=== PATIENT | male | born 1955 | race Caucasian/White ===

== ENCOUNTER 2017-06-16 19:22 | Emergency (ER) | payer MEDICARE, OTHER ==
[~2017-06-16] VITALS: Ht 180.3 cm; Wt 54.5 kg
[~2017-06-16 19:22] MED LIST: DOCU100C40 PO; HYDR-565 PO; LACT-28 PO; LORA0.5T PO; MAG30ORA PO; MIRT-92 PO; OLAN2.5T28 PO; POLY17PO10 PO
[2017-06-16 19:38] VITALS: BP 111/91
[2017-06-16] MEDS ORDERED: PERM60CR4 TP (20:54)
== END 2017-06-16 22:02 | disposition home or self-care (01) ==
LOC: ER 19:22
DX: B86 Scabies (principal); Z59.0 Homelessness; Z79.899 Other long term (current) drug therapy
CPT/HCPCS: 99283

== ENCOUNTER 2018-01-31 10:44 | Inpatient (IN) | payer MEDICARE, OTHER ==
[~2018-01-31] VITALS: Ht 180.3 cm; Wt 65.9 kg
[2018-01-31] VITALS (16 sets, daily range): BP systolic 75–133; BP diastolic 41–74
[~2018-01-31 10:44] MED LIST changes: +HYDR-4353 PO; -HYDR-565 PO; +PERM60CR4 TP
[2018-01-31] MEDS ORDERED: Permethrin 1% 59ml topical rinse TP ONE (10:50)
[2018-01-31 12:03] LABS: BASOPHILS % (AUTO) 0.2 % (0-1); EOSINOPHILS # (AUTO) 0.4 X10'3 (0-0.9); EOSINOPHILS % (AUTO) 3.5 % (0-6); LYMPHOCYTES # (AUTO) 0.8 X10'3 (1.1-4.8); LYMPHOCYTES % (AUTO) 6.5 % (21-51); MEAN CORPUSCULAR HEMOGLOBIN 29.8 PG (27.0-31.0); MEAN CORPUSCULAR HGB CONC 32.8 % (33.0-36.5); MEAN CORPUSCULAR VOLUME 90.7 FL (78-98); MEAN PLATELET VOLUME 6.8 FL (7.4-10.4); MONOCYTES # (AUTO) 0.9 X10'3 (0-0.9); MONOCYTES % (AUTO) 8.1 % (2-12); NEUTROPHILS # (AUTO) 9.6 X10'3 (1.8-7.7); NEUTROPHILS % (AUTO) 81.7 % (42-75); PLATELET COUNT 595 X10'3 (140-440); RED BLOOD COUNT 1.79 X10'6 (4.70-6.10); RED CELL DISTRIBUTION WIDTH 13.6 % (11.5-14.5); WHITE BLOOD COUNT 11.7 X10'3 (4.5-11.0)
[2018-01-31 12:09] LABS: HEMATOCRIT 16.3 % (42.0-52.0); HEMOGLOBIN 5.3 g/dl (14.0-17.9)
[2018-01-31] MEDS ORDERED: haloperidol lactate 5mg/ml inj IM ONE (12:15)
[2018-01-31] MEDS ORDERED: LORazepam 2 mg/ml vial IV ONE (12:15)
[2018-01-31 12:17] LABS: ALANINE AMINOTRANSFERASE 19 U/L (12-78); ALBUMIN/GLOBULIN RATIO 0.8 (1.1-1.5); ALKALINE PHOSPHATASE 95 IU/L (46-116); ANION GAP 12 (8-16); ASPARTATE AMINO TRANSFERASE 17 U/L (10-37); BILIRUBIN,TOTAL 0.3 MG/DL (0.1-1.0); BLOOD UREA NITROGEN 28 MG/DL (7-18); BUN/CREATININE RATIO 21.4 (5.4-32.0); CHLORIDE 106 MMOL/L (99-107); CREATININE 1.31 MG/DL (0.60-1.10); GLUCOSE 216 MG/DL (70-104); POTASSIUM 4.3 MMOL/L (3.5-5.1); SODIUM 143 MMOL/L (135-145); TOTAL CARBON DIOXIDE 24.9 MMOL/L (24-32); TOTAL PROTEIN 6.9 G/DL (6.4-8.2); eGFR 55 ML/MIN
[2018-01-31] MEDS: pantoprazole 40MG/NS 100ML BAG 100 ML IV SCH ×3 (12:20→22:14)
[2018-01-31] MEDS ORDERED: normal saline 1000ML IV soln IV ONE (12:20)
[2018-01-31] MEDS ORDERED: pantoprazole IV 80 MG in normal saline 100ml IV soln 100 ML IV ONE (12:20)
[2018-01-31] MEDS ORDERED: pantoprazole 40 MG vial IV ONE (12:25)
[2018-01-31 12:26] LABS: ETHANOL < 0.010 GM/DL (0.0-0.010)
[2018-01-31 12:34] LABS: NUCLEATED RED BLOOD CELLS 1 /100WBC (0-0); PLATELET ESTIMATE INCREASED; TOTAL CELLS COUNTED 100
[2018-01-31] MEDS ORDERED: LORazepam 2 mg/ml vial IM ONE (12:35)
[2018-01-31 12:40] LABS: POLYCHROMASIA FEW; SCHISTOCYTES FEW
[2018-01-31 12:58] LABS: HYPOCHROMASIA 1+
[2018-01-31 12:59] LABS: TOXIC GRANULATION 1+
[2018-01-31] MEDS ORDERED: levoFLOXACIN-Levaquin 750MG/D5 150 ML IV ONE (13:55)
[2018-01-31 15:30] LABS: HIV ANTIBODY 1&2 RAPID NON-REACTIVE (Neg)
[2018-01-31] MEDS ORDERED: LIDOcaine 2% 10ml TOPICAL JELLY (Urojet) MM ONE (15:35)
[2018-01-31 15:57] LABS: CLARITY,URINE SLIGHTLY CLOUDY (Clear); COLOR,URINE YELLOW (Yellow); GLUCOSE, URINE NEGATIVE (Neg); KETONES,URINE TRACE mg/dl (Neg); LEUKOCYTE ESTERASE ,URINE NEGATIVE (Neg); NITRITES, URINE NEGATIVE (Neg); OCCULT BLOOD,URINE MODERATE (Neg); PH,URINE 5.5 (4.8-8.0); PROTEIN,URINE NEGATIVE (Neg); UROBILINOGEN,URINE 0.2 E.U/dL (0.2-1.0)
[2018-01-31 15:59] LABS: UA COLLECTION TYPE FOLEY CATH
[2018-01-31] MEDS ORDERED: morphine 2 MG/ML inj. syringe IV PRN ×2 (16:00)
[2018-01-31] MEDS ORDERED: magnesium 1gm/100ml D5W IVPB 100 ML IV PRN (16:00)
[2018-01-31] MEDS ORDERED: magnesium 4gm in 100ml NS 100 ML IV PRN (16:00)
[2018-01-31] MEDS ORDERED: potassium Cl 40MEQ/NS 500ml 500 ML IV PRN ×2 (16:00)
[2018-01-31] MEDS ORDERED: magnesium hydroxide 30ml (MOM) UD suspension PO PRN (16:00)
[2018-01-31] MEDS ORDERED: magnesium Cl slow-release 64mg tablet PO PRN (16:00)
[2018-01-31] MEDS ORDERED: ondansetron/PF 4mg/2ml inj IV PRN (16:00)
[2018-01-31] MEDS ORDERED: mag hydrox/Alum hydrox/simeth 30ml oral suspension PO PRN (16:00)
[2018-01-31] MEDS ORDERED: acetaminophen 325mg tablet PO PRN ×2 (16:00)
[2018-01-31] MEDS ORDERED: potassium Cl 20 mEq SR tablet PO PRN ×2 (16:00)
[2018-01-31] MEDS ORDERED: HYDROcodone/acetaminophen 5mg/325mg tablet PO PRN (16:00)
[2018-01-31] MEDS ORDERED: HYDROcodone/acetaminophen 10/325mg tab PO PRN (16:00)
[2018-01-31 16:04] LABS: MUCUS STRANDS FEW /LPF (Neg); SQUAMOUS EPITHELIAL CELL,UR FEW /LPF (FEW)
[2018-01-31 16:05] LABS: BACTERIA,URINE FEW /HPF (Neg); RBC,URINE 0-2 /HPF (0-2); WBC,URINE 0-4 /HPF (0-4)
[2018-01-31 16:06] LABS: AMORPHOUS URATES 2+
[2018-01-31 16:14] LABS: URINE AMPHETAMINE SCREEN NEGATIVE (Neg); URINE BARBITUATE SCREEN NEGATIVE (Neg); URINE BENZODIAZEPINES SCREEN NEGATIVE (Neg); URINE CANNABINOID SCREEN NEGATIVE (Neg); URINE COCAINE SCREEN NEGATIVE (Neg); URINE METHADONE SCREEN NEGATIVE (Neg); URINE OPIATE SCREEN NEGATIVE (Neg); URINE PHENCYCLIDINE SCREEN NEGATIVE (Neg)
[2018-01-31] MEDS: normal saline 1000ml 1,000 ML IV SCH (17:24)
[2018-01-31 20:19] LABS: OCCULT BLOOD STOOL POSITIVE (Neg)
[2018-01-31] MEDS ORDERED: LORazepam 0.5 MG tablet PO PRN (20:25)
[2018-01-31 20:53] LABS: MEAN CORPUSCULAR HEMOGLOBIN 29.3 PG (27.0-31.0); MEAN CORPUSCULAR HGB CONC 33.1 % (33.0-36.5); MEAN CORPUSCULAR VOLUME 88.3 FL (78-98); MEAN PLATELET VOLUME 7.1 FL (7.4-10.4); PLATELET COUNT 332 X10'3 (140-440); RED BLOOD COUNT 2.21 X10'6 (4.70-6.10); RED CELL DISTRIBUTION WIDTH 13.9 % (11.5-14.5); WHITE BLOOD COUNT 10.3 X10'3 (4.5-11.0)
[2018-01-31 20:58] LABS: HEMATOCRIT 19.5 % (42.0-52.0); HEMOGLOBIN 6.5 g/dl (14.0-17.9)
[2018-01-31] MEDS: polyethylene glycol 3350 17gm powd pack PO SCH (21:00)
[2018-01-31] MEDS: mirtazapine 15mg tablet PO SCH (21:00)
[2018-02-01 01:00] VITALS: BP 93/53
[2018-02-01] MEDS: pantoprazole 40MG/NS 100ML BAG 100 ML IV SCH ×5 (01:00→21:22)
[2018-02-01 01:05] VITALS: BP 93/53
[2018-02-01] MEDS: normal saline 1000ml 1,000 ML IV SCH ×3 (02:00→22:00)
[2018-02-01 03:00] VITALS: BP 101/56
[2018-02-01 03:12] LABS: BASOPHILS % (AUTO) 0 % (0-1); EOSINOPHILS # (AUTO) 0.4 X10'3 (0-0.9); EOSINOPHILS % (AUTO) 3.5 % (0-6); HEMOGLOBIN 8.4 g/dl (14.0-17.9); LYMPHOCYTES # (AUTO) 0.5 X10'3 (1.1-4.8); LYMPHOCYTES % (AUTO) 5.3 % (21-51); MEAN CORPUSCULAR HEMOGLOBIN 29.6 PG (27.0-31.0); MEAN CORPUSCULAR HGB CONC 33.5 % (33.0-36.5); MEAN CORPUSCULAR VOLUME 88.5 FL (78-98); MEAN PLATELET VOLUME 6.7 FL (7.4-10.4); MONOCYTES # (AUTO) 0.9 X10'3 (0-0.9); MONOCYTES % (AUTO) 8.6 % (2-12); NEUTROPHILS # (AUTO) 8.5 X10'3 (1.8-7.7); NEUTROPHILS % (AUTO) 82.6 % (42-75); PLATELET COUNT 293 X10'3 (140-440); RED BLOOD COUNT 2.82 X10'6 (4.70-6.10); RED CELL DISTRIBUTION WIDTH 14.5 % (11.5-14.5); WHITE BLOOD COUNT 10.2 X10'3 (4.5-11.0)
[2018-02-01 03:22] LABS: ALBUMIN 2.3 G/DL (3.4-5.0); ANION GAP 11 (8-16); BLOOD UREA NITROGEN 24 MG/DL (7-18); BUN/CREATININE RATIO 22.2 (5.4-32.0); CALCIUM 7.5 MG/DL (8.5-10.1); CHLORIDE 107 MMOL/L (99-107); CREATININE 1.08 MG/DL (0.60-1.10); GLUCOSE 84 MG/DL (70-104); POTASSIUM 3.7 MMOL/L (3.5-5.1); SODIUM 140 MMOL/L (135-145); TOTAL CARBON DIOXIDE 21.8 MMOL/L (24-32); eGFR 69 ML/MIN
[2018-02-01 06:00] VITALS: BP 118/94
[2018-02-01] MEDS: K and/or MAG REPLACEMENT MC SCH (07:08)
[2018-02-01] MEDS: OLANZapine 2.5MG tablet PO SCH ×2 (08:00→21:28)
[2018-02-01] MEDS ORDERED: levoFLOXACIN-Levaquin 750MG/D5 150 ML IV SCH (08:00)
[2018-02-01 11:00] VITALS: BP 97/59
[2018-02-01] MEDS: vancomycin/NS 1 GM ADD-VANTAGE 250 ML IV SCH ×2 (12:08→22:00)
[2018-02-01 16:06] LABS: HEMOGLOBIN 7.7 g/dl (14.0-17.9); MEAN CORPUSCULAR HEMOGLOBIN 29.6 PG (27.0-31.0); MEAN CORPUSCULAR HGB CONC 33.5 % (33.0-36.5); MEAN CORPUSCULAR VOLUME 88.3 FL (78-98); MEAN PLATELET VOLUME 7.3 FL (7.4-10.4); PLATELET COUNT 270 X10'3 (140-440); RED CELL DISTRIBUTION WIDTH 14.1 % (11.5-14.5); WHITE BLOOD COUNT 10.4 X10'3 (4.5-11.0)
[2018-02-01] MEDS: Ivermectin 3mg tablet PO SCH (16:17)
[2018-02-01] MEDS: polyethylene glycol 3350 17gm powd pack PO SCH (21:00)
[2018-02-01] MEDS: lactobacillus rhamnosus 10,000 MMU CELLS/CAPSULE PO SCH (21:28)
[2018-02-01] MEDS: mirtazapine 15mg tablet PO SCH (21:28)
[2018-02-01] MEDS ORDERED: haloperidol lactate 5mg/ml inj IM ONE (23:50)
[2018-02-01] MEDS ORDERED: diphenhydrAMINE 50 mg/ml inj IM ONE (23:50)
[2018-02-02 00:30] VITALS: BP 102/49
[2018-02-02] MEDS: pantoprazole 40MG/NS 100ML BAG 100 ML IV SCH ×5 (01:00→21:00)
[2018-02-02 07:00] VITALS: BP 122/82
[2018-02-02] MEDS: lactobacillus rhamnosus 10,000 MMU CELLS/CAPSULE PO SCH ×2 (08:00→20:00)
[2018-02-02] MEDS: normal saline 1000ml 1,000 ML IV SCH ×2 (08:00→18:00)
[2018-02-02] MEDS: K and/or MAG REPLACEMENT MC SCH (08:00)
[2018-02-02] MEDS: OLANZapine 2.5MG tablet PO SCH ×2 (08:00→20:00)
[2018-02-02] MEDS: vancomycin/NS 1 GM ADD-VANTAGE 250 ML IV SCH ×2 (10:00→22:00)
[2018-02-02 11:15] LABS: HBSAG SCREEN Negative (Negative); HEP A AB, IGM Negative (Negative); HEP B CORE AB, IGM Negative (Negative); HEPATITIS C ANTIBODY <0.1 s/co ratio (0.0-0.9)
[2018-02-02] MEDS ORDERED: LORazepam 2 mg/ml vial IV PRN (12:00)
[2018-02-02 12:34] LABS: BASOPHILS % (AUTO) 0.2 % (0-1); EOSINOPHILS # (AUTO) 1.4 X10'3 (0-0.9); EOSINOPHILS % (AUTO) 14.5 % (0-6); HEMATOCRIT 24.4 % (42.0-52.0); HEMOGLOBIN 7.9 g/dl (14.0-17.9); LYMPHOCYTES # (AUTO) 0.7 X10'3 (1.1-4.8); LYMPHOCYTES % (AUTO) 7.4 % (21-51); MEAN CORPUSCULAR HEMOGLOBIN 29.1 PG (27.0-31.0); MEAN CORPUSCULAR HGB CONC 32.4 % (33.0-36.5); MEAN CORPUSCULAR VOLUME 89.8 FL (78-98); MEAN PLATELET VOLUME 6.9 FL (7.4-10.4); MONOCYTES # (AUTO) 0.8 X10'3 (0-0.9); MONOCYTES % (AUTO) 7.9 % (2-12); NEUTROPHILS # (AUTO) 6.9 X10'3 (1.8-7.7); PLATELET COUNT 272 X10'3 (140-440); RED BLOOD COUNT 2.72 X10'6 (4.70-6.10); RED CELL DISTRIBUTION WIDTH 14.5 % (11.5-14.5); WHITE BLOOD COUNT 9.9 X10'3 (4.5-11.0)
[2018-02-02 12:50] LABS: ALBUMIN 2.1 G/DL (3.4-5.0); ANION GAP 9 (8-16); BLOOD UREA NITROGEN 13 MG/DL (7-18); BUN/CREATININE RATIO 15.3 (5.4-32.0); CALCIUM 7.9 MG/DL (8.5-10.1); CHLORIDE 109 MMOL/L (99-107); CREATININE 0.85 MG/DL (0.60-1.10); GLUCOSE 75 MG/DL (70-104); POTASSIUM 3.3 MMOL/L (3.5-5.1); SODIUM 142 MMOL/L (135-145); TOTAL CARBON DIOXIDE 23.8 MMOL/L (24-32); eGFR > 90 ML/MIN
[2018-02-02] MEDS ORDERED: OLANZapine **IM** 10 mg inj. IM PRN (17:05)
[2018-02-02 19:00] VITALS: BP 94/56
[2018-02-02] MEDS: polyethylene glycol 3350 17gm powd pack PO SCH (21:00)
[2018-02-02] MEDS: mirtazapine 15mg tablet PO SCH (21:00)
[2018-02-02] MEDS ORDERED: VANCOMYCIN LEVEL IV ONE (21:30)
[2018-02-03] MEDS: pantoprazole 40MG/NS 100ML BAG 100 ML IV SCH ×5 (01:00→21:00)
[2018-02-03 03:00] VITALS: BP 94/60
[2018-02-03] MEDS: normal saline 1000ml 1,000 ML IV SCH ×2 (04:00→13:04)
[2018-02-03] MEDS: K and/or MAG REPLACEMENT MC SCH (08:00)
[2018-02-03] MEDS: lactobacillus rhamnosus 10,000 MMU CELLS/CAPSULE PO SCH ×2 (08:00→20:00)
[2018-02-03] MEDS: OLANZapine 2.5MG tablet PO SCH ×2 (08:00→20:00)
[2018-02-03] MEDS: vancomycin/NS 1 GM ADD-VANTAGE 250 ML IV SCH (10:00)
[2018-02-03 14:31] VITALS: BP 101/58
[2018-02-03 15:00] VITALS: BP 86/51
[2018-02-03] MEDS ORDERED: haloperidol lactate 5mg/ml inj IM PRN (15:25)
[2018-02-03] MEDS: LORazepam 2 mg/ml vial IM PRN (16:10)
[2018-02-03 16:30] VITALS: BP 133/86
[2018-02-03] MEDS: ceFAZolin 1GM/D5W- ADD-VANTAGE 50 ML IV SCH (16:51)
[2018-02-03 17:38] LABS: BASOPHILS % (AUTO) 0.2 % (0-1); EOSINOPHILS # (AUTO) 1.1 X10'3 (0-0.9); HEMATOCRIT 28.8 % (42.0-52.0); HEMOGLOBIN 9.4 g/dl (14.0-17.9); LYMPHOCYTES # (AUTO) 0.8 X10'3 (1.1-4.8); LYMPHOCYTES % (AUTO) 7.6 % (21-51); MEAN CORPUSCULAR HEMOGLOBIN 29.1 PG (27.0-31.0); MEAN CORPUSCULAR HGB CONC 32.7 % (33.0-36.5); MEAN PLATELET VOLUME 7.6 FL (7.4-10.4); MONOCYTES # (AUTO) 0.7 X10'3 (0-0.9); MONOCYTES % (AUTO) 6.5 % (2-12); NEUTROPHILS % (AUTO) 75.7 % (42-75); PLATELET COUNT 326 X10'3 (140-440); RED BLOOD COUNT 3.24 X10'6 (4.70-6.10); RED CELL DISTRIBUTION WIDTH 14.4 % (11.5-14.5); WHITE BLOOD COUNT 10.5 X10'3 (4.5-11.0)
[2018-02-03 17:55] LABS: ALBUMIN 2.2 G/DL (3.4-5.0); ANION GAP 7 (8-16); BLOOD UREA NITROGEN 8 MG/DL (7-18); CALCIUM 8.1 MG/DL (8.5-10.1); CHLORIDE 107 MMOL/L (99-107); GLUCOSE 133 MG/DL (70-104); MAGNESIUM 2.1 MG/DL (1.5-2.4); POTASSIUM 3.9 MMOL/L (3.5-5.1); SODIUM 142 MMOL/L (135-145); TOTAL CARBON DIOXIDE 27.7 MMOL/L (24-32); eGFR > 90 ML/MIN
[2018-02-03 18:00] VITALS: BP 86/57
[2018-02-03] MEDS: polyethylene glycol 3350 17gm powd pack PO SCH (21:00)
[2018-02-03] MEDS: mirtazapine 15mg tablet PO SCH (21:00)
[2018-02-04] MEDS: pantoprazole 40MG/NS 100ML BAG 100 ML IV SCH ×5 (01:00→23:19)
[2018-02-04] MEDS: K and/or MAG REPLACEMENT MC SCH (08:00)
[2018-02-04] MEDS: ceFAZolin 1GM/D5W- ADD-VANTAGE 50 ML IV SCH ×4 (08:00→23:20)
[2018-02-04] MEDS: OLANZapine 2.5MG tablet PO SCH ×2 (08:00→21:44)
[2018-02-04] MEDS: lactobacillus rhamnosus 10,000 MMU CELLS/CAPSULE PO SCH ×2 (08:00→20:00)
[2018-02-04] MEDS: normal saline 1000ml 1,000 ML IV SCH ×3 (10:00→15:28)
[2018-02-04 10:30] VITALS: BP 97/50
[2018-02-04 15:00] VITALS: BP 111/77
[2018-02-04 16:46] LABS: BASOPHILS % (AUTO) 0.4 % (0-1); EOSINOPHILS # (AUTO) 1.2 X10'3 (0-0.9); EOSINOPHILS % (AUTO) 12.1 % (0-6); HEMATOCRIT 29.2 % (42.0-52.0); HEMOGLOBIN 9.4 g/dl (14.0-17.9); LYMPHOCYTES # (AUTO) 0.9 X10'3 (1.1-4.8); LYMPHOCYTES % (AUTO) 8.5 % (21-51); MEAN CORPUSCULAR HEMOGLOBIN 28.8 PG (27.0-31.0); MEAN CORPUSCULAR HGB CONC 32.3 % (33.0-36.5); MEAN PLATELET VOLUME 7.4 FL (7.4-10.4); MONOCYTES # (AUTO) 0.7 X10'3 (0-0.9); MONOCYTES % (AUTO) 6.8 % (2-12); NEUTROPHILS # (AUTO) 7.3 X10'3 (1.8-7.7); NEUTROPHILS % (AUTO) 72.2 % (42-75); PLATELET COUNT 316 X10'3 (140-440); RED BLOOD COUNT 3.29 X10'6 (4.70-6.10); RED CELL DISTRIBUTION WIDTH 14.4 % (11.5-14.5); WHITE BLOOD COUNT 10.1 X10'3 (4.5-11.0)
[2018-02-04 16:57] LABS: ALBUMIN 2.2 G/DL (3.4-5.0); ANION GAP 7 (8-16); BLOOD UREA NITROGEN 6 MG/DL (7-18); BUN/CREATININE RATIO 6.4 (5.4-32.0); CALCIUM 8.4 MG/DL (8.5-10.1); CHLORIDE 106 MMOL/L (99-107); CREATININE 0.94 MG/DL (0.60-1.10); GLUCOSE 162 MG/DL (70-104); POTASSIUM 3.5 MMOL/L (3.5-5.1); SODIUM 141 MMOL/L (135-145); TOTAL CARBON DIOXIDE 28.3 MMOL/L (24-32); eGFR 81 ML/MIN
[2018-02-04] MEDS: haloperidol lactate 5mg/ml inj IM PRN (18:58)
[2018-02-04] MEDS: polyethylene glycol 3350 17gm powd pack PO SCH (21:00)
[2018-02-04] MEDS: mirtazapine 15mg tablet PO SCH (21:44)
[2018-02-04 22:00] VITALS: BP 92/55
[2018-02-05] MEDS: pantoprazole 40MG/NS 100ML BAG 100 ML IV SCH ×5 (00:14→20:08)
[2018-02-05 03:00] VITALS: BP 110/69
[2018-02-05] MEDS: normal saline 1000ml 1,000 ML IV SCH (04:01)
[2018-02-05] MEDS: OLANZapine 2.5MG tablet PO SCH ×2 (08:00→20:08)
[2018-02-05] MEDS: lactobacillus rhamnosus 10,000 MMU CELLS/CAPSULE PO SCH ×2 (08:00→20:07)
[2018-02-05] MEDS: K and/or MAG REPLACEMENT MC SCH (08:00)
[2018-02-05] MEDS: ceFAZolin 1GM/D5W- ADD-VANTAGE 50 ML IV SCH ×2 (08:56→16:41)
[2018-02-05 09:27] VITALS: BP 131/88
[2018-02-05 15:00] VITALS: BP 100/58
[2018-02-05 18:00] VITALS: BP 104/62
[2018-02-05] MEDS: mirtazapine 15mg tablet PO SCH (20:07)
[2018-02-05] MEDS: polyethylene glycol 3350 17gm powd pack PO SCH (20:51)
[2018-02-05 22:00] VITALS: BP 98/58
[2018-02-06] MEDS: ceFAZolin 1GM/D5W- ADD-VANTAGE 50 ML IV SCH ×4 (00:04→23:55)
[2018-02-06] MEDS: pantoprazole 40MG/NS 100ML BAG 100 ML IV SCH ×5 (00:04→22:36)
[2018-02-06] MEDS: haloperidol lactate 5mg/ml inj IM PRN (00:35)
[2018-02-06 02:00] VITALS: BP 108/60
[2018-02-06 06:00] VITALS: BP 112/67
[2018-02-06] MEDS: K and/or MAG REPLACEMENT MC SCH (08:00)
[2018-02-06] MEDS: OLANZapine 2.5MG tablet PO SCH ×2 (09:02→09:06)
[2018-02-06] MEDS: lactobacillus rhamnosus 10,000 MMU CELLS/CAPSULE PO SCH ×2 (09:02→09:05)
[2018-02-06] MEDS: polyethylene glycol 3350 17gm powd pack PO SCH (20:11)
[2018-02-06] MEDS: mirtazapine 15mg tablet PO SCH (20:22)
[2018-02-06 22:00] VITALS: BP 115/63
[2018-02-07] MEDS: LORazepam 2 mg/ml vial IM PRN (00:13)
[2018-02-07] MEDS ORDERED: diphenhydrAMINE 50 mg/ml inj IV PRN (02:25)
[2018-02-07] MEDS: haloperidol lactate 5mg/ml inj IM PRN (03:22)
[2018-02-07] MEDS: pantoprazole 40MG/NS 100ML BAG 100 ML IV SCH ×2 (04:23→09:56)
[2018-02-07] MEDS: K and/or MAG REPLACEMENT MC SCH (08:00)
[2018-02-07] MEDS: OLANZapine 2.5MG tablet PO SCH ×2 (08:00→20:00)
[2018-02-07] MEDS: lactobacillus rhamnosus 10,000 MMU CELLS/CAPSULE PO SCH ×2 (08:00→20:00)
[2018-02-07] MEDS: ceFAZolin 1GM/D5W- ADD-VANTAGE 50 ML IV SCH ×2 (09:56→16:42)
[2018-02-07 11:35] VITALS: BP 104/50
[2018-02-07 13:43] LABS: BASOPHILS % (AUTO) 0.4 % (0-1); EOSINOPHILS % (AUTO) 10.8 % (0-6); HEMATOCRIT 28.3 % (42.0-52.0); HEMOGLOBIN 9.1 g/dl (14.0-17.9); LYMPHOCYTES % (AUTO) 10.9 % (21-51); MEAN CORPUSCULAR HEMOGLOBIN 28.9 PG (27.0-31.0); MEAN CORPUSCULAR HGB CONC 32.2 % (33.0-36.5); MEAN CORPUSCULAR VOLUME 89.6 FL (78-98); MEAN PLATELET VOLUME 7.6 FL (7.4-10.4); MONOCYTES # (AUTO) 0.9 X10'3 (0-0.9); MONOCYTES % (AUTO) 9.7 % (2-12); NEUTROPHILS # (AUTO) 6.2 X10'3 (1.8-7.7); NEUTROPHILS % (AUTO) 68.2 % (42-75); PLATELET COUNT 301 X10'3 (140-440); RED BLOOD COUNT 3.16 X10'6 (4.70-6.10); RED CELL DISTRIBUTION WIDTH 14.3 % (11.5-14.5); WHITE BLOOD COUNT 9.1 X10'3 (4.5-11.0)
[2018-02-07 13:54] LABS: ALBUMIN 2.3 G/DL (3.4-5.0); ANION GAP 7 (8-16); BLOOD UREA NITROGEN 6 MG/DL (7-18); BUN/CREATININE RATIO 7.2 (5.4-32.0); CALCIUM 8.5 MG/DL (8.5-10.1); CHLORIDE 102 MMOL/L (99-107); CREATININE 0.83 MG/DL (0.60-1.10); GLUCOSE 114 MG/DL (70-104); POTASSIUM 4.5 MMOL/L (3.5-5.1); SODIUM 141 MMOL/L (135-145); TOTAL CARBON DIOXIDE 32.4 MMOL/L (24-32); eGFR > 90 ML/MIN
[2018-02-07] MEDS: pantoprazole 40mg Tablet.DR PO SCH (16:44)
[2018-02-07 17:02] VITALS: BP 99/58
[2018-02-07] MEDS: mirtazapine 15mg tablet PO SCH (21:00)
[2018-02-07] MEDS: polyethylene glycol 3350 17gm powd pack PO SCH (21:00)
[2018-02-07 23:00] VITALS: BP 93/54
[2018-02-08 03:00] VITALS: BP 94/59
[2018-02-08] MEDS: pantoprazole 40mg Tablet.DR PO SCH ×2 (07:00→17:00)
[2018-02-08] MEDS: ceFAZolin 1GM/D5W- ADD-VANTAGE 50 ML IV SCH ×3 (07:31→16:30)
[2018-02-08] MEDS: K and/or MAG REPLACEMENT MC SCH (08:00)
[2018-02-08] MEDS: OLANZapine 2.5MG tablet PO SCH ×2 (08:00→20:00)
[2018-02-08] MEDS: lactobacillus rhamnosus 10,000 MMU CELLS/CAPSULE PO SCH ×2 (08:00→20:00)
[2018-02-08 11:00] VITALS: BP 97/56
[2018-02-08 15:00] VITALS: BP 92/57
[2018-02-08] MEDS: Ivermectin 3mg tablet PO SCH (15:25)
[2018-02-08 19:00] VITALS: BP 102/60
[2018-02-08] MEDS: mirtazapine 15mg tablet PO SCH (21:00)
[2018-02-08] MEDS: polyethylene glycol 3350 17gm powd pack PO SCH (21:00)
[2018-02-08 23:00] VITALS: BP 90/45
[2018-02-09] MEDS: ceFAZolin 1GM/D5W- ADD-VANTAGE 50 ML IV SCH ×3 (01:28→15:52)
[2018-02-09 07:00] VITALS: BP 106/49
[2018-02-09] MEDS: pantoprazole 40mg Tablet.DR PO SCH ×2 (07:00→17:00)
[2018-02-09] MEDS: lactobacillus rhamnosus 10,000 MMU CELLS/CAPSULE PO SCH ×2 (08:00→20:00)
[2018-02-09] MEDS: K and/or MAG REPLACEMENT MC SCH (08:00)
[2018-02-09] MEDS: OLANZapine 2.5MG tablet PO SCH ×2 (08:00→20:00)
[2018-02-09] MEDS: polyethylene glycol 3350 17gm powd pack PO SCH (21:00)
[2018-02-09] MEDS: mirtazapine 15mg tablet PO SCH (21:00)
[2018-02-10 03:00] VITALS: BP 95/45
[2018-02-10] MEDS: pantoprazole 40mg Tablet.DR PO SCH ×2 (07:00→17:00)
[2018-02-10] MEDS: lactobacillus rhamnosus 10,000 MMU CELLS/CAPSULE PO SCH ×2 (08:00→20:00)
[2018-02-10] MEDS: K and/or MAG REPLACEMENT MC SCH (08:00)
[2018-02-10] MEDS: OLANZapine 2.5MG tablet PO SCH ×2 (08:00→20:00)
[2018-02-10] MEDS ORDERED: levoFLOXACIN 750MG TABLET PO SCH (11:00)
[2018-02-10] MEDS: levoFLOXACIN-Levaquin 750MG/D5 150 ML IV SCH (14:55)
[2018-02-10] MEDS: polyethylene glycol 3350 17gm powd pack PO SCH (21:00)
[2018-02-10] MEDS: mirtazapine 15mg tablet PO SCH (21:00)
[2018-02-11] MEDS: pantoprazole 40mg Tablet.DR PO SCH ×2 (07:00→17:00)
[2018-02-11] MEDS: lactobacillus rhamnosus 10,000 MMU CELLS/CAPSULE PO SCH ×2 (07:27→20:00)
[2018-02-11] MEDS: OLANZapine 2.5MG tablet PO SCH ×2 (07:27→21:00)
[2018-02-11] MEDS: levoFLOXACIN-Levaquin 750MG/D5 150 ML IV SCH (07:27)
[2018-02-11] MEDS: K and/or MAG REPLACEMENT MC SCH (08:00)
[2018-02-11] MEDS: polyethylene glycol 3350 17gm powd pack PO SCH (21:00)
[2018-02-11] MEDS: mirtazapine 15mg tablet PO SCH (21:00)
[2018-02-12] MEDS: lactobacillus rhamnosus 10,000 MMU CELLS/CAPSULE PO SCH ×2 (08:00→20:00)
[2018-02-12] MEDS: K and/or MAG REPLACEMENT MC SCH (08:00)
[2018-02-12] MEDS: OLANZapine 2.5MG tablet PO SCH ×2 (08:00→20:00)
[2018-02-12] MEDS: pantoprazole 40mg Tablet.DR PO SCH ×2 (08:04→16:04)
[2018-02-12] MEDS ORDERED: levoFLOXACIN 750MG TABLET PO SCH (11:00)
[2018-02-12] MEDS: polyethylene glycol 3350 17gm powd pack PO SCH (21:00)
[2018-02-12] MEDS: mirtazapine 15mg tablet PO SCH (21:00)
[2018-02-12 23:00] VITALS: BP 89/50
[2018-02-13] MEDS: pantoprazole 40mg Tablet.DR PO SCH ×2 (07:00→17:00)
[2018-02-13] MEDS: K and/or MAG REPLACEMENT MC SCH (07:08)
[2018-02-13] MEDS: OLANZapine 2.5MG tablet PO SCH (07:08)
[2018-02-13] MEDS: lactobacillus rhamnosus 10,000 MMU CELLS/CAPSULE PO SCH (07:08)
[2018-02-13] MEDS ORDERED: LEVO500T2 PO (11:29)
== END 2018-02-13 20:40 | disposition home or self-care (01) | DRG 871 ==
LOC: ER 10:46 → ED HOLD 16:00 → PCU 3S 20:05
PROVIDERS: ADMIT Hospitalist; ATTEND Family Medicine
PROC: 30233N1 Transfusion of Nonautologous Red Blood Cells into Peripheral Vein, Percutaneous Approach (ICD-10-PCS; principal; 2018-01-31)
DX: A41.9 Sepsis, unspecified organism (principal); G92 Toxic encephalopathy; J18.9 Pneumonia, unspecified organism; R65.21 Severe sepsis with septic shock; E46 Unspecified protein-calorie malnutrition; K92.2 Gastrointestinal hemorrhage, unspecified; D62 Acute posthemorrhagic anemia; J47.0 Bronchiectasis with acute lower respiratory infection; B86 Scabies; Z60.2 Problems related to living alone; F20.9 Schizophrenia, unspecified; B85.1 Pediculosis due to Pediculus humanus corporis; F22 Delusional disorders; F19.10 Other psychoactive substance abuse, uncomplicated; F29 Unspecified psychosis not due to a substance or known physiological condition; B95.61 Methicillin susceptible Staphylococcus aureus infection as the cause of diseases classified elsewhere; F10.10 Alcohol abuse, uncomplicated; D64.9 Anemia, unspecified; R62.7 Adult failure to thrive; Z59.0 Homelessness; Z99.3 Dependence on wheelchair; Z79.899 Other long term (current) drug therapy; Z68.20 Body mass index [BMI] 20.0-20.9, adult
CPT/HCPCS: 36415; 71045; 74176; 80048; 80053; 80074; 80305; 80320; 81001; 82140; 82272; 83605; 83735; 84443; 85025; 85027; 86703; 86885; 86900; 86901; 86920; 87040; 87070; 87077; 87186; 93005; 93308; 96361; 96365; 96366; 96367; 96372; 96375; 99291; 99292; C9113; G0378; J0690; J1200; J1630; J1956; J2060; J3370; J7030; P9016

== ENCOUNTER 2018-02-15 00:42 | Emergency (ER) | payer MEDICARE, OTHER ==
[~2018-02-15 00:42] MED LIST changes: +LEVO500T2 PO
== END 2018-02-15 00:55 | disposition left against medical advice (07) ==
LOC: ER 00:43
DX: M79.605 Pain in left leg (principal); M79.604 Pain in right leg; Z53.21 Procedure and treatment not carried out due to patient leaving prior to being seen by health care provider

== ENCOUNTER 2018-02-20 16:54 | Emergency (ER) | payer MEDICARE, MEDICAID ==
[~2018-02-20] VITALS: Ht 175.3 cm; Wt 56.2 kg
[~2018-02-20 16:54] MED LIST changes: -LEVO500T2 PO
[2018-02-20] MEDS ORDERED: LORazepam 1 MG tablet PO ONE (17:15)
[2018-02-20] MEDS ORDERED: cephalexin 250mg capsule PO ONE (17:20)
[2018-02-20] MEDS ORDERED: HYDROcodone/acetaminophen 5mg/325mg tablet PO ONE (17:30)
[2018-02-20] MEDS ORDERED: haloperidol lactate 5mg/ml inj IM ONE (17:30)
[2018-02-20 17:42] LABS: BASOPHILS % (AUTO) 0.2 % (0-1); EOSINOPHILS % (AUTO) 0.1 % (0-6); HEMATOCRIT 32.7 % (42.0-52.0); HEMOGLOBIN 10.4 g/dl (14.0-17.9); LYMPHOCYTES # (AUTO) 0.7 X10'3 (1.1-4.8); LYMPHOCYTES % (AUTO) 4.9 % (21-51); MEAN CORPUSCULAR HEMOGLOBIN 27.9 PG (27.0-31.0); MEAN CORPUSCULAR HGB CONC 31.9 % (33.0-36.5); MEAN CORPUSCULAR VOLUME 87.4 FL (78-98); MEAN PLATELET VOLUME 7.4 FL (7.4-10.4); MONOCYTES % (AUTO) 6.8 % (2-12); NEUTROPHILS # (AUTO) 12.7 X10'3 (1.8-7.7); PLATELET COUNT 640 X10'3 (140-440); RED BLOOD COUNT 3.74 X10'6 (4.70-6.10); RED CELL DISTRIBUTION WIDTH 14.7 % (11.5-14.5); WHITE BLOOD COUNT 14.4 X10'3 (4.5-11.0)
[2018-02-20 17:55] LABS: ALANINE AMINOTRANSFERASE 29 U/L (12-78); ALBUMIN 3.2 G/DL (3.4-5.0); ALBUMIN/GLOBULIN RATIO 0.7 (1.1-1.5); ALKALINE PHOSPHATASE 125 IU/L (46-116); ANION GAP 13 (8-16); ASPARTATE AMINO TRANSFERASE 37 U/L (10-37); BILIRUBIN,TOTAL 0.6 MG/DL (0.1-1.0); BLOOD UREA NITROGEN 19 MG/DL (7-18); BUN/CREATININE RATIO 21.1 (5.4-32.0); CALCIUM 9.8 MG/DL (8.5-10.1); CHLORIDE 97 MMOL/L (99-107); ETHANOL < 0.010 GM/DL (0.0-0.010); GLUCOSE 124 MG/DL (70-104); POTASSIUM 4.4 MMOL/L (3.5-5.1); SODIUM 138 MMOL/L (135-145); TOTAL CARBON DIOXIDE 28.2 MMOL/L (24-32); TOTAL PROTEIN 7.7 G/DL (6.4-8.2); eGFR 85 ML/MIN
--- NOTE | 2018-02-20 18:27 | NUR ---
Assumed care note: Rec'd in report that currently due medications, including abx, were being "held" for now as patient was refusing, though "calm".
--- NOTE | 2018-02-20 18:35 | NUR ---
Patient in bed, eyes open, asked how patient was feeling, he responds, "I'm not, leave me the fuck alone", and turned his head away from this nurse.
--- NOTE | 2018-02-20 20:56 | NUR ---
PATIENT CONTINUES TO REFUSED MEDICATION, STATES "GO AWAY" AND GOES BACK TO SLEEP.
--- NOTE | 2018-02-20 22:05 | NUR ---
Straight cath completed for urine specimen. Patient physically tolerated well, continues to be verbally diverse in language/word selections with preference for "ass hole" when addressing staff.
[2018-02-20 22:19] LABS: CLARITY,URINE CLEAR (Clear); COLOR,URINE YELLOW (Yellow); GLUCOSE, URINE NEGATIVE (Neg); KETONES,URINE 40 mg/dl (Neg); LEUKOCYTE ESTERASE ,URINE NEGATIVE (Neg); NITRITES, URINE NEGATIVE (Neg); OCCULT BLOOD,URINE NEGATIVE (Neg); PROTEIN,URINE NEGATIVE (Neg); UROBILINOGEN,URINE 0.2 E.U/dL (0.2-1.0)
[2018-02-20 22:28] LABS: UA COLLECTION TYPE STRAIGHT CATH
--- NOTE | 2018-02-20 22:30 | NUR ---
Skin assessment completed: fragile skin tissue noted to right post upper thigh area. deep red "scab like" area to coccyx and sacrum. Multiple areas of scars and scabs. Redness to BLE/feet without open drng wounds or weeping skin. This was endorsed to ERP covering, as well as patient's non-compliance/refusal of ordered medications. Medications "okay'd" to not administer under the circumstances. Non-Administered on the eMAR.
[2018-02-20 22:33] LABS: URINE AMPHETAMINE SCREEN NEGATIVE (Neg); URINE BARBITUATE SCREEN NEGATIVE (Neg); URINE BENZODIAZEPINES SCREEN NEGATIVE (Neg); URINE CANNABINOID SCREEN NEGATIVE (Neg); URINE COCAINE SCREEN NEGATIVE (Neg); URINE METHADONE SCREEN NEGATIVE (Neg); URINE OPIATE SCREEN NEGATIVE (Neg); URINE PHENCYCLIDINE SCREEN NEGATIVE (Neg)
--- NOTE | 2018-02-21 | NUR ---
RESTING IN BED WITH EYES CLOSED, APPEARING TO SLEEP, NO OBVIOUS NEW CONCERNS AT THIS TIME.
--- NOTE | 2018-02-21 00:41 | NUR ---
Awake in bed, yelling "noises", becomes verbally abrassive when asked if he needs help or assistance. Resp are even and unlabored. Refuses to be repositioned. Will monitor.
--- NOTE | 2018-02-21 01:54 | NUR ---
In bed with eyes closed, appearing to sleep, will continue to monitor.
--- NOTE | 2018-02-21 03:08 | NUR ---
Continues to rest in bed with eyes closed, appearing to sleep, will continue to monitor for changes
--- NOTE | 2018-02-21 04:46 | NUR ---
No new concerns at this time. Continues to rest with eyes closed. Will continue to monitor.
--- NOTE | 2018-02-21 06:05 | NUR ---
Patient yelling out, asked for water. Ice water provided.
--- NOTE | 2018-02-21 06:57 | NUR ---
PT SLEEPING ON RT SIDE, APPEARS COMFORTABLE, NO S/S OF DISTRESS NOTED. WILL CONTINUE TO MONITOR
[2018-02-21] MEDS ORDERED: benztropine 1mg tablet PO STA (09:13)
--- NOTE | 2018-02-21 09:45 | NUR ---
INITATED TELEPSYCH [id number]
--- NOTE | 2018-02-21 09:50 | NUR ---
PT C/O BLL PAIN. ATTEMPTED TO MEDICATE PT WITH ORDERED COGENTIN. PT REFUSES MEDICATION, "YOU KNOW I CAN NOT SWALLOW PILLS!" PT WAS REMINDED THAT HE HAS BEEN ABLE TO SWALLOW MILK AND WATER WELL AND THAT HE HAD EATEN MOST OF HIS BREAKFAST. PT INSIST THAT "I DIDN'T EAT BREAKFAST, I CAN'T SWALLOW THAT!"
--- NOTE | 2018-02-21 10:32 | NUR ---
FROM SOC CALLED FOR PT STATUS AND UPDATE. TELEPSYCH IN PT'S ROOM, PT WOKEN UP AND INFORMED THAT INTERVIEW WILL BE TAKING PLACE SOON
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
--- NOTE | 2018-02-22 09:20 | NUR ---
Patient incontient of urine and bowel. States that he doesn't know that it is coming out. Bedding changed, new gown placed. Skin care provided. Patient wants to argue with every thing educated on. Resistant to care, when skin is being wiped down he states to leave him alone and that he doesn't want to be cleaned up or taken care of. Patient complained of his food, states that it isn't good, although ate well independently. Will continue to monitor patient throughout shift.
--- NOTE | 2018-02-22 18:48 | NUR ---
Report received from ROCIO White. Patient is awake and lying in bed
--- NOTE | 2018-02-22 19:45 | NUR ---
Patient is currently asleep in bed
--- NOTE | 2018-02-22 20:45 | NUR ---
Patient is currently asleep in bed
--- NOTE | 2018-02-22 22:12 | NUR ---
Patient is currently asleep in bed
--- NOTE | 2018-02-22 23:00 | NUR ---
Patient is asleep in bed
--- NOTE | 2018-02-23 | NUR ---
Patient is asleep in bed
--- NOTE | 2018-02-23 01:43 | NUR ---
Patient is lying in bed and appears to be asleep
--- NOTE | 2018-02-23 02:50 | NUR ---
Patient appears to be sleeping comfortably
--- NOTE | 2018-02-23 03:58 | NUR ---
Patient appears to be sleeping comfortably
--- NOTE | 2018-02-23 04:21 | NUR ---
Patient awakened and stating that his knees are growing and his arms are twisted and he doesn't know why. Patient fell asleep shortly after waking stating these things.
--- NOTE | 2018-02-23 05:03 | NUR ---
Patient is awake lying in bed
--- NOTE | 2018-02-23 09:14 | NUR ---
Break notes:patient given a full bed bath,linen,pillow case and blanket changed with 2 staff ED techs,patient was resistive the whole time but not physical.patient incontinent with bm,pericare given.Repositioned to side.Kept comfortable in bed.Patient visible to staff.Will talk to Primary RN regarding wound consult.
--- NOTE | 2018-02-23 13:39 | NUR ---
gave report to Jovani CHAN with Behavioral health, he will present case to provider, pt is sleeping quietly on bed
--- NOTE | 2018-02-23 14:50 | NUR ---
Patient has been in bed sleeping most the day. He recieved a bed bath this AM by staff which he was no compliant for. Patient has used the urinal during my shift and he is incontinent of stool and urine at times. I called Jovani at [facility] and gave report. I have been in contact with Vicki at [facility] regarding patient and his [id number] hold status. Patient is resting in his bed.
--- NOTE | 2018-02-24 00:59 | NUR ---
PT REFUSES PILLOW UNDER RIGHT HIP TO RELIEVE PRESSURE. WILL NOT KEEP PILLOW UNDER HIP.
--- NOTE | 2018-02-24 01:06 | NUR ---
PT CONTINUES TO LAY ON RIGHT SIDE. REFUSES TO REPOSITION.
--- NOTE | 2018-02-24 01:08 | NUR ---
PICTURE TAKEN OF WOUND ON RIGHT HIP
--- NOTE | 2018-02-24 05:49 | NUR ---
Pt refused AM vital signs. RN aware.
--- NOTE | 2018-02-24 19:30 | NUR ---
PT had bowel movement in bed. Linens changed and placed in new gown and brief. Noelle care given.
[2018-02-24] MEDS ORDERED: NO HOME MEDS (22:15)
--- NOTE | 2018-02-24 22:33 | NUR ---
PT WITH MULTIPLE SMALL ABRASIONS TO BILAT FEET, NO DRAINAGE NOTED.
--- NOTE | 2018-02-25 00:01 | NUR ---
PT ABLE TO REPOSITION SELF, ENC TO STAY OFF R HIP DUE TO DECUB. USED URINAL, BUT CONTINUES TO BE INCONT OF STOOL.
--- NOTE | 2018-02-25 03:43 | NUR ---
SLEEPING, WAS CHECKED EARLIER FOR STOOL INCONTINENCE.
--- NOTE | 2018-02-25 05:14 | NUR ---
PT REFUSED VITAL SIGNS-- ROCIO DIEGO NOTIFIED.
--- NOTE | 2018-02-25 10:03 | NUR ---
PT IS IN BED ON RIGHT SIDE, NO S/S OF DISTRESS, MONTEZ. EQUAL SPONTAINEOUS BREATHING
--- NOTE | 2018-02-25 12:58 | NUR ---
PT IS SLEEPING, SUPINE, NO S/S OF DISTRESS, EVEN, EQUAL BREATHING
--- NOTE | 2018-02-25 16:59 | NUR ---
PT IS IN BED SLEEPING NO S/S OF DISTRESS, SPONTASNEOUS BREATHING
--- NOTE | 2018-02-25 17:58 | NUR ---
PATIENT CLEANED OF STOOL, SKIN CARE GIVEN, AND CLEAN DIAPER APPLIED. PATIENT UNCOOPERATIVE DURING PATIENT CARE, YELLING OUT AND ASKING STAFF TO STOP. REPOSITIONED FOR COMFORT.
--- NOTE | 2018-02-25 22:05 | NUR ---
PT RESTING IN BED. NO S/S OF DISTRESS OR PAIN. WILL CONTINUE TO MONITOR.
--- NOTE | 2018-02-25 23:44 | NUR ---
PT RESTING IN BED. WILL CONTINUE TO MONITOR.
--- NOTE | 2018-02-26 00:20 | NUR ---
Rec'd report from carla June. and assumed care.
--- NOTE | 2018-02-26 02:01 | NUR ---
PT IS SLEEPING SOUNDLY SUPINE, NO S/S OF DISTRESS.
--- NOTE | 2018-02-26 03:09 | NUR ---
Pt sleeping soundly supine, no new needs at this time.
--- NOTE | 2018-02-26 04:12 | NUR ---
Pt sleeping soundly supine, no s/s of distress.
--- NOTE | 2018-02-26 05:29 | NUR ---
Pt is awake and has soiled himself, bed/brief change provided. VS taken. pt is resistant to care.
--- NOTE | 2018-02-26 06:30 | NUR ---
Asleep upon change of shift observation.
--- NOTE | 2018-02-26 08:30 | NUR ---
Awaken for breakfast. Ate 100%
--- NOTE | 2018-02-26 10:30 | NUR ---
Patient is sleeping at this time. No signs of distress noted
--- NOTE | 2018-02-26 14:04 | NUR ---
Dr Carlos from [facility] is at bedside with patient
--- NOTE | 2018-02-26 17:12 | NUR ---
Slept throughout the day except to eat meals and meet with Dr. Carlos. States he is unable to walk, even with the assistance of a walker. Pleasant upon staff approach. States "I have no idea what is going to happen to me." Feels grateful to have a bed in the hospital. Does not know "where I'm heading next." Shys away from direct patient care or what he perceives as "special attention." Maintains a low hillman presence. Denies suicidal ideation or intent though presents with little hope for his future to "be any better."
--- NOTE | 2018-02-26 18:51 | NUR ---
ATTEMPTED TO INTERVIEW ABOUT CURRENT SITUATION. PATIENT IS IRRITATED BECAUSE, "THE FOOD IS GROSS". HE IS VERY UPSET AT THIS TIME AND STATES HE, "WANTS ME TO LEAVE HIM ALONE". ANSWERES ANY QUESTIONS WITH YES OR NO, GETTING INCREASINGLY AGGITATED WITH EACH QUESTION. ROLLED OVER IN BED WITH EYES SHUT DURRING CONVERSTAION.
--- NOTE | 2018-02-27 00:30 | NUR ---
Pt had bowel movement in bed. Brief/linens changed.
--- NOTE | 2018-02-27 06:30 | NUR ---
Patient sleeping on right side. No distress observed. Continue to monitor.
--- NOTE | 2018-02-27 08:10 | NUR ---
Pt sitting up and eating breakfast. No distress observed. Continue to monitor.
--- NOTE | 2018-02-27 11:00 | NUR ---
Patient sleeping supine. No distress observed. Continue to monitor.
--- NOTE | 2018-02-27 13:10 | NUR ---
Patient sitting up and eating. No distress observed. Continue to monitor.
--- NOTE | 2018-02-27 17:23 | NUR ---
Patient sleeping and easily awakens to voice. Patient denies SI/HI. Patient appears depressed but really won't speak to staff and rolls over and closes his eyes. Continue to monitor.
--- NOTE | 2018-02-27 18:30 | NUR ---
Received report from ROCIO Sanders. Patient is resting comfortably on his back, in no apparent distress.
--- NOTE | 2018-02-27 19:25 | NUR ---
Patient had 50% of dinner. Refused to eat more. Verbalized "leave me alone" when asked questions. Will continue to monitor.
--- NOTE | 2018-02-27 21:35 | NUR ---
Patient asked for milk, gave it to him. Patient drank 100%, now resting comfortably
--- NOTE | 2018-02-27 23:30 | NUR ---
Patient laying on right side, eyes closed. In no apparent distress.
--- NOTE | 2018-02-28 00:31 | NUR ---
Resting in bed with eyes closed, appearing to sleep without obvious new concerns noted. Resp are even and unlabored, will continue to monitor.
--- NOTE | 2018-02-28 01:51 | NUR ---
Patient laying on right side with eyes closed, in no apparent distress. 18 even and unlabored respirations.
--- NOTE | 2018-02-28 02:43 | NUR ---
Patient laying on right side, eyes closed. In no apparent distress.
--- NOTE | 2018-02-28 03:41 | NUR ---
Patient sleeping on right side, no signs or symptoms of distress noted.
--- NOTE | 2018-02-28 04:36 | NUR ---
Patient laying on right side, resting comfortably. In no apparent distress.
--- NOTE | 2018-02-28 05:40 | NUR ---
Patient resting comfortably, appearing to be asleep.
--- NOTE | 2018-02-28 06:30 | NUR ---
Dr. Saldaña and X-ray at bedside
--- NOTE | 2018-02-28 06:30 | NUR ---
Patient receiving x-ray at this time and Dr. Saldaña at bedside
--- NOTE | 2018-02-28 06:36 | NUR ---
I asked patient how he was doing, he said he is "waiting for breakfast I guess".
--- NOTE | 2018-02-28 08:15 | NUR ---
PATIENT SITTING UP IN BED EATING HE STATES "BREAKFAST IS WEIRD"
--- NOTE | 2018-02-28 09:44 | NUR ---
patient sleeping on right side under blankets
--- NOTE | 2018-02-28 10:51 | NUR ---
patient in bed on right side in no apparent distress, I dumped his urinal
--- NOTE | 2018-02-28 11:41 | NUR ---
I asked how patient is doing he said "the same". He's lying on right side in no apparent distress.
--- NOTE | 2018-02-28 12:23 | NUR ---
I asked this patient if he would like some help getting repositioned, he said no.
--- NOTE | 2018-02-28 12:59 | NUR ---
pt eyelids are swollen and red, right eye has discharge and is worse than left. dr cook notified and asked to come evaluate pt and order medications if needed.
--- NOTE | 2018-02-28 13:02 | NUR ---
RITA AND NIKIA ED SITTERS AT BEDSIDE TO GIVE PT A BEDBATH, [facility] SECURITY AT BEDSIDE FOR PT AND STAFF SAFETY.
--- NOTE | 2018-02-28 14:30 | NUR ---
patient positioned on left after bed bath, I asked him how his lunch was, he stated " awful".
--- NOTE | 2018-02-28 14:30 | NUR ---
patient positioned on left after bed bath, i
--- NOTE | 2018-02-28 15:30 | NUR ---
patient resting comfortably, in no destress
--- NOTE | 2018-02-28 16:30 | NUR ---
patient resting comfortable repositioned on left side
--- NOTE | 2018-02-28 17:18 | NUR ---
patient resting, in no distress
--- NOTE | 2018-02-28 18:15 | NUR ---
patient currecntly being turned and repositioned by NA staff Btrtt
--- NOTE | 2018-02-28 18:17 | NUR ---
patient being repositioned in bed by [facility] staff. He doesn't seem to appreciate being turned at this time. He gets irritated with this.
--- NOTE | 2018-02-28 20:00 | NUR ---
PT FINISHING UP HIS DINNER
--- NOTE | 2018-02-28 22:30 | NUR ---
PT ENCOURAGED AGAIN TO LAY ON LEFT SIDE DUE TO SORE ON RIGHT HIP. PT REFUSED TO BE ON LEFT SIDE. PILLOW PLACED UNDER RIGHT SIDE TO RELIEVE PRESSURE FROM HIP
--- NOTE | 2018-03-01 01:00 | NUR ---
PT VOIDED IN URINAL YELLING OUT FOR "HELP NOW" TO EMPTY THE URINAL: 200 ML STRAW URINE OUT
--- NOTE | 2018-03-01 01:02 | NUR ---
PT LYING ON LEFT SIDE RR EVEN UNLABORED
--- NOTE | 2018-03-01 03:00 | NUR ---
PT CALLING OUT AND WHEN ASKED WHAT HE NEEDED HE ANGRILY SAID "NOTHING"
--- NOTE | 2018-03-01 05:00 | NUR ---
PT INCONTINENT OF STOOL, BUT VOIDED IN THE URINAL, ANA CARE DONE AND NEW SCRUBS ON
--- NOTE | 2018-03-01 06:30 | NUR ---
Recieved patient report from Radha CHAN, was able to ask question at this time. All questions answered.
--- NOTE | 2018-03-01 06:52 | NUR ---
Patient on left side sleeping at this time. Respiration rate regular at 14 breaths/min.
--- NOTE | 2018-03-01 09:53 | NUR ---
Patient sleeping on his left side at this time.
--- NOTE | 2018-03-01 11:30 | NUR ---
PATIENT ALLOWED FOR WOUND CARE PICTURES AT THIS TIME, BUT DID NOT WANT ANY TYPE OF DRESSING. PATIENT WOUND HAS NO OPEN AREAS, SMALL SCAB IN THE MIDDLE, AND OPEN TO AIR.
--- NOTE | 2018-03-01 13:00 | NUR ---
PATIENT EATING LUNCH AT THIS TIME, PATIENT REQUESTING ADDITIONAL MILK FOR HIS TRAY.
--- NOTE | 2018-03-01 14:29 | NUR ---
PATIENT SLEEPING AT THIS TIME, PATIENT ON HIS LEFT SIDE.
[2018-03-01] MEDS ORDERED: acetaminophen 325mg tablet PO ONE (17:40)
--- NOTE | 2018-03-01 18:42 | NUR ---
Patient report given to Mohan CHAN, all questions were answered at this time.
[2018-03-01] MEDS: risperiDONE 2mg tablet PO SCH (20:00)
[2018-03-01] MEDS: OLANZapine 2.5MG tablet PO SCH (20:30)
[2018-03-02] MEDS: risperiDONE 2mg tablet PO SCH ×2 (08:00→20:00)
--- NOTE | 2018-03-02 08:13 | NUR ---
Pt sitting up in bed eating breakfast. Informed pt I would be bringing his medication shorlty. He stated not to; he is unable to swallow. Explained to him that we could crush up meds and give them to him with his oatmeal or eggs he is clearly swallowing. He stated not to and told me to go away. Pt very uncooperative.
--- NOTE | 2018-03-02 13:59 | NUR ---
PT RESTING IN BED. NO S/S OF DISTRESS OR PAIN. WILL CONTINUE TO MONITOR.
--- NOTE | 2018-03-02 14:18 | NUR ---
PHYSICAL THERAPY AT TO ASSESS PT MOBILITY.
--- NOTE | 2018-03-02 16:56 | NUR ---
Pt very resistive to care. Yells out when we try to move him in bed.
[2018-03-02] MEDS: OLANZapine 2.5MG tablet PO SCH (21:04)
[2018-03-03] MEDS: OLANZapine 2.5MG tablet PO SCH (08:00)
[2018-03-03] MEDS: risperiDONE 2mg tablet PO SCH ×2 (08:00→22:01)
--- NOTE | 2018-03-03 22:11 | NUR ---
Pt. was refusing to take medication, pt stated that he would "try to swallow half at a time". Pt. took half of Risperidone with apple sauce and refused the other half by spitting it out. Pt. educated on importance of medication compliance. Will continue to monitor the pt.
--- NOTE | 2018-03-04 05:32 | NUR ---
PT refused to have his vital signs taken this morning. He had just finsihed voiding in his urinal when I entered the room. I asked many times if I could quickly gather some vital signs from him. PT responded, "yeah you can take them from my ass!". No vital signs were taken from PT.
--- NOTE | 2018-03-04 05:34 | NUR ---
Checked PT's bed for any fecal matter, his linens were clean and not soiled.
--- NOTE | 2018-03-04 06:30 | NUR ---
Asleep upon change of shift observation. Undisturbed at this time.
[2018-03-04] MEDS ORDERED: olanzapine 10mg tablet PO SCH (08:00)
[2018-03-04] MEDS: risperiDONE 2mg tablet PO SCH ×2 (08:11→20:00)
--- NOTE | 2018-03-04 08:30 | NUR ---
Patient is sleeping at this time. No signs of distress noted.
--- NOTE | 2018-03-04 08:45 | NUR ---
Awakened for breakfast. Patient ate the majority of his meal, though he insisted to staff "I can't swallow." Unwilling to take his medication again because he stated he couldn't swallow. Medications crushed and mixed with applesauce. Patient allowed staff to feed him the applesauce and all medications administered without problem.
--- NOTE | 2018-03-04 10:30 | NUR ---
Patient is sleeping at this time. No signs of distress noted.
--- NOTE | 2018-03-04 12:30 | NUR ---
Patient is sleeping at this time. No signs of distress noted.
--- NOTE | 2018-03-04 13:00 | NUR ---
Patient awakened and served lunch. Ate 100% of his meal.
--- NOTE | 2018-03-04 15:30 | NUR ---
Patient assisted into a clean gown. When asked if he knew why he was in the hospital, patient stated "I have no idea. I have no idea what's going on." Presents as unwilling/incapable of holding a conversation with RN. States "I can't talk anymore."
--- NOTE | 2018-03-04 16:30 | NUR ---
Sleeping on his side at this time. Curled into a ball. Covers rearranged and patient made comfortable in bed.
--- NOTE | 2018-03-04 17:10 | NUR ---
Remains asleep at this time.
--- NOTE | 2018-03-04 18:25 | NUR ---
pt's linens changed and per care provided at change of shift. new padding provided to right hip area
--- NOTE | 2018-03-04 19:13 | NUR ---
pt sat up to eat dinner. ate apx 25% of meal. Attempted to assess/speak with pt but he turned to his other side and said to "get the hell out of here" in a very gruff tone Addendum: 03/04/18 at 1915 by LIDIA will attempt re-assement before med pass. pt is currently resting at now
--- NOTE | 2018-03-04 20:35 | NUR ---
pt unccoperative with attempted medication pass. I explained to him that the medication was ordered by a provider for him and what it was for. he became agitated and said he did not want to be bothered and jsut wanted to sleep. He appears to not want help or to help himself with ADL's. He does not seem to want to listen to reason or even have a discussion despite appearing to be alert and oriented. He is still laying on his right hip despite multiple notices and requests to relieve pressure to that side to decrease further worsening of hip redness
--- NOTE | 2018-03-04 22:00 | NUR ---
pt resting calmly on right side. respirations observed WNL. pt seen waking spontaneously to reposition himself or drink water
--- NOTE | 2018-03-04 23:18 | NUR ---
pt resting calmly on his left side. respirations observed WNL
--- NOTE | 2018-03-05 02:11 | NUR ---
Pt still asleep.
--- NOTE | 2018-03-05 03:04 | NUR ---
Pt remains asleep
--- NOTE | 2018-03-05 04:01 | NUR ---
patient sleeping undisturbed
--- NOTE | 2018-03-05 04:50 | NUR ---
Frandy Boyle found an "unkown" medication pill on the floor next to patient . Patient has been refusing to swallow prior to finding medication.
--- NOTE | 2018-03-05 05:07 | NUR ---
patient is sleeping quietly
--- NOTE | 2018-03-05 05:17 | NUR ---
patient has small wound on left hand that is healing. patient states his wound was caused by "rock climbing"
--- NOTE | 2018-03-05 05:20 | NUR ---
patient did not state that type of "rocks" he has been climbing nor could he elaborate on the cause of wound
--- NOTE | 2018-03-05 05:22 | NUR ---
patient refuses vitals
--- NOTE | 2018-03-05 05:23 | NUR ---
Fresh brief placed on pt. Pt repositioned self to left side.
--- NOTE | 2018-03-05 06:30 | NUR ---
Assumed Care from ROCIO Ndiaye pt is sleeping right side appears comfortable and warm with multiple blankets. RR even and unlabored.
[2018-03-05] MEDS: risperiDONE 2mg tablet PO SCH ×2 (08:00→20:00)
--- NOTE | 2018-03-05 08:27 | NUR ---
Per Dr. Becker Zyprexa tablets changed to Zydis as ordered by telepsychiatrist. Pt ate 90% of meal then laid on his right side and closed his eyes. RR even and unlabored. Spoke to Ledy, social science instructor about the note written by [facility], She Kelly [facility] yesterday. She documents in her note patient was seen by Dr. Castellanos from [facility] who wrote a PN in pt's [facility] chart documenting patient is gravely disabled as a result of a neurocognitive disorder and recommended Probate Conservatorship. Ledy ageed to call [facility] for discharge planning.
[2018-03-05] MEDS: OLANZapine 5mg rapidly disint. tablet PO SCH (09:11)
--- NOTE | 2018-03-05 09:21 | NUR ---
Pt agreed to take his medication, Zyprexa Zydis after spending a long time educating him multiple times on the medication. He also requires prompts to drink fluids and encouragement to eat meals. He continues to sleep completely covered up.
--- NOTE | 2018-03-05 11:15 | NUR ---
Encouraged water and snack. Pt will drink water if the pitcher is put up to his lips. He denied a snack at this time. Pillows placed between knees. Pt sleeps in the same position most of today. Encouraged him to move, stretch out his legs and roll to the othr side. Pt states, "I can't." Then begins to yell stating over and over, "I can't."
--- NOTE | 2018-03-05 13:22 | NUR ---
Pt has ate 50% of his meal. He continues to lay on his right hip rarely moving. PT was here pt states he is unable to walk or straighten out his legs.
--- NOTE | 2018-03-05 14:55 | NUR ---
[employer]a P500 mattress ordered. Per VINCENT Ibarra, pt has a deep red pressure ulcer on his right hip. He refuses to allow this nurse to assess his skin. Both legs contractured pt reports "this has been going on for four years." His body is pale and cachectic.
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
--- NOTE | 2018-03-05 17:54 | NUR ---
Pt has been transferred to his [facility] P500 bed. Staff were able to convince him to sleep on his left side and he has stayed on it. Attempt made to sit the pt up in his bed but pt refused. He is now calm and cooperative.
--- NOTE | 2018-03-05 20:49 | NUR ---
Pt refused to be fully repositioned at this time, patient is not cooperative with care. He also refused to take his HS dose of risperdal. A pillow was placed under his legs to help with a partial reposition. Patient verbalized that he did not want to be moved and that he would just get back in the same position. Will attempt to reposition again in 2 hrs.
--- NOTE | 2018-03-06 06:16 | NUR ---
PT had large bowel movement. Changed, chio care given.
--- NOTE | 2018-03-06 06:30 | NUR ---
Assumed care from nurse Salinas. Pt on his right side sleeping. Normal RR even and unlabored.
--- NOTE | 2018-03-06 08:31 | NUR ---
Pt sitting up eating breakfast. He complains alot requires prompts to sit up take his medications but over time he is compliant.
[2018-03-06] MEDS: risperiDONE 2mg tablet PO SCH ×2 (08:36→20:18)
[2018-03-06] MEDS: OLANZapine 5mg rapidly disint. tablet PO SCH (08:37)
--- NOTE | 2018-03-06 12:13 | NUR ---
Pt up eating her meal. She is calm and cooperative. Continues to wait for placement.
--- NOTE | 2018-03-06 13:35 | NUR ---
Pt is resting on her right side her eyes are closed. Normal RR even and unlabored.
--- NOTE | 2018-03-06 15:16 | NUR ---
Pt continues to sleep on his right side; RR even and unlabored.
--- NOTE | 2018-03-06 17:00 | NUR ---
Pt continues to rest on his bed with his eyes closed on his right side. RR even and unlabored.
--- NOTE | 2018-03-06 18:30 | NUR ---
Recieved report from ROCIO Balderrama, assumed care. Pt. laying on right side with eyes closed. Resp. even and unlabored.
--- NOTE | 2018-03-06 20:05 | NUR ---
Pt. complaining of noise. states he heard music playing, when stating there was no music he said "well not now! I told her to turn it off!".
--- NOTE | 2018-03-06 21:05 | NUR ---
Pt. medicated with Risperdol. Refused to take it but took it when handed to him.
--- NOTE | 2018-03-06 22:15 | NUR ---
pt. laying on right side with eyes closed.
--- NOTE | 2018-03-06 23:16 | NUR ---
pt. laying on right side with eyes closed. resp. even and nonlabored.
--- NOTE | 2018-03-07 00:13 | NUR ---
pt. laying with eyes closed. resp. even nonlabored.
--- NOTE | 2018-03-07 01:53 | NUR ---
Pt asleep on left side. RR 12, even and unlabored. No apparent distress at this time.
--- NOTE | 2018-03-07 03:22 | NUR ---
Pt asleep on back. RR 12, even and unlabored. No apparent distress at this time.
--- NOTE | 2018-03-07 05:45 | NUR ---
Pt transferred from OF25 to ED10 with staff escort d/t staffing.
--- NOTE | 2018-03-07 07:31 | NUR ---
REPORT RECEIVED FROM ROCIO VU, STATES THAT PT'S 5150 HAS AND THAT [facility] IS RECOMMENDING CONSERVATORSHIP FOR GRAVELY DISABLED, NEURO CONGNITIVE DISORDER. SPOKE WITH DR STEVENSON AND MADYSON FROM [facility] REGARDING PLACING PT ON 1798 TO KEEP PT FROM LEAVING WHILE ATTEMPTING TO DETRIMINE PT'S PLACEMENT STATUS. REQUESTED THAT TRACEY FROM BE CALLED TO SEE WHAT PT STATUS IS. Addendum: 03/07/18 at 0735 by BROOKLYNN NOTE WRITTEN BY DIA TIJERINA NOT Earlene MONK RN
--- NOTE | 2018-03-07 08:32 | NUR ---
GLORIA FROM [facility] CALLED FOR PT UPDATE. STATES THAT THEY ARE WORKING ON CONSERVATORSHIP AND THAT SHE WILL BE IN THIS AM. INFORMED GLORIA THAT PT IS NO LONGER ON A 5150 AND THAT THERE IS NOTHING INPLACE TO KEEP PT IN THE ER SHOULD HE DECIDE TO LEAVE. SHOULD PT TRY OR SUCCESSFULLY LEAVE THE ER PLEASE CALL HER AT [phone] OR THE 24HR HOTLINE [phone]
[2018-03-07] MEDS: risperiDONE 2mg tablet PO SCH ×2 (09:56→20:43)
[2018-03-07] MEDS ORDERED: moxifloxacin 0.5% ophthalmic drops 3ml EACHEYE ONE (10:00)
[2018-03-07] MEDS: moxifloxacin 0.5% ophthalmic drops 3ml EACHEYE SCH ×4 (10:01→20:00)
[2018-03-07] MEDS: OLANZapine 5mg rapidly disint. tablet PO SCH (10:03)
[2018-03-07] MEDS ORDERED: ciprofloxacin 0.3% 2.5ml ophthalmic solution EACHEYE SCH (12:00)
--- NOTE | 2018-03-07 13:40 | NUR ---
Recieved report from ROCIO Killian, assumed care. Pt. resting quietly.
--- NOTE | 2018-03-07 13:58 | NUR ---
Web Content Specialist in with patient. Pt. talking cooperatively.
--- NOTE | 2018-03-07 14:42 | NUR ---
discussed pt. status with Eleonora Roberson, [facility] [phone], stated probate conservatorship could take months dt lack of information available on pt. Stated Dr Carlos informed her pt. is not candidate for LPS conservatorship.
--- NOTE | 2018-03-07 15:43 | NUR ---
PHYSICAL THERAPY IN TO SEE PATIENT. PT ON MWF SCHEDULE, AND IF THEY HAVE TIME DURING THE WEEKEND THEY'LL COME IN.
--- NOTE | 2018-03-07 16:37 | NUR ---
PT SLEEPING IN HOSPITAL BED, APPEARS COMFORTABLE, NO S/S OF DISTESS NOTED
--- NOTE | 2018-03-07 17:05 | NUR ---
PT REFUSSED MOXIFLOXACIN EYE GTTS, STATING THAT THEY STING. PT INSISTS THAT HE DOES NOT HAVE AN EYE INFECTION BUT JUST SCRATCHED HIS RT EYE. PT ADVISED THAT THE GTTS WERE TO HELP HEAL THE IRRITATION, BUT PT PERSISTED ON REFUSING THE GTTS.
--- NOTE | 2018-03-07 18:30 | NUR ---
Recieved report from ROCIO Killian, assumed care. Pt. laying with eyes closed, resp. even and unlabored. NAD noted.
--- NOTE | 2018-03-07 19:30 | NUR ---
attempted to give pt. eye drops and get him to eat or drink but pt. refused stating that he couldn't swallow and would not allow eye drops stating "it doesn't matter, I'm losing my eyesight anyway".
--- NOTE | 2018-03-07 20:23 | NUR ---
pt is in bed, no s/s of distress,
--- NOTE | 2018-03-07 20:54 | NUR ---
pt. laying in bed looking up at the wall talking to "his mom". NAD noted.
--- NOTE | 2018-03-07 22:02 | NUR ---
Pt. given telephone and instructed how to make a call. called a friend with assistance but became loud and disruptive. pt. asked to quiet down and was responsive. Continues to talk to unknown subjects.
--- NOTE | 2018-03-07 23:50 | NUR ---
Pt. laying quietly in bed with eyes closed. resp. even and unlabored. nad noted.
--- NOTE | 2018-03-08 00:21 | NUR ---
pt. sister called inquiring about pt. informed her that I could not give out information dt HIPPA laws but that it would be very helpful if she could come by to visit. stated she would try to come in tomorrow.
--- NOTE | 2018-03-08 01:34 | NUR ---
PATIENT LYING SUPINE RESTING RIGHT SIDE OF HEAD ON PILLOW EYES OPEN RR EVEN UN LABORED NO OBSERVABLE S/S OF ACUTE STRESS AT THIS TIME
--- NOTE | 2018-03-08 02:06 | NUR ---
PATIENT AWAKE SITTING UP AT THE END OF BED LOOKING LIKE HE WANTS TO GET OUT OF BED, GRANT AND I WALK OVER TO SEE IF WE COULD ASSIST IN ANY WAY, PATIENT VERBALIZES THAT "YEAH I WANT BACK IN BED." GRANT STATES " IT LOOKED LIKE YOU WANT TO GET UP AND WALK OUT TO US?" PATIENT STATES " OH NO I DON'T WANT TO BE OUT THERE I WANT TO BE IN MY BED." GRANT ASSISTED PATIENT BACK TO BED SUPINE POSITION COVERAS ON EYES OPEN RR EVEN UN LABORED NO OBSERVABLE S/S OF ACUTE STRESS AT THIS TIME
--- NOTE | 2018-03-08 03:16 | NUR ---
PATIENT IN BED SUPINE COVERS ON EYES OPEN RR EVEN UN LABORED ASKED PATIENT IF THEY NEEDED ME TO GET OR DO ANYTHING FOR THERE COMFORT? PATIENT STATES "NO." RR EVEN UN labored no observable s/s of acute stress at this time
[2018-03-08] MEDS: moxifloxacin 0.5% ophthalmic drops 3ml EACHEYE SCH ×6 (04:00→19:34)
--- NOTE | 2018-03-08 05:17 | NUR ---
PATIENT IN BED SITTING SUPINE HEAD OF THE BED 45 DEGREES EYES OPEN MUMBLING UN PRONOUNCABLE WORDS, WHEN ASKING PATIENT IF I COULD HELP WITH ANYTHING PATIENT STATES " NO I AM IN BED SLEEPING I AM FINE." RR EVEN UN LABORED NO OBSERVABLE S/S OF ACUTE STRESS AT THIS TIME
[2018-03-08] MEDS: risperiDONE 2mg tablet PO SCH ×2 (08:00→19:34)
[2018-03-08] MEDS: OLANZapine 5mg rapidly disint. tablet PO SCH (08:19)
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
--- NOTE | 2018-03-08 13:25 | NUR ---
MD Hernandez aware that the pt is still having hallucinations and his right eye is very red and the pt has been refusing antibiotic drops for his right eye.
--- NOTE | 2018-03-08 16:20 | NUR ---
pt still talking to people who are not there. pt is hallucinating. Still waiting on MD Hernandez to come re-evaluate the pt.
--- NOTE | 2018-03-08 21:00 | NUR ---
PT HAS QUIETED DOWN, WAS PREVIOUSLY TALKING TO SELF.
--- NOTE | 2018-03-08 23:00 | NUR ---
PT TALKING TO SELF, SOUNDS LIKE HE IS HAVING A CONVERSATION WITH SOMEONE.
--- NOTE | 2018-03-09 00:48 | NUR ---
PT AWAKE, BUT RESTING QUIETLY.
--- NOTE | 2018-03-09 01:10 | NUR ---
PT AWAKE AND TALKING TO THE PERSON (THAT'S NOT THERE), AT THE RIGHT SIDE OF BED, STATES, "DON'T YOU SEE HIM THERE?" HAVING FULL CONVERSTIONS ABOUT RENT, ETC. EXPLAINED THAT THERE WAS NOT ANYONE THERE, AND PT BECAME INSENSED.
--- NOTE | 2018-03-09 02:15 | NUR ---
ATTEMPTING TO GO TO THE BATHROOM ON OWN, LEGS VERY SHAKEY AND SAT DOWN ON FLOOR. PT INCONT OF SMALL AMOUNT OF URINE AND STOOL. CLEANED UP AND NEW PJ BOTTOMS PLACED. ASSISTED BACK TO BED.
[2018-03-09] MEDS: moxifloxacin 0.5% ophthalmic drops 3ml EACHEYE SCH ×6 (04:27→19:55)
--- NOTE | 2018-03-09 04:27 | NUR ---
STILL AWAKE AND HALLUCINATING, DISTURBING OTHER PTS
--- NOTE | 2018-03-09 05:43 | NUR ---
FINALLY WENT TO SLEEP, BUT AWOKEN FOR VITALS.
--- NOTE | 2018-03-09 08:15 | NUR ---
Sitting up in bed eating breakfast.
[2018-03-09] MEDS: risperiDONE 2mg tablet PO SCH ×2 (08:20→19:55)
[2018-03-09] MEDS: OLANZapine 5mg rapidly disint. tablet PO SCH (08:20)
[2018-03-09] MEDS: haloperidol 10mg/5ml UD oral solution PO PRN ×2 (09:44→19:55)
--- NOTE | 2018-03-09 09:45 | NUR ---
Pt talking to self. Getting louder and louder, disturbing other pts on unit. Haldol given.
--- NOTE | 2018-03-09 13:00 | NUR ---
Eating lunch without difficulty.
--- NOTE | 2018-03-09 18:29 | NUR ---
In bed, restless at times, noted talking to self on and off though voices no needs. Will monitor.
--- NOTE | 2018-03-09 19:27 | NUR ---
Refused dinner, yelling out, hallucinating that "children are running around his bed".
--- NOTE | 2018-03-09 20:00 | NUR ---
In bed, yelling out. Medications administered. Patient verbally abrassive, though did still take medications, including eye gtts.
--- NOTE | 2018-03-09 21:08 | NUR ---
Resting in bed with eyes closed, appearing to sleep at this time. No current verbal outbursts appreciated. Will monitor for changes.
--- NOTE | 2018-03-09 22:10 | NUR ---
Restless in bed, moving around appearing as to attempt to get out of bed without assistance lacking safety awareness. Redirected and repositioned per staff with very little difficulties or resistance.
--- NOTE | 2018-03-09 23:02 | NUR ---
Resting in bed, eyes blosed, appearing to sleep, restless at times-though no verbal outbursts currently, will monitor.
--- NOTE | 2018-03-09 23:47 | NUR ---
Resting in bed, eyes blosed, appearing to sleep, will monitor.
--- NOTE | 2018-03-10 00:21 | NUR ---
assumed care of pt, pt is sleeping, rr even and unlabored no s/s of distress.
--- NOTE | 2018-03-10 02:35 | NUR ---
pt sleeping right side rr even and unlabored no s/s distress.
[2018-03-10] MEDS: moxifloxacin 0.5% ophthalmic drops 3ml EACHEYE SCH ×6 (04:00→20:00)
--- NOTE | 2018-03-10 05:03 | NUR ---
pt continues to sleep, rr even and unlabored no s/s distress
--- NOTE | 2018-03-10 08:40 | NUR ---
Pt refusing meds this am as pt wanting to sleep. Will try to administer when pt awaking.
[2018-03-10] MEDS: risperiDONE 2mg tablet PO SCH ×2 (10:10→20:00)
[2018-03-10] MEDS: OLANZapine 5mg rapidly disint. tablet PO SCH (10:10)
--- NOTE | 2018-03-10 12:30 | NUR ---
assumed care of pt from Negin RN, pt is resting quietly on gurney, resp even and unlabored
--- NOTE | 2018-03-10 13:07 | NUR ---
lunch tray at bedside
--- NOTE | 2018-03-10 13:35 | NUR ---
offered pt urinal, pt said he did not need to use urinal or have bowel movement, dressing to rt hip is dry and intact, pt not eating lunch at this time
--- NOTE | 2018-03-10 13:54 | NUR ---
pt refused eye gtts, "they don't help me out...I don't want them", optiform dressing to rt hip changed, picture was taken, pt is now sitting up without siria to eat lunch, sb well, no n/v, no problems swallowing, no skin breakdown/reddness to coccyx/back, pt is on air bed
--- NOTE | 2018-03-10 15:14 | NUR ---
pt is sleeping, resp even and unlabored
--- NOTE | 2018-03-10 16:20 | NUR ---
pt is sleeping, resp even and unlabored
--- NOTE | 2018-03-10 17:00 | NUR ---
checked pt for incontinence of bowel/urine, offered pt urinal.
--- NOTE | 2018-03-10 18:15 | NUR ---
report given to Rusty CHAN, offered pt urinal, pt refused, "I don't need to urinate", clothes are dry, no incontinence to bowel/urine
--- NOTE | 2018-03-10 19:30 | NUR ---
Patient is on right side in bed, he is awake but only answering direct questions. Patient tells this policy writer typist he doesn't want to talk. Patient states he will not take medications, not even his eye drops. Patient denies S/I but will not discuss anything else. He goes to sleep. Q15 minute rounding for patient safety.
[2018-03-11] MEDS: moxifloxacin 0.5% ophthalmic drops 3ml EACHEYE SCH ×6 (04:00→20:00)
[2018-03-11] MEDS: OLANZapine 5mg rapidly disint. tablet PO SCH (08:10)
[2018-03-11] MEDS: risperiDONE 2mg tablet PO SCH ×2 (08:10→20:00)
--- NOTE | 2018-03-11 08:32 | NUR ---
Sitting up in bed eating breakfast.
[2018-03-12] MEDS: moxifloxacin 0.5% ophthalmic drops 3ml EACHEYE SCH ×6 (04:00→20:30)
--- NOTE | 2018-03-12 08:00 | NUR ---
patient on bed eating breakfast,morning due meds given.
[2018-03-12] MEDS: OLANZapine 5mg rapidly disint. tablet PO SCH (08:15)
[2018-03-12] MEDS: risperiDONE 2mg tablet PO SCH ×2 (08:15→20:32)
--- NOTE | 2018-03-12 09:00 | NUR ---
CURLED UP IN BED, DID NOT EAT MUCH OF HIS BREAKFAST, APPEARS TO BE SLEEPING
--- NOTE | 2018-03-12 10:00 | NUR ---
RESTING COMFORTABLY IN BED. NO COMPLAINTS
--- NOTE | 2018-03-12 11:00 | NUR ---
NO NEW COMPLAINTS OR ISSUES, RESTING COMFORTABLY
--- NOTE | 2018-03-12 12:00 | NUR ---
TOOK HIS NOON EYE GTTS PRESCRIBED, COMPLAINED ABOUT THEM AND THEN WENT BACK TO SLEEP.
--- NOTE | 2018-03-12 13:00 | NUR ---
NO NEW COMPLAINTS OR ISSUES. ATE LESS THAN 50% OF HIS LUNCH.
--- NOTE | 2018-03-12 14:00 | NUR ---
RESTING COMFORTABLY, NO NEW COMPLAINTS OR ISSUES.
--- NOTE | 2018-03-12 15:00 | NUR ---
WORKED WITH PT, THEY GOT HIM UP TO A W/C. HE PUT HIMSELF BACK SOON THEY LEFT
--- NOTE | 2018-03-12 16:00 | NUR ---
REFUSED HIS VIGAMOX EYE GTTS. ENCOURAGED TO TAKE THEM. WENT RIGHT BACK TO SLEEP
--- NOTE | 2018-03-12 17:59 | NUR ---
RESTING IN BED. NO NEW COMPLAINTS OR ISSUES. AWAITING DINNER.
--- NOTE | 2018-03-12 20:33 | NUR ---
chewed up and swallowed about half of his evening dose of risperdone, cursed at me and then spit the rest out
--- NOTE | 2018-03-12 21:21 | NUR ---
Resting in bed, appearing to sleep, will monitor.
--- NOTE | 2018-03-12 21:42 | NUR ---
PATIENT RESTING IN BED. HE COMPLAINS OF PAIN, "EVERYWHERE" BUT DECLINES PAIN MEDICATION WHEN OFFERED.
--- NOTE | 2018-03-12 22:33 | NUR ---
PATIENT SLEEPING RIGHT LATERAL POSITION.
--- NOTE | 2018-03-12 23:26 | NUR ---
Patient sleeping in a supine position.
--- NOTE | 2018-03-13 00:14 | NUR ---
Patient sleeping on his right side.
--- NOTE | 2018-03-13 00:17 | NUR ---
Patient has eyedrops due. Patient refuses them. When I offered them to the patient, he simply waves me away with his hands.
--- NOTE | 2018-03-13 00:59 | NUR ---
Resting in bed, eyes closed, resp even and unlabored, appearing to sleep, will monitor.
--- NOTE | 2018-03-13 01:33 | NUR ---
Patient continues to sleep comfortably.
--- NOTE | 2018-03-13 02:48 | NUR ---
Patient is awake and rambling on to himself.
--- NOTE | 2018-03-13 03:49 | NUR ---
Patient continues to mutter to himself about random things.
[2018-03-13] MEDS: moxifloxacin 0.5% ophthalmic drops 3ml EACHEYE SCH ×6 (04:00→20:54)
--- NOTE | 2018-03-13 05:20 | NUR ---
Laying in bed awake, continues diatribe of random muttering/speaking to self/no one dirrectly.
--- NOTE | 2018-03-13 05:27 | NUR ---
Patient is now lying quietly in bed.
--- NOTE | 2018-03-13 05:47 | NUR ---
Vital signs taken, resting in bed, will monitor.
--- NOTE | 2018-03-13 05:48 | NUR ---
Patient reports 10/10 pain but continues to refuse medication and states, "I'm fine."
--- NOTE | 2018-03-13 06:00 | NUR ---
Pt. lying supine in bed with even and unlabored respirations.
[2018-03-13] MEDS: risperiDONE 2mg tablet PO SCH ×2 (07:55→20:53)
[2018-03-13] MEDS: OLANZapine 5mg rapidly disint. tablet PO SCH (07:55)
--- NOTE | 2018-03-13 08:10 | NUR ---
Pt. cooperative with AM meds. Eating breakfast now.
--- NOTE | 2018-03-13 08:57 | NUR ---
Pt. lying supine in bed with eyes open, no obvious signs of distress noted.
--- NOTE | 2018-03-13 11:24 | NUR ---
Pt. appears to be responding to auditory hallucinations.
--- NOTE | 2018-03-13 12:21 | NUR ---
Pt. lying on left side in bed with even, unlabored respirations.
--- NOTE | 2018-03-13 14:04 | NUR ---
Pt. observed to have visual hallucinations. Pt. states he sees a person at the bathroom door and told RN he needs a butter knife.
--- NOTE | 2018-03-13 15:20 | NUR ---
Patient lying supine in bed with no apparent signs of distress.
--- NOTE | 2018-03-13 17:19 | NUR ---
Pt. continues to talk out loud and have conversations with people he imagines are there.
[2018-03-13] MEDS: haloperidol 10mg/5ml UD oral solution PO PRN (17:40)
--- NOTE | 2018-03-13 17:44 | NUR ---
Pt. medicated with PO Haldol for agitation. Pt. becoming loud with his conversations with people he apparently sees.
--- NOTE | 2018-03-13 19:00 | NUR ---
PT AWAKE IN BED,EATING DINNER.DENIES NEEDS RIGHT NOW
--- NOTE | 2018-03-13 20:30 | NUR ---
REFUSED MEDS AT FIRST,OFFERRED APPLE JUICE AND TOOK HIS MEDS.OFFERRED URINAL,PER PT HE DOESN'T HAVE TO GO RIGHT NOW.RT HIP JANELG CDI.
--- NOTE | 2018-03-13 22:31 | NUR ---
PT TALKS TO HIMSELF ON AND OFF.
--- NOTE | 2018-03-14 00:01 | NUR ---
pt awake in bed,able to turn himself from side to side.denies needs.
--- NOTE | 2018-03-14 01:20 | NUR ---
pt refused to be repositioned right now,as per pt can do it by himself.
--- NOTE | 2018-03-14 02:45 | NUR ---
pt asleep in bed lying on his rt side.
[2018-03-14] MEDS: moxifloxacin 0.5% ophthalmic drops 3ml EACHEYE SCH ×3 (04:00→19:31)
--- NOTE | 2018-03-14 04:54 | NUR ---
repositioned self,has auditory hallucination hearing sounds from the hand project management professional dispenser.
[2018-03-14] MEDS: risperiDONE 2mg tablet PO SCH ×2 (07:44→19:31)
[2018-03-14] MEDS: OLANZapine 5mg rapidly disint. tablet PO SCH (07:44)
[2018-03-14] MEDS: haloperidol 10mg/5ml UD oral solution PO PRN ×2 (07:45→19:31)
--- NOTE | 2018-03-14 18:58 | NUR ---
In bed, awake, + hallucinations and delusional behaviors, muttering to self and objects/people not present. AMIRAH RN in unit, discussed POC. Will continue to monitor.
--- NOTE | 2018-03-14 19:22 | NUR ---
Call placed to pharmacy regarding haldol, sending staff to get medication.
--- NOTE | 2018-03-14 19:51 | NUR ---
Patient continues to make random muttering and verbalizations to self and hallucinations. PRN haldol administered with routine medications. Refused to allow instill of eye gtts. Is self repositioning in bed. Denies needs other than staff to leave him alone. Will continue to monitor and intervene as appropriate and ordered.
--- NOTE | 2018-03-14 20:23 | NUR ---
Restless in bed, incont, cares provided, linen and scrubs changed, will monitor.
--- NOTE | 2018-03-14 21:01 | NUR ---
Persisting in muttering ramblings that are disorganized and freq nake no sense, yelling out and esculating in anxiety and agitation.
--- NOTE | 2018-03-14 21:07 | NUR ---
Spoke with GORDY regarding patient, GORDY Saldaña states that he will "assess patient shortly".
--- NOTE | 2018-03-14 21:14 | NUR ---
ERP Saldaña here to see patient.
--- NOTE | 2018-03-14 22:08 | NUR ---
Resting in bed with less vocalizations than during last assessment/note. Patient is awke. No voiced needs. Will continue to monitor for changes.
[2018-03-14] MEDS ORDERED: haloperidol lactate 5mg/ml inj IM ONE (22:30)
--- NOTE | 2018-03-14 22:33 | NUR ---
Persisting rambling and esculating anxiety, yelling out. Needs were elicited and met including bed and linen change after stool and urine incont, however, behaviors continued.
--- NOTE | 2018-03-14 23:30 | NUR ---
Resting in bed with eyes closed, appearing to sleep at this time. Resp are even and unlabored. Will continue to monitor.
--- NOTE | 2018-03-15 00:23 | NUR ---
In bed, quietly muttering to self, denies needs, will continue to monitor.
--- NOTE | 2018-03-15 01:18 | NUR ---
Resting in bed with eyes closed, appearing to sleep at this time. Resp are even and unlabored. Will continue to monitor.
--- NOTE | 2018-03-15 02:27 | NUR ---
Resting in bed, resting for the most part, occasional mutterings, but greatly decreased from earlier in the shift. Voices no needs or new concerns, will continue to monitor for changes.
--- NOTE | 2018-03-15 03:10 | NUR ---
Laying in bed, awake, talking and rambling to self and hallucinations. "Friends" are present per patient, though no one is present. Denies needs from staff. Will continue to monitor for changes.
[2018-03-15] MEDS: moxifloxacin 0.5% ophthalmic drops 3ml EACHEYE SCH ×6 (04:00→20:00)
--- NOTE | 2018-03-15 04:10 | NUR ---
Rambling to self, occasionally cursing. Denies needs when asked. Will monitor.
--- NOTE | 2018-03-15 05:30 | NUR ---
Continues to ramble and talk to self and visual hallucinations.
[2018-03-15] MEDS: risperiDONE 2mg tablet PO SCH ×2 (08:47→20:00)
--- NOTE | 2018-03-15 16:00 | NUR ---
1550 PT UP OUT OF BED HOLDING ONTO CURTAIN. PCT AND RN RAN OVER TO PT AND ASSISTED PT TO BED. PT EXCLAIMING HE DOES NOT KNOW HOW HE GOT OUT OF BED. HE THINKS HE WAS DREAMING. LINEN CHANGED.
--- NOTE | 2018-03-15 18:30 | NUR ---
Report received, pt pending placement, per records pending probate conservatorship for neurocognitive dx per records.
--- NOTE | 2018-03-15 18:30 | NUR ---
Sweetie walsh in [facility] - 03/15/18 at 2222 by PAVEL Report received pt pending placement on 6070.
--- NOTE | 2018-03-15 20:30 | NUR ---
Pt lying on back, talking to self at times, RR even and unlabored, no agitation.
--- NOTE | 2018-03-15 22:15 | NUR ---
Pt has been increasingly responding to internal stimuli, he is sitting on the side of the bed, appears to be arguing with his voices, voice getting louder, contacted pharmacy to obtain PRN Haldol concentrate as there is none available in ER.
[2018-03-15] MEDS: haloperidol 10mg/5ml UD oral solution PO PRN (22:40)
--- NOTE | 2018-03-15 22:41 | NUR ---
Haldol concentrate given, pt took but stated "I can't swallow like you do!" He then took medicine and water without problems. Will continue to monitor bx for effectiveness of PRN.
--- NOTE | 2018-03-15 23:52 | NUR ---
Pt still talking to himself, volume is decreased, Haldol had little effect on pt.
[2018-03-16] MEDS ORDERED: OLANZapine 5mg rapidly disint. tablet PO ONE (00:25)
--- NOTE | 2018-03-16 00:27 | NUR ---
Pt continues to talk to himself, is agitating other pts, I verbally tried to redirect pt which made pt more irritable. Reviewed records and telepsych recommened Zyprexa Zydis 10 mg po QHS, discussed case with Leonardo HAZEL and he agreed to this order and one time dose now. Pt did require I/M Haldol the night before due to hallucinations and irritability.
--- NOTE | 2018-03-16 00:36 | NUR ---
Pt took Nanette Hamilton without problems, making odd statements about "The Matrix" and Tomasa Woodall.
--- NOTE | 2018-03-16 01:52 | NUR ---
Pt continues to talk to himself, seems to be less intense and less frequent after Zyprexa Zydis administered.
--- NOTE | 2018-03-16 03:12 | NUR ---
Pt still awake, continues to talk to himself at times.
[2018-03-16] MEDS: moxifloxacin 0.5% ophthalmic drops 3ml EACHEYE SCH ×7 (04:00→23:57)
--- NOTE | 2018-03-16 04:23 | NUR ---
Pt becoming increasingly agitated, demanding bed be made flat when it already was, talking about us seeing people doing things to him, verbally redirected, pt now lying there awake.
--- NOTE | 2018-03-16 05:34 | NUR ---
Pt continues to yell out at times stating that "They keep fucking with me!" "I am just trying to do my time in the [facility] and they won't leave me alone!" Pt requesting room change due to belief that there are people in his room that are "fucking" with him. Pt verbally redirected, offered PRN, but he stated "I can't swallow! You know I can't swallow see!"
[2018-03-16] MEDS: risperiDONE 2mg tablet PO SCH ×2 (08:07→20:02)
--- NOTE | 2018-03-16 08:31 | NUR ---
PT IS AWAKE. AM MEDICATIONS GIVEN WITHOUT DIFFICULTY, SAFETY BREAKFAST TRAY DELIVERED TO BEDSIDE
--- NOTE | 2018-03-16 15:41 | NUR ---
PHYSICAL THERAPY HER TO WORK WITH PT. PT WAS FOUND ON THE FLOOR, STATES THAT HE WAS LOOKING FOR THE TV REMOTE. EXPLAINED TO PT THAT THERE IS NO TV IN HIS ROOM, PT INSISTS HE IS HEARING THE "TEMPLE EDDIE" AND WANTED TO TURN HIM OFF. PT CONTINUES TO COMPLAIN ABOUT THE BED NOT BEING AN AIR BED. PT ASSURED HE WAS IN AN AIR BED BUT IT WAS NOT ON. OFFERED TO TURN THE AIR BED ON FOR COMFORT, PT REFUSED. PHYSICAL THERAPIST ATTEMPTING TO WORK WITH PT, PT IS BEING ARGUMENTATIVE AND UNCOOPERATIVE.
--- NOTE | 2018-03-16 18:30 | NUR ---
Assumed care of pt, pt lying on back, continues to talk to himself at times.
[2018-03-16] MEDS: OLANZapine 5mg rapidly disint. tablet PO SCH (20:02)
--- NOTE | 2018-03-16 20:30 | NUR ---
Pt lying on bed at this time, responding to internal stimuli, RR even and unlabored.
--- NOTE | 2018-03-16 21:00 | NUR ---
Pt has not made any statements this shift about not being able to swallow and took all meds without problems, ate dinner without problems, drank his water without problems. Pt was also moving legs around in bed, and moving self to edge of bed at times, is redirectable, pt is in nurses LOS.
--- NOTE | 2018-03-16 21:41 | NUR ---
PT air mattress was disabled. Air mattress powered on and previous settings applied.
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
--- NOTE | 2018-03-16 22:49 | NUR ---
PRN Haldol was not given as pt is now lying quietly on bed. Will continue to monitor bx.
--- NOTE | 2018-03-16 23:22 | NUR ---
Pt lying quietly at this time, he still will respond to internal stimuli at times, but it is less frequent and and intense.
[2018-03-16] MEDS: haloperidol 10mg/5ml UD oral solution PO PRN (23:55)
--- NOTE | 2018-03-17 | NUR ---
Pt trying to get up out of bed, he continues to respond to internal stimuli, is getting increasingly irritable. Haldol 5 mg given, will monitor for effects
--- NOTE | 2018-03-17 01:17 | NUR ---
Pt continues to be irritable, looking at ceiling as if something is there, no effect from Haldol PRN.
[2018-03-17] MEDS ORDERED: diphenhydrAMINE 50 mg/ml inj IM ONE ×2 (01:45→10:35)
[2018-03-17] MEDS ORDERED: haloperidol lactate 5mg/ml inj IM ONE ×2 (01:45→10:35)
[2018-03-17] MEDS ORDERED: LORazepam 2 mg/ml vial IM ONE ×2 (01:45→10:35)
--- NOTE | 2018-03-17 01:55 | NUR ---
Spoke with Dr Urena about pts bx tonight and over the last few days. Note review shows increasing agitation and hallucinations since 03/13/18 and pt has required IM Haldol 03/14, PRN Zyprexa last night, and pt given all scheduled meds(Risperdal 2 mg and Zyprexa 10 mg) plus PRN Haldol 5mg with no effect on hallucinations and irritability. Pt has been up all night for the last 4 nights. Order given for Haldol 5mg/Ativan 2mg/and Benadryl 50 mg I/M as pt has continued to escalate, is yelling, continues to respond to internal stimuli and appears to be seeing things as well. Pt given I/M without problems. Discussed possible need to re telepsych due to increased behaviors and hx of dx of Schizophrenia and hx of inpt hospital visits at [facility] and [facility] per records. Due to I/M meds with defer till dayshift.
--- NOTE | 2018-03-17 02:10 | NUR ---
Pt sitting up on bed, trying to get out of bed, redirected by staff, will continue to monitor.
--- NOTE | 2018-03-17 03:08 | NUR ---
Pt repositioned onto left side. Pillow placed under pt's right hip.
--- NOTE | 2018-03-17 03:15 | NUR ---
Pt was still awake at 0300 after I/M meds given, he is lying in bed, still restless, does respond to me when I talk to him, I tried to reassure him he was safe and to try to rest, V/S taken and remain stable, case discussed with Dr. Urena and reviewed v/s and meds given and that pt was still awake, requested labs due to change in status over last 4 days, although v/s are stable to R/O and acute medical cause for change in bx due to recent sepsis. Order obtained for CBC and CMP to be done in am. When I returned to overflow pt was finally sleeping, he does sleep with eyes half open, which per pt care techs is how he normally sleeps. He is snoring, respirations are even and unlabored. Was able to assess pts skin at this time and dressing to R hip was removed, has 2 small scabs remaining, open area to coccyx is about 1 cm in diameter and does not appear red, no drainage, continues on airmattress and pt was placed on L side for pressure relief.
[2018-03-17] MEDS: moxifloxacin 0.5% ophthalmic drops 3ml EACHEYE SCH ×5 (04:00→20:30)
--- NOTE | 2018-03-17 05:36 | NUR ---
Pt has been sleeping since last note, v/s taken and remain stable. Pt RR are even unlabored.
[2018-03-17] MEDS ORDERED: LORazepam 1 MG tablet PO PRN (07:35)
[2018-03-17] MEDS: haloperidol 10mg/5ml UD oral solution PO PRN (07:45)
--- NOTE | 2018-03-17 07:50 | NUR ---
PT INCONTINENT IN BED AT THIS TIME. FULL LINEN CHANGE AND BED BATH GIVEN. PT COOPERATIVE.
--- NOTE | 2018-03-17 08:36 | NUR ---
LAB HERE TO DRAW BLOOD ON PATIENT. PT COOPERATIVE
[2018-03-17 08:52] LABS: BASOPHILS % (AUTO) 0.7 % (0-1); EOSINOPHILS # (AUTO) 0.1 X10'3 (0-0.9); HEMATOCRIT 31.2 % (42.0-52.0); HEMOGLOBIN 9.8 g/dl (14.0-17.9); LYMPHOCYTES # (AUTO) 0.9 X10'3 (1.1-4.8); LYMPHOCYTES % (AUTO) 15.8 % (21-51); MEAN CORPUSCULAR HEMOGLOBIN 26.2 PG (27.0-31.0); MEAN CORPUSCULAR HGB CONC 31.5 % (33.0-36.5); MEAN CORPUSCULAR VOLUME 83.2 FL (78-98); MEAN PLATELET VOLUME 7.2 FL (7.4-10.4); MONOCYTES # (AUTO) 0.5 X10'3 (0-0.9); MONOCYTES % (AUTO) 8.4 % (2-12); NEUTROPHILS # (AUTO) 4.2 X10'3 (1.8-7.7); NEUTROPHILS % (AUTO) 73.1 % (42-75); PLATELET COUNT 447 X10'3 (140-440); RED BLOOD COUNT 3.75 X10'6 (4.70-6.10); RED CELL DISTRIBUTION WIDTH 15.2 % (11.5-14.5); WHITE BLOOD COUNT 5.7 X10'3 (4.5-11.0)
[2018-03-17 09:15] LABS: ALANINE AMINOTRANSFERASE 14 U/L (12-78); ALBUMIN/GLOBULIN RATIO 0.7 (1.1-1.5); ALKALINE PHOSPHATASE 101 IU/L (46-116); ANION GAP 9 (8-16); ASPARTATE AMINO TRANSFERASE 13 U/L (10-37); BILIRUBIN,TOTAL 0.2 MG/DL (0.1-1.0); BLOOD UREA NITROGEN 11 MG/DL (7-18); BUN/CREATININE RATIO 14.1 (5.4-32.0); CALCIUM 9.5 MG/DL (8.5-10.1); CHLORIDE 103 MMOL/L (99-107); CREATININE 0.78 MG/DL (0.60-1.10); GLUCOSE 101 MG/DL (70-104); POTASSIUM 3.6 MMOL/L (3.5-5.1); SODIUM 141 MMOL/L (135-145); TOTAL CARBON DIOXIDE 28.6 MMOL/L (24-32); TOTAL PROTEIN 7.1 G/DL (6.4-8.2); eGFR > 90 ML/MIN
[2018-03-17] MEDS: risperiDONE 2mg tablet PO SCH ×2 (09:26→20:30)
--- NOTE | 2018-03-17 10:51 | NUR ---
PT CONTINUALLY ATTEMPTING TO GET OUT OF BED. PT ADVISED THAT HE CANNOT GET OUT OF BED WITH OUT ASSISTANCE, DUE TO FALL RISK. PT CONTINUES TO ARGUE AND CONTINU
--- NOTE | 2018-03-17 11:05 | NUR ---
Patient continues to present as a danger to self by rolling around in his bed, attempting to get out of his bed, making numerous arm gestures such as stabbing and grabbing. States he is looking for a "the hillman to the gas can." Incoherent and delerious at this time. Yelling. Demanding "to be set free." Dr. Calvin here to see patient. Haldol 5/Ativan2/Benadryl 50 IM ordered. Administered as ordered without event.
--- NOTE | 2018-03-17 12:40 | NUR ---
PATIENT GOING TO CT AT THIS TIME
--- NOTE | 2018-03-17 12:54 | NUR ---
PT RETURNED FROM CT. PT IS SLEEPING AT THIS TIME. RESPIRATIONS WNL. WILL CONTINUE TO MONITOR.
--- NOTE | 2018-03-17 17:42 | NUR ---
Patient slept from 1110 to 1600 after administration of IM medication. Attempted to awaken patient for lunch but he was not arousable. Snoring loudly. Sleeps with eyes wide open. Restless upon awakening. Given water and wrapped in a warm blanket. Remains restless and disoriented/delusional at this time. Incontinent of large amount of stool and urine times three this shift. Dr. Polk and Charge Nurse Keya notified of patient's ccondition. She Puente from [facility] states patient has been diagnosed as neurological versus psychological and is not being followed by the [facility] for placement.
[2018-03-17] MEDS: OLANZapine 5mg rapidly disint. tablet PO SCH (20:31)
--- NOTE | 2018-03-18 01:20 | NUR ---
Patient is sleeping quietly. Left lateral recumbent position. In view of nursing station staff. Q15 minute rounding continued for patient safety.
[2018-03-18] MEDS: moxifloxacin 0.5% ophthalmic drops 3ml EACHEYE SCH ×6 (04:00→19:55)
--- NOTE | 2018-03-18 05:11 | NUR ---
Pt incontient of stool and urine. Fresh bedlinen placed on bed, chio care given. Fresh dry flows placed under pt. Pt has small break down on right hip region. Pt repositoned to left side, pillow placed between pt's knees and under buttocks. Warm blankets given for comfort. Optifoam placed on area of breakdown. Other areas look clean, dry and intact. RN informed.
--- NOTE | 2018-03-18 06:30 | NUR ---
Asleep upon change of shift observation. Undisturbed at this time. Breating is shallow. Patient is noted to move lips and arms while asleep. Eyes are retirement open during sleep.
--- NOTE | 2018-03-18 11:00 | NUR ---
Nursing Workforce Management Consultant Tara, Charge Nurse Lesia and Dr. Calvin all informed about patient's declining physical status. Patient has been deemed nonpsychiatric by [facility] and instead is seen as a patient with neurological deficits. Looking into patient's past medical records reveals patient has been diagnosed with schizophrenia and psychosis beginning in 2016 at this hospital and has been prescribed mirtazapine and olanzapine in the past to treat psychiatric symptoms. Called the TAD office at [facility] and informed staff member Gene of these findings.
[2018-03-18] MEDS: Protein Shake (high protein) 240ml (8oz) cup PO SCH ×2 (13:00→18:00)
--- NOTE | 2018-03-18 13:30 | NUR ---
Patient has been asleep since change of shift up until this time and continues to sleep. Patient has been undisturbed and allowed to sleep due to agitation and lack of sleep over the past 3-4 days. Patient's breathing is shallow and he has been checked frequently for any change in physical status. Patient continues to sleep with his eyes partially open. Eyes noted to flutter while he sleeps, body jerking motions noted also. Patient awakened at this time and asked to drink his protein shake. Patient grumbled and said "No, no get away, I can't swallow." He drank 100% of his protein drink and 100% of a carton of milk.
--- NOTE | 2018-03-18 15:00 | NUR ---
MRI ordered for patient by Dr. Calvin. MRI Form completed. Patient asked to sign MRI form. Patient refused. Stated "I don't want it. No. Go away. I'm not doing it." Chris in MRI [id number] notified of patient's MRI refusal.
--- NOTE | 2018-03-18 15:18 | NUR ---
PT HAS BEEN HERE SINCE 02/20, SUPERINTENDENT GREENS HAS ONLY MADE ONE NOTE ON 03/05, NIKIA WITH [employer]EMENT TO LEAVE NOTE FOR TRACEY SUPERINTENDENT GREENS, INFORMED SUMANTH CHARGE NURSE
[2018-03-18] MEDS: haloperidol 10mg/5ml UD oral solution PO PRN (16:50)
[2018-03-18] MEDS: risperiDONE 2mg tablet PO SCH ×2 (16:51→19:55)
[2018-03-18] MEDS: pantoprazole 40mg Tablet.DR PO SCH (16:51)
--- NOTE | 2018-03-18 17:27 | NUR ---
Patient did not void or have a bowel movement today. Asked if he had to urinate and patient stated "I use the urinal when I need it." Fed himself cake for dinner and had three cartons of milk.
--- NOTE | 2018-03-18 19:13 | NUR ---
Pt consumed 100% protein shake. RN aware.
--- NOTE | 2018-03-18 19:23 | NUR ---
Pt repositioned to right-side, pillow placed between pt's knees. Pericare given. Dressing intact on right-side. RN aware.
[2018-03-18] MEDS: OLANZapine 5mg rapidly disint. tablet PO SCH (19:56)
--- NOTE | 2018-03-18 20:15 | NUR ---
PT TURNED TO OPPOSITE SIDE AFTER RECEIVING ANA CARE. HS MEDS GIVEN. PT DRANK NUTRITIONAL SHAKE.
--- NOTE | 2018-03-18 21:24 | NUR ---
Pt repositioned to left side. Pillow placed between pt's knees for comfort. Pt clean and dry.
--- NOTE | 2018-03-18 22:18 | NUR ---
Pt asleep on back. RR 13, even and unlabored. No apparent distress @ this time.
--- NOTE | 2018-03-19 00:15 | NUR ---
Sweetie walsh in ED - 03/19/18 at 0017 by DI Pt repositioned self onto left side. This television script writer assisted by placing a pillow between pt's knees for comfort.
--- NOTE | 2018-03-19 00:16 | NUR ---
Pt repositioned self onto right side. This scientific writer assisted by placing a pillow between pt's knees for comfort.
[2018-03-19] MEDS: moxifloxacin 0.5% ophthalmic drops 3ml EACHEYE SCH ×6 (04:00→20:24)
--- NOTE | 2018-03-19 05:46 | NUR ---
Pt repositioned onto back. Pericare given. Pt clean and dry. Fresh dryflow placed under pt. Warm blanket placed on pt for warmth and comfort.
--- NOTE | 2018-03-19 07:05 | NUR ---
Pt sleeping supine. No distress observed. Continue to monitor.
[2018-03-19] MEDS: pantoprazole 40mg Tablet.DR PO SCH (07:30)
[2018-03-19] MEDS: risperiDONE 2mg tablet PO SCH ×2 (08:00→20:24)
--- NOTE | 2018-03-19 08:10 | NUR ---
Patient up and eating. Patient refused his medications. Continue to monitor.
[2018-03-19] MEDS: Protein Shake (high protein) 240ml (8oz) cup PO SCH ×3 (08:16→18:51)
--- NOTE | 2018-03-19 10:01 | NUR ---
PT SLEEPING ON LEFT SIDE. NO DISTRESS OBSERVED. CONTINUE TO MONITOR.
--- NOTE | 2018-03-19 12:40 | NUR ---
RN AWOKE PT FOR LUNCH. PATIENT COMPLAINING ABOUT LUNCH BUT ATE A GOOD PORTION. PT CONTINUES TO REFUSE EYE DROPS AND MEDICATION. CONTINUE TO MONITOR.
--- NOTE | 2018-03-19 14:21 | NUR ---
Ridge from PT at bedside to work with patient.
--- NOTE | 2018-03-19 14:27 | NUR ---
Pt resistant and uncooperative with working with PT. PT able to get patient out of bed, but patient refused to walk. Pt was not soiled and Dri flows under Pt changed and dressing on Rt buttock changed. Pt back to bed resting on his left side.
--- NOTE | 2018-03-19 14:31 | NUR ---
No open areas observed on the right buttock, area is reddened and blanchable.
--- NOTE | 2018-03-19 17:17 | NUR ---
Patient c/o leg pain. RN offered patient ativan as a muscle relaxer for legs. Patient refused. Pt laying on right side. Continue to monitor.
--- NOTE | 2018-03-19 20:30 | NUR ---
pt refused risperdal and eye drops.
[2018-03-19] MEDS: OLANZapine 5mg rapidly disint. tablet PO SCH (21:00)
[2018-03-20] MEDS: moxifloxacin 0.5% ophthalmic drops 3ml EACHEYE SCH ×7 (04:00→21:11)
--- NOTE | 2018-03-20 05:08 | NUR ---
Dietary and pharmacy forms faxed
--- NOTE | 2018-03-20 07:00 | NUR ---
Pt lying in bed appears to be sleeping.
[2018-03-20] MEDS: pantoprazole 40mg Tablet.DR PO SCH ×2 (07:30→08:28)
[2018-03-20] MEDS: risperiDONE 2mg tablet PO SCH ×4 (08:00→21:10)
--- NOTE | 2018-03-20 08:00 | NUR ---
Pt c/o bilat leg pain 12/27, obtained order from MD for prn Tylenol 650 mg PO and a one time order for Motrin.
[2018-03-20] MEDS ORDERED: ibuprofen tablet 400 MG TABLET PO ONE (08:05)
[2018-03-20] MEDS ORDERED: acetaminophen 325mg tablet PO ONE (08:05)
[2018-03-20] MEDS: Protein Shake (high protein) 240ml (8oz) cup PO SCH ×4 (08:59→21:17)
--- NOTE | 2018-03-20 09:00 | NUR ---
Pt stated he could not take his meds as he can't swallow pills, observed pt eating regular breakfast and swallowing without difficulty, stated to pt,"but I just saw you swallow those scrambled eggs." Pt replied, "no I didn't, I can't." Reminded pt that he had c/o 10/10 leg pain and GOMEZ pain as well, and that I had some pain medicine for him, crushed all crushable meds, left protonix whole, attempted to give pt his meds in applesauce, pt took approx 1/4 spoonful of the meds, spit out the whole Protonix pill and refused all further attempts to get him to take his meds despite much encouragement, "just go away." During physical assessment when this nurse asked to listen to his heart, pt stated, "I don't have one." When asked to listen to his stomach, he stated, "I don't have a stomach."
--- NOTE | 2018-03-20 10:00 | NUR ---
Pt asked for more milk after eating breakfast, then said, "no, never mind it just tastes like water anyway."
--- NOTE | 2018-03-20 12:00 | NUR ---
Pt lying in bed, observed pt shift his position from his back to his right side independently.
--- NOTE | 2018-03-20 13:36 | NUR ---
Pt so far has declined to each lunch, tray on bedside table, pt currently lying in bed with his eyes closed, pt did eat 75 % of his breakfast and drank 100% of his breakfast protein shake.
[2018-03-20] MEDS ORDERED: ketamine 50 mg/ml 10ml vial IM ONE (14:35)
--- NOTE | 2018-03-20 14:35 | NUR ---
Pt awake, sitting up, has started to eat some lunch.
--- NOTE | 2018-03-20 14:39 | NUR ---
New order for RT screen per policy, planning on doing MRI study with Ketamine administration.
--- NOTE | 2018-03-20 15:33 | NUR ---
Pt states he has had surgery on left leg and believes that he has metal in the leg. MD ordered X-ray left leg.
--- NOTE | 2018-03-20 15:43 | NUR ---
Radiology here to X-ray left leg, pt adamantly refusing to allow tech to X-ray leg, notified by tech, tech reports stated to postpone procedure, will try again tomorrow.
--- NOTE | 2018-03-20 15:55 | NUR ---
Pt used the urinal, urine noted on bedsheet, changed bedding and patient, repositioned on left side with pillows used for support and to offset pressure, pt resting comfortably in bed.
--- NOTE | 2018-03-20 17:41 | NUR ---
Pt has repositioned himself to the right side in bed, appears to be sleeping.
--- NOTE | 2018-03-20 19:10 | NUR ---
The patient is laying on his bed. He was observed moving freely on his bed. He was observed eating some of his dinner tray and had no apparent difficulty swallowing. However during the assessment he gave no eye contact and wound not participate in the evening assessment in any way. He stated that he could not talk. The patient repeatedly stating that he wanted to be left alone.
--- NOTE | 2018-03-20 21:00 | NUR ---
The patient is laying on his bed quietly. He is very resistive to medications and refused his eye drops and his resperdal. He did however take the zyprexa zydis. He is very irritable and stated he feels bad but refused to elaborate and repeatedly asks to be left alone.
[2018-03-20] MEDS: OLANZapine 5mg rapidly disint. tablet PO SCH (21:10)
--- NOTE | 2018-03-20 22:05 | NUR ---
Patient resting quietly on his bed
--- NOTE | 2018-03-20 23:48 | NUR ---
patient resting on his bed
--- NOTE | 2018-03-21 02:58 | NUR ---
The patient appears to be sleeping at this time
[2018-03-21] MEDS: moxifloxacin 0.5% ophthalmic drops 3ml EACHEYE SCH ×7 (04:00→20:20)
--- NOTE | 2018-03-21 04:59 | NUR ---
The patient is resting on his bed
--- NOTE | 2018-03-21 06:36 | NUR ---
Received SBAR report from NOC shift, assumed care of patient.
[2018-03-21] MEDS: pantoprazole 40mg Tablet.DR PO SCH (07:30)
[2018-03-21] MEDS: risperiDONE 2mg tablet PO SCH ×3 (07:32→20:19)
--- NOTE | 2018-03-21 10:00 | NUR ---
Patient refused xray. Xray needed to perform MRI.
[2018-03-21] MEDS: Protein Shake (high protein) 240ml (8oz) cup PO SCH ×2 (13:57→18:00)
--- NOTE | 2018-03-21 15:49 | NUR ---
Patient is working with PT, tolerating ok, cussing at the techs but attempting to follow what is requested.
--- NOTE | 2018-03-21 19:04 | NUR ---
Recvd report from Karley Santana, assumed care, pt is laying in bed at change of shift.
[2018-03-21] MEDS: OLANZapine 5mg rapidly disint. tablet PO SCH ×2 (20:19→21:00)
--- NOTE | 2018-03-21 21:51 | NUR ---
Pt is laying on his left side, sleeping, no s/s distress. Pt refused evening meds, stating "I dont have no pink eye! It was one little spot! I dont need any of that!" Pt threw med cup onto the bedside table.
--- NOTE | 2018-03-22 00:26 | NUR ---
pt is laying in bed awake, eyes open. Calm quiet, appears to be resting comfortably.
--- NOTE | 2018-03-22 02:26 | NUR ---
Pt is sleeping, laying on his back. RR even and unlabored no s/s distress.
--- NOTE | 2018-03-22 04:58 | NUR ---
pt laying on his left side, asleep, rr even and unlabored no s/s of distress.
--- NOTE | 2018-03-22 07:13 | NUR ---
Patient woke, put glasses on and resting comfortably on back. Addendum: 03/22/18 at 0715 by DELMAR wrong patient note previously. Patient resting comfortably on left side.
[2018-03-22] MEDS: Protein Shake (high protein) 240ml (8oz) cup PO SCH (08:00)
[2018-03-22] MEDS: moxifloxacin 0.5% ophthalmic drops 3ml EACHEYE SCH (08:00)
[2018-03-22] MEDS: risperiDONE 2mg tablet PO SCH ×2 (08:01→20:00)
[2018-03-22] MEDS: pantoprazole 40mg Tablet.DR PO SCH (08:01)
--- NOTE | 2018-03-22 10:43 | NUR ---
Sam just came to interview patient, and medication info. to them to present to the electromatic typist.
--- NOTE | 2018-03-22 13:03 | NUR ---
patient sitting up to the best of his abilty and eating his lunch tray.
--- NOTE | 2018-03-22 18:30 | NUR ---
Patient is sleeping on his right side in ER bed upon arrival. Patients bed in view of nursing station. Q15 minute rounding being done.
[2018-03-22] MEDS: OLANZapine 5mg rapidly disint. tablet PO SCH (21:22)
--- NOTE | 2018-03-22 21:30 | NUR ---
This patient ate 75 percent of his dinner. He states he didn't like it. Patient has refused all evening medications. Patient exhibits understanding of where he is tonight, he is oriented to person. Patient is advised that he is in a safe place. Q15 minute rounding is being done for patient safety.
--- NOTE | 2018-03-22 22:54 | NUR ---
Note nico in EDM - 03/22/18 at 2258 by BLAS Patient was asleep until 2240 hrs. I awoke this patient to advised her of her transfer upstairs to the [facility]. Patient transfered by wheelchair with tech. Paperwork sent with stickers from admitting and wrist band too. 7040 original paperwork was sent too.
--- NOTE | 2018-03-22 23:20 | NUR ---
Patient is sleeping quietly in view of nursing station.
[2018-03-23] MEDS: pantoprazole 40mg Tablet.DR PO SCH (07:30)
[2018-03-23] MEDS: moxifloxacin 0.5% ophthalmic drops 3ml EACHEYE SCH ×5 (08:00→19:31)
[2018-03-23] MEDS: risperiDONE 2mg tablet PO SCH ×3 (08:00→20:42)
[2018-03-23] MEDS: Protein Shake (high protein) 240ml (8oz) cup PO SCH ×5 (08:15→19:30)
--- NOTE | 2018-03-23 08:31 | NUR ---
Pt meds that are overdue from yesterday non-administered on eMAR as received report from previous shift pt had been refusing medications. Pt continues to refuse medications including ABX eye gtts. Pt eyes are currently clear and without s/sxs of infection.
--- NOTE | 2018-03-23 08:48 | NUR ---
Pt ate breakfast tray and protein shake. Pts legs propped and reposioned, pt now resting on right side
--- NOTE | 2018-03-23 09:40 | NUR ---
Assumed care note: Rec'd in report that currently due medications, were being "held" for now as patient was refusing, he is waiting to be conserved
--- NOTE | 2018-03-23 09:41 | NUR ---
pt is in bed laying on his right side, spontaineous, non labored breathing
--- NOTE | 2018-03-23 10:15 | NUR ---
pt being seen by Ledy Jeweler Apprentice, re: status
--- NOTE | 2018-03-23 11:07 | NUR ---
pt is sleeping on his right side, no s/s of distress
--- NOTE | 2018-03-23 11:30 | NUR ---
Abigail, at bedside to see pt re: apply for Medical. he was calm and cooperative
--- NOTE | 2018-03-23 12:30 | NUR ---
pt is awake, supine in bed, he refused his eyedrops
--- NOTE | 2018-03-23 13:13 | NUR ---
pt is supine in bed, eating his lunch, no s/s of distress
--- NOTE | 2018-03-23 13:54 | NUR ---
pt is laying down again on his rt side, no s/s of distress
--- NOTE | 2018-03-23 14:29 | NUR ---
Physical Therapy at bedside, trying to get pt to participate in therapy. he is refusing, telling them to leave him alone. moaning, refused to get up
--- NOTE | 2018-03-23 15:59 | NUR ---
pt is in bed sleeping, he was just on the phone with [employer], he is now on his right side, on his air bed
--- NOTE | 2018-03-23 16:45 | NUR ---
pt is in bed sleeping, no s/s of distress, spontaneous even breathing
--- NOTE | 2018-03-23 17:48 | NUR ---
pt is in bed on his back, getting vitals taken, very grumpy with the staff trying to take his vitals
--- NOTE | 2018-03-23 18:49 | NUR ---
pt is sleeping no s/s of distress, spontaneous regular breathing
--- NOTE | 2018-03-23 20:15 | NUR ---
pt is asleep, no s/s of distress, he is reminded to turn off his right hip
[2018-03-23] MEDS: OLANZapine 5mg rapidly disint. tablet PO SCH ×2 (20:43→20:55)
--- NOTE | 2018-03-23 20:53 | NUR ---
pt refused medications after saying that he would take them, disposed of medications
--- NOTE | 2018-03-23 21:31 | NUR ---
pt is sleeping on right side, turn attempted, refused
--- NOTE | 2018-03-23 21:45 | NUR ---
In bed, restless at times, though voices no needs or concerns. Will monitor.
--- NOTE | 2018-03-23 22:44 | NUR ---
Resting in bed with eyes closed, appearing to sleep. No obvious s/sx distress. Resp are even and unlabored. Will continue to monitor.
--- NOTE | 2018-03-24 00:53 | NUR ---
Resting in bed, eyes closed, resp are even and unlabored, appears to sleep. No new concerns or issues noted at this time. Will continue to monitor.
--- NOTE | 2018-03-24 01:56 | NUR ---
Occasionally restless in bed, but lasts briefly <2-3 min, then eyes closed and appearing to sleep.
--- NOTE | 2018-03-24 02:50 | NUR ---
Resting in bed, appearing to sleep, will continue to monitor.
[2018-03-24] MEDS: moxifloxacin 0.5% ophthalmic drops 3ml EACHEYE SCH ×2 (04:00)
--- NOTE | 2018-03-24 04:01 | NUR ---
Resting in bed, appearing to sleep for the most part. Occasionally wakes and is restless, will mumble quietly, then appears to sleep again. Is moving self in bed, refuses eye gtts, using urinal self at bedside. Will monitor.
--- NOTE | 2018-03-24 04:58 | NUR ---
Patient has been on vigamox eye gtts since 03/06/18 with low complaince of allowing administration of the drops. Right eye is not clear of s/sx, though is improved, with far less redness than when medication was first ordered. Spoke with ERP regarding medication and patient assessment, orders rec'd to discontinue the eye gtts.
--- NOTE | 2018-03-24 05:17 | NUR ---
This RN and Tech assisted patient with linen change and incont of BM care. Drsg to right hip was displaced. 2 small areas that were previously noted as open now appear smaller and non-opened with small scab formation. Comfort level of bed adjusted for patient and proper linen ensured for appropriate air flow of SWAPNIL mattress. Patient indicates that he "feels terrible", but was more cooperative and pleasant with staff this morning than has been. Will continue to monitor. Addendum: 03/24/18 at 0520 by KIA Added: drsg left off, hip CORPORATE GENERAL MANAGER.
--- NOTE | 2018-03-24 05:22 | NUR ---
Pt incontient of stool. Bedlinen changed, pericare given. Pt repositioned to left side, pillow placed between pt's knees for comfort. Warm blankets placed on pt.
[2018-03-24] MEDS: pantoprazole 40mg Tablet.DR PO SCH ×2 (07:30→08:10)
[2018-03-24] MEDS: risperiDONE 2mg tablet PO SCH ×3 (08:00→20:39)
--- NOTE | 2018-03-24 08:15 | NUR ---
Pt refused AM medications. Currently is eating breakfast but states he cannot swallow and does not have a stomach. Pt placed medications in mouth and then spit them into his hand and threw them onto his breakfast tray. Pt stated 'leave me alone in my misery' and continued to eat the rest of his breakfast.
[2018-03-24] MEDS: Protein Shake (high protein) 240ml (8oz) cup PO SCH ×2 (13:25→18:28)
--- NOTE | 2018-03-24 15:13 | NUR ---
patient is sleeping
--- NOTE | 2018-03-24 18:23 | NUR ---
Report given to ROCIO Bess
--- NOTE | 2018-03-24 18:27 | NUR ---
Assumed care, sitting up in bed eating supper, denies needs at this time.
--- NOTE | 2018-03-24 18:50 | NUR ---
Pt consumed 100% protein shake. RN aware.
--- NOTE | 2018-03-24 18:57 | NUR ---
Laying in bed resting. Self turning and repositioning, though continues to favor right side laying. No new needs or concerns/issues voiced. Will monitor.
[2018-03-24] MEDS: OLANZapine 5mg rapidly disint. tablet PO SCH (20:39)
--- NOTE | 2018-03-24 20:52 | NUR ---
Resting in bed, took medications as ordered without difficulties, no needs voiced, will continue to monitor.
--- NOTE | 2018-03-24 23:02 | NUR ---
Resting in bed, eyes closed, appearing to sleep, will continue to monitor.
--- NOTE | 2018-03-25 | NUR ---
Resting in bed, eyes closed, appearing to sleep, will continue to monitor.
--- NOTE | 2018-03-25 01:14 | NUR ---
Resting in bed, appearing to sleep. Will monitor.
--- NOTE | 2018-03-25 02:07 | NUR ---
Resting in bed, eyes closed, appearing to sleep, will continue to monitor.
--- NOTE | 2018-03-25 03:11 | NUR ---
Resting in bed, eyes closed, appearing to sleep, will continue to monitor.
--- NOTE | 2018-03-25 04:05 | NUR ---
Resting in bed, appears to sleep. No new concerns. Will monitor.
--- NOTE | 2018-03-25 05:17 | NUR ---
Resting in bed, appears to sleep, easily aroused. No new concerns. Vitals taken. Will monitor.
--- NOTE | 2018-03-25 05:58 | NUR ---
Pt had an incontient episode of stool, pericare given. Fresh dry flows placed under pt. Pt flavors right side, no additional breakdown, pt's skin condition discussed with nurse. Pt repositioned onto left side, pillow placed between pt's knees for comfort. Pt given blankets for warmth and comfort.
[2018-03-25] MEDS: pantoprazole 40mg Tablet.DR PO SCH (07:30)
[2018-03-25] MEDS: risperiDONE 2mg tablet PO SCH ×2 (08:00→20:00)
[2018-03-25] MEDS: Protein Shake (high protein) 240ml (8oz) cup PO SCH ×3 (08:15→18:00)
--- NOTE | 2018-03-25 10:11 | NUR ---
pt is sleeping on right side, no s/s of distress noted, spontaneous, regular breathing.
--- NOTE | 2018-03-25 12:03 | NUR ---
PT IS IN BED, ON RIGHT SIDE, SLEEPING, NO S/S OF DISTRESS, SPONTAINEOUS, REGULAR BREATHING
--- NOTE | 2018-03-25 19:17 | NUR ---
Pt consumed 100% of protein shake. RN informed.
[2018-03-25] MEDS: OLANZapine 5mg rapidly disint. tablet PO SCH (20:02)
--- NOTE | 2018-03-25 20:33 | NUR ---
pt is sleeping on his right side, spontaneous, regular breathing, no s/s of distress
--- NOTE | 2018-03-26 02:01 | NUR ---
pt sleeping at this time.
--- NOTE | 2018-03-26 06:10 | NUR ---
Pt had an incontient episode of stool. Fresh bedlinen placed on bed. Pericare given, skin is clean and dry. Area of breakdown on right hip is pink and healing. RN aware. Pt placed on left with pillow between knees. Warm blankets placed on pt for comfort.
--- NOTE | 2018-03-26 07:00 | NUR ---
Pt sitting up in bed in no distress.
--- NOTE | 2018-03-26 08:00 | NUR ---
Eating breakfast without difficulty swallowing.
[2018-03-26] MEDS: Protein Shake (high protein) 240ml (8oz) cup PO SCH ×3 (08:16→18:00)
[2018-03-26] MEDS: pantoprazole 40mg Tablet.DR PO SCH (08:16)
[2018-03-26] MEDS: risperiDONE 2mg tablet PO SCH ×2 (08:16→20:46)
--- NOTE | 2018-03-26 09:00 | NUR ---
Took morning meds.
--- NOTE | 2018-03-26 10:37 | NUR ---
Sleeping, in no distress.
--- NOTE | 2018-03-26 20:07 | NUR ---
Pt arrived to [facility] at 1999, calm and quiet, family member at bedside.
[2018-03-26] MEDS: OLANZapine 5mg rapidly disint. tablet PO SCH (20:46)
--- NOTE | 2018-03-27 06:52 | NUR ---
Patient awake and laying supine. No distress observed.
[2018-03-27] MEDS: Protein Shake (high protein) 240ml (8oz) cup PO SCH ×3 (08:15→18:41)
[2018-03-27] MEDS: risperiDONE 2mg tablet PO SCH ×3 (08:26→20:10)
[2018-03-27] MEDS: pantoprazole 40mg Tablet.DR PO SCH (08:26)
--- NOTE | 2018-03-27 08:39 | NUR ---
Medications administered, patient intially refuses and states "Why bother, they dont do anything" and "I cant swallow." Patient is cranky and agitated.
--- NOTE | 2018-03-27 10:03 | NUR ---
Patient seen briefly by Dr Carlos [facility], not conversational and wanting to rest.
--- NOTE | 2018-03-27 12:02 | NUR ---
Patient is observed resting in his bed, no apparent distress observed.
--- NOTE | 2018-03-27 14:23 | NUR ---
Patient is up after lunch. Bathed and clothing changed in bed after large BM. Patient is conversational with staff. His affect is bright as he discusses racing motorcycles.
--- NOTE | 2018-03-27 16:02 | NUR ---
Patient sleeping, no distress observed.
--- NOTE | 2018-03-27 17:34 | NUR ---
Patient had 400 cc of urine output. Very large soft BM today.
--- NOTE | 2018-03-27 17:51 | NUR ---
Patient resting, no changes, no concerns.
--- NOTE | 2018-03-27 18:28 | NUR ---
Received report from ROCIO Sanders. Patient awake and alert on room air, in no apparent distress. In nurses' view. Will continue to monitor.
--- NOTE | 2018-03-27 19:30 | NUR ---
Patient refusing to take scheduled night time medications. Will attempt again later.
[2018-03-27] MEDS: OLANZapine 5mg rapidly disint. tablet PO SCH (20:09)
--- NOTE | 2018-03-27 20:10 | NUR ---
Swung his arms around couple of times at me and ERICA Figueroa while we were attempting to administer PO medications. Called me a "stupid bitch" and Henry a "motherfucker" for trying to make him understand why the medications are important to take.
--- NOTE | 2018-03-27 20:25 | NUR ---
Finally took his medications. Now resting
--- NOTE | 2018-03-27 21:10 | NUR ---
Patient resting comfortably on his back with eyes closed.
--- NOTE | 2018-03-27 22:38 | NUR ---
Patient resting on right side, 16 even and unlabored respirations.
--- NOTE | 2018-03-28 00:28 | NUR ---
Patient laying on right side with eyes open, in no apparent distress. Voiced no needs at this time.
--- NOTE | 2018-03-28 01:11 | NUR ---
Patient resting comfortably on back, with eyes closed. In no apparent distress.
--- NOTE | 2018-03-28 03:34 | NUR ---
Patient resting comfortably.
--- NOTE | 2018-03-28 05:15 | NUR ---
Patient laying on right side, eyes closed. 16 even and unlabored respirations. In no apparent distress.
--- NOTE | 2018-03-28 06:30 | NUR ---
Asleep upon change of shift observation. Undisturbed at this time. Curled up in position. Breathing even and unlabored at 16.
[2018-03-28] MEDS: risperiDONE 2mg tablet PO SCH ×2 (07:53→20:00)
[2018-03-28] MEDS: pantoprazole 40mg Tablet.DR PO SCH (07:53)
[2018-03-28] MEDS: Protein Shake (high protein) 240ml (8oz) cup PO SCH ×3 (07:53→18:00)
--- NOTE | 2018-03-28 08:30 | NUR ---
Awakened for breakfast. Medications administered despite patient's statement that "I can't swallow." Refused Protonix. Accepted risperdone. States "The slot shift supervisor security told me to just take one pill." Asked staff the time of day. Informed it was 8:25 in the morning. Patient states, "No it's not. It's night time. You don't know what you're talking about."
--- NOTE | 2018-03-28 09:30 | NUR ---
Asked staff for "those wipes." Proceeded to wash his face and hands on his own with the wipes. Also attempted to clean his chio/anal area on his own. Asked for staff assistance "when it's time for you guys to clean me up."
--- NOTE | 2018-03-28 13:00 | NUR ---
Slept until lunchtime. Awakened for lunch. Ate the majority of his food on his own. Afterwards assisted with brushing his teeth. Patient resistent to having staff assist him, stating "this is a man's job." Given toothbrush w/toothpaste and a bucket and cup of water. Patient brushed his own teeth to the best of his ability. Denied needing to brush teeth despite foul odor coming from his mouth stating "What's the point? They're all rotton anyway." Patient's gums proceeded to bleed as he brushed his teeth.
--- NOTE | 2018-03-28 13:31 | NUR ---
Patient is up eating lunch.
--- NOTE | 2018-03-28 15:00 | NUR ---
Complete bed bath given by Padmini, [facility] [employer]. and bed linens changed. Patient resistent throughout the process, stating "Watch out. You don't know what you're doing. You're tearing the skin off of me." Slight redness noted on both hips. Skin protection lotion applied.
--- NOTE | 2018-03-28 20:10 | NUR ---
The patient is resting on his bed. He gives minimal verbal responses. He is reporting he cannot swallow but did eat a majority of his dinner.
[2018-03-28] MEDS: OLANZapine 5mg rapidly disint. tablet PO SCH (20:30)
--- NOTE | 2018-03-28 21:07 | NUR ---
The patient did agree to take his zyprexa but he refused to take the resperdal. He is talking to himself and making random comments.
--- NOTE | 2018-03-28 22:49 | NUR ---
The patient is resting on his bed but awake. He turned over and is now on his left side
--- NOTE | 2018-03-29 00:47 | NUR ---
The patient is resting on his bed and continually talking to himself
--- NOTE | 2018-03-29 06:43 | NUR ---
Patient awake and talking to self. Went over to patient's bed and asked how he was feeling. Patient stated "You know how I'm feeling, I need a back hoe." When asked what he would do patient responded "I would bury myself of course. My life is over. I can't use my legs. 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 Now look at me. I can't go anywhere. I may as well ."
[2018-03-29] MEDS: pantoprazole 40mg Tablet.DR PO SCH (07:30)
--- NOTE | 2018-03-29 07:32 | NUR ---
Patient called nurse over to his bed. States, "I need those sunglasses that you put behind that plastic board, now go get them for me." Informed all his personal belongings had been documented and place into locked storage. Patient responded, "You don't know what you are talking about, now go get them for me." Patient informed nurse would look on his inventory sheet to check for sun glasses.
[2018-03-29] MEDS: haloperidol 10mg/5ml UD oral solution PO PRN (07:51)
--- NOTE | 2018-03-29 07:51 | NUR ---
Appears to be experiencing visual hallucinations, talking to self as he stares at the wall. Calling out to someone who is not there. Appears agitated and uncomfortable. Accepted risperdone 5 mg. PO liquid with some resistence. States "I don't need no medicine. You already gave that to me." Opened mouth and swallowed liquid afterwards.
--- NOTE | 2018-03-29 08:30 | NUR ---
Served breakfast. Ate 100% of his meal on his own, spilling a fair amount of food on himself as he eats. Picks the food off his covers and eats it also. Appears content. Has not verbalized to staff that he is unable to swallow.
[2018-03-29] MEDS: risperiDONE 2mg tablet PO SCH ×2 (08:36→20:00)
[2018-03-29] MEDS: Protein Shake (high protein) 240ml (8oz) cup PO SCH ×3 (08:36→18:50)
--- NOTE | 2018-03-29 10:00 | NUR ---
Offered a bag of potato chips for a snack. Initially resisted the snack from nurse. Accepted chips from [employer]. Ate entire bag.
[2018-03-29] MEDS ORDERED: cyclobenzaprine 10mg tablet PO ONE (10:20)
--- NOTE | 2018-03-29 10:30 | NUR ---
States he feels continuous pain in his lower contracted legs. Dr. Calvin informed. Order given for a one time dose of Flexeril 200 mg.
--- NOTE | 2018-03-29 11:00 | NUR ---
Dr. Mauricio, psychiatrist, here in [facility] to evaluate patient. Spent time reviewing patient's past medical records and then spoke with patient at length. Dr. Mauricio shared with staff that patient stated he felt suicidal and depressed. Patient sees no point in being alive and incapacitated due to "bum legs."
--- NOTE | 2018-03-29 13:00 | NUR ---
Served lunch tray. Ate well. Continues to present with visual hallucinations, talking to self or the wall.
--- NOTE | 2018-03-29 13:43 | NUR ---
patient awake,on bed,not on distress.We will monitor.
--- NOTE | 2018-03-29 14:42 | NUR ---
Patient remains awake as he has been throughout the day. Either staring at the wall and mumbling or fidgeting with his clothes.
--- NOTE | 2018-03-29 17:15 | NUR ---
Appears to be sleeping at this time.
--- NOTE | 2018-03-29 18:45 | NUR ---
Assumed care of pt. Pt was talking to himself at change of shift. Pt is currently sitting up in bed, eating his dinner. Pt states "oh no not this again" while looking up at the ceiling.
--- NOTE | 2018-03-29 19:17 | NUR ---
Pt was soiled w large amount of feces, pt was cleaned up and bedding changed. Pt states "I havent slept in 4 years, get me a backhoe and put me in the ground." Pt is irritable, c/o being cold. Pt was given warm blankets and appears to be resting comfortably.
--- NOTE | 2018-03-29 20:14 | NUR ---
pt refused evening meds stating "I can refuse meds if I want, Im not taking anything tonight." Attempted to educate pt on medication and pt states "I dont care, Im not taking that."
--- NOTE | 2018-03-29 21:13 | NUR ---
Pt is sleeping, laying on his right side rr even and unlabored. no s/s distress.
--- NOTE | 2018-03-30 02:10 | NUR ---
pt is laying on his right side, continues to sleep. RR even and unlabored. No s/s distress.
--- NOTE | 2018-03-30 04:19 | NUR ---
Pt is laying on his right side, sleeping, rr even and unlabored, no s/s distress.
[2018-03-30 05:37] VITALS: BP 109/70
--- NOTE | 2018-03-30 06:54 | NUR ---
RECEIVED REPORT ASSUMED CARE PT IN BED RESTING
[2018-03-30] MEDS: pantoprazole 40mg Tablet.DR PO SCH (07:30)
[2018-03-30] MEDS: risperiDONE 2mg tablet PO SCH (08:00)
--- NOTE | 2018-03-30 08:00 | NUR ---
PT IN BED RESTING RISE AND FALL OF CHEST NOTED
[2018-03-30] MEDS: Protein Shake (high protein) 240ml (8oz) cup PO SCH ×2 (08:15→13:00)
--- NOTE | 2018-03-30 09:08 | NUR ---
IN BED RESTING ATE ABOUT 50% OF MEAL REFUSED MEDS
--- NOTE | 2018-03-30 12:59 | NUR ---
PT IN BED RESTING RISE AND FALL OF CHEST NOTED SEEN REPOTIING SELF
--- NOTE | 2018-03-30 15:00 | NUR ---
CHANGED PT, FOAM PRESSURE DRESSING PLACED ON RIGHT HIP
--- NOTE | 2018-03-30 16:12 | NUR ---
PT TAKEN TO [facility]
== END 2018-03-30 16:18 ==
LOC: ER 16:54
DX: F31.89 Other bipolar disorder (principal); F41.9 Anxiety disorder, unspecified; L03.116 Cellulitis of left lower limb; L03.115 Cellulitis of right lower limb; F29 Unspecified psychosis not due to a substance or known physiological condition; Z59.0 Homelessness
CPT/HCPCS: 36415; 80053; 80305; 80320; 81003; 84443; 85025; 96372; 99285; J1630; P9612

== ENCOUNTER 2018-03-30 13:30 | Inpatient (IN) | payer MEDICARE, MEDICAID ==
[~2018-03-30] VITALS: Ht 177.8 cm; Wt 58.6 kg
[~2018-03-30 13:30] MED LIST changes: -DOCU100C40 PO; -HYDR-4353 PO; -LACT-28 PO; -LORA0.5T PO; -MAG30ORA PO; -MIRT-92 PO; +NO HOME MEDS; -OLAN2.5T28 PO; -PERM60CR4 TP; -POLY17PO10 PO
--- NOTE | 2018-03-30 16:07 | NUR ---
Admit Note: Patient up from the [facility] in his air bed. Patient agitated but answering some questions. Patient on a 5150 for gravely disabled and danger to self. Patient denies suicidal ideation but then states "just throw me in a hole and let me ." Patient is unable to walk and had joint and generalized pain but refuses pain medication. Patient denies HX of schizophrenia but has a long hx of same with hearing voices. Patient has a healing/closed wound to right hip. Patient has a foam dressing on the area. Patient quit smoking at 17 years of age. Patient had a CXR on 03/07 with no TB. Patient is emaciated and states he can't swallow but ends up eating his meal tray. Patient is homeless.
[2018-03-30] MEDS ORDERED: magnesium hydroxide 30ml (MOM) UD suspension PO PRN (17:15)
[2018-03-30] MEDS ORDERED: tuberculin, purif. prot. deriv. 5 units/0.1ml ID ONE (17:15)
[2018-03-30] MEDS ORDERED: mag hydrox/Alum hydrox/simeth 30ml oral suspension PO PRN (17:15)
[2018-03-30] MEDS ORDERED: acetaminophen 325mg tablet PO PRN ×2 (17:15)
[2018-03-30 18:07] LABS: CHOLESTEROL 195 MG/DL (0-200); HDL CHOLESTEROL 65 MG/DL (35-60); LDL CHOLESTEROL 116 MG/DL (50-100); TRIGLYCERIDES 111 MG/DL (20-135)
[2018-03-30 20:26] VITALS: BP 93/57
[2018-03-30] MEDS ORDERED: LORazepam 0.5 MG tablet PO PRN ×2 (23:40)
--- NOTE | 2018-03-31 02:51 | NUR ---
RN progress note Chief Complaint Legal hold:5150 Client on involuntary status for GD Report received from Marilyn CHAN Why are they here:Patient agitated but answering some questions. Patient on a 5150 for gravely disabled and danger to self. Patient denies suicidal ideation but then states "just throw me in a hole and let me ." Patient is unable to walk and had joint and generalized pain but refuses pain medication. Patient denies HX of schizophrenia but has a long hx of same with hearing voices. Patient has a healing/closed wound to right hip. Patient has a foam dressing on the area. Patient quit smoking at 17 years of age. Patient had a CXR on 03/07 with no TB. Patient is emaciated and states he can't swallow but ends up eating his meal tray. Patient is homeless. For eval and stabilization. Diagnosis/presenting symptoms: Psychosis NOS Assessment What has happened this shift: Pt was laying in bed at change of shift. 1:1 assessment completed at bedside. Pt denies s/i, but states "Just throw me in the ground." Pt denies pain but then later Pt c/o 12/27 "pain allover" but declines meds when offered. Pt ate most of his dinner meal, pts appetite is good. Pt sleep is interrupted. He is incontinent of stool this shift and pct changed pt and hygeine is performed. Pt is unable to get out of bed. Pt is agitated and irritable. S/I, H/I:Pt denies A/VH: Pt denies but was seen talking to himself Sleep: pt states sleep is "terrible" ADL's: Total assist. Pt is incontinent of urine and stool. Group attendance: No evening groups offered Were meds taken: pt refuses meds Any med S/E none reported or observed Mental Status Exam Appearance: pt is adequately groomed, wearing a green scrub top. Eye contact: good Behavior: Pt is initially resistive to care and complains but allows pct to change him. Speech: Normal rate and rhythm Mood: Irritable, agitated, Affect: constricted Thought process: Linear, delusional, oppositional Thought Content: Cognition: oriented x1 impaired Insight: poor Judgment: Poor Interventions PRN's used: None Therapeutic interventions: 1:1 assessment, q15 min checks for safety Restraints/seclusion/emergency medication: None Justification of Continued Inpatient Treatment: Pt needs eval and stabilization. pt at risk of decompensation as he is gravely disabled and unable to plan for f/c/s.
[2018-03-31 07:45] VITALS: BP 99/64
[2018-03-31] MEDS: High Protein Shake w/Arg/Glut/Ca2+Bmb (Juven 19.3gm) pkt 240ml PO SCH ×3 (08:50→19:00)
[2018-03-31] MEDS: normal saline 1000ml 1,000 ML IV SCH ×2 (10:17→20:17)
[2018-03-31] MEDS ORDERED: normal saline 1000ml 1,000 ML IVB ONE (10:17)
[2018-03-31] MEDS ORDERED: bisacodyl 10mg suppository rectal RC PRN (10:20)
[2018-03-31] MEDS ORDERED: metoclopramide 5 mg/ml inj IV PRN (10:20)
[2018-03-31] MEDS ORDERED: diphenhydrAMINE 25mg capsule PO PRN (10:20)
[2018-03-31] MEDS ORDERED: mag hydrox/Alum hydrox/simeth 30ml oral suspension PO PRN (10:20)
[2018-03-31] MEDS ORDERED: acetaminophen 325mg tablet PO PRN ×2 (10:20)
[2018-03-31] MEDS ORDERED: magnesium hydroxide 30ml (MOM) UD suspension PO PRN (10:20)
[2018-03-31] MEDS ORDERED: acetaminophen 650mg rectal suppository RC PRN (10:20)
[2018-03-31] MEDS ORDERED: morphine 4 MG/ML inj SYRINge IV PRN (10:20)
[2018-03-31] MEDS ORDERED: diphenhydrAMINE 50 mg/ml inj IV PRN (10:20)
[2018-03-31] MEDS ORDERED: ondansetron/PF 4mg/2ml inj IV PRN (10:20)
[2018-03-31] MEDS ORDERED: morphine 2 MG/ML inj. syringe IV PRN (11:04)
[2018-03-31 11:38] LABS: BASOPHILS # (AUTO) 0.1 X10'3 (0-0.2); BASOPHILS % (AUTO) 0.7 % (0-1); EOSINOPHILS # (AUTO) 0.1 X10'3 (0-0.9); EOSINOPHILS % (AUTO) 1.9 % (0-6); HEMATOCRIT 30.9 % (42.0-52.0); HEMOGLOBIN 9.8 g/dl (14.0-17.9); LYMPHOCYTES # (AUTO) 1.1 X10'3 (1.1-4.8); LYMPHOCYTES % (AUTO) 14.5 % (21-51); MEAN CORPUSCULAR HEMOGLOBIN 25.5 PG (27.0-31.0); MEAN CORPUSCULAR HGB CONC 31.7 % (33.0-36.5); MEAN CORPUSCULAR VOLUME 80.5 FL (78-98); MEAN PLATELET VOLUME 7.3 FL (7.4-10.4); MONOCYTES # (AUTO) 0.7 X10'3 (0-0.9); MONOCYTES % (AUTO) 9.6 % (2-12); NEUTROPHILS # (AUTO) 5.8 X10'3 (1.8-7.7); NEUTROPHILS % (AUTO) 73.3 % (42-75); PLATELET COUNT 438 X10'3 (140-440); RED BLOOD COUNT 3.84 X10'6 (4.70-6.10); RED CELL DISTRIBUTION WIDTH 15.4 % (11.5-14.5); WHITE BLOOD COUNT 7.8 X10'3 (4.5-11.0)
[2018-03-31 12:02] LABS: ALANINE AMINOTRANSFERASE 21 U/L (12-78); ALBUMIN 3.1 G/DL (3.4-5.0); ALBUMIN/GLOBULIN RATIO 0.8 (1.1-1.5); ALKALINE PHOSPHATASE 109 IU/L (46-116); ANION GAP 6 (8-16); ASPARTATE AMINO TRANSFERASE 14 U/L (10-37); BILIRUBIN,TOTAL 0.2 MG/DL (0.1-1.0); BLOOD UREA NITROGEN 22 MG/DL (7-18); BUN/CREATININE RATIO 27.8 (5.4-32.0); CALCIUM 9.1 MG/DL (8.5-10.1); CHLORIDE 103 MMOL/L (99-107); CREATININE 0.79 MG/DL (0.60-1.10); GLUCOSE 101 MG/DL (70-104); MAGNESIUM 2.1 MG/DL (1.5-2.4); PHOSPHORUS 4.7 MG/DL (2.3-4.5); SODIUM 139 MMOL/L (135-145); TOTAL CARBON DIOXIDE 29.9 MMOL/L (24-32); TOTAL PROTEIN 7.1 G/DL (6.4-8.2); eGFR > 90 ML/MIN
[2018-03-31 12:18] LABS: INR 0.9 INR; PARTIAL THROMBOPLASTIN TIME 25 SECONDS (22-32)
--- NOTE | 2018-03-31 13:51 | NUR ---
Malnut consult: Patient currently on regular diet with documented PO intake 75-100% with high protein shake TID with 100% intake meeting nutrient needs. Unfortunately patient's current wt and documented wts from previous admissions are unreliable as they are pt stated wt. Pt with no documented edema. Pt with documented severe weakness and per H&P pt with mild temporal wasting. For these reasons pt currently meets criteria for malnutrition, MD notified. Will continue to follow. Recommendations: 1) Continue with regular diet 2) Continue with high protein shake TID 3) Weekly wt Addendum: 03/31/18 at [address] Amended: Links added.
--- NOTE | 2018-03-31 17:12 | NUR ---
RN progress note Chief Complaint Legal hold:5150 Client on involuntary status for GD Report received from ROCIO Rodriguez Why are they here:Patient agitated but answering some questions. Patient on a 5150 for gravely disabled and danger to self. Patient denies suicidal ideation but then states "just throw me in a hole and let me ." Patient is unable to walk and had joint and generalized pain but refuses pain medication. Patient denies HX of schizophrenia but has a long hx of same with hearing voices. Patient has a healing/closed wound to right hip. Patient has a foam dressing on the area. Patient quit smoking at 17 years of age. Patient had a CXR on 03/07 with no TB. Patient is emaciated and states he can't swallow but ends up eating his meal tray. Patient is homeless. For eval and stabilization. Diagnosis/presenting symptoms: Psychosis NOS Assessment What has happened this shift: Pt was laying in bed at change of shift. 1:1 assessment completed at bedside. Pt denies S/I but talks about being left for . Patient c/o pain allover but declines meds when offered. Patient met with Dr Robertson today but was not talkative with the nurse and complains a lot but will not let nurse help him. S/I, H/I:Pt denies A/VH: Pt denies but pt talks to himself Sleep: Patient slept off and on during the day. ADL's: Total assist. Pt is incontinent of urine and stool. Group attendance: None Were meds taken: pt refuses meds Any med S/E none reported or observed Mental Status Exam Appearance: pt is adequately groomed, wearing a green scrub top. Eye contact: good Behavior: Pt is initially resistive to care and complains but allows pct to change him. Speech: Normal rate and rhythm Mood: Irritable, agitated, Affect: constricted Thought process: Linear, delusional, oppositional Thought Content: Cognition: oriented x1 impaired Insight: poor Judgment: Poor Interventions PRN's used: None Therapeutic interventions: 1:1 assessment, q15 min checks for safety Restraints/seclusion/emergency medication: None Justification of Continued Inpatient Treatment: Pt needs eval and stabilization. pt at risk of decompensation as he is gravely disabled and unable to plan for f/c/s.
[2018-03-31 19:00] VITALS: BP 98/61
[2018-03-31 19:52] VITALS: BP 98/61
[2018-03-31] MEDS: docusate sod 100mg capsule PO SCH (20:00)
[2018-03-31] MEDS: ferrous sulfate ER tablet 140 MG TABLET.ER PO SCH (20:00)
[2018-03-31] MEDS: famotidine 20mg tablet PO SCH (21:00)
[2018-03-31] MEDS: tamsulosin 0.4mg capsule PO SCH (21:00)
[2018-03-31] MEDS ORDERED: temazepam 15mg capsule PO PRN (21:00)
--- NOTE | 2018-03-31 21:26 | NUR ---
ROCIO progress note Chief Complaint Legal hold:5150 Client on involuntary status for GD Report received from ROCIO Sanders Why are they here:Patient agitated but answering some questions. Patient on a 5150 for gravely disabled and danger to self. Patient denies suicidal ideation but then states "just throw me in a hole and let me ." Patient is unable to walk and had joint and generalized pain but refuses pain medication. Patient denies HX of schizophrenia but has a long hx of same with hearing voices. Patient has a healing/closed wound to right hip. Patient has a foam dressing on the area. Patient quit smoking at 17 years of age. Patient had a CXR on 03/07 with no TB. Patient is emaciated and states he can't swallow but ends up eating his meal tray. Patient is homeless. For eval and stabilization. Diagnosis/presenting symptoms: Psychosis NOS Assessment What has happened this shift: Pt was in bed at change of shift. 1:1 assessment completed at bedside. Pt denies s/i, when asked about depression pt states "wouldnt you be?" Pt reports appetite as "bad", but ate most of his dinner meal and protein shake stating "thats not protein thats just milk and water!" Pts spent evening visiting w/his sister and pts affect brightened quite a bit during the visit. Pts sister brought him in a flag w/sitting bull on the flag. Pt states "I recognized sitting bull on that flag, dont you think its funny, that flag is all blinged out? Wow that's beautiful" Pt smiles and says he never saw that flag before and wonders why his mother didnt give it to him. Then answers his own question saying "she must have forgot" Pt states he knows a lot about the [place] and seemed to be very interested in talking about this. Attempted to encourage pt to take his meds and he became agitated and began yelling saying "theres no point! I cant swallow, I dont even want those melting pills they take too long!" S/I, H/I:Pt denies A/VH: Pt denies but pt talks to himself Sleep: pt states "its fine" ADL's: Total assist. Pt is incontinent of urine and stool. Group attendance: None Were meds taken: pt refuses meds Any med S/E none reported or observed Mental Status Exam Appearance: pt is adequately groomed, wearing a green scrub top. Eye contact: good Behavior: Pt visited w/sister, had a pleasant visit and was smiling and talking a lot w/his sister Speech: Normal rate and rhythm Mood: Irritable, agitated, pleasant while sister visited Affect: constricted, brightened a great deal when talking w/his sister and when talking about [place] Thought process: Linear, delusional, oppositional Thought Content: talking about [place], visit w/sister, his mother having that flag Cognition: Impaired does recall some recent and remote events speaking w/his sister Insight: poor Judgment: Poor Interventions PRN's used: None Therapeutic interventions: 1:1 assessment, q15 min checks for safety Restraints/seclusion/emergency medication: None Justification of Continued Inpatient Treatment: Pt needs eval and stabilization. pt at risk of decompensation as he is gravely disabled and unable to plan for f/c/s.
[2018-04-01 08:00] VITALS: BP 106/85
[2018-04-01] MEDS: atorvastatin 10mg tablet PO SCH (08:45)
[2018-04-01] MEDS: ferrous sulfate ER tablet 140 MG TABLET.ER PO SCH ×2 (08:45→20:00)
[2018-04-01] MEDS: High Protein Shake w/Arg/Glut/Ca2+Bmb (Juven 19.3gm) pkt 240ml PO SCH ×3 (08:45→18:00)
[2018-04-01] MEDS: aspirin 81mg tab.chew PO SCH (08:45)
[2018-04-01] MEDS: docusate sod 100mg capsule PO SCH ×2 (09:10→20:00)
--- NOTE | 2018-04-01 14:06 | NUR ---
RN progress note Chief Complaint Legal hold:5150 Client on involuntary status for GD Report received from ROCIO Rodriguez Why are they here:Patient agitated but answering some questions. Patient on a 5150 for gravely disabled and danger to self. Patient denies suicidal ideation but then states "just throw me in a hole and let me ." Patient is unable to walk and had joint and generalized pain but refuses pain medication. Patient denies HX of schizophrenia but has a long hx of same with hearing voices. Patient has a healing/closed wound to right hip. Patient has a foam dressing on the area. Patient quit smoking at 17 years of age. Patient had a CXR on 03/07 with no TB. Patient is emaciated and states he can't swallow but ends up eating his meal tray. Patient is homeless. For eval and stabilization. Diagnosis/presenting symptoms: Psychosis NOS Assessment What has happened this shift: Pt was laying in bed at change of shift. 1:1 assessment completed at bedside. Pt denies S/I but has a depressed affect and gets irritated when asked questions. Patient's voice and demeanor calmed when RN asked about his sister's visit. Patient was very glad to get "the flag". Patient is still refusing meds and eating 100% of meals. Patient c/o pain allover but declines meds when offered. S/I, H/I:Pt denies A/VH: Pt denies but pt talks to himself and appears to be responding to internal stimuli Sleep: Patient slept off and on during the day. ADL's: Total assist. Pt is incontinent of urine and stool. Pt is able to turn himself. Group attendance: None Were meds taken: pt refuses meds Any med S/E none reported or observed Mental Status Exam Appearance: pt is adequately groomed, wearing a green scrub top. Eye contact: good Behavior: Pt is initially resistive to care and complains but allows pct to change him. Speech: Normal rate and rhythm Mood: Irritable, agitated, Affect: constricted Thought process: Linear, delusional, oppositional Thought Content: Cognition: oriented x1 impaired Insight: poor Judgment: Poor Interventions PRN's used: None Therapeutic interventions: 1:1 assessment, q15 min checks for safety Restraints/seclusion/emergency medication: None Justification of Continued Inpatient Treatment: Pt needs eval and stabilization. pt at risk of decompensation as he is gravely disabled and unable to plan for f/c/s.
--- NOTE | 2018-04-01 17:46 | NUR ---
Addendum Pt's nasal swab is MRSA positive. Must wash his hands before and after meals and before urinating. RN and Techs are aware and will assist patient. Patient advised and grunted.
[2018-04-01 19:55] VITALS: BP 99/50
[2018-04-01] MEDS: famotidine 20mg tablet PO SCH (21:00)
[2018-04-01] MEDS: tamsulosin 0.4mg capsule PO SCH (21:00)
--- NOTE | 2018-04-02 02:52 | NUR ---
[facility] progress note Chief Complaint Legal hold:5150 Client on involuntary status for GD Report received from [facility]IO Ascencio Why are they here:Patient agitated but answering some questions. Patient on a 5150 for gravely disabled and danger to self. Patient denies suicidal ideation but then states "just throw me in a hole and let me ." Patient is unable to walk and had joint and generalized pain but refuses pain medication. Patient denies HX of schizophrenia but has a long hx of same with hearing voices. Patient has a healing/closed wound to right hip. Patient has a foam dressing on the area. Patient quit smoking at 17 years of age. Patient had a CXR on 03/07 with no TB. Patient is emaciated and states he can't swallow but ends up eating his meal tray. Patient is homeless. For eval and stabilization. Diagnosis/presenting symptoms: Psychosis NOS Assessment What has happened this shift: Pt isolates in room with the covers over his head. When principal technical writer walks into room and says rena he answers, "go away." Brewery Pumper notices his dinner tray has not been touched and says, "would you like to eat your dinner, it is sitting here on your tray table." Pt responds, "no, get it the fuck out of here." Brewery Pumper tried to encourage pt to eat but he kept his head underneath the covers and would not respond. Brewery Pumper then asked if pt would let her assess him and he responded, "No! get the fuck out!." Brewery Pumper told pt that she would be back to check on him and reassured his safety to which he again responded, "get the fuck out." Later principal technical writer came in room and asked if pt would please take his HS medication. He responded, "no!!! leave!!!." Will continue to monitor and attempt to establish a rapport with pt. S/I, H/I:Pt refuses to answer any questions A/VH: pt talks to himself occasionally Sleep: see sleep assessment notation ADL's: Total assist. Pt is incontinent of urine and stool. Pt is able to turn himself. Group attendance: No groups, shiftman Were meds taken: pt refuses meds Any med S/E none reported or observed Mental Status Exam Appearance: pt will not come out from under covers Eye contact: pt will not uncover his face to look at principal technical writer Behavior: Pt lays in bed with covers over his head and yells at principal technical writer Speech: clear Mood: angry, isolative Affect: withdrawn Thought process:oppositional Thought Content: unable to assess Cognition: oriented x1 impaired Insight: poor Judgment: Poor Interventions PRN's used: None Therapeutic interventions: 1:1 assessment, q15 min checks for safety Restraints/seclusion/emergency medication: None Justification of Continued Inpatient Treatment: Pt needs eval and stabilization. pt at risk of decompensation as he is gravely disabled and unable to plan for f/c/s.
[2018-04-02 08:00] VITALS: BP 92/56
[2018-04-02] MEDS: atorvastatin 10mg tablet PO SCH (08:34)
[2018-04-02] MEDS: ferrous sulfate ER tablet 140 MG TABLET.ER PO SCH ×2 (08:34→20:00)
[2018-04-02] MEDS: aspirin 81mg tab.chew PO SCH (08:34)
[2018-04-02] MEDS: docusate sod 100mg capsule PO SCH ×2 (08:34→20:00)
[2018-04-02] MEDS: High Protein Shake w/Arg/Glut/Ca2+Bmb (Juven 19.3gm) pkt 240ml PO SCH ×3 (08:34→18:00)
--- NOTE | 2018-04-02 15:40 | NUR ---
Addendum: Pt placed on a 5250 this afternoon. Advisement Completed by [facility] Lr.
--- NOTE | 2018-04-02 15:42 | NUR ---
RN progress note Chief Complaint Legal hold:5150 Client on involuntary status for GD Report received from [facility] Rodriguez Why are they here:Patient agitated but answering some questions. Patient on a 5150 for gravely disabled and danger to self. Patient denies suicidal ideation but then states "just throw me in a hole and let me ." Patient is unable to walk and had joint and generalized pain but refuses pain medication. Patient denies HX of schizophrenia but has a long hx of same with hearing voices. Patient has a healing/closed wound to right hip. Patient has a foam dressing on the area. Patient quit smoking at 17 years of age. Patient had a CXR on 03/07 with no TB. Patient is emaciated and states he can't swallow but ends up eating his meal tray. Patient is homeless. For eval and stabilization. Diagnosis/presenting symptoms: Psychosis NOS Assessment What has happened this shift: Pt was sleeping at change of shift and up in bed for breakfast. RN went to patient and asked him to take his medication. As patient was eating he is yelling at nurse and saying he can't swallow. RN handed patient his cup of medication. Patient looked in the cup and downed the medication. Then patient said to RN "Get the fuck out!" RN left patient alone. [facility] Lr and Frandy Morales cleaned patient of stool and placed diaper and scrub pants on patient. Physical Therapist Semaj came to evaluate patient. Patient is contracted and unable to straighten his legs. Semaj suggested a Lesly lift to get patient into his wheelchair. Patient's w/c is outside in [facility] locked ambulance bay holding area. Patient's w/c is going to be cleaned by EVS for patient to use. 1:1 assessment completed at bedside. Patient still feeling like he wants to and is very frustrated that he is unable to walk and has a lot of joint pain. S/I, H/I:Pt Patient wants to A/VH: Pt denies but pt talks to himself and appears to be responding to internal stimuli Sleep: Patient slept off and on during the day. ADL's: Total assist. Pt is incontinent of stool, but uses urinal to urinate. Pt is able to turn himself. Group attendance: None Were meds taken: Yes Any med S/E none reported or observed Mental Status Exam Appearance: pt is adequately groomed, wearing a green scrub top. Eye contact: good Behavior: Pt is initially resistive to care and complains but allows pct to change him. Speech: Normal rate and rhythm Mood: Irritable, agitated, Affect: constricted Thought process: Linear, delusional, oppositional Thought Content: Cognition: oriented x1 impaired Insight: poor Judgment: Poor Interventions PRN's used: None Therapeutic interventions: 1:1 assessment, q15 min checks for safety Restraints/seclusion/emergency medication: None Justification of Continued Inpatient Treatment: Pt needs eval and stabilization. pt at risk of decompensation as he is gravely disabled and unable to plan for f/c/s.
[2018-04-02 19:55] VITALS: BP 85/53
[2018-04-02] MEDS: tamsulosin 0.4mg capsule PO SCH (21:00)
--- NOTE | 2018-04-02 23:37 | NUR ---
[facility] progress note Chief Complaint Legal hold:5250 Client on involuntary status for GD Report received from [facility] Ascencio Why are they here:Patient agitated but answering some questions. Patient on a 5150 for gravely disabled and danger to self. Patient denies suicidal ideation but then states "just throw me in a hole and let me ." Patient is unable to walk and had joint and generalized pain but refuses pain medication. Patient denies HX of schizophrenia but has a long hx of same with hearing voices. Patient has a healing/closed wound to right hip. Patient has a foam dressing on the area. Patient quit smoking at 17 years of age. Patient had a CXR on 03/07 with no TB. Patient is emaciated and states he can't swallow but ends up eating his meal tray. Patient is homeless. For eval and stabilization. Diagnosis/presenting symptoms: Psychosis NOS Assessment What has happened this shift: Pt isolates in room with blankets infront of his face and turned away from the door. Adobe Cq Developer greets him and he responds , "what?!? what?!" Adobe Cq Developer encourages him to eat his dinner tray which is barely touched to which he yells, "no!! that food tastes like dog shit!! I wouldn't even feed my dog that shit and I can't swallow." Adobe Cq Developer reminded him that he ate his breakfast and lunch, drinks fluids, and can swallow to which he replies, "no I can't! I told the doctor I can't swallow anything." Adobe Cq Developer encourages pt to please take his HS medications and educates him on each pill and why he should take them, pt says, "No! no pills! I won't swallow pills! get out! get out!." Adobe Cq Developer reassures pt that staff is here to help him and care for him, he just stays laying flat and closes his eyes and ignores telegraphic typewriter installer. S/I, H/I:Pt refuses to answer any questions A/VH: pt talks to himself occasionally Sleep: see sleep assessment notation ADL's: Total assist. Pt is incontinent of urine and stool. Pt is able to turn himself. Group attendance: No groups, overnight stocker Were meds taken: pt refuses meds Any med S/E none reported or observed Mental Status Exam Appearance: pt lays in bed staring at divider or closes eyes to ignore telegraphic typewriter installer Eye contact: none Behavior: Pt lays in bed and yells at telegraphic typewriter installer Speech: clear Mood: angry, isolative Affect: withdrawn Thought process:oppositional , hopeless Thought Content: unable to assess Cognition: oriented x1 impaired Insight: poor Judgment: Poor Interventions PRN's used: None Therapeutic interventions: 1:1 assessment, q15 min checks for safety, medication education Restraints/seclusion/emergency medication: None Justification of Continued Inpatient Treatment: Pt needs eval and stabilization. pt at risk of decompensation as he is gravely disabled and unable to plan for f/c/s.
[2018-04-03] MEDS: pantoprazole 40mg Tablet.DR PO SCH (07:30)
[2018-04-03 08:00] VITALS: BP 93/56
[2018-04-03] MEDS: ferrous sulfate ER tablet 140 MG TABLET.ER PO SCH ×2 (08:00→20:00)
[2018-04-03] MEDS: High Protein Shake w/Arg/Glut/Ca2+Bmb (Juven 19.3gm) pkt 240ml PO SCH ×2 (08:00→13:00)
[2018-04-03] MEDS: atorvastatin 10mg tablet PO SCH (08:00)
[2018-04-03] MEDS: docusate sod 100mg capsule PO SCH ×2 (08:00→20:00)
[2018-04-03] MEDS: aspirin 81mg tab.chew PO SCH (08:30)
[2018-04-03] MEDS ORDERED: fluoxetine 20mg/5ml UD cup PO ONE (10:30)
--- NOTE | 2018-04-03 17:29 | NUR ---
RN progress note Chief Complaint Legal hold:5250 Client on involuntary status for GD Report received from [facility] Ascencio Why are they here:Patient agitated but answering some questions. Patient on a 5150 for gravely disabled and danger to self. Patient denies suicidal ideation but then states "just throw me in a hole and let me ." Patient is unable to walk and had joint and generalized pain but refuses pain medication. Patient denies HX of schizophrenia but has a long hx of same with hearing voices. Patient has a healing/closed wound to right hip. Patient has a foam dressing on the area. Patient quit smoking at 17 years of age. Patient had a CXR on 03/07 with no TB. Patient is emaciated and states he can't swallow but ends up eating his meal tray. Patient is homeless. For eval and stabilization. Diagnosis/presenting symptoms: Psychosis NOS Assessment What has happened this shift: Patient is met in his room. He is easily agitated and uses tejada language. Patient refuses to take his medications when offered. RN attempted again at the end of breakfast by just handing them to him, again he refused stating that he cannot take pills. Doctor ordered liquid Prozac, patient states he cant swallow it. Eventually, with encouragement, patient takes the medication continuing to express his distain. Patient is incontinent of bowels twice, he is cleaned and beddding is changed as needed. Wound on left hip is cleaned and dressing changed. RN spoke with PT who requests patient take Zanaflex prior to meeting with them, patient refuses Zanaflex. PT requests to be contacted only after patient takes Zanaflex. S/I, H/I: Patient states he just wants to and couldnt even do that right, so here he is A/VH: none reported Sleep: patient naps during the day ADL's: Total assist. Pt is incontinent of stool. Pt is able to turn himself. Group attendance: patient does not attend groups Were meds taken: pt refuses meds, did take liquid prozac Any med S/E none reported or observed Mental Status Exam Appearance: pt lays in bed staring at divider or closes eyes to ignore personal lines underwriter Eye contact: occasional, tries to avoid Behavior: Pt lays in bed and yells at personal lines underwriter Speech: clear, tejada tone, continually expresses he great distain for all things Mood: angry, isolative Affect: withdrawn Thought process:oppositional , hopeless Thought Content: unable to assess Cognition: A/O x4 Insight: poor Judgment: Poor Interventions PRN's used: None Therapeutic interventions: 1:1 assessment, attempted therapuetic conversation that included postive feedback, q15 min checks for safety, medication education Restraints/seclusion/emergency medication: None Justification of Continued Inpatient Treatment: Pt needs eval and stabilization. pt at risk of decompensation as he is gravely disabled and unable to plan for food, clothing, and intermediate.
[2018-04-03 20:00] VITALS: BP 98/51
[2018-04-03] MEDS: tamsulosin 0.4mg capsule PO SCH (21:00)
--- NOTE | 2018-04-04 01:11 | NUR ---
[facility] progress note Chief Complaint Legal hold:5250 Client on involuntary status for GD Report received from ROCIO Lan Why are they here:Patient agitated but answering some questions. Patient on a 5150 for gravely disabled and danger to self. Patient denies suicidal ideation but then states "just throw me in a hole and let me ." Patient is unable to walk and had joint and generalized pain but refuses pain medication. Patient denies HX of schizophrenia but has a long hx of same with hearing voices. Patient has a healing/closed wound to right hip. Patient has a foam dressing on the area. Patient quit smoking at 17 years of age. Patient had a CXR on 03/07 with no TB. Patient is emaciated and states he can't swallow but ends up eating his meal tray. Patient is homeless. For eval and stabilization. Diagnosis/presenting symptoms: Psychosis NOS Assessment What has happened this shift: Pt isolates in room with the covers over his head and refuses to talk to personal lines underwriter. Later personal lines underwriter came in room and asked if pt would please take his HS medication. He responded, "no!!! leave!!!." Will continue to monitor and attempt to establish a rapport with pt. S/I, H/I:Pt refuses to answer any questions A/VH: pt talks to himself occasionally Sleep: see sleep assessment notation ADL's: Total assist. Pt is incontinent of urine and stool. Pt is able to turn himself. Group attendance: No groups, evening or night nurse supervisor Were meds taken: pt refuses meds Any med S/E none reported or observed Mental Status Exam Appearance: pt will not come out from under covers Eye contact: pt will not uncover his face to look at personal lines underwriter Behavior: Pt lays in bed with covers over his head and yells at personal lines underwriter Speech: clear Mood: angry, isolative Affect: withdrawn Thought process:oppositional Thought Content: unable to assess Cognition: oriented x1 impaired Insight: poor Judgment: Poor Interventions PRN's used: None Therapeutic interventions: 1:1 assessment, q15 min checks for safety Restraints/seclusion/emergency medication: None Justification of Continued Inpatient Treatment: Pt needs eval and stabilization. pt at risk of decompensation as he is gravely disabled and unable to plan for f/c/s.
[2018-04-04] MEDS: pantoprazole 40mg Tablet.DR PO SCH (07:30)
[2018-04-04 07:35] VITALS: BP 101/56
[2018-04-04] MEDS: fluoxetine 20mg/5ml UD cup PO SCH (08:00)
[2018-04-04] MEDS: High Protein Shake w/Arg/Glut/Ca2+Bmb (Juven 19.3gm) pkt 240ml PO SCH ×2 (08:00→13:00)
[2018-04-04] MEDS: ferrous sulfate ER tablet 140 MG TABLET.ER PO SCH ×2 (08:00→20:00)
[2018-04-04] MEDS: docusate sod 100mg capsule PO SCH ×2 (08:00→20:00)
[2018-04-04] MEDS: atorvastatin 10mg tablet PO SCH (08:00)
[2018-04-04] MEDS: aspirin 81mg tab.chew PO SCH (08:30)
--- NOTE | 2018-04-04 16:55 | NUR ---
RN progress note Chief Complaint Legal hold: 5250 Client on involuntary status for GD Report received from [facility] Moore Why are they here: Patient on a 5150 for gravely disabled and danger to self. Patient denies suicidal ideation but then states "just throw me in a hole and let me ." Patient is unable to walk and had joint and generalized pain but refuses pain medication. Patient had a CXR on 03/07 with no TB. Patient is emaciated and states he can't swallow but ends up eating his meal tray. Patient is homeless. Diagnosis/presenting symptoms: Psychosis NOS Assessment What has happened this shift: Patient is met in his room. He yells at this RN to Go away, get out. He refuses his medications, both pills and liquid prozac. He states I dont want it , I dont care. Patient is incontinent of bowels twice, he is cleaned and beddding is changed as needed. Medications are offered again and are again refused. PT requests to be contacted only after patient takes Zanaflex., patient refuses. S/I, H/I: not expressed today A/VH: none reported Sleep: patient naps most of the day ADL's: Total assist. Pt is incontinent of stool. Pt is able to turn himself. Group attendance: patient does not attend groups Were meds taken: pt refuses meds Any med S/Es: none reported or observed Mental Status Exam Appearance: pt lays in bed most of the day, sits up to eat Eye contact: occasional, tries to avoid Behavior: Pt lays in bed and yells at justowriter operator Speech: clear, tejada tone, continually expresses his great disdain for all things Mood: angry, isolative, hopeless Affect: congruent to mood Thought process:oppositional , hopeless Thought Content: unable to assess Cognition: A/O x4 Insight: poor Judgment: Poor Interventions PRN's used: None Therapeutic interventions: 1:1 assessment, attempted therapeutic conversation that included positive feedback, q15 min checks for safety, medication education Restraints/seclusion/emergency medication: None Justification of Continued Inpatient Treatment: Pt needs eval and stabilization. pt at risk of decompensation as he is gravely disabled and unable to plan for food, clothing, and [facility].
[2018-04-04 20:02] VITALS: BP 86/49
[2018-04-04] MEDS: tamsulosin 0.4mg capsule PO SCH (21:00)
--- NOTE | 2018-04-04 23:12 | NUR ---
RN progress note Chief Complaint Legal hold: 5250 Client on involuntary status for GD Report received from [facility] Kiser Why are they here: Patient on a 5150 for gravely disabled and danger to self. Patient denies suicidal ideation but then states "just throw me in a hole and let me ." Patient is unable to walk and had joint and generalized pain but refuses pain medication. Patient had a CXR on 03/07 with no TB. Patient is emaciated and states he can't swallow but ends up eating his meal tray. Patient is homeless. Diagnosis/presenting symptoms: Psychosis NOS Assessment What has happened this shift: Patient is in his room at change of shift, he is laying on his right side, and refuses assessment, and then completely ignores this speech writer when trying to talk to him. This speech writer informs him that I will be back to check on him later. Met patient in his room for a second time, he again refuses assessment, and will not make eye contact or talk to this speech writer. Checked patient for incontinence episode, patient was telling this speech writer to not check him, patient had a BM and was resistive to this speech writer to clean him up stating "It's not that bad, leave me alone." Cleaned patient up, and changed his bedding, patient was reluctant the whole time, and stating repeatedly "It's not that bad, I'm no that dirty, leave me alone." Patient refused his evening medications this shift as well. Medications are offered one more time and he still refused. S/I, H/I: Did not express A/VH: Would not talk to this speech writer Sleep: Patient lays in bed with his eyes closed this shift. ADL's: Total assist. Pt is incontinent of stool. Pt is able to turn himself. Group attendance: None Were meds taken: Patient refused Any med S/Es: None reported or observed Mental Status Exam Appearance: Patient laying in bed, green scrub top on, refuses eye contact Eye contact: Avoided eye contact Behavior: Patient lays in bed, avoid eye contact and tells speech writer "Leave me alone" Speech: Clear, Gaitan Mood: Angry. Isolative Affect: Angry Thought process: Hopeless, angry Thought Content: Unable to assess Cognition: Unable to assess Insight: Poor Judgment: Poor Interventions PRN's used: None Therapeutic interventions: Tried to obtain 1:1 assessment. Attempted to establish rapport by providing a safe supportive environment and talk in a non-threatening manner. Provided patient with therapeutic environment and support. Cleaned patient after BM, and changed bedding. Q15 min checks for safety. Medication education on the importance of adhering to medication regimen. Restraints/seclusion/emergency medication: None Justification of Continued Inpatient Treatment: Pt needs evaluation and stabilization. Patient at risk of decompensation as he is gravely disabled and unable to plan for food, clothing, and senior living.
[2018-04-05] MEDS: pantoprazole 40mg Tablet.DR PO SCH (07:30)
[2018-04-05 08:00] VITALS: BP 93/56
[2018-04-05] MEDS: ferrous sulfate ER tablet 140 MG TABLET.ER PO SCH ×2 (08:00→20:00)
[2018-04-05] MEDS: atorvastatin 10mg tablet PO SCH (08:00)
[2018-04-05] MEDS: docusate sod 100mg capsule PO SCH ×2 (08:00→20:00)
[2018-04-05] MEDS: fluoxetine 20mg/5ml UD cup PO SCH (08:00)
[2018-04-05] MEDS: aspirin 81mg tab.chew PO SCH (08:30)
--- NOTE | 2018-04-05 15:34 | NUR ---
Reassessment: Patient continues with 100% PO intake of high protein shakes TID with meals and 75-100% PO intake of regular diet. Meeting nutrition needs. No change in weight. Will continue to follow. Recommendations: 1) Continue with regular diet 2) Continue with high protein shake TID 3) Weekly wt Addendum: 04/05/18 at [address] Amended: Links added.
--- NOTE | 2018-04-05 17:11 | NUR ---
RN progress note Chief Complaint Legal hold: 5250 Client on involuntary status for GD Report received from [facility] Justin Why are they here: Patient on a 5150 for gravely disabled and danger to self. Patient denies suicidal ideation but then states "just throw me in a hole and let me ." Patient is unable to walk and had joint and generalized pain but refuses pain medication. Patient had a CXR on 03/07 with no TB. Patient is emaciated and states he can't swallow but ends up eating his meal tray. Patient is homeless. Diagnosis/presenting symptoms: Psychosis NOS Assessment: What has happened this shift: Patient is met in his room. His bedding is checked and he was incontenant of bowels. With soft rubs on patients upper back RN explained that he would need to be cleaned up and possibly have his bedding changed. Medications are offered to which patient refuses. He did not yell as he has during past shifts and spoke in a more pleasant manner. Patient shared the story of the flag which is on his shelf that belonged to his mother. He was conversational. RN asked if patient is feeling lonely in his room, he states "I've been lonely for 5 years." RN asked if patient would like a story read to him, he politely stated no. Patient politely continues to share stories. First incident of stool incontinence patient was mildly resistive. Second incident of stool incontinence patient was resistive stating Its not that bad and complaining of pain. Patients medications were offered to him again at which time he became angry and started yelling refusing medication. S/I, H/I: not expressed today A/VH: none reported Sleep: report received he slept 10hrs as well as rested during the day ADL's: Total assist. Pt is incontinent of stool. Pt is able to turn himself. Group attendance: patient does not attend groups Were meds taken: pt refuses meds Any med S/Es: none reported or observed Mental Status Exam Appearance: pt lays in bed most of the day, sits up to eat Eye contact: occasional, tries to avoid Behavior: Pt lays in bed, is pleasant in the morning, yells after second attempt to offer meds Speech: clear, soft tone, Mood: labile, angry, isolative, hopeless, depressed Affect: congruent to mood Thought process: hopeless Thought Content: overall patient epresses great dislike for everything, including food he requests and eats all of Cognition: A/O x4 Insight: poor Judgment: Poor Interventions PRN's used: None Therapeutic interventions: 1:1 therapeutic conversation with RN that included positive feedback, q15 min checks for safety, medication education Restraints/seclusion/emergency medication: None Justification of Continued Inpatient Treatment: Patient at risk of decompensation as he is gravely disabled, unable to plan for food, clothing, and custodial. Continued therapeutic support and medication management needed to provide stabilization and prevent decompensation, decreasing risk to patient and readmittance.
[2018-04-05] MEDS: High Protein Shake w/Arg/Glut/Ca2+Bmb (Juven 19.3gm) pkt 240ml PO SCH (18:00)
[2018-04-05 19:00] VITALS: BP 102/70
[2018-04-05] MEDS: tamsulosin 0.4mg capsule PO SCH (21:00)
--- NOTE | 2018-04-06 00:09 | NUR ---
RN progress note Chief Complaint Legal hold: 5250 Client on involuntary status for GD Report received from ROCIO Kiser Why are they here: Patient on a 5150 for gravely disabled and danger to self. Patient denies suicidal ideation but then states "just throw me in a hole and let me ." Patient is unable to walk and had joint and generalized pain but refuses pain medication. Patient had a CXR on 03/07 with no TB. Patient is emaciated and states he can't swallow but ends up eating his meal tray. Patient is homeless. Diagnosis/presenting symptoms: Psychosis NOS Assessment What has happened this shift: Patient is in his room at the change of shift, lights are out and he is in bed with his head covered. This telegraphic typewriter installer greets him. Patient informs telegraphic typewriter installer his stomach is upset and that he wants to be left alone. He deinies any medications for stomach relief. Later patient is approached for a 1:1 assessment, he denies. This telegraphic typewriter installer checks patient bed, and notices patient was incontinent and needed to be changed along with his bed. Gently reassure patient that he will be cleaned up and taken care of. He is resistive, but not yelling or aggressive. Patient is cleaned, bedding is changed, and patients hands are washed. 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 He expressed as well "you don't understand it feels like hot sand." Referring to when his skin is touched. After being cleaned, he still refuses assessment because it hurts to be touched, he also refuses medications stating "Don't you understand I can't swallow, I've been dealing with this for 5 years." Medications were offered again and he still kindly declined. S/I, H/I: Did not express A/VH: Did not express Sleep: Patient lays in bed with his eyes closed this shift. ADL's: Total assist. Pt is incontinent of stool. Pt is able to turn himself. Group attendance: None Were meds taken: Patient refused Any med S/Es: None reported or observed Mental Status Exam Appearance: Patient laying in bed, green scrub top on Eye contact: Makes occasional eye contact Behavior: Patient lays in bed, slightly resistive to care, feels helpless Speech: Clear, Gaitan Mood: Hopeless/Helpless Affect: Congruent to mood Thought process: Hopeless Thought Content: Helpless, negative, say's he can't do anything Cognition: Unable to assess Insight: Poor Judgment: Poor Interventions PRN's used: None Therapeutic interventions: Tried to obtain 1:1 assessment. Attempted to establish rapport by providing a safe supportive environment and talk in a non-threatening manner. Provided patient with therapeutic environment and support. Cleaned patient after BM, and changed bedding. Q15 min checks for safety. Medication education on the importance of adhering to medication regimen. Restraints/seclusion/emergency medication: None Justification of Continued Inpatient Treatment: Pt needs evaluation and stabilization. Patient at risk of decompensation as he is gravely disabled and unable to plan for food, clothing, and mcc.
[2018-04-06] MEDS: pantoprazole 40mg Tablet.DR PO SCH (07:30)
[2018-04-06 08:00] VITALS: BP 100/60
[2018-04-06] MEDS: fluoxetine 20mg/5ml UD cup PO SCH (08:00)
[2018-04-06] MEDS: docusate sod 100mg capsule PO SCH ×2 (08:00→20:00)
[2018-04-06] MEDS: ferrous sulfate ER tablet 140 MG TABLET.ER PO SCH ×2 (08:00→20:00)
[2018-04-06] MEDS: atorvastatin 10mg tablet PO SCH (08:00)
[2018-04-06] MEDS: aspirin 81mg tab.chew PO SCH ×2 (08:25→08:30)
[2018-04-06] MEDS: High Protein Shake w/Arg/Glut/Ca2+Bmb (Juven 19.3gm) pkt 240ml PO SCH ×3 (08:55→18:00)
--- NOTE | 2018-04-06 17:21 | NUR ---
Nursing Progress Note: Chief Complaint: 5150 Legal hold: 525 Client on involuntary status GD. Report received from ROCIO Justin with use of SBAR. Why are they here:. Diagnosis/presenting symptoms: Pt on 5250 for GD and DTO. Pt unable to formulate a plan for housing, food, or penitentiary. Pt presents as depressed and hopeless. Assessment What has happened this shift: Pt was in his bed throughout the shift. He refused medications saying he cannot swallow, he then ate his breakfast. Following breakfast, this health underwriter attempted to give pt liquid Prozac, but pt refused saying it will not help. He became irritable and began yelling. Pt was uncooperative and refused assessment. S/I, H/I: EVA A/VH: EVA Sleep: Napped ADL's: with assistance Group attendance: No Were meds taken: No Any med S/E N/A Mental Status Exam Appearance: Pt laying in bed Eye contact: Poor Behavior: Irritable, noncompliant Speech: Yelling when irritated Mood: Labile Affect: Depressed Thought process: Oppositional Thought Content: Hopeless, Depressed Cognition: A&Ox4 Insight: Poor Judgment: Poor Interventions PRN's used: None Therapeutic interventions: 1:1 assessment, active listening, Q 15 min safety checks Restraints/seclusion/emergency medication: None Justification of Continued Inpatient Treatment: Pt require medication adjustments, support and therapeutic interventions to provide stabilization and prevent decompensation and decrease the risk for the patient and readmittance. Pt unable to formulate a plan for food, clothing, and housing.
[2018-04-06 20:00] VITALS: BP 87/47
[2018-04-06] MEDS: OLANZapine 5mg rapidly disint. tablet PO SCH (21:00)
[2018-04-06] MEDS: tamsulosin 0.4mg capsule PO SCH (21:00)
--- NOTE | 2018-04-06 23:17 | NUR ---
ROCIO progress note Chief Complaint Legal hold: 5250 Client on involuntary status for GD Report received from ROCIO Mohan Why are they here: Patient on a 5150 for gravely disabled and danger to self. Patient denies suicidal ideation but then states "just throw me in a hole and let me ." Patient is unable to walk and had joint and generalized pain but refuses pain medication. Patient had a CXR on 03/07 with no TB. Patient is emaciated and states he can't swallow but ends up eating his meal tray. Patient is homeless. Diagnosis/presenting symptoms: Psychosis NOS Assessment What has happened this shift: Pt is laying in bed at change of shift. 1:1 assessment completed at bedside. Pt is agitated and complains of discomfort. Explained to pt we have medication we would like to try to help him with and he states "nothing can help me, Wanda been this way for five years." Pt states "leave me alone, you're not helping," Pt ate some of his dinner meal and finished his ice cream and protein shake. Offered pt some more ice cream and he states "you don't have ice cream here, I know what you're gonna do, that's not ice cream." Pt refused assessment for the most part but did cooperate and take breaths for lung sounds. Attempted to engage pt in further conversation. He states "I already did enough talking today, all that stuff is in my past and I dont want to talk anymore." Pt is hopeless despondent, doesnt answer when asked about S/I. S/I, H/I: Pt is not making suicidal statements. A/VH: denies, pt was not observed RIS Sleep: Patient laying in bed sleeping. Pt states he doesnt sleep but Wanda had to wake him to talk w/me at various times during the shift. ADL's: Total assist. Pt is incontinent of stool. Pt is able to turn himself. Group attendance: None Were meds taken: Patient refused Any med S/Es: None reported or observed Mental Status Exam Appearance: Patient laying in bed, green scrub top on Eye contact: Fair Behavior: Patient lays in bed, slightly resistive to care, Speech: WNL, at times he gets angry and yells Mood: Despondent Affect: Depressed Thought process: Hopeless Thought Content: negative, say's he can't do anything Cognition: Unable to assess Insight: Poor Judgment: Poor Interventions PRN's used: None Therapeutic interventions: Attempted 1:1 assessment. Attempted conversation w/patient. Q15 min checks for safety. Restraints/seclusion/emergency medication: None Justification of Continued Inpatient Treatment: Pt needs evaluation and stabilization. Patient at risk of decompensation as he is gravely disabled and unable to plan for food, clothing, and longterm.
[2018-04-07] MEDS ORDERED: OLANZapine 5mg rapidly disint. tablet PO ONE (07:45)
[2018-04-07] MEDS: High Protein Shake w/Arg/Glut/Ca2+Bmb (Juven 19.3gm) pkt 240ml PO SCH ×3 (08:00→13:50)
[2018-04-07] MEDS: atorvastatin 10mg tablet PO SCH (08:00)
[2018-04-07] MEDS: thiamine 100mg tablet PO SCH (08:00)
[2018-04-07] MEDS: ferrous sulfate ER tablet 140 MG TABLET.ER PO SCH (08:00)
[2018-04-07] MEDS: docusate sod 100mg capsule PO SCH (08:00)
[2018-04-07] MEDS: pantoprazole 40mg Tablet.DR PO SCH (08:15)
[2018-04-07 08:29] VITALS: BP 97/50
[2018-04-07] MEDS: aspirin 81mg tab.chew PO SCH (08:30)
[2018-04-07] MEDS: fluoxetine 20mg/5ml UD cup PO SCH (08:43)
--- NOTE | 2018-04-07 14:12 | NUR ---
Nursing note: Pt needed a weight today. Pt has no scale on bed and pt denies ability to stand. Used a Lesly lift with a scale. After lifting pt for weight, placed pt in a wheel chair. Pt complained but did not refuse. PT made statements "I cant get in a wheelchair. Im disabled." Wheeled pt into community room and sat at table and gave hot chocolate. Pt watched TV and socialized with other pts. After lunch pt states he wants to go back to bed and does not want to use the lift. Wheeled pt back to room and close to bed. Pt was able to crawl into bed with one person assist from the wheelchair.
--- NOTE | 2018-04-07 16:52 | NUR ---
Nursing Progress Note: Chief Complaint: 5150 Legal hold: 5249 Client on involuntary status GD. Report received from ROCIO Rodriguez with use of SBAR. Why are they here:. Diagnosis/presenting symptoms: Pt on 5250 for GD and DTO. Pt unable to formulate a plan for housing, food, or detention. Pt presents as depressed and hopeless. Assessment What has happened this shift: Pt was sleeping at change of shift. Dr. Clarke discussed medications with pt. Dr. Clarke directed to administer the Zyprexa during pt's breakfast. Pt accepted Zyprexa Zydis saying, "Is that the one under the tongue." Following breakfast pt was offered liquid Prozac, he initially refused saying, "It's not going to do any good. Go away." He accepted the medication, but only consumed one-half of the dose. This telegraphic typewriter repairer encouraged him to drink the rest, but he became irritated and refused. Pt refused remaining AM medications. Pt incontinent of stool, pericare performed. Pt has strength to turn his body. Pt independenly braced his legs to lift his buttocks so his pants could be pulled up. Pt's optifoam dressing on R hip changed. No open areas or discharge noted. At 1030, pt was transferred to a wheelchair using a mechanical lift. Pt was up in group room from [id number]. Pt tolerated activity well. He socialized with other patients. He stated, "I haven't watched TV in four years." He then engaged in a conversation with another patient about the movie playing on the tv and stated he had seen the movie before. Patient attended morning group. After lunch pt asked to be returned to bed. S/I, H/I: No suicidal statement noted A/VH: EVA Sleep: Napped ADL's: with assistance Group attendance: Yes Were meds taken: Yes, Zyprexa and Prozac Any med S/E: No Mental Status Exam Appearance: Pt appears rigid with his legs drawn up. Pt appeared more relaxed while in the wheelchair in the group room. Eye contact: Avoids eye contact Behavior: Irritable initially, but compliant once out of bed and up in group room. Speech: Yelling at times. Appropriate while conversing with other patients Mood: Labile Affect: Depressed Thought process: Delusions, pt thinks he cannot move, but is seen to move when asked. Thought Content: Hopeless, Depressed Cognition: A&Ox4 Insight: Poor Judgment: Poor Interventions PRN's used: None Therapeutic interventions: 1:1 assessment, active listening, Q 15 min safety checks, medication administration and education Restraints/seclusion/emergency medication: None Justification of Continued Inpatient Treatment: Pt require medication adjustments, support and therapeutic interventions to provide stabilization and prevent decompensation and decrease the risk for the patient and readmittance. Pt unable to formulate a plan for food, clothing, and housing.
[2018-04-07] MEDS ORDERED: ipratropium/albuterol 3ml nebule NEB PRN (18:10)
[2018-04-07 19:00] VITALS: BP 96/62
[2018-04-07] MEDS ORDERED: budesonide 0.5mg/2ml UD nebule IH SCH (20:00)
[2018-04-07] MEDS: ipratropium/albuterol 3ml nebule NEB SCH (23:00)
--- NOTE | 2018-04-08 02:11 | NUR ---
RN PROGRESS NOTE: Chief Complaint: Grave disability Legal hold: 5250 Client on involuntary status for GD. Report received from ROCIO Mohan Why are they here: The patient is a homeless man with long history at [facility]. He has multiple medical problems and presents as gravely disabled and unable to care for himself. Diagnosis/presenting symptoms: Psychosis NOS Assessment: What has happened this shift: The patient was found isolated to his room. He was approached for 1:1 assessment, but yelled, "get the fuck out." Multiple attempts ended in the same language. The patient was getting agitated, so was left alone. S/I, H/I: Denies. A/VH: Denies Sleep: Patient sleeps on and off. ADL's: Total assist. Group attendance: None Were meds taken: Patient refused Any med S/Es: None reported or observed Mental Status Exam Appearance: Patient laying in bed, with covers up to his chin. Eye contact: Would not look at me. Behavior: Patient lays in bed, and resists care, agitated, combative at times. Speech: Normal rate/rhythm. Mood: Depressed Affect: Constricted. Thought process: Hopeless, helpless Thought Content: "Get the fuck out" Cognition: Alert Insight: Poor Judgment: Poor Interventions: PRN's used: None Therapeutic interventions: Attempted 1:1 assessment. Attempted medications. Restraints/seclusion/emergency medication: None Justification of Continued Inpatient Treatment: The patient is gravely disabled and has no way to provide for food, housing, or mcc.
[2018-04-08 07:00] VITALS: BP 82/45
[2018-04-08] MEDS: pantoprazole 40mg Tablet.DR PO SCH (07:30)
[2018-04-08] MEDS: atorvastatin 10mg tablet PO SCH (08:00)
[2018-04-08] MEDS: OLANZapine 5mg rapidly disint. tablet PO SCH ×2 (08:00→13:34)
[2018-04-08] MEDS: folic acid 1mg tablet PO SCH (08:00)
[2018-04-08] MEDS: thiamine 100mg tablet PO SCH ×2 (08:00→20:00)
[2018-04-08] MEDS: tamsulosin 0.4mg capsule PO SCH ×2 (08:00→21:00)
[2018-04-08] MEDS: docusate sod 100mg capsule PO SCH ×2 (08:00→20:00)
[2018-04-08] MEDS: High Protein Shake w/Arg/Glut/Ca2+Bmb (Juven 19.3gm) pkt 240ml PO SCH ×3 (08:00→18:00)
[2018-04-08] MEDS: ferrous sulfate ER tablet 140 MG TABLET.ER PO SCH ×2 (08:00→20:00)
[2018-04-08] MEDS: fluoxetine 20mg/5ml UD cup PO SCH (08:00)
[2018-04-08] MEDS: multivitamins, therapeutics tablet PO SCH (08:00)
[2018-04-08] MEDS: aspirin 81mg tab.chew PO SCH (08:30)
[2018-04-08] MEDS: ipratropium/albuterol 3ml nebule NEB SCH ×3 (11:36→23:00)
[2018-04-08] MEDS ORDERED: fluoxetine 20mg/5ml UD cup PO SCH (12:55)
--- NOTE | 2018-04-08 15:16 | NUR ---
RN PROGRESS NOTE: Chief Complaint: Grave disability Legal hold: 5250 Client on involuntary status for GD. Report received from ROCIO Schwartz Why are they here: The patient is a homeless man with long history at [facility]. He has multiple medical problems and presents as gravely disabled and unable to care for himself. Diagnosis/presenting symptoms: Psychosis NOS Assessment: What has happened this shift: Patient laying in bed refusing meds, yelling at RN. Dr. Clarke changed orders for Zyprexa Zydis and Prozac to q24h. Dr. Clarke states that the most important meds are 1) Zyprexa 2) Prozac and to offer them throughout the day and evening if refused in a.m. Patient out of bed in wheelchair for lunch and for movie group. S/I, H/I: Denies. A/VH: Denies Sleep: Patient sleeps on and off throughout the day. ADL's: Total assist. Group attendance: Movie group. Were meds taken: Patient took Zyprexa, but refused all other medications. Any med S/Es: None reported or observed Mental Status Exam Appearance: 62-year-old male who is very thin, wearing green scrubs lying in bed. Eye contact: None. Behavior: Patient lays in bed, and resists care, and becomes agitated when RN comes into room. Speech: Clear. Yells. Mood: Depressed Affect: Constricted. Thought process: Negative. Thought Content: Being left alone. Cognition: Alert Insight: Poor Judgment: Poor Interventions: PRN's used: None Therapeutic interventions: Brief 1:1 assessment. Patient out of bed in wheelchair per Dr. Clarke. Encouraged p.o. fluid intake. Restraints/seclusion/emergency medication: None Justification of Continued Inpatient Treatment: The patient is gravely disabled and has no way to provide for food, clothing, or long-term.
[2018-04-08 19:50] VITALS: BP 90/50
--- NOTE | 2018-04-09 04:21 | NUR ---
RN PROGRESS NOTE: Chief Complaint: Grave disability Legal hold: 5250 Client on involuntary status for GD. Report received from ROCIO Mohan Why are they here: The patient is a homeless man with long history at [facility]. He has multiple medical problems and presents as gravely disabled and unable to care for himself. Diagnosis/presenting symptoms: Psychosis NOS Assessment: What has happened this shift: The patient was found in his room. He is delusional and irrational, believing he can't eat food, but consumes his meals. The patient gives no eye contact, just says, "get the fuck out of here." He would not cooperate with any part of assessment. The patient was offered Prozac multiple times, as Dr. Clarke believes it's important for the patient. The patient refused, yelling "I already told you people, just like I told the Dr, I will only take the medicine that goes under my tongue." He once again told me to get out. S/I, H/I: Denies. A/VH: Denies Sleep: Patient sleeps on and off. ADL's: Total assist. Group attendance: None Were meds taken: Patient refused Any med S/Es: None reported or observed Mental Status Exam Appearance: Patient laying in bed, with covers up to his chin. Eye contact: Would not look at me. Behavior: Patient lays in bed, and resists care, agitated, combative at times. Speech: clear, yells when agitated.. Mood: Depressed, hopeless, helpless, angry. Affect: Constricted. Thought process: Hopeless, helpless Thought Content: Preoccupied with thoughts useless, and nothing to live for. Cognition: Alert Insight: Poor Judgment: Poor Interventions: PRN's used: None Therapeutic interventions: Attempted 1:1 assessment. Attempted medications. Restraints/seclusion/emergency medication: None Justification of Continued Inpatient Treatment: The patient is gravely disabled and has no way to provide for food, housing, or correction.
[2018-04-09 07:00] VITALS: BP 88/52
[2018-04-09] MEDS: pantoprazole 40mg Tablet.DR PO SCH (07:30)
[2018-04-09] MEDS: thiamine 100mg tablet PO SCH ×2 (08:00→20:00)
[2018-04-09] MEDS: High Protein Shake w/Arg/Glut/Ca2+Bmb (Juven 19.3gm) pkt 240ml PO SCH ×2 (08:00→18:00)
[2018-04-09] MEDS: multivitamins, therapeutics tablet PO SCH (08:00)
[2018-04-09] MEDS: docusate sod 100mg capsule PO SCH ×2 (08:00→20:00)
[2018-04-09] MEDS: FLUoxetine 20mg capsule PO SCH (08:00)
[2018-04-09] MEDS: atorvastatin 10mg tablet PO SCH (08:00)
[2018-04-09] MEDS: ferrous sulfate ER tablet 140 MG TABLET.ER PO SCH ×2 (08:00→20:00)
[2018-04-09] MEDS: folic acid 1mg tablet PO SCH (08:00)
[2018-04-09] MEDS: aspirin 81mg tab.chew PO SCH (08:30)
[2018-04-09] MEDS: OLANZapine 5mg rapidly disint. tablet PO SCH (09:00)
--- NOTE | 2018-04-09 14:31 | NUR ---
Nurse note: Helped pt up to wheelchair after cleaning pt up. Pt incontinent of stool. Pt does not agree he has stool all over. Cleaned all the stool off of pt and placed an attends on. Pt up in wheel chair in the community room for lunch. Pt quiet but seems to enjoy being up. After lunch pt wheeled himself into his room. Pt assisted towards the bed and pt placed himself into the bed. Pt had absolutely no assistance into bed. Attempted to get pt back into wheelchair to go to art therapy but pt very adamant that he is crippled and cant get up or do art therapy or anything. Pt yelling and cursing and threatening to hit this nurse. Left pt alone and may try to help pt later.
--- NOTE | 2018-04-09 16:15 | NUR ---
RN PROGRESS NOTE: Chief Complaint: Grave disability Legal hold: 5250 Client on involuntary status for GD. Report received from ROCIO Schwartz Why are they here: The patient is a homeless man with long history at [facility]. He has multiple medical problems and presents as gravely disabled and unable to care for himself. Diagnosis/presenting symptoms: Psychosis NOS Assessment: What has happened this shift: Patient laying in bed when approached by RN with medications. Patient states, "I have a deal with the doctor, I only have to take the one that goes under my tongue." Patient took zyprexa zydis, refused prozac. Patient was cleaned up and dressing to right hip was changed and barrier cream applied to reddened rectum. Patient was then put into wheelchair and brought to the group room for lunch. When patient thought that no one was watching him he frantically wheeled his wheelchair into his room and got himself into bed. Patient adamantly denies. S/I, H/I: Denies. A/VH: Denies Sleep: Patient sleeps on and off throughout the day. ADL's: Total assist. Group attendance: None. Were meds taken: Patient took Zyprexa, but refused all other medications. Any med S/Es: None reported or observed Mental Status Exam Appearance: 62-year-old male who is very thin, wearing green scrubs lying in bed. Eye contact: None. Behavior: Patient lays in bed, and resists care, and becomes agitated when RN comes into room. Speech: Clear. Yells. Mood: Depressed Affect: Blocked. Thought process: Negative. Helpless. Thought Content: Being left alone, "nothing helps". Cognition: Alert Insight: Impaired. Judgment: Impaired. Interventions: PRN's used: None Therapeutic interventions: Brief 1:1 assessment. Patient out of bed in wheelchair per Dr. Clarke. Encouraged p.o. fluid intake. q15 minute safety checks. Restraints/seclusion/emergency medication: None Justification of Continued Inpatient Treatment: The patient is gravely disabled and has no way to provide for food, clothing, or correction.
[2018-04-09 19:46] VITALS: BP 92/51
[2018-04-09 19:55] VITALS: BP 92/51
[2018-04-09] MEDS: tamsulosin 0.4mg capsule PO SCH (21:00)
--- NOTE | 2018-04-10 00:22 | NUR ---
ROCIO PROGRESS NOTE: Chief Complaint: Grave disability Legal hold: 5250 Client on involuntary status for GD. Report received from ROCIO Barry Why are they here: The patient is a homeless man with long history at [facility]. He has multiple medical problems and presents as gravely disabled and unable to care for himself. Diagnosis/presenting symptoms: Psychosis NOS, delusional Assessment: What has happened this shift: The patient was found in his bed. I spoke to him and told him his Prozac had been changed to pill form, and would he take it. He yelled at me, "I made a deal with the Doctor, and you're not the Doctor, get out of here, I can't swallow pills." No amount of encouragement would change his mind. The patient gets agitated to the point, the best thing is to let him be. S/I, H/I: Denies. A/VH: Denies Sleep: Patient sleeps on and off. ADL's: Total assist. Group attendance: None Were meds taken: Patient refused Any med S/Es: None reported or observed Mental Status Exam Appearance: Patient laying in bed, with covers up to his chin. Eye contact: None. Behavior: Patient lays in bed, and resists care, agitated, combative at times. Speech: clear, yells when agitated.. Mood: Depressed, hopeless, helpless, angry, agitated, irate. Affect: Constricted. Thought process: Hopeless, helpless Thought Content: Preoccupied with thoughts of being useless, and nothing to live for. Cognition: Alert Insight: Poor Judgment: Poor Interventions: PRN's used: None Therapeutic interventions: Attempted 1:1 assessment. Attempted medications. Restraints/seclusion/emergency medication: None Justification of Continued Inpatient Treatment: The patient is gravely disabled and has no way to provide for food, housing, or longterm.
[2018-04-10] MEDS: pantoprazole 40mg Tablet.DR PO SCH (07:30)
[2018-04-10 07:54] VITALS: BP 115/74
[2018-04-10] MEDS: atorvastatin 10mg tablet PO SCH (08:00)
[2018-04-10] MEDS: folic acid 1mg tablet PO SCH (08:00)
[2018-04-10] MEDS: docusate sod 100mg capsule PO SCH ×2 (08:00→20:00)
[2018-04-10] MEDS: ferrous sulfate ER tablet 140 MG TABLET.ER PO SCH ×2 (08:00→20:00)
[2018-04-10] MEDS: thiamine 100mg tablet PO SCH ×2 (08:00→20:00)
[2018-04-10] MEDS: multivitamins, therapeutics tablet PO SCH (08:00)
[2018-04-10] MEDS: FLUoxetine 20mg capsule PO SCH (08:00)
[2018-04-10] MEDS: High Protein Shake w/Arg/Glut/Ca2+Bmb (Juven 19.3gm) pkt 240ml PO SCH ×3 (08:00→18:00)
[2018-04-10] MEDS: aspirin 81mg tab.chew PO SCH (08:30)
[2018-04-10] MEDS: OLANZapine 5mg rapidly disint. tablet PO SCH ×2 (09:00→21:38)
--- NOTE | 2018-04-10 10:11 | NUR ---
Reassessment: Documented PO intake fluctuates, recent intake averages 50% however most PO intake 75-100% with 25-50% intake of high protein shake yesterday, although most PO intake of ONS is 100%, pt likely meeting nutrient needs. Per RN notes pt angry, agitative, combative at times, and resistive to care. Noted that pt has been refusing medications. LBM 04/09. Will continue to follow. Recommendations: 1) Continue with regular diet 2) Continue with high protein shake TID 3) Weekly wt Addendum: 04/10/18 at [address] Amended: Links added.
--- NOTE | 2018-04-10 16:51 | NUR ---
RN Progress Note: Chief Complaint: Grave disability Legal hold: 5250 Client on involuntary status for GD. Report received from ROCIO Schwartz Why are they here: The patient is a homeless man with long history at [facility]. He has multiple medical problems and presents as gravely disabled and unable to care for himself. Diagnosis/presenting symptoms: Psychosis NOS Assessment: What has happened this shift: Pt up for AM group and lunch. He stayed up for PM group and participated. Pt refuses all meds accept Myrtle wilson; to increase the medication. Pt turned when in bed q2hrs. S/I, H/I: Denies. A/VH: Denies Sleep: Patient sleeps on and off throughout the day. ADL's: Pt able to transfer from wheelchair to bed. Group attendance: Y Were meds taken: Zyprexa zydis; refused all other medications. Any med S/Es: None reported or observed Mental Status Exam Appearance: 62-year-old frail man Eye contact: Poor Behavior: Resistive to care; refuses to get up on his own allows nurses to get him up and take him into the group rooms. Speech: Clear; likes to yell at staff Mood: hopeless Affect: Blocked. Thought process: Negative. Helpless. Thought Content: Being left alone, "nothing helps". Cognition: Alert Insight: Impaired. Judgment: Impaired. Interventions: PRN's used: None Therapeutic interventions: Brief 1:1 assessment. Patient out of bed in wheelchair per Dr. Clarke. Encouraged p.o. fluid intake. q15 minute safety checks. Restraints/seclusion/emergency medication: None Justification of Continued Inpatient Treatment: The patient is gravely disabled w/long history of AL. He has no way to provide for food, clothing, or longterm.
[2018-04-10 20:00] VITALS: BP 95/55
[2018-04-10] MEDS: tamsulosin 0.4mg capsule PO SCH (21:00)
[2018-04-10] MEDS ORDERED: olanzapine 10mg tablet PO SCH (21:00)
--- NOTE | 2018-04-11 04:33 | NUR ---
Nursing Note Chief Complaint: Depression with S/I Legal hold: 5250 Client on involuntary status for GD/DTS Report received from nurse with use of SBAR: ROCIO Snyder Why are they here: Pt. presented to [facility] on a 5150 for DTS and failure to thrive. He has had multiple hospital visits, is homeless, and has a hx. of schizophrenia and a anemia. He is estranged from his family, irritable, and makes delusional statements (such as "I can't swallow" or "I am an alien.") Pt. is bedridden and lower extremities are contracted. 5150 has been converted to a 5250. Diagnosis/presenting symptoms: Pt. presents as agitated, irritable, fatigued, and resistive to care. When asked if he feels depressed states, "I don't want to talk about it." Assessment What has happened this shift: Pt. in bed at the beginning of the shift, refuses all dinner except his protein shake, states, "You eat it! Go away!" He continues to be incontinent of stool and requires two-person assist with grooming. This software writer introduced self and attempted to establish rapport, pt. presents as agitated, irritable, fatigued, and resistive to care. 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 Pt. states, "I packed that all in to my 59 years and now I can't do anything." Pt. refuses all medications this shift per delusion that he cannot swallow, however he agrees to take Zyprexa Zydis with much encouragement. Pt. is able to reposition himself in bed and is reminded to do so, dressing to rt. hip remains CDI and barrier ointment applied to coccyx. S/I, H/I: Unable to assess A/VH: Unable to assess, does not appear to be internally preoccupied Sleep: Appears to be resting comfortably ADL's: Requires two-person assist to transfer to w/c, able to eat and reposition self in bed independently Group attendance: Attended one group today Were meds taken: Refused all except Zyprexa Zydis with much encouragement Any med S/E: None Mental Status Exam Appearance: Pt. hair is disheveled and he is dressed in a green hospital gown. Bilateral lower extremities are contracted. Eye contact: Poor Behavior: Withdrawn, irritable, and psychomotor activity WNL Speech: WNL, intense when agitated or refusing care Mood: Depressed and resistant to care Affect: Constricted Thought process: Poverty of thought and blocking r/t mental health Thought Content: Delusions and preoccupation with depression and resistance to care Cognition: A&O X3 (not to time or day) Insight: Poor Judgment: Poor Interventions PRN's used: None Therapeutic interventions: Introduced self and established rapport, provided active listening, maintained a safe and therapeutic environment, provided medication education, obtained order for HS Zyprexa Tablet to be changed to Zyprexa Zydis, encouraged independent performance of ADLs and meal intake, provide positive reinforcement,monitored skin and repositioning, and maintained Q 15 min safety checks. Restraints/seclusion/emergency medication:N/A Justification of Continued Inpatient Treatment: Pt. remains gravely disabled and depressed, unable to care of himself and homeless at this time.
[2018-04-11] MEDS: pantoprazole 40mg Tablet.DR PO SCH (07:30)
[2018-04-11 08:00] VITALS: BP 90/61
[2018-04-11] MEDS: multivitamins, therapeutics tablet PO SCH (08:00)
[2018-04-11] MEDS: atorvastatin 10mg tablet PO SCH (08:00)
[2018-04-11] MEDS: folic acid 1mg tablet PO SCH (08:00)
[2018-04-11] MEDS: ferrous sulfate ER tablet 140 MG TABLET.ER PO SCH ×2 (08:00→20:00)
[2018-04-11] MEDS: docusate sod 100mg capsule PO SCH ×2 (08:00→20:00)
[2018-04-11] MEDS: thiamine 100mg tablet PO SCH ×2 (08:00→20:00)
[2018-04-11] MEDS: FLUoxetine 20mg capsule PO SCH (08:00)
[2018-04-11] MEDS: OLANZapine 5mg rapidly disint. tablet PO SCH ×2 (08:02→21:18)
[2018-04-11] MEDS: High Protein Shake w/Arg/Glut/Ca2+Bmb (Juven 19.3gm) pkt 240ml PO SCH ×3 (08:04→18:00)
[2018-04-11] MEDS: aspirin 81mg tab.chew PO SCH (08:30)
--- NOTE | 2018-04-11 12:05 | NUR ---
RN Progress Note: Chief Complaint: Grave disability Legal hold: 5250 Client on involuntary status for GD. Report received from ROCIO Patel w/use of SBAR Why are they here: The patient is a homeless man with long history at [facility]. He has multiple medical problems and presents as gravely disabled and unable to care for himself. Diagnosis/presenting symptoms: Psychosis NOS Assessment: What has happened this shift: Pt up for all meals and all groups. He was encouraged and prompted to do as much for himself as possible. Pt is able to wheel himself in the wheelchair back to his room and get himself back onto his bed. Pt refuses all Meds accept Zyprexa Zydis; Pt turned when in bed q2hrs. S/I, H/I: Denies. A/VH: Denies Sleep: Patient sleeps on and off throughout the day. ADL's: Pt able to transfer from wheelchair to bed. Group attendance: Y Were meds taken: Zyprexa Zydis; refused all other medications. Any med S/Es: None reported or observed Mental Status Exam Appearance: 62-year-old frail man Eye contact: Poor Behavior: Resistive to care; requires prompting and encouragement to get up. Speech: Clear; likes to yell at staff Mood: hopeless Affect: Blocked. Thought process: Negative. Helpless. Thought Content: Being left alone, "nothing helps". Cognition: Alert Insight: Impaired. Judgment: Impaired. Interventions: PRN's used: None Therapeutic interventions: Brief 1:1 assessment. Patient out of bed in wheelchair per Dr. Clarke. Encouraged p.o. fluid intake. q15 minute safety checks. Restraints/seclusion/emergency medication: None Justification of Continued Inpatient Treatment: The patient is gravely disabled w/long history of DC. He has no way to provide for food, clothing, or [place] [facility].
--- NOTE | 2018-04-11 17:52 | NUR ---
Wound Care: Pt refusing in the AM then pt was up to meals and groups and did not want to be bothered. Per drsg can be changed before bed tonight when the brief is placed on the pt.
[2018-04-11] MEDS: tamsulosin 0.4mg capsule PO SCH (21:00)
--- NOTE | 2018-04-12 01:29 | NUR ---
Nursing Note Chief Complaint: Depression with S/I Legal hold: 5250 Client on involuntary status for GD/DTS Report received from nurse with use of SBAR: ROCIO Snyder Why are they here: Pt. presented to [facility] on a 5150 for DTS and failure to thrive. He has had multiple hospital visits, is homeless, and has a hx. of schizophrenia and a anemia. He is estranged from his family, irritable, and makes delusional statements (such as "I can't swallow" or "I am an alien.") Pt. is bedridden and lower extremities are contracted. 5150 has been converted to a 5250. Diagnosis/presenting symptoms: Pt. continues to present as irritable, fatigued, and resistive to care. When asked how his day was today he states irritably, "No comment, I don't want to talk about anything." Assessment What has happened this shift: Pt. in bed at the beginning of the shift, continues to present as irritable, fatigued, and resistive to care. When asked how his day was today he states irritably, "No comment, I don't want to talk about anything." He continues to be incontinent of stool and requires two-person assist with grooming. Pt. again refuses all medications this shift except Zyprexa Zydis per delusion that he cannot swallow. However, he was able to consume 50% of dinner this shift and remains able to eat independently. Pt. is able to reposition himself in bed and is reminded to do so, dressing to rt. hip changed per order and ointment applied to coccyx. S/I, H/I: Unable to assess A/VH: Unable to assess, does not appear to be internally preoccupied Sleep: Appears fatigued possibly r/t being up for all meals today, and is resting comfortably ADL's: Requires assist to transfer to w/c and for self care, however able to eat and reposition self in bed independently Group attendance: Attended all groups today Were meds taken: Refused all except Zyprexa Zydis Any med S/E: None Mental Status Exam Appearance: Pt. hair is disheveled and he is dressed in a green hospital gown. Bilateral lower extremities are contracted. Eye contact: Poor Behavior: Withdrawn, fatigued, irritable, and psychomotor activity WNL Speech: WNL, intense when agitated or refusing care Mood: Depressed and resistant to care Affect: Constricted Thought process: Poverty of thought and blocking r/t mental health Thought Content: Delusions and preoccupation with depression and resistance to care Cognition: A&O X3 (not to time or day) Insight: Poor Judgment: Poor Interventions PRN's used: None Therapeutic interventions: Provided active listening, maintained a safe and therapeutic environment, provided medication education, encouraged independent performance of ADLs and meal intake, provide positive reinforcement,monitored skin and repositioning, changed rt. hip dressing per order, and maintained Q 15 min safety checks. Restraints/seclusion/emergency medication:N/A Justification of Continued Inpatient Treatment: Pt. remains gravely disabled and depressed, unable to care of himself and homeless at this time.
[2018-04-12] MEDS: pantoprazole 40mg Tablet.DR PO SCH (07:30)
[2018-04-12 08:00] VITALS: BP 90/63
[2018-04-12] MEDS: atorvastatin 10mg tablet PO SCH (08:00)
[2018-04-12] MEDS: docusate sod 100mg capsule PO SCH ×2 (08:00→20:00)
[2018-04-12] MEDS: thiamine 100mg tablet PO SCH ×2 (08:00→20:00)
[2018-04-12] MEDS: multivitamins, therapeutics tablet PO SCH (08:00)
[2018-04-12] MEDS: ferrous sulfate ER tablet 140 MG TABLET.ER PO SCH ×2 (08:00→20:00)
[2018-04-12] MEDS: folic acid 1mg tablet PO SCH (08:00)
[2018-04-12] MEDS: aspirin 81mg tab.chew PO SCH (08:30)
[2018-04-12] MEDS: OLANZapine 5mg rapidly disint. tablet PO SCH ×2 (08:33→21:13)
[2018-04-12] MEDS: FLUoxetine 20mg capsule PO SCH (08:34)
[2018-04-12] MEDS: High Protein Shake w/Arg/Glut/Ca2+Bmb (Juven 19.3gm) pkt 240ml PO SCH ×3 (08:37→18:00)
--- NOTE | 2018-04-12 15:43 | NUR ---
NURSING PROGRESS NOTE Chief Complaint: Depression with S/I Legal hold: 5250 Client on involuntary status for GD/DTS Report received from nurse with use of SBAR: ROCIO Patel Why are they here: Pt. presented to [facility] on a 5150 for DTS and failure to thrive. He has had multiple hospital visits, is homeless, and has a hx. of schizophrenia and a anemia. He is estranged from his family, irritable, and makes delusional statements (such as "I can't swallow" or "I am an alien.") Pt. is bedridden and lower extremities are contracted. 5150 has been converted to a 5250. Diagnosis/presenting symptoms: Pt. continues to present as irritable, fatigued, and resistive to care. When asked how his day was today he states irritably, "No comment, I don't want to talk about anything." Assessment What has happened this shift: Pt. in bed at the beginning of the shift, got up for breakfast and lunch in group room, He does not attend groups. Irritable and delusional regarding swallowing, (thinks he cannot swallow, which he can.) He continues to be incontinent of stool and requires two-person assist with grooming. Pt. again refuses all medications this shift except Zyprexa Zydis per delusion that he cannot swallow. Ate independently approx. 50% of meals, drinks protein shakes. Watched TV in group room, stayed up in chair during morning and afternoon. S/I, H/I: Unable to assess A/VH: Unable to assess, does not appear to be internally preoccupied Sleep: Napped ADL's: Requires assist to transfer to w/c and for self care, however able to eat and reposition self in bed independently Group attendance: Were meds taken: Refused all except Zyprexa Zydis Any med S/E: None Mental Status Exam Appearance: Pt. hair is disheveled and he is dressed in a green hospital gown. Bilateral lower extremities are contracted. Eye contact: Poor Behavior: Withdrawn, fatigued, irritable Speech: WNL, intense when agitated or refusing care Mood: Depressed and resistant to care Affect: Constricted Thought process: Poverty of thought and blocking r/t mental health Thought Content: Delusions and preoccupation with depression and resistance to care Cognition: A&O X2 Insight: Poor Judgment: Poor Interventions PRN's used: None Therapeutic interventions: Provided active listening, maintained a safe and therapeutic environment, provided medication education, encouraged independent performance of ADLs and meal intake, provide positive reinforcement,monitored skin and repositioning, and maintained Q 15 min safety checks. Restraints/seclusion/emergency medication:N/A Justification of Continued Inpatient Treatment: Pt. remains gravely disabled and depressed, unable to care of himself and homeless at this time.
[2018-04-12 20:00] VITALS: BP 112/61
[2018-04-12] MEDS: tamsulosin 0.4mg capsule PO SCH (21:00)
--- NOTE | 2018-04-13 00:56 | NUR ---
Nursing Note Chief Complaint: Depression with S/I Legal hold: 5250 Client on involuntary status for GD/DTS Report received from nurse with use of SBAR: ROCIO Malin Why are they here: Pt. presented to [facility] on a 5150 for DTS and failure to thrive. He has had multiple hospital visits, is homeless, and has a hx. of schizophrenia and a anemia. He is estranged from his family, irritable, and makes delusional statements (such as "I can't swallow" or "I am an alien.") Pt. is bedridden and lower extremities are contracted. 5150 has been converted to a 5250. Diagnosis/presenting symptoms: Pt. continues to present slightly irritable, fatigued, hopeless, and resistive to care. He denies S/I, however states, "I'm not good, I'm still depressed." He has ongoing delusions that he cannot swallow or move his extremities. Assessment What has happened this shift: Pt. in bed at the beginning of the shift, continues to present as slightly irritable, fatigued, hopeless, and resistive to care. 1:1 completed at bedside, he denies S/I, however states, "I'm not good, I'm still depressed." He has ongoing delusions that he cannot swallow or move his extremities. Pt. voices concern that his knee joints are growing too big and he apologized for his continued incontinence of stool, states, "I'm sorry, I can't feel when I have to go. I used to live alone and do everything for myself." Pt. again refuses all medications this shift except Zyprexa Zydis, he was able to consume 50% of dinner this shift. Pt. is able to reposition himself in bed and is reminded to do so, dressing to rt. hip remains CDI, no s/s of increased redness to area or infection, will continue to monitor. S/I, H/I: Denies A/VH: Unable to assess, does not appear to be internally preoccupied Sleep: Appears fatigued ADL's: Requires assist to transfer to w/c and for self care, however able to eat and reposition self in bed independently Group attendance: Pt. up for meals, but did not attend groups today Were meds taken: Refused all except Zyprexa Zydis Any med S/E: None Mental Status Exam Appearance: Pt. hair is disheveled and he is dressed in a green hospital gown. Bilateral lower extremities are contracted. Eye contact: Poor Behavior: Withdrawn, fatigued, slightly irritable, and psychomotor activity WNL Speech: WNL, intense when irritable Mood: Depressed and resistant to care Affect: Constricted Thought process: Poverty of thought and blocking r/t mental health Thought Content: Delusions and preoccupation with depression and resistance to care Cognition: A&O X3 (not to time or day) Insight: Poor Judgment: Poor Interventions PRN's used: None Therapeutic interventions: Provided active listening, maintained a safe and therapeutic environment, provided medication education, encouraged independent performance of ADLs and meal intake, provide positive reinforcement,monitored skin and repositioning, and maintained Q 15 min safety checks. Restraints/seclusion/emergency medication:N/A Justification of Continued Inpatient Treatment: Pt. remains gravely disabled and depressed, interruption of current crisis and therapeutic interventions required.
[2018-04-13] MEDS: pantoprazole 40mg Tablet.DR PO SCH (07:30)
[2018-04-13 08:00] VITALS: BP 104/67
[2018-04-13] MEDS: atorvastatin 10mg tablet PO SCH (08:00)
[2018-04-13] MEDS: ferrous sulfate ER tablet 140 MG TABLET.ER PO SCH ×2 (08:00→20:00)
[2018-04-13] MEDS: multivitamins, therapeutics tablet PO SCH (08:00)
[2018-04-13] MEDS: docusate sod 100mg capsule PO SCH ×2 (08:00→20:00)
[2018-04-13] MEDS: folic acid 1mg tablet PO SCH (08:00)
[2018-04-13] MEDS: thiamine 100mg tablet PO SCH ×2 (08:00→20:00)
[2018-04-13] MEDS: FLUoxetine 20mg capsule PO SCH (08:00)
[2018-04-13] MEDS: High Protein Shake w/Arg/Glut/Ca2+Bmb (Juven 19.3gm) pkt 240ml PO SCH ×3 (08:00→17:45)
[2018-04-13] MEDS: OLANZapine 5mg rapidly disint. tablet PO SCH ×2 (08:02→20:46)
[2018-04-13] MEDS: aspirin 81mg tab.chew PO SCH (08:30)
--- NOTE | 2018-04-13 15:09 | NUR ---
NURSING PROGRESS NOTE Chief Complaint: Depression with S/I Legal hold: 5250 Client on involuntary status for GD/DTS Report received from nurse with use of SBAR: ROCIO Patel Why are they here: Pt. presented to [facility] on a 5150 for DTS and failure to thrive. He has had multiple hospital visits, is homeless, and has a hx. of schizophrenia and a anemia. He is estranged from his family, irritable, and makes delusional statements (such as "I can't swallow" or "I am an alien.") Pt. is bedridden and lower extremities are contracted. 5150 has been converted to a 5250. Diagnosis/presenting symptoms: Pt. continues to present as irritable, fatigued, and resistive to care. When asked how his day was today he states irritably, "No comment, I don't want to talk about anything." Assessment What has happened this shift: Pt. in bed at the beginning of the shift, got up for breakfast and and stayed up for a couple of hours. He did not attend groups. Irritable and delusional regarding swallowing, (thinks he cannot swallow, which he can.) He continues to be incontinent of stool and requires two-person assist with grooming. Pt. again refuses all medications this shift except Zyprexa Zydis per delusion that he cannot swallow. He refused to get up for lunch stating, he did not want to eat because he did not feel well. VSS, no temp, no vomiting. Refused to get up again. S/I, H/I: Unable to assess A/VH: Unable to assess, does not appear to be internally preoccupied Sleep: Napped ADL's: Requires assist to transfer to w/c and for self care, however able to eat and reposition self in bed independently Group attendance: None Were meds taken: Refused all except Zyprexa Zydis Any med S/E: None Mental Status Exam Appearance: Pt. hair is disheveled and he is dressed in a green hospital gown. Bilateral lower extremities are contracted. Eye contact: Poor Behavior: Withdrawn, fatigued, irritable Speech: WNL, intense when agitated or refusing care Mood: Depressed and resistant to care Affect: Constricted Thought process: Poverty of thought and blocking r/t mental health Thought Content: Delusions and preoccupation with depression and resistance to care Cognition: A&O X2 Insight: Poor Judgment: Poor Interventions PRN's used: None Therapeutic interventions: Provided active listening, maintained a safe and therapeutic environment, provided medication education, encouraged independent performance of ADLs and meal intake, provide positive reinforcement,monitored skin and repositioning, and maintained Q 15 min safety checks. Restraints/seclusion/emergency medication:N/A Justification of Continued Inpatient Treatment: Pt. remains gravely disabled and depressed, unable to care of himself and homeless at this time.
[2018-04-13 19:00] VITALS: BP 99/63
[2018-04-13] MEDS: tamsulosin 0.4mg capsule PO SCH (20:46)
--- NOTE | 2018-04-13 22:56 | NUR ---
NURSING PROGRESS NOTE Chief Complaint: Depression with S/I Legal hold: 5250 Client on involuntary status for GD/DTS Report received from Dea CHAN with use of SBAR. Why are they here: Pt. presented to [facility] on a 5150 for DTS and failure to thrive. He has had multiple hospital visits, is homeless, and has a hx. of schizophrenia and a anemia. He is estranged from his family, irritable, and makes delusional statements (such as "I can't swallow" or "I am an alien.") Pt. is bedridden and lower extremities are contracted. 5150 has been converted to a 5250. Diagnosis/presenting symptoms: depression, S/I, psychosis Assessment What has happened this shift: Pt. up in community room finishing dinner, he then requested to go to bed. Pt was taken to room and bed linens were changed, pt was irritable, raising voice, making delusional statements about being , not having a pulse, not having any heart/lungs and that the Drs know it, reality feedback was given, but pt continued to state "No way!! They know I am !" Pt did transfer self from wheelchair to bed, using his arms, we assisted him to change his clothing as they were soiled with food and completed pericare care due to bowel incontinence. Pt refused to take any meds except for his Zyprexa stating he can't swallow, I told him that he can as he has had breakfast and dinner, but he then stated "I did not eat!" "I don't care what they say I did!" Pt also stated that the meds don't do anything and that even if he was given heroin he wouldn't be able to sleep. Pt has been resting since that time. S/I, H/I: denied when asked A/VH: does not appear to be internally preoccupied Sleep: reports not sleeping, but appears to be sleeping per staff ADL's: Requires assist to transfer to w/c and for self care, however able to eat and reposition self in bed independently Group attendance: no groups scheduled this shift. Were meds taken: Refused all except Zyprexa Zydis Any med S/E: None Mental Status Exam Appearance: Pt. hair is disheveled and he is dressed in a green hospital gown. Bilateral lower extremities are contracted. Eye contact: fair Behavior: irritable, argumentative, resistive to care Speech: pt yells during entire interaction Mood: irritable and resistant to care Affect: flat Thought process: linear, refuses to answer questions about orientation stating he doesn't care. Thought Content: remains delusional, stating he is , that he has no pulse and the Drs know he is , he had no heart or lungs, cant swallow, can't move, stating people came and stole his real mattress Cognition: A&O X2 Insight: Poor Judgment: Poor Interventions PRN's used: None Therapeutic interventions:1:1, assessment,skin assessed, Q 15 min safety checks, assisted pt with changing dirty clothes,changed bed, and provided pericare due to bowel incontinence, encouraged pt to take meds, he refused all but Zyprexa Zydis, assessed for effects and side effects of medications. Restraints/seclusion/emergency medication:N/A Justification of Continued Inpatient Treatment: Pt. remains gravely disabled and depressed, unable to care of himself and homeless at this time.
[2018-04-14] MEDS: pantoprazole 40mg Tablet.DR PO SCH (07:30)
[2018-04-14 08:00] VITALS: BP 111/60
[2018-04-14] MEDS: docusate sod 100mg capsule PO SCH ×2 (08:00→20:00)
[2018-04-14] MEDS: High Protein Shake w/Arg/Glut/Ca2+Bmb (Juven 19.3gm) pkt 240ml PO SCH ×3 (08:00→18:00)
[2018-04-14] MEDS: atorvastatin 10mg tablet PO SCH (08:00)
[2018-04-14] MEDS: folic acid 1mg tablet PO SCH (08:00)
[2018-04-14] MEDS: fluoxetine 20mg/5ml UD cup PO SCH (08:00)
[2018-04-14] MEDS: ferrous sulfate ER tablet 140 MG TABLET.ER PO SCH ×2 (08:00→20:00)
[2018-04-14] MEDS: multivitamins, therapeutics tablet PO SCH (08:00)
[2018-04-14] MEDS: thiamine 100mg tablet PO SCH ×2 (08:00→20:00)
[2018-04-14] MEDS: OLANZapine 5mg rapidly disint. tablet PO SCH ×2 (08:25→21:00)
[2018-04-14] MEDS: aspirin 81mg tab.chew PO SCH (08:30)
--- NOTE | 2018-04-14 14:03 | NUR ---
Reassessment: Pt with significant improvement of meals/ONS with documented PO intake recently 75-100% and 100% of protein shake TID meeting nutrient needs. LBM 04/13. Noted that patient is documented as resistive to care and fatigued, pt still refusing medications. Will continue to follow. Recommendations: 1) Continue with regular diet 2) Continue with high protein shake TID 3) Weekly wt Addendum: 04/14/18 at [address] Amended: Links added.
--- NOTE | 2018-04-14 15:30 | NUR ---
NURSING PROGRESS NOTE Chief Complaint: Depression with S/I Legal hold: 5250 Client on involuntary status for GD/DTS Report received from Kelli CHAN with use of SBAR. Why are they here: Pt. presented to [facility] on a 5150 for DTS and failure to thrive. He has had multiple hospital visits, is homeless, and has a hx. of schizophrenia and a anemia. He is estranged from his family, irritable, and makes delusional statements (such as "I can't swallow" or "I am an alien.") Pt. is bedridden and lower extremities are contracted. 5150 has been converted to a 5250. Diagnosis/presenting symptoms: Pt on 5250 for GD and DTO. Pt unable to formulate a plan for housing, food, or usp. Pt presents as depressed and hopeless. Assessment What has happened this shift: Pt. in bed at the beginning of the shift, got up for breakfast and and stayed up for a couple of hours in the group room and appeared to enjoy watching TV with other clients. He did not attend groups. Irritable and remains delusional regarding swallowing, (thinks he cannot swallow, which he can.) He continues to be incontinent of stool and requires two-person assist with grooming. Able to transfer from bed to wheel chair without assistance. Pt. again refused all medications this shift except Zyprexa Zydis stating he cannot swallow. Pt up for lunch and wanted to sit where he could watch TV. Overall depressed about his decreased functioning and declining health. S/I, H/I: Denies A/VH: denies Sleep: Napped ADL's: Requires stand-by assist to transfer to w/c, however able to eat and reposition self in bed independently Group attendance: None Were meds taken: Refused all except Zyprexa Zydis Any med S/E: None Mental Status Exam Appearance: Pt. hair is disheveled and he is dressed in a green hospital gown. Bilateral lower extremities are contracted. Eye contact: Poor Behavior: Withdrawn, fatigued, irritable Speech: WNL, intense when agitated or refusing care Mood: Depressed and resistant to care Affect: Constricted Thought process: Poverty of thought and blocking r/t mental health Thought Content: Delusions and preoccupation with depression and resistance to care Cognition: A&O X2 Insight: Poor Judgment: Poor Interventions PRN's used: None Therapeutic interventions: Provided active listening, maintained a safe and therapeutic environment, provided medication education, encouraged independent performance of ADLs and meal intake, provide positive reinforcement,monitored skin and repositioning, and maintained Q 15 min safety checks. Restraints/seclusion/emergency medication:N/A Justification of Continued Inpatient Treatment: Pt. remains gravely disabled and depressed, unable to care of himself and homeless at this time.
[2018-04-14 19:00] VITALS: BP 92/46
[2018-04-14 20:00] VITALS: BP 92/46
[2018-04-14] MEDS: tamsulosin 0.4mg capsule PO SCH (21:00)
--- NOTE | 2018-04-15 00:49 | NUR ---
NURSING PROGRESS NOTE Chief Complaint: Depression with S/I Legal hold: 5250 Client on involuntary status for GD/DTS Report received from ROCIO Linder with use of SBAR. Why are they here: Pt. presented to [facility] on a 5150 for DTS and failure to thrive. He has had multiple hospital visits, is homeless, and has a hx. of schizophrenia and a anemia. He is estranged from his family, irritable, and makes delusional statements (such as "I can't swallow" or "I am an alien.") Pt. is bedridden and lower extremities are contracted. 5150 has been converted to a 5250. Diagnosis/presenting symptoms: Pt on 5250 for GD and DTO. Pt unable to formulate a plan for housing, food, or chcf. Pt presents as depressed and hopeless. Assessment What has happened this shift: This patient is low fowlers position in bed at the change of shift. Patient denies the need to get out of bed. He presents as well oriented but angry. Patient answers direct questions only. He has not eaten his meal. Patient states "It tastes like shit." Patient isolates in his room. When attempting to interview the patient he states "Get the fuck out of my room!" This patient will not answer any other questions. S/I, H/I: Denies A/VH: denies Sleep: Napped ADL's: Requires stand-by assist to transfer to w/c, however able to eat and reposition self in bed independently Group attendance: None Were med's taken:Patient refused all medications. Any med S/E: None Mental Status Exam Appearance: Pt. hair is disheveled and he is dressed in a green hospital gown. Bilateral lower extremities are contracted. Eye contact: Poor Behavior: Withdrawn, fatigued, irritable Speech: WNL, intense when agitated or refusing care Mood: Depressed and resistant to care Affect: Constricted Thought process: Poverty of thought and blocking r/t mental health Thought Content: Delusions and preoccupation with depression and resistance to care Cognition: A&O X2 Insight: Poor Judgment: Poor Interventions PRN's used: None Therapeutic interventions: Provided active listening, maintained a safe and therapeutic environment, provided medication education, encouraged independent performance of ADLs and meal intake, provide positive reinforcement,monitored skin and repositioning, and maintained Q 15 min safety checks. Restraints/seclusion/emergency medication:N/A Justification of Continued Inpatient Treatment: Pt. remains gravely disabled and depressed, unable to care of himself and homeless at this time.
[2018-04-15 07:51] VITALS: BP 90/55
[2018-04-15] MEDS: docusate sod 100mg capsule PO SCH ×2 (08:00→20:00)
[2018-04-15] MEDS: folic acid 1mg tablet PO SCH (08:00)
[2018-04-15] MEDS: atorvastatin 10mg tablet PO SCH (08:00)
[2018-04-15] MEDS: multivitamins, therapeutics tablet PO SCH (08:00)
[2018-04-15] MEDS: ferrous sulfate ER tablet 140 MG TABLET.ER PO SCH ×2 (08:00→20:00)
[2018-04-15] MEDS: thiamine 100mg tablet PO SCH ×2 (08:00→20:00)
[2018-04-15] MEDS: OLANZapine 5mg rapidly disint. tablet PO SCH ×2 (08:12→21:00)
[2018-04-15] MEDS: pantoprazole 40mg Tablet.DR PO SCH (08:15)
[2018-04-15] MEDS: High Protein Shake w/Arg/Glut/Ca2+Bmb (Juven 19.3gm) pkt 240ml PO SCH ×3 (08:22→18:00)
[2018-04-15] MEDS: aspirin 81mg tab.chew PO SCH (08:30)
[2018-04-15] MEDS: fluoxetine 20mg/5ml UD cup PO SCH (12:13)
--- NOTE | 2018-04-15 12:24 | NUR ---
Optifoam on right hip C/D/I, changed yesterday, no need to change today. Addendum: 04/15/18 at 1225 by Kaylan Martinez RN (Lee) Amended: Links added.
--- NOTE | 2018-04-15 15:13 | NUR ---
NURSING PROGRESS NOTE: Chief Complaint: Depression with S/I Legal hold: 5250 Client on involuntary status for GD/DTS Report received from ROCIO Ojeda with use of SBAR. Why are they here: Pt. presented to [facility] on a 5150 for DTS and failure to thrive. He has had multiple hospital visits, is homeless, and has a hx. of schizophrenia and a anemia. He is estranged from his family, irritable, and makes delusional statements (such as "I can't swallow" or "I am an alien.") Pt. is bedridden and lower extremities are contracted. 5150 has been converted to a 5250. Diagnosis/presenting symptoms: Pt on 5250 for GD and DTO. Pt unable to formulate a plan for housing, food, or prison. Pt presents as depressed, hopeless, statements of just wanting to , resistive to meds and ADL care. Assessment What has happened this shift: Pt c/o not feeling well this morning, stated he had a stomach ache, remained in bed for breakfast, ate 50% in high fowlers position, no swallowing difficulty noted, commented on how good his waffle looked, pt made a noise of disgust and retorted, "you call this a breakfast?!" Pt reluctantly took his Zydis, "I don't want that, it doesn't work!" Encouraged pt to take med, replied, "I can't swallow!" explained that it goes under his tongue. Pt replied, "I know where it goes!" pt took medicine cup in his hand and tipped med under his tongue, thanked the pt, returned a few minutes later with his Protonix, educated pt that it may help his stomach, pt stated, "I don't want it." Told pt I would just leave it there for him awhile and check back, left the room, stood outside the door out of pt's sight, pt took the med, let him finish his breakfast, reapproached awhile later to do physical assessment which pt reluctantly allowed. Pt had episode of bowel incontinence, incontinent care provided, barrier cream applied, Optifoam on right him changed yesterday remained C/D/I. Pt up in w/c before lunch for movie watching activity, observed pt actively watching/seeming to enjoy the movie. Per psychiatrist okay to give psych meds late, keep re-offering throughout the day. Mixed liquid Prozac in a little bit of juice, explained to pt that it was his antidepressant mixed in a little juice, he replied, "No I don't want it." Encouraged pt to take it, offered the rest of the juice box to wash it down with, set cup and juice box on the table in front of the pt, stepped back and watched. Pt picked up the cup and drank the medication. Pt returned to bed after lunch. Went to do pt's mental health assessment, "just leave me alone, I have a headache!" offered pt pain medication, "No!" Asked pt to rate his depression on a scale of 1 to 10, he replied, "ten!" denied feeling like hurting himself, declined to answer questions about HI/AH/VH. S/I, H/I: Pt denies A/VH: Unable to assess, pt declined to answer, does not appear to be responding to internal stimuli. Sleep: Sleeps at night, naps during the day. ADL's: Requires stand-by assist to transfer to w/c, able to eat and reposition self in bed independently, needs much encouragement for ADL care. Group attendance: No groups today, did participate in movie watching activity Were med's taken:Patient took Zydis, Protonix, and Prozac this shift, refused all other meds. Any med S/E: Did c/o headache, frequent complaint for this patient. Mental Status Exam Appearance: Disheveled Eye contact: Poor Behavior: Withdrawn, fatigued, resistant to care/meds. Speech: Clear, audible, limited Mood: Depressed, irritable Affect: Depressed, irritable, restricted Thought process: Linear, delusional at times; "I can't swallow." when eats without difficulty. Thought Content: Distorted perception, bizarre, pessimistic, wants to stay in bed "just leave me alone." Cognition: A&O X2 Insight: Poor Judgment: Poor Interventions PRN's used: None Therapeutic interventions: 1:1 assessment, encouragement to get out of bed and participate in [place], encouragement to allow/participate in ADL care, encouragement to take meds, medication education, nutrition/hydration encouragement; provision of food and fluids, maintained a safe and therapeutic environment, provided positive reinforcement, skin breakdown prevention, Q 15 minute checks. Restraints/seclusion/emergency medication:N/A Justification of Continued Inpatient Treatment: Pt remains depressed with statements of wanting to , delusional, and gravely disabled, he is unable/unwilling to take care of himself and homeless at this time.
[2018-04-15] MEDS: tamsulosin 0.4mg capsule PO SCH (21:00)
--- NOTE | 2018-04-15 23:48 | NUR ---
ROCIO progress note Chief Complaint Legal hold:5250 Client on involuntary status for GD Report received from ROCIO Kimbrough Why are they here:Patient agitated but answering some questions. Patient on a 5150 for gravely disabled and danger to self. Patient denies suicidal ideation but then states "just throw me in a hole and let me ." Patient is unable to walk and had joint and generalized pain but refuses pain medication. Patient denies HX of schizophrenia but has a long hx of same with hearing voices. Patient has a healing/closed wound to right hip. Patient has a foam dressing on the area. Patient quit smoking at 17 years of age. Patient had a CXR on 03/07 with no TB. Patient is emaciated and states he can't swallow but ends up eating his meal tray. Patient is homeless. For eval and stabilization. Diagnosis/presenting symptoms: Psychosis NOS Assessment What has happened this shift: Pt is up in his chair watching TV on shift change. He allowed me to assess him but was exhaling loudly as if he was annoyed at news writer. Education And Outreach Coordinator asks if pt is feeling depressed he responded,"yes very." Education And Outreach Coordinator asks if he is feeling suicidal he responds, "no, it wouldn't do any good anyway." After assessing him pt told news writer that he "needs to go to bed right now." Education And Outreach Coordinator assisted pt from wheelchair to bed. Although pt transferred with ease mostly on his own he made comments like, "this is horrible!, I can't move, I'm crippled!" Pt got comfortable in bed and kept saying, "my bones my bones my bones." Education And Outreach Coordinator asked if pt was in pain and he replied, "of coarse I'm in pain I'm a skeleton! now leave me alone!" Education And Outreach Coordinator came back in for Hs medication pass and urged pt to try to take his medications, pt yelled, "No! I told you to leave me alone. I will not take medication! I can't even swallow! now turn off the light and leave!" Around 2100 staff came in to check his depends and he yelled at staff to not touch him and to get away. S/I, H/I: ""no, it wouldn't do any good anyway." A/VH: pt talks to himself occasionally Sleep: see sleep assessment notation ADL's: Total assist. Pt is incontinent of urine and stool. Pt is able to turn himself. Group attendance: No groups, beater and pulper feeder Were meds taken: pt refuses meds Any med S/E none reported or observed Mental Status Exam Appearance: clean scrubs Eye contact: poor Behavior: agitated, angry, constricted Speech: clear Mood: angry, isolative Affect: withdrawn Thought process:oppositional Thought Content: unable to assess Cognition: oriented x1 impaired Insight: poor Judgment: Poor Interventions PRN's used: None Therapeutic interventions: 1:1 assessment, q15 min checks for safety Restraints/seclusion/emergency medication: None Justification of Continued Inpatient Treatment: Pt at risk of decompensation as he is gravely disabled and unable to plan for f/c/s.
[2018-04-16] MEDS: pantoprazole 40mg Tablet.DR PO SCH (07:30)
[2018-04-16 08:00] VITALS: BP 91/51
[2018-04-16] MEDS: thiamine 100mg tablet PO SCH ×2 (08:00→20:00)
[2018-04-16] MEDS: folic acid 1mg tablet PO SCH (08:00)
[2018-04-16] MEDS: atorvastatin 10mg tablet PO SCH (08:00)
[2018-04-16] MEDS: multivitamins, therapeutics tablet PO SCH (08:00)
[2018-04-16] MEDS: docusate sod 100mg capsule PO SCH ×2 (08:00→20:00)
[2018-04-16] MEDS: ferrous sulfate ER tablet 140 MG TABLET.ER PO SCH ×2 (08:00→20:00)
[2018-04-16] MEDS: aspirin 81mg tab.chew PO SCH (08:30)
[2018-04-16] MEDS: fluoxetine 20mg/5ml UD cup PO SCH (08:37)
[2018-04-16] MEDS: OLANZapine 5mg rapidly disint. tablet PO SCH ×2 (08:37→21:00)
[2018-04-16] MEDS: High Protein Shake w/Arg/Glut/Ca2+Bmb (Juven 19.3gm) pkt 240ml PO SCH ×3 (08:39→18:00)
[2018-04-16 20:11] VITALS: BP 92/53
[2018-04-16] MEDS: tamsulosin 0.4mg capsule PO SCH (21:00)
--- NOTE | 2018-04-17 00:54 | NUR ---
ROCIO progress note Chief Complaint Legal hold: 5270 Client on involuntary status for GD Report received from ROCIO Barry Why are they here:Patient agitated but answering some questions. Patient on a 5150 for gravely disabled and danger to self. Patient denies suicidal ideation but then states "just throw me in a hole and let me ." Patient is unable to walk and had joint and generalized pain but refuses pain medication. Patient denies HX of schizophrenia but has a long hx of same with hearing voices. Patient has a healing/closed wound to right hip. Patient has a foam dressing on the area. Patient quit smoking at 17 years of age. Patient had a CXR on 03/07 with no TB. Patient is emaciated and states he can't swallow but ends up eating his meal tray. Patient is homeless. For eval and stabilization. Diagnosis/presenting symptoms: Psychosis NOS Assessment What has happened this shift: Pt is laying in bed the entirety of the shift. Staff encourages patient to try laying on his left side to take some pressure off his right hip. The patient responded by saying, No! I lay on this side all the time leave me alone!" Pt did take his Zyprexa and Colace tonight. Pt was placed on a 5270 this evening at, patient signed this. S/I, H/I: denies A/VH: pt talks to himself occasionally Sleep: see sleep assessment notation ADL's: Total assist. Pt is incontinent of urine and stool. Pt is able to turn himself. Group attendance: No groups, shift foreman Were meds taken: pt refuses thiamine, iron, and flomax, pt takes zyprexa and colace Any med S/E none reported or observed Mental Status Exam Appearance: clean scrubs Eye contact: poor Behavior: agitated, angry, constricted Speech: clear Mood: angry, isolative Affect: withdrawn Thought process:oppositional Thought Content: unable to assess Cognition: oriented x1 impaired Insight: poor Judgment: Poor Interventions PRN's used: None Therapeutic interventions: 1:1 assessment, q15 min checks for safety Restraints/seclusion/emergency medication: None Justification of Continued Inpatient Treatment: Pt at risk of decompensation as he is gravely disabled and unable to plan for f/c/s.
[2018-04-17 08:16] VITALS: BP 109/53
[2018-04-17] MEDS: folic acid 1mg tablet PO SCH (08:53)
[2018-04-17] MEDS: ferrous sulfate ER tablet 140 MG TABLET.ER PO SCH ×2 (08:53→20:00)
[2018-04-17] MEDS: fluoxetine 20mg/5ml UD cup PO SCH (08:53)
[2018-04-17] MEDS: thiamine 100mg tablet PO SCH ×2 (08:53→20:00)
[2018-04-17] MEDS: High Protein Shake w/Arg/Glut/Ca2+Bmb (Juven 19.3gm) pkt 240ml PO SCH ×3 (08:54→18:00)
[2018-04-17] MEDS: atorvastatin 10mg tablet PO SCH (08:54)
[2018-04-17] MEDS: multivitamins, therapeutics tablet PO SCH (08:54)
[2018-04-17] MEDS: docusate sod 100mg capsule PO SCH ×2 (08:54→20:00)
[2018-04-17] MEDS: pantoprazole 40mg Tablet.DR PO SCH (08:54)
[2018-04-17] MEDS: OLANZapine 5mg rapidly disint. tablet PO SCH ×2 (08:55→21:00)
[2018-04-17] MEDS: aspirin 81mg tab.chew PO SCH (08:55)
[2018-04-17] MEDS: FLUoxetine 20mg capsule PO SCH (13:27)
[2018-04-17] MEDS: tizanidine 4mg tablet PO PRN (13:28)
[2018-04-17] MEDS: HYDROcodone/acetaminophen 10/325mg tab PO PRN (13:28)
--- NOTE | 2018-04-17 14:11 | NUR ---
Nursing Progress Note Chief Complaint Legal hold: 5270 Client on involuntary status for GD Report received from ROCIO Moore Why are they here:Patient agitated but answering some questions. Patient on a 5150 for gravely disabled and danger to self. Patient denies suicidal ideation but then states "just throw me in a hole and let me ." Patient is unable to walk and had joint and generalized pain but refuses pain medication. Patient denies HX of schizophrenia but has a long hx of same with hearing voices. Patient has a healing/closed wound to right hip. Patient has a foam dressing on the area. Patient quit smoking at 17 years of age. Patient had a CXR on 03/07 with no TB. Patient is emaciated and states he can't swallow but ends up eating his meal tray. Patient is homeless. For eval and stabilization. Diagnosis/presenting symptoms: Psychosis NOS Assessment What has happened this shift: Patient is able to pull up his own diaper and pull up his own pants, get himself into his wheelchair and go to the group room for meals. Patient's medications were put on his tray with RN watching. After patient ate his meal, he took all medications placed in front of him. Patient everyday c/o pain 10/10, [place] and Zanaflex put in front of patient and told he could take these for pain and to relax his muscles, patient took these as well. Observed patient from [facility], patient able to push himself into his room and ever so carefully put himself back to bed. His assistant professor of english called today and patient was able to receive information and then said "thank you" to RN. Court arson and bomb investigator here and Shayla concrete pipe machine operator was able to answer questions. S/I, H/I: denies A/VH: Denies. Sleep: 10.25 hrs. ADL's: Total assist. Pt is incontinent of stool. Pt is able to turn himself. Group attendance: No Were meds taken: Pt took all medications including [place] and Zanaflex. Any med S/E none reported or observed Mental Status Exam Appearance: Disheveled elderly gentleman in green scrubs Eye contact: poor Behavior: Becoming slightly more compliant. Speech: clear Mood: agitated, isolative Affect: withdrawn Thought process:oppositional Thought Content: unable to assess Cognition: oriented x1 impaired Insight: Impaired. Judgment: Impaired. Interventions PRN's used: None Therapeutic interventions: 1:1 assessment, q15 min checks for safety. Encourage p.o. fluid intake. Rehabilitation efforts of staff to make pt as independent as possible. OOB for meals. Restraints/seclusion/emergency medication: None Justification of Continued Inpatient Treatment: Pt at risk of decompensation as he is gravely disabled and unable to plan for food, clothing or assisted.
[2018-04-17 20:00] VITALS: BP 98/60
[2018-04-17] MEDS: tamsulosin 0.4mg capsule PO SCH (21:00)
--- NOTE | 2018-04-18 00:42 | NUR ---
ROCIO progress note Chief Complaint Legal hold: 5270 Client on involuntary status for GD Report received from ROCIO Barry Why are they here: Patient came in on a 5150 for gravely disabled and danger to self. Patient denies suicidal ideation but then states "just throw me in a hole and let me ." Patient is unable to walk and had joint and generalized pain but refuses pain medication. Patient denies HX of schizophrenia but has a long hx of same with hearing voices. Patient has a healing/closed wound to right hip. Patient has a foam dressing on the area. Patient quit smoking at 17 years of age. Patient had a CXR on 03/07 with no TB. Patient is emaciated and states he can't swallow but ends up eating his meal tray. Patient is homeless. For eval and stabilization. Diagnosis/presenting symptoms: Psychosis NOS Assessment What has happened this shift: Patient lays in bed entirety of shift. He sits up slightly on his own and looks around occasionally. Air Conditioning Technician greets him and he just looks at proposal manager writer and asks the light to be turned off. Pt lets proposal manager writer assess him but will not let proposal manager writer look at his right hip. Patient refused to take his medications or engage in conversation with proposal manager writer. S/I, H/I: pt won't answer proposal manager writer A/VH: pt talks to himself occasionally Sleep: see sleep assessment notation ADL's: Total assist. Pt is incontinent of urine and stool. Pt is able to turn himself. Group attendance: No groups, night shift supervisor Were meds taken: pt refused Any med S/E none reported or observed Mental Status Exam Appearance: clean scrubs Eye contact: poor Behavior: agitated, angry, constricted Speech: clear Mood: angry, isolative Affect: withdrawn Thought process:oppositional Thought Content: unable to assess Cognition: oriented x1 impaired Insight: poor Judgment: Poor Interventions PRN's used: None Therapeutic interventions: 1:1 assessment, q15 min checks for safety Restraints/seclusion/emergency medication: None Justification of Continued Inpatient Treatment: Pt at risk of decompensation as he is gravely disabled and unable to plan for f/c/s.
[2018-04-18 08:00] VITALS: BP 105/62
[2018-04-18] MEDS: OLANZapine 5mg rapidly disint. tablet PO SCH ×2 (08:25→21:07)
[2018-04-18] MEDS: pantoprazole 40mg Tablet.DR PO SCH (08:26)
[2018-04-18] MEDS: aspirin 81mg tab.chew PO SCH (08:26)
[2018-04-18] MEDS: atorvastatin 10mg tablet PO SCH (08:26)
[2018-04-18] MEDS: thiamine 100mg tablet PO SCH ×2 (08:26→20:00)
[2018-04-18] MEDS: docusate sod 100mg capsule PO SCH ×2 (08:26→20:00)
[2018-04-18] MEDS: ferrous sulfate ER tablet 140 MG TABLET.ER PO SCH ×2 (08:27→20:00)
[2018-04-18] MEDS: folic acid 1mg tablet PO SCH (08:27)
[2018-04-18] MEDS: High Protein Shake w/Arg/Glut/Ca2+Bmb (Juven 19.3gm) pkt 240ml PO SCH ×3 (08:27→18:02)
[2018-04-18] MEDS: fluoxetine 20mg/5ml UD cup PO SCH (08:27)
[2018-04-18] MEDS: multivitamins, therapeutics tablet PO SCH (08:27)
[2018-04-18] MEDS: FLUoxetine 20mg capsule PO SCH (12:30)
--- NOTE | 2018-04-18 17:53 | NUR ---
Nursing Progress Note Chief Complaint Legal hold: 5270 Client on involuntary status for GD Report received from ROCIO Moore Why are they here:Patient agitated but answering some questions. Patient on a 5150 for gravely disabled and danger to self. Patient denies suicidal ideation but then states "just throw me in a hole and let me ." Patient is unable to walk and had joint and generalized pain but refuses pain medication. Patient denies HX of schizophrenia but has a long hx of same with hearing voices. Patient has a healing/closed wound to right hip. Patient has a foam dressing on the area. Patient quit smoking at 17 years of age. Patient had a CXR on 03/07 with no TB. Patient is emaciated and states he can't swallow but ends up eating his meal tray. Patient is homeless. For eval and stabilization. Diagnosis/presenting symptoms: Psychosis NOS Assessment What has happened this shift: Patient asleep at change of shift and wanted to skip breakfast. Patient was encouraged to get up. DRESSBOOM assisted patient into wheelchair and to breakfast. Patient ate much of his food. Patient was grumpy and refused most of his medication stating "I can't swallow". Patient irritable but allowed patient care. Patient then refused to get up for lunch but got up for dinner. S/I, H/I: denies A/VH: Denies. Sleep: 10.25 hrs. ADL's: Total assist. Pt is incontinent of stool. Pt is able to turn himself. Group attendance: No Were meds taken: Pt took only some of his medication. Any med S/E none reported or observed Mental Status Exam Appearance: Disheveled elderly gentleman in green scrubs Eye contact: poor Behavior: Becoming slightly more compliant. Speech: clear Mood: agitated, isolative Affect: withdrawn Thought process:oppositional Thought Content: unable to assess Cognition: oriented x1 impaired Insight: Poor Judgment: Poor Interventions PRN's used: None Therapeutic interventions: 1:1 assessment, q15 min checks for safety. Encourage p.o. fluid intake. Rehabilitation efforts of staff to make pt as independent as possible. Restraints/seclusion/emergency medication: None Justification of Continued Inpatient Treatment: Pt at risk of decompensation as he is gravely disabled and unable to plan for food, clothing or custodial.
[2018-04-18 20:00] VITALS: BP 93/57
[2018-04-18] MEDS: tamsulosin 0.4mg capsule PO SCH (21:00)
--- NOTE | 2018-04-18 23:42 | NUR ---
Nursing Note Chief Complaint: Depression with S/I Legal hold: 5270 Client on involuntary status for GD/DTS Report received from nurse with use of SBAR: ROCIO Sanders Why are they here: Pt. presented to [facility] on a 5150 for DTS and failure to thrive. He has had multiple hospital visits, is homeless, and has a hx. of schizophrenia and a anemia. He is estranged from his family, irritable, and makes delusional statements (such as "I can't swallow" or "I am an alien.") Pt. is bedridden and lower extremities are contracted. 5250 has been converted to a 5270. Diagnosis/presenting symptoms: Pt. continues to present slightly irritable, fatigued, hopeless, and resistive to care. He denies S/I, however states, "I'm not good, I'm still depressed." He has ongoing delusions that he cannot swallow or move his extremities. Assessment What has happened this shift: Pt. in bed at the beginning of the shift, this commercial real estate underwriter assumes care and introduces self, he states, "Go away." Pt. continues to present as fatigued, hopeless, irritable/agitated, withdrawn, and resistive to care. 1:1 completed at bedside, pt. reports ongoing depression, and when questioned in regards to S/I, states, "I would kill myself if I could, there's no way to do it here, I can't overdose on medications." He continues to have ongoing delusions that he cannot swallow, his joints are growing too big, and reports he does not understand why he continues to have bowl movements if, "I'm not eating." He ate 50% of his dinner independently. Pt. refuses all medications this shift except Zyprexa Zydis, he c/o pain throughout his body, however refuses pain medication, states, "It won't do anything, I'm inside." Pt. is able to reposition himself in bed independently and is reminded to do so, dressing to rt. hip remains CDI, no s/s of increased redness to area or infection, will continue to monitor. S/I, H/I: S/I, states, "I would kill myself if I could, there's no way to do it here, I can't overdose on medications." A/VH: Unable to assess, does not appear to be internally preoccupied Sleep: Appears fatigued ADL's: Requires assist to transfer to w/ and for self care, however able to eat and reposition self in bed independently Group attendance: Pt. up in w/ for all meals today, but did not attend groups Were meds taken: Refused all except Zyprexa Zydis Any med S/E: None Mental Status Exam Appearance: Pt. hair is disheveled and he is dressed in a green hospital gown. Bilateral lower extremities are contracted. Eye contact: Poor Behavior: Withdrawn, fatigued, slightly irritable, resistive to care and psychomotor activity WNL Speech: WNL, intense when irritable Mood: Depressed, hopeless, and resistant to care Affect: Constricted Thought process: Poverty of thought and blocking r/t mental health Thought Content: Preoccupation with depressed mood and on-going delusions Cognition: A&O X3 (not to time or day) Insight: Poor Judgment: Poor Interventions PRN's used: None Therapeutic interventions: Provided active listening, maintained a safe and therapeutic environment, provided medication education/encouragement with compliance, encouraged independent performance of ADLs, provide positive reinforcement on progress made, monitored skin and repositioning, and maintained Q 15 min safety checks. Restraints/seclusion/emergency medication:N/A Justification of Continued Inpatient Treatment: Pt. remains gravely disabled and depressed with passive S/I, he continues to require therapeutic interventions and PT/O, and would be a high-risk discharge at this time.
[2018-04-19 08:00] VITALS: BP 111/64
[2018-04-19] MEDS: OLANZapine 5mg rapidly disint. tablet PO SCH ×2 (08:25→21:08)
[2018-04-19] MEDS: fluoxetine 20mg/5ml UD cup PO SCH (08:25)
[2018-04-19] MEDS: docusate sod 100mg capsule PO SCH ×2 (08:26→20:00)
[2018-04-19] MEDS: HYDROcodone/acetaminophen 10/325mg tab PO PRN ×2 (08:26→13:17)
[2018-04-19] MEDS: multivitamins, therapeutics tablet PO SCH (08:26)
[2018-04-19] MEDS: thiamine 100mg tablet PO SCH ×2 (08:26→20:00)
[2018-04-19] MEDS: atorvastatin 10mg tablet PO SCH (08:26)
[2018-04-19] MEDS: folic acid 1mg tablet PO SCH (08:26)
[2018-04-19] MEDS: High Protein Shake w/Arg/Glut/Ca2+Bmb (Juven 19.3gm) pkt 240ml PO SCH ×3 (08:27→18:02)
[2018-04-19] MEDS: pantoprazole 40mg Tablet.DR PO SCH (08:27)
[2018-04-19] MEDS: ferrous sulfate ER tablet 140 MG TABLET.ER PO SCH ×2 (08:27→20:00)
[2018-04-19] MEDS: aspirin 81mg tab.chew PO SCH (08:32)
--- NOTE | 2018-04-19 10:37 | NUR ---
Reassessment: Patient's documented PO intake has decreased with average 20-50% of meals however pt continues with 100% intake of high protein shake TID likely meeting nutrient needs. RN notes document pt with ongoing delusions that he can't swallow however MD notes state pt doesn't appear to have any problem with swallowing. Noted that pt continues with S/I, agitated, resistive to care, and fatigued. [facility] 04/18. Will continue to follow. Recommendations: 1) Continue with regular diet 2) Continue with high protein shake TID 3) Encourage PO intake 4) Weekly wt Addendum: 04/19/18 at [address] Amended: Links added.
[2018-04-19] MEDS: FLUoxetine 20mg capsule PO SCH (13:16)
[2018-04-19] MEDS: tizanidine 4mg tablet PO PRN (13:16)
--- NOTE | 2018-04-19 17:17 | NUR ---
Nursing Note Chief Complaint: Depression with S/I Legal hold: 5270 Client on involuntary status for GD/DTS Report received from nurse with use of SBAR: ROCIO Patel Why are they here: Pt. presented to [facility] on a 5150 for DTS and failure to thrive. He has had multiple hospital visits, is homeless, and has a hx. of schizophrenia and a anemia. He is estranged from his family, irritable, and makes delusional statements (such as "I can't swallow" or "I am an alien.") Pt. is bedridden and lower extremities are contracted. 5250 has been converted to a 5270. Diagnosis/presenting symptoms: Pt. continues to present slightly irritable, fatigued, hopeless, and resistive to care. He denies S/I, however states, "I'm not good, I'm still depressed." He has ongoing delusions that he cannot swallow or move his extremities. Assessment What has happened this shift: Patient was helped to wheelchair to get up for breakfast and lunch, he was able to sit up for awhile after breakfast and then wheeled himself to his bed and self transfered to bed. He refuses to get out of bed. Medications compliant when meds are set on gilberto tray and he is able to swallow them when he is ready to. he took all meds today as scheduled. Depressed mood with irritable affect. Delusions regarding swallowing. 5270 upheld in hearing today. S/I, H/I: S/I, states, "I would kill myself if I could, there's no way to do it here. A/VH: Unable to assess, does not appear to be internally preoccupied Sleep: Napped ADL's: Requires assist to transfer to w/c and for self care, however able to eat and reposition self in bed independently Group attendance: Pt. up in w/c for all meals today, but did not attend groups Were meds taken: All meds were taken Any med S/E: None Mental Status Exam Appearance: disheveled Eye contact: Poor Behavior: Withdrawn, fatigued, slightly irritable, resistive to care Speech: normal volume Mood: Depressed, hopeless, and resistant to care Affect: Constricted Thought process: Poverty of thought Thought Content: Preoccupation with depressed mood and on-going delusions Cognition: A&O X3 (not to time or day) Insight: Poor Judgment: Poor Interventions PRN's used: [place], zanaadalgisa Therapeutic interventions: Provided active listening, maintained a safe and therapeutic environment, provided medication education/encouragement with compliance, encouraged independent performance of ADLs, provide positive reinforcement on progress made, monitored skin and repositioning, and maintained Q 15 min safety checks. Restraints/seclusion/emergency medication:N/A Justification of Continued Inpatient Treatment: Pt. remains gravely disabled and depressed with passive S/I, he continues to require therapeutic interventions and PT/O, and would be a high-risk discharge at this time.
[2018-04-19 19:00] VITALS: BP 98/63
[2018-04-19] MEDS: tamsulosin 0.4mg capsule PO SCH (21:00)
--- NOTE | 2018-04-20 01:48 | NUR ---
Nursing Note Chief Complaint: Depression with S/I Legal hold: 5270 Client on involuntary status for GD/DTS Report received from nurse with use of SBAR: ROCIO Malin Why are they here: Pt. presented to [facility] on a 5150 for DTS and failure to thrive. He has had multiple hospital visits, is homeless, and has a hx. of schizophrenia and a anemia. He is estranged from his family, irritable, and makes delusional statements (such as "I can't swallow" or "I am an alien.") Pt. is bedridden and lower extremities are contracted. 5250 has been converted to a 5270, and 5270 upheld at hearing today. Diagnosis/presenting symptoms: Pt. continues to present slightly irritable, fatigued, hopeless, and resistive to care. He denies S/I, however reports ongoing depression. He has ongoing delusions regarding swallowing and body dysmorphia. Assessment What has happened this shift: Pt. in bed at the beginning of the shift, continues to present as fatigued, hopeless, irritable/agitated, withdrawn, and resistive to care. 1:1 completed at bedside, he denies S/I, however reports ongoing depression, states, "I don't have any way to hurt myself here, I can't overdose." Pt. continues to have ongoing delusions that he cannot swallow, and body dysmorphia, states, "I'm just inside." Pt. continues to refuses all medications this shift except Zyprexa Zydis, he c/o pain throughout his body, however refuses pain medication. This designer/writer encouraged pt. to sit up in bed and placed each medication in a cup along with a snack, however pt. continued to refuse. Pt. is able to reposition himself in bed independently and is reminded to do so, dressing to rt. hip changed per order, no s/s of increased redness or open areas, will continue to monitor. S/I, H/I: Denies A/VH: Denies Sleep: Appears fatigued, however reports he sleeps well ADL's: Requires assist to transfer to w/c and for self care, however able to eat, reposition self in bed, and transfer back to bed independently Group attendance: Pt. did not attend groups today Were meds taken: Refused all except Zyprexa Zydis Any med S/E: None Mental Status Exam Appearance: Pt. hair is disheveled and he is dressed in a green hospital gown. Bilateral lower extremities are contracted. Eye contact: Poor Behavior: Withdrawn, fatigued, slightly irritable, resistive to care and psychomotor activity WNL Speech: WNL, intense when irritable Mood: Depressed, hopeless, and resistant to care Affect: Constricted Thought process: Poverty of thought and blocking r/t mental health Thought Content: Preoccupation with depressed mood and on-going delusions Cognition: A&O X3 (not to time or day) Insight: Poor Judgment: Poor Interventions PRN's used: None Therapeutic interventions: Provided active listening, maintained a safe and therapeutic environment, provided medication education/encouragement with compliance, encouraged independent performance of ADLs, provide positive reinforcement on progress made, monitored skin and repositioning, and maintained Q 15 min safety checks. Restraints/seclusion/emergency medication:N/A Justification of Continued Inpatient Treatment: Pt. remains gravely disabled and depressed with passive S/I, he continues to require therapeutic interventions and PT/O, and would be a high-risk discharge at this time.
[2018-04-20 08:03] VITALS: BP 100/60
[2018-04-20] MEDS: fluoxetine 20mg/5ml UD cup PO SCH (08:09)
[2018-04-20] MEDS: OLANZapine 5mg rapidly disint. tablet PO SCH ×2 (08:10→20:22)
[2018-04-20] MEDS: atorvastatin 10mg tablet PO SCH (08:11)
[2018-04-20] MEDS: thiamine 100mg tablet PO SCH ×2 (08:11→20:00)
[2018-04-20] MEDS: multivitamins, therapeutics tablet PO SCH (08:11)
[2018-04-20] MEDS: folic acid 1mg tablet PO SCH (08:11)
[2018-04-20] MEDS: docusate sod 100mg capsule PO SCH ×2 (08:11→20:00)
[2018-04-20] MEDS: pantoprazole 40mg Tablet.DR PO SCH (08:11)
[2018-04-20] MEDS: ferrous sulfate ER tablet 140 MG TABLET.ER PO SCH ×2 (08:11→20:00)
[2018-04-20] MEDS: HYDROcodone/acetaminophen 10/325mg tab PO PRN (08:12)
[2018-04-20] MEDS: aspirin 81mg tab.chew PO SCH (08:14)
[2018-04-20] MEDS: High Protein Shake w/Arg/Glut/Ca2+Bmb (Juven 19.3gm) pkt 240ml PO SCH ×3 (08:14→20:25)
[2018-04-20] MEDS: FLUoxetine 20mg capsule PO SCH (12:30)
--- NOTE | 2018-04-20 16:58 | NUR ---
Nursing Note Chief Complaint: Depression with S/I Legal hold: 5270 Client on involuntary status for GD/DTS Report received from nurse with use of SBAR: ROCIO Patel Why are they here: Pt. presented to [facility] on a 5150 for DTS and failure to thrive. He has had multiple hospital visits, is homeless, and has a hx. of schizophrenia and a anemia. He is estranged from his family, irritable, and makes delusional statements (such as "I can't swallow" or "I am an alien.") Pt. is bedridden and lower extremities are contracted. 5250 has been converted to a 5270, and 5270 upheld at hearing today. Diagnosis/presenting symptoms: Pt. continues to present slightly irritable, fatigued, hopeless, and resistive to care. He denies S/I, however reports ongoing depression. He has ongoing delusions regarding swallowing and body dysmorphia. Assessment What has happened this shift: The patient was asleep at change of shift. He was helped up to wheelchair and came to group room for breakfast. His po medications were put in a cup on his meal tray as that has been his pattern in taking his meds. He left the group room and this nurse fond that his med cup was missing from his tray. He was found in bed with the cup of pills in his lap under the sheet. The pills were confiscated. He got up for meals only and went back to sleep in his bed. He is still having suicidal thoughts but denied hoarding the meds for that purpose. yelling at staff and swearing and being resistive to care all day. Refused noon meds. S/I, H/I: wants to , states, "I can't here" A/VH: Denies Sleep: Appears fatigued, however reports he sleeps well ADL's: Requires assist to transfer to w/c and for self care, however able to eat, reposition self in bed, and transfer back to bed independently Group attendance: Pt. did not attend groups today Were meds taken: Zyprexa Zydis only Any med S/E: None Mental Status Exam Appearance: disheveled Eye contact: Poor Behavior: Withdrawn, fatigued, slightly irritable, resistive to care Speech: WNL, intense when irritable Mood: Depressed, hopeless, and resistant to care Affect: Constricted Thought process: Poverty of thought and blocking r/t mental health Thought Content: Preoccupation with depressed mood and on-going delusions Cognition: A&O X3 (not to time or day) Insight: Poor Judgment: Poor Interventions PRN's used: None Therapeutic interventions: Provided active listening, maintained a safe and therapeutic environment, provided medication education/encouragement with compliance, encouraged independent performance of ADLs, provide positive reinforcement on progress made, monitored skin and repositioning, and maintained Q 15 min safety checks. Restraints/seclusion/emergency medication:N/A Justification of Continued Inpatient Treatment: Pt. remains gravely disabled and depressed with passive S/I, he continues to require therapeutic interventions and PT/O, and would be a high-risk discharge at this time.
[2018-04-20 20:00] VITALS: BP 100/61
[2018-04-20] MEDS: tamsulosin 0.4mg capsule PO SCH (21:00)
--- NOTE | 2018-04-21 03:29 | NUR ---
The Daily Note Chief Complaint: Depression with S/I Legal hold: 5270 Client on involuntary status for GD/DTS Report received from nurse with use of SBAR: ROCIO Malin Why are they here: Pt. presented to [facility] on a 5150 for DTS and failure to thrive. He has had multiple hospital visits, is homeless, and has a hx. of schizophrenia and a anemia. He is estranged from his family, irritable, and makes delusional statements (such as "I can't swallow" or "I am .") Pt. is bedridden and lower extremities are contracted. 5250 has been converted to a 5270, and 5270 upheld at hearing. Diagnosis/presenting symptoms: Pt. continues to present slightly irritable, fatigued, hopeless, and resistive to care. He denies S/I, however reports ongoing depression. He has ongoing delusions regarding swallowing and body dysmorphia. Assessment What has happened this shift: Pt. in bed at the beginning of the shift, continues to present as fatigued, hopeless, irritable/agitated, withdrawn, and resistive to care. 1:1 completed at bedside, he denies S/I, however reports ongoing depression, states, "I dont breathe, my heart is not there, why am I not ? My whole body is but my consciousness remains." Pt. continues to have ongoing delusions that he cannot swallow, and body dysmorphia, states, "I'm trying to leave my body", followed by shouts of incoherent speech. Pt. continues to refuse all medications this shift except Zyprexa Zydis, he c/o pain throughout his body, however refuses pain medication, stating "I cant swallow". Pt reminded that he ate dinner without issue, but this just aggravates pt and he continues to refuse medications. This copy writer encouraged pt. to sit up in bed and placed each medication in a cup along with a snack, however pt. continued to refuse. Pt. is able to reposition himself in bed independently and is reminded to do so, though he remains lying on his right side nearly 100% of the time. no s/s of increased redness or open areas, will continue to monitor. S/I, H/I: Denies A/VH: Denies Sleep: Appears fatigued, however reports he sleeps well ADL's: Requires assist to transfer to w/c and for self care, however able to eat, reposition self in bed, and transfer back to bed independently Group attendance: Pt. did not attend groups today Were meds taken: Refused all except Zyprexa Zydis Any med S/E: None Mental Status Exam Appearance: Pt. hair is disheveled and he is dressed in a green hospital gown. Bilateral lower extremities are contracted. Eye contact: Poor Behavior: Withdrawn, fatigued, slightly irritable, resistive to care and psychomotor activity WNL Speech: WNL, intense when irritable Mood: Depressed, hopeless, and resistant to care Affect: Constricted Thought process: Poverty of thought and blocking r/t mental health Thought Content: Preoccupation with depressed mood and on-going delusions Cognition: A&O X3 (not to time or day) Insight: Poor Judgment: Poor Interventions PRN's used: None Therapeutic interventions: Provided active listening, maintained a safe and therapeutic environment, provided medication education/encouragement with compliance, encouraged independent performance of ADLs, provide positive reinforcement on progress made, monitored skin and repositioning, and maintained Q 15 min safety checks. Restraints/seclusion/emergency medication:N/A Justification of Continued Inpatient Treatment: Pt. remains gravely disabled and depressed with passive S/I, he continues to require therapeutic interventions and PT/O, and would be a high-risk discharge at this time.
[2018-04-21] MEDS: pantoprazole 40mg Tablet.DR PO SCH (07:30)
[2018-04-21 08:00] VITALS: BP 99/60
[2018-04-21] MEDS: fluoxetine 20mg/5ml UD cup PO SCH (08:00)
[2018-04-21] MEDS: docusate sod 100mg capsule PO SCH ×2 (08:00→20:00)
[2018-04-21] MEDS: ferrous sulfate ER tablet 140 MG TABLET.ER PO SCH ×2 (08:00→20:00)
[2018-04-21] MEDS: thiamine 100mg tablet PO SCH ×2 (08:00→20:00)
[2018-04-21] MEDS: multivitamins, therapeutics tablet PO SCH (08:00)
[2018-04-21] MEDS: folic acid 1mg tablet PO SCH (08:00)
[2018-04-21] MEDS: atorvastatin 10mg tablet PO SCH (08:00)
[2018-04-21] MEDS: OLANZapine 5mg rapidly disint. tablet PO SCH ×2 (08:05→20:36)
[2018-04-21] MEDS: High Protein Shake w/Arg/Glut/Ca2+Bmb (Juven 19.3gm) pkt 240ml PO SCH ×3 (08:06→18:12)
[2018-04-21] MEDS: aspirin 81mg tab.chew PO SCH (08:16)
[2018-04-21] MEDS: FLUoxetine 20mg capsule PO SCH (12:30)
--- NOTE | 2018-04-21 18:03 | NUR ---
Nursing Note Chief Complaint: Depression with S/I Legal hold: 5270 Client on involuntary status for GD/DTS Report received from Ranjan CHAN with use of SBAR Why are they here: Pt. presented to [facility] on a 5150 for DTS and failure to thrive. He has had multiple hospital visits, is homeless, and has a hx. of schizophrenia and a anemia. He is estranged from his family, irritable, and makes delusional statements (such as "I can't swallow" or "I am an alien.") Pt. Chooses to stay in bed and has general muscle atrophy. He is currently on a 5270 hold. Diagnosis/presenting symptoms: Pt. continues to present slightly irritable, fatigued, hopeless, and resistive to care. He denies S/I, however reports ongoing depression. He has ongoing delusions regarding swallowing and body dysmorphia. Assessment What has happened this shift: Patient in bed at change of shift. When approached, he stated I dont feel well Complained of general discomfort and left knee pain, but did not request a prn. Got up to wheel chair and attended breakfast and ate. Complains about all meals while he eats them. Refused all medications except Zyprexa, stating he made a deal with the doctor to take that one. Able to return to his room in wheel chair and transfer to bed by self. Spent time other than meals in bed. Remains irritable and complaining. S/I, H/I: wants to , states, "I can't here" A/VH: Denies Sleep: Appears fatigued, however reports he sleeps well ADL's: Requires assist to transfer to w/c and for self care, however able to eat, reposition self in bed, and transfer back to bed independently Group attendance: Pt. did not attend groups today Were meds taken: Zyprexa Zydis only Any med S/E: None Mental Status Exam Appearance: disheveled Eye contact: Poor Behavior: Withdrawn, fatigued, slightly irritable, resistive to care Speech: WNL, intense when irritable Mood: Depressed, hopeless, and resistant to care Affect: Constricted Thought process: Poverty of thought and blocking r/t mental health Thought Content: Preoccupation with depressed mood and on-going delusions Cognition: A&O X3 (not to time or day) Insight: Poor Judgment: Poor Interventions PRN's used: None Therapeutic interventions: Provided active listening, maintained a safe and therapeutic environment, provided medication education/encouragement with compliance, encouraged independent performance of ADLs, provide positive reinforcement on progress made, monitored skin and repositioning, and maintained Q 15 min safety checks. Restraints/seclusion/emergency medication:N/A Justification of Continued Inpatient Treatment: Pt. remains gravely disabled and depressed with passive S/I, he continues to require therapeutic interventions and PT/O, and would be a high-risk discharge at this time.
[2018-04-21 19:00] VITALS: BP 107/65
[2018-04-21] MEDS: tamsulosin 0.4mg capsule PO SCH (20:38)
--- NOTE | 2018-04-21 22:13 | NUR ---
Nursing Note Chief Complaint: Depression with S/I Legal hold: 5270 Client on involuntary status for GD/DTS Report received from Ranjan CHAN with use of SBAR Why are they here: Pt. presented to [facility] on a 5150 for DTS and failure to thrive. He has had multiple hospital visits, is homeless, and has a hx. of schizophrenia and a anemia. He is estranged from his family, irritable, and makes delusional statements (such as "I can't swallow" or "I am an alien.") Pt. Chooses to stay in bed and has general muscle atrophy. He is currently on a 5270 hold. Diagnosis/presenting symptoms: Pt. continues to present slightly irritable, fatigued, hopeless, and resistive to care. He denies S/I, however reports ongoing depression. He has ongoing delusions regarding swallowing and body dysmorphia. Assessment What has happened this shift: Patient in bed at change of shift. Had returned to room via wheel chair and to bed by self. During 1:1 he became irritable and hopeless about change. Became angry when approached with HS meds and refused them all, but was convinced to keep his word to the Doctor and take zyprexa, which he did. Did not request any prn meds and remained irritable and hostile when further conversation attempted. Appeared to be sleeping at 2130. Continued to monitor for safety and signs of distress. S/I, H/I: wants to , states, "I can't here" A/VH: Denies Sleep: Appears fatigued, asleep by 0 ADL's: Stand by assist to transfer to w/c and for self care, able to eat, reposition self and transfer back to bed independently Group attendance: Pt. did not attend groups today Were meds taken: Zyprexa Zydis only Any med S/E: None Mental Status Exam Appearance: disheveled Eye contact: Poor Behavior: Withdrawn, fatigued, slightly irritable, resistive to care Speech: WNL, intense when irritable Mood: Depressed, hopeless, and resistant to care Affect: Constricted Thought process: Poverty of thought and blocking r/t mental health Thought Content: Preoccupation with depressed mood and on-going delusions Cognition: A&O X3 (not to time or day) Insight: Poor Judgment: Poor Interventions PRN's used: None Therapeutic interventions: Provided active listening, maintained a safe and therapeutic environment, provided medication education/encouragement with compliance, encouraged independent performance of ADLs, provide positive reinforcement on progress made, monitored skin and repositioning, and maintained Q 15 min safety checks. Restraints/seclusion/emergency medication:N/A Justification of Continued Inpatient Treatment: Pt. remains gravely disabled and depressed with passive S/I, he continues to require therapeutic interventions and PT/O, and would be a high-risk discharge at this time. Addendum: 04/21/18 at 2300 by Kailash Ledesma RN Correction: Received report from self with use of [place] MIRANDA
[2018-04-22] MEDS: pantoprazole 40mg Tablet.DR PO SCH (07:30)
[2018-04-22 07:42] VITALS: BP 92/60
[2018-04-22] MEDS: ferrous sulfate ER tablet 140 MG TABLET.ER PO SCH ×2 (08:00→20:00)
[2018-04-22] MEDS: atorvastatin 10mg tablet PO SCH (08:00)
[2018-04-22] MEDS: multivitamins, therapeutics tablet PO SCH (08:00)
[2018-04-22] MEDS: folic acid 1mg tablet PO SCH (08:00)
[2018-04-22] MEDS: docusate sod 100mg capsule PO SCH ×2 (08:00→20:00)
[2018-04-22] MEDS: thiamine 100mg tablet PO SCH ×2 (08:00→20:00)
[2018-04-22] MEDS: aspirin 81mg tab.chew PO SCH (08:30)
[2018-04-22] MEDS: HYDROcodone/acetaminophen 10/325mg tab PO PRN (08:51)
[2018-04-22] MEDS: tizanidine 4mg tablet PO PRN (08:52)
[2018-04-22] MEDS: OLANZapine 5mg rapidly disint. tablet PO SCH ×2 (08:53→21:00)
[2018-04-22] MEDS: High Protein Shake w/Arg/Glut/Ca2+Bmb (Juven 19.3gm) pkt 240ml PO SCH ×3 (08:53→18:00)
[2018-04-22] MEDS: fluoxetine 20mg/5ml UD cup PO SCH ×2 (08:53→12:35)
--- NOTE | 2018-04-22 16:22 | NUR ---
Nursing Note Chief Complaint: Depression with S/I Legal hold: 5270 Client on involuntary status for GD/DTS Report received from Ranjan CHAN with use of SBAR Why are they here: Pt. presented to [facility] on a 5150 for DTS and failure to thrive. He has had multiple hospital visits, is homeless, and has a hx. of schizophrenia and anemia. He is estranged from his family, irritable, and makes delusional statements (such as "I can't swallow" or "I am an alien.") Pt. Chooses to stay in bed and has general muscle atrophy. He is currently on a 5270 hold. Diagnosis/presenting symptoms: Pt. continues to present slightly irritable, fatigued, hopeless, and resistive to care. He denies S/I, however reports ongoing depression. He has ongoing delusions regarding swallowing and body dysmorphia. Assessment What has happened this shift: Pt. out of bed for meals, otherwise isolated to his room. S/I, H/I: wants to , states, "I can't here" A/VH: Denies Sleep: Good. ADL's: Stand by assist to transfer to w/c and for self care, able to eat, reposition self and transfer back to bed independently Group attendance: Pt. does not attend groups. Were meds taken: Zyprexa Zydis and prozac x 2. Any med S/E: None Mental Status Exam Appearance: disheveled Eye contact: Poor Behavior: Withdrawn, fatigued, slightly irritable, resistive to care Speech: WNL, intense when irritable Mood: Depressed, hopeless, and resistant to care Affect: Constricted Thought process: Poverty of thought with thought blocking Thought Content: Preoccupation with depressed mood and on-going delusions Cognition: A&O X3 (not to time or day) Insight: Poor Judgment: Poor Interventions PRN's used: None Therapeutic interventions: Provided active listening, maintained a safe and therapeutic environment, provided medication education/encouragement with compliance, encouraged independent performance of ADLs, provide positive reinforcement on progress made, monitored skin and repositioning, and maintained Q 15 min safety checks. Restraints/seclusion/emergency medication:N/A Justification of Continued Inpatient Treatment: Pt. remains gravely disabled and depressed with passive S/I, he continues to require therapeutic interventions and PT/O, and would be a high-risk discharge at this time.
[2018-04-22] MEDS: tamsulosin 0.4mg capsule PO SCH (21:00)
--- NOTE | 2018-04-23 00:18 | NUR ---
Nursing Note Chief Complaint: Depression with S/I Legal hold: 5270 Client on involuntary status for GD/DTS Report received from Asha RN with use of SBAR Why are they here: Pt. presented to [facility] on a 5150 for DTS and failure to thrive. He has had multiple hospital visits, is homeless, and has a hx. of schizophrenia and anemia. He is estranged from his family, irritable, and makes delusional statements (such as "I can't swallow" or "I am an alien.") Pt. Chooses to stay in bed and has general muscle atrophy. He is currently on a 5270 hold. Diagnosis/presenting symptoms: Pt. continues to present slightly irritable, fatigued, hopeless, and resistive to care. He denies S/I, however reports ongoing depression. He has ongoing delusions regarding swallowing and body dysmorphia. Assessment What has happened this shift: Pt was in bed at change of shift, crying and calling out for help with his blankets. Pt c/o being in pain w blankets bundled underneath him. Assisted pt with bedding and made comfortable. 1:1 assessment completed at bedside, Pt states his day was "terrible" he is agitated. When asking about s/i he states "you already know nobody can help me, just get out of here." Pt refused medication this evening saying "just let me go to sleep and leave me alone." S/I, H/I: pt is vague doesnt answer A/VH: pt doesnt answer Sleep: Good. ADL's: Stand by assist to transfer to w/c and for self care, able to eat, reposition self and transfer back to bed independently Group attendance: no evening groups Were meds taken: pt refuses Any med S/E: None Mental Status Exam Appearance: disheveled Eye contact: Poor Behavior: Withdrawn, irritable, resistive to care Speech: WNL, intense when irritable Mood: Despondent, hopeless, crying and resistant to care Affect: Constricted Thought process: unable to assess Thought Content: pt c/o being uncomfortable, refuses meds and wants to be left alone to sleep. Cognition: A&O X3 Insight: Poor Judgment: Poor Interventions PRN's used: None Therapeutic interventions: maintained a safe and therapeutic environment, provided encouragement with compliance, encouraged independent performance of ADLs, monitored skin and repositioning, and maintained Q 15 min safety checks. Restraints/seclusion/emergency medication:N/A Justification of Continued Inpatient Treatment: Pt. remains gravely disabled and depressed with passive S/I, he continues to require therapeutic interventions and PT/O, and would be a high-risk discharge at this time.
[2018-04-23] MEDS: pantoprazole 40mg Tablet.DR PO SCH (07:30)
[2018-04-23 08:00] VITALS: BP 98/61
[2018-04-23] MEDS: multivitamins, therapeutics tablet PO SCH (08:00)
[2018-04-23] MEDS: docusate sod 100mg capsule PO SCH ×2 (08:00→20:00)
[2018-04-23] MEDS: folic acid 1mg tablet PO SCH (08:00)
[2018-04-23] MEDS: ferrous sulfate ER tablet 140 MG TABLET.ER PO SCH ×2 (08:00→20:00)
[2018-04-23] MEDS: atorvastatin 10mg tablet PO SCH (08:00)
[2018-04-23] MEDS: thiamine 100mg tablet PO SCH ×2 (08:00→20:00)
[2018-04-23] MEDS: aspirin 81mg tab.chew PO SCH (08:30)
[2018-04-23] MEDS: fluoxetine 20mg/5ml UD cup PO SCH ×2 (08:40→12:30)
[2018-04-23] MEDS: High Protein Shake w/Arg/Glut/Ca2+Bmb (Juven 19.3gm) pkt 240ml PO SCH ×3 (08:40→18:00)
[2018-04-23] MEDS: OLANZapine 5mg rapidly disint. tablet PO SCH ×2 (08:40→20:53)
--- NOTE | 2018-04-23 17:16 | NUR ---
Nursing Progress Note Chief Complaint: Depression with S/I Legal hold: 5270 Client on involuntary status for GD/DTS Report received from Ranjan CHAN with use of SBAR Why are they here: Pt. presented to [facility] on a 5150 for DTS and failure to thrive. He has had multiple hospital visits, is homeless, and has a hx. of schizophrenia and anemia. He is estranged from his family, irritable, and makes delusional statements (such as "I can't swallow" or "I am an alien.") Pt. Chooses to stay in bed and has general muscle atrophy. He is currently on a 5270 hold. Diagnosis/presenting symptoms: Pt. continues to present slightly irritable, fatigued, hopeless, and resistive to care. He denies S/I, however reports ongoing depression. He has ongoing delusions regarding swallowing and body dysmorphia. Assessment What has happened this shift: Pt. out of bed for meals, otherwise isolated to his room. S/I, H/I: wants to . Passive SI. A/VH: Denies Sleep: 8.25 hours at night, napped throughout day. ADL's: Stand by assist to transfer to w/c and for self care, able to eat, reposition self and transfer back to bed independently Group attendance: Pt. does not attend groups. Were meds taken: Zyprexa Zydis and prozac x 1, refused prozac x 1. Refused all general medications. Any med S/E: None Mental Status Exam Appearance: disheveled elderly man who looks older than stated age. Eye contact: Poor Behavior: Withdrawn, fatigued, slightly irritable, resistive to care Speech: Soft clear, unless irritated, then yells. Mood: Depressed, hopeless, and resistant to care Affect: Flat. Thought process: Poverty of thought with thought blocking Thought Content: Preoccupation with depressed mood and on-going delusions Cognition: A&O X3 (not to time or day) Insight: Poor Judgment: Poor PRN's used: None Therapeutic interventions: Provided active listening, maintained a safe and therapeutic environment, provided medication education/encouragement with compliance, encouraged independent performance of ADLs, provide positive reinforcement on progress made, dressing changed. Maintained Q 15 min safety checks. Restraints/seclusion/emergency medication:N/A Justification of Continued Inpatient Treatment: Pt. remains gravely disabled and depressed with passive S/I, and would be a high-risk discharge at this time. Patient is going to be conserved due to grave disability and psychosis.
[2018-04-23 20:28] VITALS: BP 96/62
[2018-04-23] MEDS: tamsulosin 0.4mg capsule PO SCH (21:00)
--- NOTE | 2018-04-24 00:41 | NUR ---
Pt changed, incontinent med soft BM, pericare done, barrier cream applied. Dressing to rt hip clean dry and intact dated 2-4. Pt refused to have lotion applied to skin began yelling out. Pt allowed some oral care with toothettes but then began yelling out.
--- NOTE | 2018-04-24 03:16 | NUR ---
Nursing Progress Note Chief Complaint: Depression with S/I Legal hold: 5270 Client on involuntary status for GD/DTS Report received from Ranjan CHAN with use of SBAR Why are they here: Pt. presented to [facility] on a 5150 for DTS and failure to thrive. He has had multiple hospital visits, is homeless, and has a hx. of schizophrenia and anemia. He is estranged from his family, irritable, and makes delusional statements (such as "I can't swallow" or "I am an alien.") Pt. Chooses to stay in bed and has general muscle atrophy. He is currently on a 5270 hold. Diagnosis/presenting symptoms: Pt. continues to present slightly irritable, fatigued, hopeless, and resistive to care. He denies S/I, however reports ongoing depression. He has ongoing delusions regarding swallowing and body dysmorphia. Assessment Pt in bed all shift. Resistive to care. Refused meds but did take Zyprexa. Encouraged to drink water. Pt says unable to swallow but then swallows without difficulty when straw held up to mouth. S/I, H/I: wants to . Passive SI. A/VH: Denies Sleep: 8.25 hours at night, napped throughout day. ADL's: Stand by assist to transfer to w/c and for self care, able to eat, reposition self and transfer back to bed independently Group attendance: Pt. does not attend groups. Were meds taken: Zyprexa Zydis and prozac x 1, refused prozac x 1. Refused all general medications. Any med S/E: None Mental Status Exam Appearance: disheveled elderly man who looks older than stated age. Eye contact: Poor Behavior: Withdrawn, fatigued, slightly irritable, resistive to care Speech: Soft clear, unless irritated, then yells. Mood: Depressed, hopeless, and resistant to care Affect: Flat. Thought process: Poverty of thought with thought blocking Thought Content: Preoccupation with depressed mood and on-going delusions Cognition: A&O X3 (not to time or day) Insight: Poor Judgment: Poor PRN's used: None Therapeutic interventions: Provided active listening, maintained a safe and therapeutic environment, provided medication education/encouragement with compliance, encouraged independent performance of ADLs, provide positive reinforcement on progress made, dressing changed. Maintained Q 15 min safety checks. Restraints/seclusion/emergency medication:N/A Justification of Continued Inpatient Treatment: Pt. remains gravely disabled and depressed with passive S/I, and would be a high-risk discharge at this time. Patient is going to be conserved due to grave disability and psychosis.
[2018-04-24] MEDS: pantoprazole 40mg Tablet.DR PO SCH (07:30)
[2018-04-24] MEDS: thiamine 100mg tablet PO SCH ×2 (08:00→20:00)
[2018-04-24] MEDS: atorvastatin 10mg tablet PO SCH (08:00)
[2018-04-24] MEDS: folic acid 1mg tablet PO SCH (08:00)
[2018-04-24] MEDS: fluoxetine 20mg/5ml UD cup PO SCH ×2 (08:00→08:36)
[2018-04-24] MEDS: docusate sod 100mg capsule PO SCH ×2 (08:00→20:00)
[2018-04-24] MEDS: multivitamins, therapeutics tablet PO SCH (08:00)
[2018-04-24] MEDS: ferrous sulfate ER tablet 140 MG TABLET.ER PO SCH ×2 (08:00→20:00)
[2018-04-24 08:17] VITALS: BP 101/66
[2018-04-24] MEDS: aspirin 81mg tab.chew PO SCH (08:30)
[2018-04-24] MEDS: OLANZapine 5mg rapidly disint. tablet PO SCH ×2 (08:37→20:52)
[2018-04-24] MEDS: High Protein Shake w/Arg/Glut/Ca2+Bmb (Juven 19.3gm) pkt 240ml PO SCH ×3 (08:41→18:00)
--- NOTE | 2018-04-24 08:41 | NUR ---
1:1 DISCHARGE PLANNING 08:35 hours BYRON [facility] [phone] to learn details of Prob[address] Court and next steps of potential placement process. BYRON left message requesting a return contact. EVITA Rojas Addendum: 04/24/18 at 1148 by Margi Dunaway 11:40 hours BYRON received message from Anastacia Diane at [phone], who reports pt Probate Conservatorship paperwork was signed by the Neurobiologist on 04/23/2018. EVITA Rojas
--- NOTE | 2018-04-24 10:52 | NUR ---
Reassessment: Pt continues to report difficulty eating however does not have any difficulty with swallowing per MD progress notes. Documented PO intake continues to fluctuate with average 50% however 100% intake of high protein shake TID meeting nutrient needs. [facility] 2, documented that pt continues to refuse Colace. Will continue to follow. Recommendations: 1) Continue with regular diet 2) Continue with high protein shake TID 3) Encourage PO intake 4) Weekly wt Addendum: 04/24/18 at [address] Amended: Links added.
[2018-04-24] MEDS ORDERED: fluoxetine 20mg/5ml UD cup PO ONE (14:40)
--- NOTE | 2018-04-24 14:48 | NUR ---
Nursing Progress Note Chief Complaint: Depression with S/I Legal hold: 5270 Client on involuntary status for GD/DTS Report received from Rosie CHAN with use of SBAR Why are they here: Pt. presented to [facility] on a 5150 for DTS and failure to thrive. He has had multiple hospital visits, is homeless, and has a hx. of schizophrenia and anemia. He is estranged from his family, irritable, and makes delusional statements (such as "I can't swallow" or "I am an alien.") Pt. Chooses to stay in bed and has general muscle atrophy. He is currently on a 5270 hold. Diagnosis/presenting symptoms: Pt. continues to present slightly irritable, fatigued, hopeless, and resistive to care. He denies S/I, however reports ongoing depression. He has ongoing delusions regarding swallowing and body dysmorphia. Assessment What has happened this shift: Patient has been out of bed for all meals. During this time, medications are offered to patient. Patient took his Zyprexa Zydis, but refused his Prozac stating that it tasted terrible. During lunch Prozac was again offered to patient and mixed with some orange juice for taste. Patient stated that he did not want to take it, but after a few minutes started sipping it, and drank 3/4 of mixture. Offered Zanaflex again, and patient states that he has no muscles to relax. "My bones ache, and there is not any medication that will help with that, "I'm not even alive". States that he does not have use of his arms, but patient eats meals independently and wheels himself in wheelchair. States that he cannot swallow pills. S/I, H/I: wants to . Passive SI. "I'm not even alive". A/VH: Denies Sleep: 10.75 hours at night, napped throughout day. ADL's: Stand by assist to transfer to w/c and for self care, able to eat, reposition self and transfer back to bed independently. Pt. does not acknowledge when he has had a BM. Group attendance: Pt. does not attend groups. Were meds taken: Zyprexa Zydis taken, took approximately 30 mg out of 40 mg of prozac liquid, Refused all general medications, which are poured for him daily including Zanaflex and Tylenol. Any med S/E: None Mental Status Exam Appearance: disheveled elderly man who looks older than stated age. Eye contact: Poor Behavior: Withdrawn, fatigued, slightly irritable, resistive to care Speech: Soft clear, unless irritated, then yells. Mood: Depressed, hopeless, and resistant to care Affect: Flat. Thought process: Poverty of thought with thought blocking Thought Content: Preoccupation with depressed mood and on-going delusions. "I am not alive". Cognition: A&O X3 (not to time or day) Insight: Impaired. Judgment: Impaired. PRN's used: Offered Zanaflex and Tylenol, refused. Therapeutic interventions: Provided active listening, maintained a safe and therapeutic environment, provided medication education/encouragement with compliance, encouraged independent performance of ADLs, provide positive reinforcement on progress made, dressing changed. Maintained Q 15 min safety checks. Restraints/seclusion/emergency medication:N/A Justification of Continued Inpatient Treatment: Pt. remains gravely disabled and depressed with passive S/I, and would be a high-risk discharge at this time. Patient is going to be conserved due to grave disability and psychosis.
[2018-04-24 19:28] VITALS: BP 101/65
[2018-04-24] MEDS: tamsulosin 0.4mg capsule PO SCH (20:54)
--- NOTE | 2018-04-25 02:52 | NUR ---
Report received from Asha CHAN with use of SBAR Why are they here: Pt. presented to [facility] on a 5150 for DTS and failure to thrive. He has had multiple hospital visits, is homeless, and has a hx. of schizophrenia and anemia. He is estranged from his family, irritable, and makes delusional statements (such as "I can't swallow" or "I am an alien.") Pt. Chooses to stay in bed and has general muscle atrophy. He is currently on a 5270 hold. Diagnosis/presenting symptoms: Pt. continues to present slightly irritable, fatigued, hopeless, and resistive to care. He denies S/I, however reports ongoing depression. He has ongoing delusions regarding swallowing and body dysmorphia. Assessment Pt in bed at start of shift. Pt will not even answer yes or no questions. Took Zyprexa refused all other medications. Resistant to repositioning. S/I, H/I: wants to . Passive SI. "I'm not even alive". A/VH: Denies Sleep: sleeping at this time. ADL's: Stand by assist to transfer to w/c and for self care, able to eat, reposition self and transfer back to bed independently. Pt. does not acknowledge when he has had a BM. Group attendance: Pt. does not attend groups. Were meds taken: Zyprexa Zydis Any med S/E: None Mental Status Exam Appearance: disheveled elderly man who looks older than stated age. Eye contact: Poor Behavior: Withdrawn, fatigued, slightly irritable, resistive to care Speech: Soft clear, unless irritated, then yells. Mood: Depressed, hopeless, and resistant to care Affect: Flat. Thought process: Poverty of thought with thought blocking Thought Content: Preoccupation with depressed mood and on-going delusions. "I am not alive". Cognition: A&O X3 (not to time or day) Insight: Impaired. Judgment: Impaired. PRN's used: none Therapeutic interventions: Provided active listening, maintained a safe and therapeutic environment, provided medication education/encouragement with compliance, encouraged independent performance of ADLs, provide positive reinforcement on progress made, dressing changed. Maintained Q 15 min safety checks. Restraints/seclusion/emergency medication:N/A Justification of Continued Inpatient Treatment: Pt. remains gravely disabled and depressed with passive S/I, and would be a high-risk discharge at this time. Patient is going to be conserved due to grave disability and psychosis.
[2018-04-25 08:00] VITALS: BP 91/60
[2018-04-25] MEDS: multivitamins, therapeutics tablet PO SCH (08:00)
[2018-04-25] MEDS: docusate sod 100mg capsule PO SCH ×2 (08:00→20:00)
[2018-04-25] MEDS: fluoxetine 20mg/5ml UD cup PO SCH (08:00)
[2018-04-25] MEDS: thiamine 100mg tablet PO SCH ×2 (08:00→20:00)
[2018-04-25] MEDS: folic acid 1mg tablet PO SCH (08:00)
[2018-04-25] MEDS: atorvastatin 10mg tablet PO SCH (08:00)
[2018-04-25] MEDS: ferrous sulfate ER tablet 140 MG TABLET.ER PO SCH ×2 (08:00→20:00)
[2018-04-25] MEDS: OLANZapine 5mg rapidly disint. tablet PO SCH ×3 (08:06→21:00)
[2018-04-25] MEDS: pantoprazole 40mg Tablet.DR PO SCH (08:15)
[2018-04-25] MEDS: aspirin 81mg tab.chew PO SCH (08:30)
[2018-04-25] MEDS: High Protein Shake w/Arg/Glut/Ca2+Bmb (Juven 19.3gm) pkt 240ml PO SCH ×3 (08:52→18:00)
--- NOTE | 2018-04-25 17:04 | NUR ---
Nursing Note Chief Complaint: Depression with S/I Legal hold: 5270 Client on involuntary status for GD/DTS Report received from Ranjan CHAN with use of SBAR Why are they here: Pt. presented to [facility] on a 5150 for DTS and failure to thrive. He has had multiple hospital visits, is homeless, and has a hx. of schizophrenia and a anemia. He is estranged from his family, irritable, and makes delusional statements (such as "I can't swallow" or "I am an alien.") Pt. Chooses to stay in bed and has general muscle atrophy. He is currently on a 5270 hold. Diagnosis/presenting symptoms: Pt. continues to present slightly irritable, fatigued, hopeless, and resistive to care. He denies S/I, however reports ongoing depression. He has ongoing delusions regarding swallowing and body dysmorphia. Assessment What has happened this shift: Patient in bed at change of shift. He Complained of general discomfort and left knee pain, but did not request a prn. Got up to wheel chair and attended breakfast and ate. Complains about all meals, yet he eats good portions of them. Refused all medications except Zyprexa, stating that meds don't do anything. Able to return to his room in wheel chair and transfer to bed by self. Spent time other than meals in bed. Although irritable and complaining he was able to direct it at his health and life situation and and soften as he grieved what he used to be. He stated "all I need is a back hoe, it's true. You can't get better from this" He casked for a diaper and was able to have a bnowel movement in it, and his chocks and scrubs changed. Believes his joints are getting larger. Attempt made to explain the atrophy of his muscles is making it appear that way, but he did not agree. Ate small amount of lunch, and eats his protien shakes. S/I, H/I: wants to , states, "I can't here" A/VH: Denies Sleep: Appears fatigued, however reports he sleeps well ADL's: Requires assist to transfer to w/c and for self care, however able to eat, reposition self in bed, and transfer back to bed independently Group attendance: Pt. did not attend groups today Were meds taken: Zyprexa Lawis only Any med S/E: None Mental Status Exam Appearance: disheveled Eye contact: Poor Behavior: Withdrawn, fatigued, slightly irritable, resistive to care Speech: WNL, intense when irritable Mood: Depressed, hopeless, and resistant to care Affect: Constricted Thought process: Poverty of thought and blocking r/t mental health Thought Content: Preoccupation with depressed mood and on-going delusions Cognition: A&O X3 (not to time or day) Insight: Poor Judgment: Poor Interventions PRN's used: None Therapeutic interventions: Provided active listening, maintained a safe and therapeutic environment, provided medication education/encouragement with compliance, encouraged independent performance of ADLs, provide positive reinforcement on progress made, monitored skin and repositioning, and maintained Q 15 min safety checks. Restraints/seclusion/emergency medication:N/A Justification of Continued Inpatient Treatment: Pt. remains gravely disabled and depressed with passive S/I, he continues to require therapeutic interventions and PT/O, and would be a high-risk discharge at this time.
[2018-04-25 20:38] VITALS: BP 99/66
[2018-04-25] MEDS: tamsulosin 0.4mg capsule PO SCH (21:00)
--- NOTE | 2018-04-25 23:14 | NUR ---
Nursing Progress Note Chief Complaint: Depression with S/I Legal hold: 5270 Client on involuntary status for GD/DTS Report received from ROCIO Linder with use of SBAR Why are they here: Pt. presented to [facility] on a 5150 for DTS and failure to thrive. He has had multiple hospital visits, is homeless, and has a hx. of schizophrenia and anemia. He is estranged from his family, irritable, and makes delusional statements (such as "I can't swallow" or "I am an alien.") Pt. Chooses to stay in bed and has general muscle atrophy. He is currently on a 5270 hold. Diagnosis/presenting symptoms: Pt. continues to present slightly irritable, fatigued, hopeless, and resistive to care. He denies S/I, however reports ongoing depression. He has ongoing delusions regarding swallowing and body dysmorphia. Assessment: At change of shift patient was in his bed laying on his left hip. He was checked for incontinence, small BM noted. Patient is changed, cleaned, and barrier cream applied. During the cleaning process the patient is yelling at staff stating "You don't fucking understand." "It's fine they already did the best they could." Patient is irritable and wants staff to leave him sitting in his BM. He refused an assessment, and vital signs as well. He also refused his evening medications screaming "I can't swallow.", "they don't help", "Just go away." Tried to provide, encouragement and reassurance with patient continuing to decline care; patient remained irritable and continued to yell. He did agree to have his vital signs taken and minimal assessment done during cleaning of the patient. Dressing is clean dry, and intact, noted to be done 04/23/18 and is due for change, made an attempt to change, but patient refused, will try again in the am. S/I, H/I: Passive SI. A/VH: Denies Sleep: Currently sleeping, see sleep assessment. ADL's: Stand by assist to transfer to w/c and for self care, able to eat, reposition self and transfer back to bed independently Group attendance: No groups this shift. Were meds taken: Refused all medications Any med S/E: None Mental Status Exam Appearance: Disheveled, unkempt, wearing green scrubs Eye contact: Poor Behavior: Withdrawn, irritable, yelling, resistive to care Speech: Yells. Mood: Depressed, hopeless/helpless, and resistant to care Affect: Agitated, hopeless, irritable Thought process: Poverty of thought, concrete Thought Content: Delusions (believes he can't swallow or eat), poor insight Cognition: A&O X3 (not to time or day) Insight: Poor Judgment: Poor PRN's used: None Therapeutic interventions: 1:1 assessment with patient, provided active listening,maintained a safe and therapeutic environment to help establish rapport. Educated on medications, and importance of a medication regimen. Assessed patient dressing/wound status. Encouraged patient to allow staff assistance and care. Maintained Q 15 minute checks for safety. Restraints/seclusion/emergency medication:N/A Justification of Continued Inpatient Treatment: Pt. remains gravely disabled and depressed with passive S/I, and would be a high-risk discharge at this time. Patient is going to be conserved due to grave disability and psychosis. Addendum: 04/26/18 at 0441 by Margoth Diaz RN Patient had a large BM. He was cleaned, barrier cream applied. Patient allowed dressing change to right hip pressure area at this time.
[2018-04-26] MEDS: OLANZapine 5mg rapidly disint. tablet PO SCH (07:28)
[2018-04-26] MEDS: pantoprazole 40mg Tablet.DR PO SCH (07:30)
[2018-04-26 08:00] VITALS: BP 103/65
[2018-04-26] MEDS: multivitamins, therapeutics tablet PO SCH (08:00)
[2018-04-26] MEDS: thiamine 100mg tablet PO SCH ×2 (08:00→20:00)
[2018-04-26] MEDS: docusate sod 100mg capsule PO SCH ×2 (08:00→20:00)
[2018-04-26] MEDS: High Protein Shake w/Arg/Glut/Ca2+Bmb (Juven 19.3gm) pkt 240ml PO SCH ×3 (08:00→18:26)
[2018-04-26] MEDS: atorvastatin 10mg tablet PO SCH (08:00)
[2018-04-26] MEDS: fluoxetine 20mg/5ml UD cup PO SCH (08:00)
[2018-04-26] MEDS: ferrous sulfate ER tablet 140 MG TABLET.ER PO SCH ×2 (08:00→20:00)
[2018-04-26] MEDS: folic acid 1mg tablet PO SCH (08:00)
[2018-04-26] MEDS: aspirin 81mg tab.chew PO SCH (08:30)
--- NOTE | 2018-04-26 14:42 | NUR ---
Nursing Progress Note Chief Complaint: Depression with S/I Legal hold: Probate Conservatorship Client on involuntary status for GD/DTS Report received from ROCIO Justin with use of SBAR Why are they here: Pt. presented to [facility] on a 5150 for DTS and failure to thrive. He has had multiple hospital visits, is homeless, and has a hx. of schizophrenia and a anemia. He is estranged from his family, irritable, and makes delusional statements (such as "I can't swallow" or "I am an alien.") Pt. Chooses to stay in bed and has general muscle atrophy. He is currently on Probate conservatorship. Diagnosis/presenting symptoms: Pt. continues to present slightly irritable, fatigued, hopeless, and resistive to care. He denies S/I, however reports ongoing depression. He has ongoing delusions regarding swallowing and body dysmorphia. Assessment What has happened this shift: Patient was sleeping at change of shift and up and cleaned before breakfast. Patient was drinking a hot chocolate and was watching TV. Patient initially refused all medications but took the Zyprexa with a little of complaining. Patient put himself back to bed after breakfast in his wheelchair. Patient was brought in again for lunch without complaining. Patient ate well and watched T.V. during lunch. Patient is very depressed and states "I just want to ." Patient sleeps a lot between meals but sometimes RN finds patient laying with his eyes open. Patient is now on Probate Conservatorship and social media content manager is looking for placement. S/I, H/I: Patient is depressed and suicididal. A/VH: Denies Sleep: Takes several naps during the day. ADL's: Patient is able to move himself in and out of bed when He want to. Patient is able to feed himself and reposition self in bed, and transfer back to bed independently. Patient is incontinent of stool and needs assistance in cleaning himself. Group attendance: Pt. did not attend groups today Were meds taken: Zyprexa Zydis only Any med S/E: None Mental Status Exam Appearance: disheveled Eye contact: Poor Behavior: Withdrawn, fatigued, slightly irritable, resistive to care Speech: WNL, intense when irritable Mood: Depressed, hopeless, and resistant to care Affect: Constricted Thought process: Poverty of thought and blocking r/t mental health Thought Content: Preoccupation with depressed mood and on-going delusions Cognition: A&O X3 (not to time or day) Insight: Poor Judgment: Poor Interventions PRN's used: None Therapeutic interventions: Provided active listening, maintained a safe and therapeutic environment, provided medication education/encouragement with compliance, encouraged independent performance of ADLs, provide positive reinforcement on progress made, monitored skin and repositioning, and maintained Q 15 min safety checks. Restraints/seclusion/emergency medication:N/A Justification of Continued Inpatient Treatment: Pt. remains gravely disabled and depressed with passive S/I, he continues to require therapeutic interventions and PT/O, and would be a high-risk discharge at this time.
[2018-04-26] MEDS ORDERED: olanzapine 10mg tablet PO SCH (18:00)
[2018-04-26] MEDS ORDERED: olanzapine 10mg tablet PO ONE (19:30)
[2018-04-26] MEDS: tamsulosin 0.4mg capsule PO SCH (21:00)
[2018-04-26] MEDS ORDERED: OLANZAPINE 5 MG TABLET PO SCH (21:00)
--- NOTE | 2018-04-27 04:14 | NUR ---
Nursing Progress Note Chief Complaint: Depression with S/I Legal hold: 5270 Client on involuntary status for GD/DTS Report received from ROCIO Sanders with use of SBAR Why are they here: Pt. presented to [facility] on a 5150 for DTS and failure to thrive. He has had multiple hospital visits, is homeless, and has a hx. of schizophrenia and anemia. He is estranged from his family, irritable, and makes delusional statements (such as "I can't swallow" or "I am an alien.") Pt. Chooses to stay in bed and has general muscle atrophy. He is currently on a 5270 hold. Diagnosis/presenting symptoms: Pt. continues to present slightly irritable, fatigued, hopeless, and resistive to care. He denies S/I, however reports ongoing depression. He has ongoing delusions regarding swallowing and body dysmorphia. Assessment: Patient was in bed at the change of shift. When this curriculum writer went in to greet him the patient instantly started yelling "Get out, go away." He was resistive to any care. He refused all vital signs from the techs, and refused vitals signs when this curriculum writer attempted to obtain them. He refused any physical assessment, telling this curriculum writer to "get the fuck out, leave me alone." He also refused his evening medications once again by yelling at staff. Patient had a small BM this evening and when staff was cleaning him up patient continued to yell at staff saying "It's not that bad, leave me alone." "You don't fucking understand, just get out." Staff did clean up BM, and then left patient alone as he requested after he was cleaned. S/I, H/I: Unable to assess A/VH: Unable to assess Sleep: Currently sleeping, see sleep assessment. ADL's: Stand by assist to transfer to w/c and for self care, able to eat, reposition self and transfer back to bed independently Group attendance: No groups this shift. Were meds taken: Refused all medications Any med S/E: None Mental Status Exam Appearance: Disheveled, unkempt, wearing green scrubs Eye contact: None Behavior: Irritable, yelling, resisted all care Speech: Yells. Mood: Angry, agitated, irritable Affect: Agitated, irritable Thought process: Wants to be left alone Thought Content: Poor insight Cognition: Unable to assist Insight: Poor Judgment: Poor PRN's used: None Therapeutic interventions: Attempted 1:1 assessment with patient, provided active listening, maintained a safe and therapeutic environment to help establish rapport. Attempted education on importance of a medication regimen. Assessed patient dressing/wound status. Encouraged patient to allow staff assistance and care. Maintained Q 15 minute checks for safety. Restraints/seclusion/emergency medication:N/A Justification of Continued Inpatient Treatment: Pt. remains gravely disabled and depressed with passive S/I, and would be a high-risk discharge at this time. Patient is going to be conserved due to grave disability and psychosis.
[2018-04-27] MEDS: pantoprazole 40mg Tablet.DR PO SCH (07:30)
[2018-04-27 07:57] VITALS: BP 92/58
[2018-04-27 08:00] VITALS: BP 96/57
[2018-04-27] MEDS: multivitamins, therapeutics tablet PO SCH (08:00)
[2018-04-27] MEDS: ferrous sulfate ER tablet 140 MG TABLET.ER PO SCH ×2 (08:00→20:00)
[2018-04-27] MEDS: folic acid 1mg tablet PO SCH (08:00)
[2018-04-27] MEDS: OLANZAPINE 5 MG TABLET PO SCH (08:00)
[2018-04-27] MEDS: fluoxetine 20mg/5ml UD cup PO SCH (08:00)
[2018-04-27] MEDS: High Protein Shake w/Arg/Glut/Ca2+Bmb (Juven 19.3gm) pkt 240ml PO SCH ×3 (08:00→18:01)
[2018-04-27] MEDS: atorvastatin 10mg tablet PO SCH (08:00)
[2018-04-27] MEDS: docusate sod 100mg capsule PO SCH ×2 (08:00→20:00)
[2018-04-27] MEDS: thiamine 100mg tablet PO SCH ×2 (08:00→20:00)
[2018-04-27] MEDS: aspirin 81mg tab.chew PO SCH (08:30)
--- NOTE | 2018-04-27 14:08 | NUR ---
1:1 DISCHARGE PLANNING SW made TC to Case Management team regarding pt placement needs and potential discharge. SW left contact information requesting a return contact. BYRON made TC to Romina Maloney, Business Administration Professor at [facility] [phone] and left message requesting a return contact. EVITA Rojas
--- NOTE | 2018-04-27 17:39 | NUR ---
Nursing Progress Note Chief Complaint: Depression with S/I Legal hold: Probate Conservatorship Client on involuntary status for GD/DTS Report received from ROCIO Justin with use of SBAR Why are they here: Pt. presented to [facility] on a 5150 for DTS and failure to thrive. He has had multiple hospital visits, is homeless, and has a hx. of schizophrenia and a anemia. He is estranged from his family, irritable, and makes delusional statements (such as "I can't swallow" or "I am an alien.") Pt. Chooses to stay in bed and has general muscle atrophy. He is currently on Probate conservatorship. Diagnosis/presenting symptoms: Pt. continues to present slightly irritable, fatigued, hopeless, and resistive to care. He denies S/I, however reports ongoing depression. He has ongoing delusions regarding swallowing and body dysmorphia. Assessment What has happened this shift: Patient was sleeping at change of shift and up and given complete bed bath before breakfast. Patient was sitting in the community room drinking a hot chocolate. Patient refused all medications today. Patient put himself back to bed after breakfast in his wheelchair. Patient is very depressed and states "I don't want to live like this." RN changed patient's wound to right hip. Patient refuses to sleep on left hip. Last time RN saw wound it was smaller. Patient did allow RN to rub lotion and massage his back. Patient was a little more talkative and was kind. Patient is now on Probate Conservatorship and hospice social worker is looking for placement. S/I, H/I: Patient is depressed and suicididal. A/VH: Denies Sleep: Takes several naps during the day. ADL's: Patient is able to move himself in and out of bed when He want to. Patient is able to feed himself and reposition self in bed, and transfer back to bed independently. Patient is incontinent of stool and needs assistance in cleaning himself. Group attendance: Pt. did not attend groups today Were meds taken: Zyprexa Zydis only Any med S/E: None Mental Status Exam Appearance: disheveled Eye contact: Poor Behavior: Withdrawn, fatigued, slightly irritable, resistive to care Speech: WNL, intense when irritable Mood: Depressed, hopeless, and resistant to care Affect: Constricted Thought process: Poverty of thought and blocking r/t mental health Thought Content: Preoccupation with depressed mood and on-going delusions Cognition: A&O X3 (not to time or day) Insight: Poor Judgment: Poor Interventions PRN's used: None Therapeutic interventions: Provided active listening, maintained a safe and therapeutic environment, provided medication education/encouragement with compliance, encouraged independent performance of ADLs, provide positive reinforcement on progress made, monitored skin and repositioning, and maintained Q 15 min safety checks. Restraints/seclusion/emergency medication:N/A Justification of Continued Inpatient Treatment: Pt. remains gravely disabled and depressed with passive S/I, he continues to require therapeutic interventions and PT/O, and would be a high-risk discharge at this time.
[2018-04-27] MEDS: olanzapine 10mg tablet PO SCH (18:12)
[2018-04-27 20:00] VITALS: BP 91/59
[2018-04-27] MEDS: tamsulosin 0.4mg capsule PO SCH (21:00)
--- NOTE | 2018-04-28 01:56 | NUR ---
Nursing Progress Note Chief Complaint: Depression with S/I Legal hold: 5270 Client on involuntary status for GD/DTS Report received from ROCIO Sanders with use of SBAR Why are they here: Pt. presented to [facility] on a 5150 for DTS and failure to thrive. He has had multiple hospital visits, is homeless, and has a hx. of schizophrenia and anemia. He is estranged from his family, irritable, and makes delusional statements (such as "I can't swallow" or "I am an alien.") Pt. Chooses to stay in bed and has general muscle atrophy. He is currently on a 5270 hold. Diagnosis/presenting symptoms: Pt. continues to present slightly irritable, fatigued, hopeless, and resistive to care. He denies S/I, however reports ongoing depression. He has ongoing delusions regarding swallowing and body dysmorphia. Assessment: Patient was in bed at the change of shift in the dark laying on his right side. When greeted he yells to this fiction and nonfiction prose writer to "Go away." He is resisting care and does not want to take his medications, or allow staff to do an assessment or clean him up. Patient does have a small bowel movement and needs to be cleaned. He is cleaned up and is left alone after cleaning up his BM. During the process of cleaning the patient he yells and curses at the staff. Patient is agitated, and does not want any interaction with staff. S/I, H/I: Unable to assess A/VH: Unable to assess Sleep: Currently sleeping, see sleep assessment. ADL's: Stand by assist to transfer to w/c and for self care, able to eat, reposition self and transfer back to bed independently Group attendance: No groups this shift. Were meds taken: Refused all medications Any med S/E: None Mental Status Exam Appearance: Disheveled, unkempt, wearing green scrubs Eye contact: None Behavior: Irritable, yelling, resisted all care Speech: Yells Mood: Angry, agitated, irritable Affect: Agitated, irritable Thought process: Wants to be left alone Thought Content: Poor insight Cognition: Unable to assess, has delusions, states "I can't swallow." but he does swallow his food. Insight: Poor Judgment: Poor PRN's used: None Therapeutic interventions: Attempted 1:1 assessment with patient, provided active listening, maintained a safe and therapeutic environment to help establish rapport. Attempted education on importance of a medication regimen. Assessed patient dressing/wound status. Encouraged patient to allow staff assistance and care. Maintained Q 15 minute checks for safety. Restraints/seclusion/emergency medication:N/A Justification of Continued Inpatient Treatment: Pt. remains gravely disabled and depressed with passive S/I, and would be a high-risk discharge at this time. Patient is going to be conserved due to grave disability and psychosis.
[2018-04-28] MEDS: pantoprazole 40mg Tablet.DR PO SCH (07:30)
[2018-04-28 08:00] VITALS: BP 105/81
[2018-04-28] MEDS: High Protein Shake w/Arg/Glut/Ca2+Bmb (Juven 19.3gm) pkt 240ml PO SCH ×3 (08:00→18:35)
[2018-04-28] MEDS: fluoxetine 20mg/5ml UD cup PO SCH (08:00)
[2018-04-28] MEDS: atorvastatin 10mg tablet PO SCH (08:00)
[2018-04-28] MEDS: ferrous sulfate ER tablet 140 MG TABLET.ER PO SCH ×2 (08:00→20:00)
[2018-04-28] MEDS: OLANZAPINE 5 MG TABLET PO SCH (08:00)
[2018-04-28] MEDS: docusate sod 100mg capsule PO SCH ×2 (08:00→20:00)
[2018-04-28] MEDS: folic acid 1mg tablet PO SCH (08:00)
[2018-04-28] MEDS: multivitamins, therapeutics tablet PO SCH (08:00)
[2018-04-28] MEDS: thiamine 100mg tablet PO SCH ×2 (08:00→20:00)
[2018-04-28] MEDS: aspirin 81mg tab.chew PO SCH (08:30)
[2018-04-28] MEDS: olanzapine 10mg tablet PO SCH (18:00)
--- NOTE | 2018-04-28 18:53 | NUR ---
Nursing Progress Note Chief Complaint: Depression with S/I Legal hold: Probate Conservatorship Client on involuntary status for GD/DTS Report received from ROCIO Justin with use of SBAR Why are they here: Pt. presented to [facility] on a 5150 for DTS and failure to thrive. He has had multiple hospital visits, is homeless, and has a hx. of schizophrenia and a anemia. He is estranged from his family, irritable, and makes delusional statements (such as "I can't swallow" or "I am an alien.") Pt. Chooses to stay in bed and has general muscle atrophy. He is currently on Probate conservatorship. Diagnosis/presenting symptoms: Pt. continues to present slightly irritable, fatigued, hopeless, and resistive to care. He denies S/I, however reports ongoing depression. He has ongoing delusions regarding swallowing and body dysmorphia. Assessment What has happened this shift: Patient was sleeping at change of shift and cleaned up and before breakfast. Patient was sitting in the community room drinking a hot chocolate. Patient refused all medications today. RN assisted patient back to bed after breakfast in his wheelchair. Patient is very depressed and states look at me. I am nothing but skin and bone!" Patient refused a blood draw when lab came in to draw blood. Patient was upset and RN gave patient a warm blanket. Patient was calm and thanked RN. Patient is now on Probate Conservatorship and social services analyst is looking for placement. S/I, H/I: Patient is depressed and suicididal. A/VH: Denies Sleep: Takes several naps during the day. ADL's: Patient is able to move himself in and out of bed when He want to. Patient is able to feed himself and reposition self in bed, and transfer back to bed independently. Patient is incontinent of stool and needs assistance in cleaning himself. Group attendance: Pt. did not attend groups today Were meds taken: None Any med S/E: None
[2018-04-28] MEDS: tamsulosin 0.4mg capsule PO SCH (21:00)
--- NOTE | 2018-04-29 00:05 | NUR ---
Nursing Progress Note Chief Complaint: Depression with S/I Legal hold: Probate Conservatorship Client on involuntary status for GD/DTS Report received from ROCIO Justin with use of SBAR Why are they here: Pt. presented to [facility] on a 5150 for DTS and failure to thrive. He has had multiple hospital visits, is homeless, and has a hx. of schizophrenia and a anemia. He is estranged from his family, irritable, and makes delusional statements (such as "I can't swallow" or "I am an alien.") Pt. Chooses to stay in bed and has general muscle atrophy. He is currently on Probate conservatorship. Diagnosis/presenting symptoms: Pt. continues to present slightly irritable, fatigued, hopeless, and resistive to care. He denies S/I, however reports ongoing depression. He has ongoing delusions regarding swallowing and body dysmorphia. Assessment What has happened this shift: Patient was sleeping at change of shift. Patient refused night time medication. Later in the evening tech came and advised RN that patient was having stomach pain. RN went to see patient and patient was sleeping. RN awoke patient and patient stated he had pain all over. RN offered patient pain medication but patient refused. Patient appears very depressed and states "look at me. I am nothing but skin and bone!" Patient is now on Probate Conservatorship and psychiatric social worker supervisor is looking for placement. S/I, H/I: Patient is depressed and suicididal. A/VH: Denies Sleep: Pt sleeps well.. ADL's: Patient is able to move himself in and out of bed when He want to. Patient is able to feed himself and reposition self in bed, and transfer back to bed independently. Patient is incontinent of stool and needs assistance in cleaning himself. Group attendance: No night time groups. Were meds taken: None Any med S/E: None
[2018-04-29] MEDS: pantoprazole 40mg Tablet.DR PO SCH (07:30)
[2018-04-29 07:31] VITALS: BP 106/72
[2018-04-29] MEDS: High Protein Shake w/Arg/Glut/Ca2+Bmb (Juven 19.3gm) pkt 240ml PO SCH ×3 (08:00→18:00)
[2018-04-29] MEDS: thiamine 100mg tablet PO SCH ×2 (08:00→20:00)
[2018-04-29] MEDS: atorvastatin 10mg tablet PO SCH (08:00)
[2018-04-29] MEDS: docusate sod 100mg capsule PO SCH ×2 (08:00→20:00)
[2018-04-29] MEDS: multivitamins, therapeutics tablet PO SCH (08:00)
[2018-04-29] MEDS: OLANZAPINE 5 MG TABLET PO SCH (08:00)
[2018-04-29] MEDS: ferrous sulfate ER tablet 140 MG TABLET.ER PO SCH ×2 (08:00→20:00)
[2018-04-29] MEDS: folic acid 1mg tablet PO SCH (08:00)
[2018-04-29] MEDS: aspirin 81mg tab.chew PO SCH (08:30)
[2018-04-29] MEDS: fluoxetine 20mg/5ml UD cup PO SCH (08:59)
--- NOTE | 2018-04-29 14:12 | NUR ---
Nursing Progress Note Chief Complaint: Depression with S/I Legal hold: 5270 Client on involuntary status for GD/DTS Report received from ROCIO Sanders with use of SBAR Why are they here: Pt. presented to [facility] on a 5150 for DTS and failure to thrive. He has had multiple hospital visits, is homeless, and has a hx. of schizophrenia and a anemia. He is estranged from his family, irritable, and makes delusional statements (such as "I can't swallow" or "I am an alien.") Pt. Chooses to stay in bed and has general muscle atrophy. He is currently on Probate conservatorship. Diagnosis/presenting symptoms: Pt. continues to present slightly irritable, fatigued, hopeless, and resistive to care. He denies S/I, however reports ongoing depression. He has ongoing delusions regarding swallowing and body dysmorphia. Assessment What has happened this shift: Patient was cleaned up before breakfast and wheeled into the group room. Patient eating his meal enthusiastically. Patient did not take his Zyprexa (we are out of Zydis). Patient was informed that his 40 mg of Prozac was in his hot chocolate, patient made several noises indicating that it tasted bad, but patient did finish. Changed dressing to right hip, patient fell asleep on left side after changing. S/I, H/I: Passively suicidal A/VH: Denies Sleep: Takes several naps during the day. ADL's: Patient is able to move himself in and out of bed when He want to. Patient is able to feed himself and reposition self in bed, and transfer back to bed independently. Patient is incontinent of stool and is full care for bowel care needs. Group attendance: Pt. did not attend groups today Were meds taken: Prozac only. Any med S/E: None Mental Status Exam Appearance: disheveled Eye contact: Poor Behavior: Withdrawn, fatigued, slightly irritable, resistive to care Speech: Clear and soft, intensifies when irritable. Mood: Depressed, hopeless, and resistant to care Affect: Constricted Thought process: Poverty of thought with thought blocking. Thought Content: Preoccupation with depressed mood and on-going delusions Cognition: A&O X3 (not to time or day) Insight: Poor Judgment: Poor Interventions PRN's used: None Therapeutic interventions: Provided active listening, maintained a safe and therapeutic environment, provided medication education/encouragement with compliance, encouraged independent performance of ADLs, provide positive reinforcement on progress made, monitored skin and repositioning, dressing changed, and maintained Q 15 min safety checks. Restraints/seclusion/emergency medication:N/A Justification of Continued Inpatient Treatment: Pt. remains gravely disabled and depressed with passive S/I, he continues to require therapeutic interventions and PT/O, and would be a high-risk discharge at this time.
--- NOTE | 2018-04-29 14:41 | NUR ---
reassessment: Pt PO 75-100% regular diet meeting needs. LBM 04/28. No nutrition concerns at this time. Recommendations: 1) Continue with regular diet 2) Continue with high protein shake TID 3) Encourage PO intake 4) Weekly wt Addendum: 04/29/18 at [address] Amended: Links added.
--- NOTE | 2018-04-29 15:30 | NUR ---
Call received from [place] [facility] stating patient had a court date on April 23. [facility] was granted a thirty day temporary conservatorship for patient. Patient has a second court on May 21 where the county will ask for permanent probate conservatorship. Also, [facility] is responsible for locating permanent placement for patient.
[2018-04-29] MEDS: olanzapine 10mg tablet PO SCH (18:00)
[2018-04-29] MEDS: tamsulosin 0.4mg capsule PO SCH (21:00)
--- NOTE | 2018-04-29 21:50 | NUR ---
Pt refused Vitals
--- NOTE | 2018-04-30 02:24 | NUR ---
Nursing Progress Note Chief Complaint: Depression with S/I Legal hold: 5270 Client on involuntary status for GD/DTS Report received from ROCIO Sanders with use of SBAR Why are they here: Pt. presented to [facility] on a 5150 for DTS and failure to thrive. He has had multiple hospital visits, is homeless, and has a hx. of schizophrenia and a anemia. He is estranged from his family, irritable, and makes delusional statements (such as "I can't swallow" or "I am an alien.") Pt. Chooses to stay in bed and has general muscle atrophy. He is currently on Probate conservatorship. Diagnosis/presenting symptoms: Pt. continues to present slightly irritable, fatigued, hopeless, and resistive to care. He denies S/I, however reports ongoing depression. He has ongoing delusions regarding swallowing and body dysmorphia. Assessment What has happened this shift: Pt asleep at start of shift. Refused to have VS taken, refused all medications, not cooperative with assessment. Continent urine using urinal. Incontinent stool Yelled at staff entire time he was being changed and cleaned, "fuck you I was asleep." When asked to move legs "Fuck you you know I can't use my legs" No threats of violence or attempts to strike out only verbal abuse. S/I, H/I: Passively suicidal A/VH: Denies Sleep: Sleeping at this time ADL's: Patient is able to move himself in and out of bed when He want to. Patient is able to feed himself and reposition self in bed, and transfer back to bed independently. Patient is incontinent of stool and is full care for bowel care needs. Group attendance: Pt. did not attend groups today Were meds taken: Prozac only. Any med S/E: None Mental Status Exam Appearance: disheveled Eye contact: Poor Behavior: Withdrawn, fatigued, slightly irritable, resistive to care Speech: Clear and soft, intensifies when irritable. Mood: Depressed, hopeless, and resistant to care Affect: Constricted Thought process: Poverty of thought with thought blocking. Thought Content: Preoccupation with depressed mood and on-going delusions Cognition: A&O X3 (not to time or day) Insight: Poor Judgment: Poor Interventions Therapeutic interventions: Provided active listening, maintained a safe and therapeutic environment, provided medication education/encouragement with compliance, encouraged independent performance of ADLs, provide positive reinforcement on progress made, Kept clean and dry, chio care, monitored skin and repositioning, dressing changed, and maintained Q 15 min safety checks. PRN's used: None Therapeutic interventions: Provided active listening, maintained a safe and therapeutic environment, provided medication education/encouragement with compliance, encouraged independent performance of ADLs, provide positive reinforcement on progress made, monitored skin and repositioning, dressing changed, and maintained Q 15 min safety checks. Restraints/seclusion/emergency medication:N/A Justification of Continued Inpatient Treatment: Pt. remains gravely disabled and depressed with passive S/I, he continues to require therapeutic interventions and PT/O, and would be a high-risk discharge at this time.
[2018-04-30] MEDS: pantoprazole 40mg Tablet.DR PO SCH (07:30)
[2018-04-30 08:00] VITALS: BP 103/61
[2018-04-30] MEDS: docusate sod 100mg capsule PO SCH ×2 (08:00→20:00)
[2018-04-30] MEDS ORDERED: OLANZapine 5mg rapidly disint. tablet PO SCH ×3 (08:00→20:03)
[2018-04-30] MEDS: multivitamins, therapeutics tablet PO SCH (08:00)
[2018-04-30] MEDS: ferrous sulfate ER tablet 140 MG TABLET.ER PO SCH ×2 (08:00→21:20)
[2018-04-30] MEDS: atorvastatin 10mg tablet PO SCH (08:00)
[2018-04-30] MEDS: folic acid 1mg tablet PO SCH (08:00)
[2018-04-30] MEDS: thiamine 100mg tablet PO SCH ×2 (08:00→21:21)
[2018-04-30] MEDS: aspirin 81mg tab.chew PO SCH (08:30)
[2018-04-30] MEDS: High Protein Shake w/Arg/Glut/Ca2+Bmb (Juven 19.3gm) pkt 240ml PO SCH ×3 (08:37→18:00)
[2018-04-30] MEDS: fluoxetine 20mg/5ml UD cup PO SCH (08:38)
[2018-04-30] MEDS ORDERED: acetaminophen 325mg/10.15ml oral unit dose solution PO PRN (10:40)
--- NOTE | 2018-04-30 15:21 | NUR ---
Nursing Progress Note Chief Complaint: Depression with S/I Legal hold: 5270 Client on involuntary status for GD/DTS Report received from ROCIO Sanders with use of SBAR Why are they here: Pt. presented to [facility] on a 5150 for DTS and failure to thrive. He has had multiple hospital visits, is homeless, and has a hx. of schizophrenia and anemia. He is estranged from his family, irritable, and makes delusional statements (such as "I can't swallow" or "I am an alien.") Pt. Chooses to stay in bed and has general muscle atrophy. He is currently on temporary Probate conservatorship. Diagnosis/presenting symptoms: Pt. continues to present slightly irritable, fatigued, hopeless, and resistive to care. He denies S/I, however reports ongoing depression. He has ongoing delusions regarding swallowing and body dysmorphia. Assessment What has happened this shift: Patient asleep at start of shift. Patient was cleaned and was wheeled into the group room. Patient did take his Prozac in hot chocolate and took his zyprexa zydis. Patient c/o 10/10 pain, at lunch patient was offered Tylenol syrup but refused. S/I, H/I: Passively suicidal. A/VH: Denies Sleep: Takes several naps during the day. ADL's: Patient is able to move himself in and out of bed. Patient is able to feed himself and reposition self in bed, and transfer back to bed independently. Patient is incontinent of stool and will start scheduled toileting after meals. Group attendance: Pt. did not attend groups today Were meds taken: Prozac and Zyprexa Zydis. Any med S/E: None Mental Status Exam Appearance: disheveled, fragile, elderly gentleman wearing green scrubs. Eye contact: Poor Behavior: Withdrawn, fatigued, slightly irritable, resistive to care Speech: Clear and soft, intensifies when irritable. Mood: Depressed, hopeless, and resistant to care Affect: Constricted Thought process: Poverty of thought with thought blocking. Thought Content: Preoccupation with depressed mood and on-going delusions Cognition: A&O X3 (not to time or day) Insight: Impaired. Judgment: Impaired. PRN's used: None Interventions: Provided active listening, maintained a safe and therapeutic environment, provided medication education/encouragement with compliance, encouraged independent performance of ADLs, provide positive reinforcement on progress made, monitored skin and repositioning, and maintained Q 15 min safety checks. Restraints/seclusion/emergency medication:N/A Justification of Continued Inpatient Treatment: Pt. remains gravely disabled and depressed with passive S/I. He is now on temporary probate conservatorship and is awaiting placement.
[2018-04-30 20:00] VITALS: BP 84/50
[2018-04-30] MEDS: tamsulosin 0.4mg capsule PO SCH (21:21)
--- NOTE | 2018-05-01 02:11 | NUR ---
Nursing Progress Note Chief Complaint: Depression with S/I Legal hold: 5270 Client on involuntary status for GD/DTS Report received from ROCIO Barry with use of SBAR Why are they here: Pt. presented to [facility] on a 5150 for DTS and failure to thrive. He has had multiple hospital visits, is homeless, and has a hx. of schizophrenia and anemia. He is estranged from his family, irritable, and makes delusional statements (such as "I can't swallow" or "I am an alien.") Pt. Chooses to stay in bed and has general muscle atrophy. He is currently on temporary Probate conservatorship. Diagnosis/presenting symptoms: Pt. continues to present slightly irritable, fatigued, hopeless, and resistive to care. He denies S/I, however reports ongoing depression. He has ongoing delusions regarding swallowing and body dysmorphia. Assessment What has happened this shift: Patient asleep at start of shift. Angry when awakened. Offered Hot chocolate "I can't swallow" But when offered pt took hot chocolate and drank it. Given medications in applesauce. Again pt yelling I can't swallow but when offered applesauce ate almost all of it. Went back to sleep. S/I, H/I: Passively suicidal. A/VH: Denies Sleep: Sleeping at this time. ADL's: Patient is able to move himself in and out of bed. Patient is able to feed himself and reposition self in bed, and transfer back to bed independently. Patient is incontinent of stool and will start scheduled toileting after meals. Group attendance: Pt. did not attend groups today Were meds taken: All HS meds except Colace. Any med S/E: None Mental Status Exam Appearance: disheveled, fragile, elderly gentleman wearing green scrubs. Eye contact: Poor Behavior: Withdrawn, fatigued, irritable, resistive to care Speech: Clear and soft, intensifies when irritable. Mood: Depressed, hopeless, and resistant to care Affect: Constricted Thought process: Poverty of thought with thought blocking. Thought Content: Preoccupation with depressed mood and on-going delusions-can't swallow can't move legs Cognition: A&O X3 (not to time or day) Insight: Impaired. Judgment: Impaired. PRN's used: None Interventions: Provided active listening, maintained a safe and therapeutic environment, provided medication education/encouragement with compliance, encouraged independent performance of ADLs, provide positive reinforcement on progress made, monitored skin and repositioning, and maintained Q 15 min safety checks. Restraints/seclusion/emergency medication:N/A Justification of Continued Inpatient Treatment: Pt. remains gravely disabled and depressed with passive S/I. He is now on temporary probate conservatorship and is awaiting placement.
[2018-05-01] MEDS ORDERED: olanzapine 10mg tablet PO SCH (04:36)
[2018-05-01] MEDS ORDERED: OLANZAPINE 5 MG TABLET PO SCH ×2 (04:36)
[2018-05-01] MEDS: folic acid 1mg tablet PO SCH (07:17)
[2018-05-01] MEDS: multivitamins, therapeutics tablet PO SCH (07:17)
[2018-05-01] MEDS: tizanidine 4mg tablet PO PRN (07:17)
[2018-05-01] MEDS: atorvastatin 10mg tablet PO SCH (07:17)
[2018-05-01] MEDS: pantoprazole 40mg Tablet.DR PO SCH (07:17)
[2018-05-01] MEDS: docusate sod 100mg capsule PO SCH ×3 (07:17→20:00)
[2018-05-01] MEDS: thiamine 100mg tablet PO SCH ×2 (07:17→20:00)
[2018-05-01] MEDS: aspirin 81mg tab.chew PO SCH (07:18)
[2018-05-01] MEDS: fluoxetine 20mg/5ml UD cup PO SCH (07:18)
[2018-05-01] MEDS: OLANZapine 5mg rapidly disint. tablet PO SCH ×3 (07:23→17:38)
[2018-05-01] MEDS: ferrous sulfate ER tablet 140 MG TABLET.ER PO SCH ×2 (07:28→20:00)
[2018-05-01 07:45] VITALS: BP 93/58
--- NOTE | 2018-05-01 08:24 | NUR ---
Dressing CDI. Addendum: 05/01/18 at 0840 by Lesia Albright RN Amended: Links added.
[2018-05-01] MEDS: High Protein Shake w/Arg/Glut/Ca2+Bmb (Juven 19.3gm) pkt 240ml PO SCH ×3 (08:25→17:50)
--- NOTE | 2018-05-01 08:39 | NUR ---
Pt. eating breakfast. Attempted to take meds in jello this am. Pt. took about half before yelling that he "can't swallow pills." Pt. drank most of the oral Prozac med.
--- NOTE | 2018-05-01 11:02 | NUR ---
Pt. took Zyprexa this morning despite yelling that it didn't work and throwing med cup across the room.
--- NOTE | 2018-05-01 14:39 | NUR ---
Pt. lying on right side in bed. Refused to let RN assess hip wound.
--- NOTE | 2018-05-01 14:42 | NUR ---
Refused to let RN assess wound. Addendum: 05/01/18 at 1442 by Lesia Albright RN Amended: Links added.
--- NOTE | 2018-05-01 15:54 | NUR ---
Pt. inc. of BM. Pt. yelled and complained for the duration of cleaning pt. up. Refused barrier cream. No breakdown noted in chio area. Dressing to right hip CDI and dated 04/29.
--- NOTE | 2018-05-01 16:07 | NUR ---
1:1 DISCHARGE PLANNING SW faxed packet to [facility] for potential placement. BYRON confirmed both facilities received packet. Karli reports they are considering pt for placement and [facility] has requested to meet with pt later this week. BYRON will provide PG with update on 05/02/2018. EVITA Rojas
--- NOTE | 2018-05-01 17:43 | NUR ---
Attempted to given patient's 1800 Zyprexa twice only to have him refuse and tell nurse to "go away."
[2018-05-01 20:04] VITALS: BP 90/64
[2018-05-01] MEDS: tamsulosin 0.4mg capsule PO SCH (21:00)
--- NOTE | 2018-05-01 22:46 | NUR ---
Nursing Progress Note: The patient retired to bed immediately after the evening meal. He had no visitors or phone calls. When approached for the evening assessment, medications or to change his bed linens he was very irritable and stated "get out of here! Leave me alone" He refused repeated attempts to get him to take his medications. He shouted "I can't swallow!" When it was pointed out to him he had just drank some milk he stated that he did not swallow it but the milk had just "evaporated" He was also not wanting his bed linens changed after he had been incontinent of stool. The patient is irritable and resistive to care. He also stated that he felt embarrassed that he had to be changed. Left milk and hot chocolate at the bedside for him. He did not take his HS Ferrous Sulfate 2nd to the pharmacy not having the medication available. Patient given verbal encouragement. States he has nothing that works and that he was not able to even breath. He has poor insight and has no plan for food chcf or clothing if he were to leave the hospital. Dressing to right hip intact.
--- NOTE | 2018-05-01 23:09 | NUR ---
Nursing note: The patient was incontinent of stool and during cleaning the patient is noted that he is having some redness around the rectal area and when he thought he was going to have some barrier cream applied he came angry and balled up his fist and then threw the cream across the room. He was told that it was OK if he did not want the cream applied but only had to tell us. He stated that last time he had the cream applied it was burning his skin. He is very irritable to night. He did refuse his zyprexa which may be contributing to his irritability. He kept repeating "just get the back hoe out! Thats all I'm good for"
[2018-05-02 08:00] VITALS: BP 115/70
[2018-05-02] MEDS: ferrous sulfate ER tablet 140 MG TABLET.ER PO SCH ×2 (08:00→20:00)
[2018-05-02] MEDS: High Protein Shake w/Arg/Glut/Ca2+Bmb (Juven 19.3gm) pkt 240ml PO SCH ×3 (08:00→18:40)
[2018-05-02] MEDS: thiamine 100mg tablet PO SCH ×2 (09:06→20:00)
[2018-05-02] MEDS: atorvastatin 10mg tablet PO SCH (09:06)
[2018-05-02] MEDS: aspirin 81mg tab.chew PO SCH (09:06)
[2018-05-02] MEDS: OLANZapine 5mg rapidly disint. tablet PO SCH ×2 (09:06→19:00)
[2018-05-02] MEDS: docusate sod 100mg capsule PO SCH ×2 (09:07→20:00)
[2018-05-02] MEDS: folic acid 1mg tablet PO SCH (09:07)
[2018-05-02] MEDS: pantoprazole 40mg Tablet.DR PO SCH (09:07)
[2018-05-02] MEDS: multivitamins, therapeutics tablet PO SCH (09:07)
[2018-05-02] MEDS: fluoxetine 20mg/5ml UD cup PO SCH (09:16)
--- NOTE | 2018-05-02 18:58 | NUR ---
Nursing Progress Note Chief Complaint: Depression with S/I Legal hold: 5270 Client on involuntary status for GD/DTS Report received from ROCIO Templeton with use of SBAR Why are they here: Pt. presented to [facility] on a 5150 for DTS and failure to thrive. He has had multiple hospital visits, is homeless, and has a hx. of schizophrenia and a anemia. He is estranged from his family, irritable, and makes delusional statements (such as "I can't swallow" or "I am an alien.") Pt. Chooses to stay in bed and has general muscle atrophy. He is currently on Probate conservatorship. Diagnosis/presenting symptoms: Pt. continues to present slightly irritable, fatigued, hopeless, and resistive to care. He denies S/I, however reports ongoing depression. He has ongoing delusions regarding swallowing and body dysmorphia. Assessment What has happened this shift: Pt gets up for meals then quickly goes back to bed. He does not engage or initiate any conversation. ADLs are completed by S/I, H/I: Passively suicidal A/VH: Denies Sleep: Takes several naps during the day. ADL's: Patient is able to move himself in and out of bed getting up for meals. Patient is able to feed himself and reposition self in bed, and transfer back to bed independently. Patient is incontinent of stool and is full care for bowel care needs. Group attendance: Pt. did not attend groups today Were meds taken: Y Any med S/E: N/A Mental Status Exam Appearance: disheveled Eye contact: Poor Behavior: Withdrawn, resistive to care Speech: Intense but clear Mood: Depressed Affect: Constricted Thought process: Poverty of thought with thought blocking. Thought Content: Unknown does not engage in conversation is mostly angry Cognition: A&O X3 (not to time or day) Insight: Poor Judgment: Poor Interventions PRN's used: N/A Therapeutic interventions: Provided active listening and therapeutic communication; maintained a safe and therapeutic environment, provided medication education/encouragement with compliance, encouraged independent performance of ADLs, provide positive reinforcement on progress made, monitored skin and repositioning, dressing changed, and maintained Q 15 min safety checks. Restraints/seclusion/emergency medication:N/A Justification of Continued Inpatient Treatment: Pt. remains gravely disabled and depressed with passive S/I, he continues to require therapeutic interventions and PT/O, and would be a high-risk discharge at this time.
[2018-05-02 20:00] VITALS: BP 99/63
[2018-05-02] MEDS: tamsulosin 0.4mg capsule PO SCH (21:00)
--- NOTE | 2018-05-03 00:37 | NUR ---
Nursing Progress Note Chief Complaint: Depression with S/I Legal hold: 5270 Client on involuntary status for GD/DTS Report received from ROCIO Balderrama with use of SBAR Why are they here: Pt. presented to [facility] on a 5150 for DTS and failure to thrive. He has had multiple hospital visits, is homeless, and has a hx. of schizophrenia and a anemia. He is estranged from his family, irritable, and makes delusional statements (such as "I can't swallow" or "I am an alien.") Pt. Chooses to stay in bed and has general muscle atrophy. He is currently on Probate conservatorship. Diagnosis/presenting symptoms: Pt. continues to present slightly irritable, fatigued, hopeless, and resistive to care. He denies S/I, however reports ongoing depression. He has ongoing delusions regarding swallowing and body dysmorphia. Assessment What has happened this shift: Pt lays in bed and refuses to look at film writer. When asked to take his zyprexa he yells, "no! I don't want it!" Staff raises the head of his bed in order for him to take his pill and pt is encouraged to take the zyprexa. He yells at staff but takes the zyprexa. He yells at staff to "leave me alone." He also calls on of the staff a "fucking bitch." Patient was encouraged to be nicer to staff and that staff cares about him and wants him to feel better. He responds by saying, "you don't fucking care, leave me alone." Pt refused to let film writer assess him and he also refused the rest of his Hs medications. Patient is checked frequently for BMs, he uses his bedside urinal. S/I, H/I: Passively suicidal A/VH: Denies Sleep: see sleep assessment notation ADL's: Patient is able to move himself in and out of bed getting up for meals. Patient is able to feed himself and reposition self in bed, and transfer back to bed independently. Patient is incontinent of stool and is full care for bowel care needs. Group attendance: lieutenant shift supervisor, no groups Were meds taken: Zyprexa was taken, all other meds refused Any med S/E: N/A Mental Status Exam Appearance: disheveled Eye contact: Poor Behavior: Withdrawn, resistive to care Speech: clear, yells at staff, does not just talk Mood: Depressed Affect: Constricted Thought process: Poverty of thought with thought blocking. Thought Content: Unknown does not engage in conversation is mostly angry Cognition: A&O X3 (not to time or day) Insight: Poor Judgment: Poor Interventions PRN's used: N/A Therapeutic interventions: Provided active listening and therapeutic communication; maintained a safe and therapeutic environment, provided medication education/encouragement with compliance, encouraged independent performance of ADLs, provide positive reinforcement on progress made, monitored skin and repositioning, dressing changed, and maintained Q 15 min safety checks. Restraints/seclusion/emergency medication:N/A Justification of Continued Inpatient Treatment: Pt. remains gravely disabled and depressed with passive S/I, he continues to require therapeutic interventions and PT/O, and would be a high-risk discharge at this time.
[2018-05-03] MEDS: pantoprazole 40mg Tablet.DR PO SCH (07:30)
[2018-05-03 07:48] VITALS: BP 91/62
[2018-05-03] MEDS: OLANZapine 5mg rapidly disint. tablet PO SCH ×2 (07:55→18:00)
[2018-05-03] MEDS: docusate sod 100mg capsule PO SCH ×2 (08:00→20:00)
[2018-05-03] MEDS: ferrous sulfate ER tablet 140 MG TABLET.ER PO SCH ×2 (08:00→20:00)
[2018-05-03] MEDS: High Protein Shake w/Arg/Glut/Ca2+Bmb (Juven 19.3gm) pkt 240ml PO SCH ×3 (08:00→18:00)
[2018-05-03] MEDS: folic acid 1mg tablet PO SCH (08:00)
[2018-05-03] MEDS: multivitamins, therapeutics tablet PO SCH (08:00)
[2018-05-03] MEDS: thiamine 100mg tablet PO SCH ×2 (08:00→20:00)
[2018-05-03] MEDS: atorvastatin 10mg tablet PO SCH (08:00)
[2018-05-03] MEDS: fluoxetine 20mg/5ml UD cup PO SCH (08:00)
[2018-05-03] MEDS: aspirin 81mg tab.chew PO SCH (08:26)
--- NOTE | 2018-05-03 08:50 | NUR ---
1:1 DISCHARGE PLANNING SW received TC from [facility], who reports pt does not meet criteria for placement in their facility. SW received TC from [facility], who reports they would like to meet with pt for interview. SW faxed [facility] paperwork and informed pt. Pt is agreeable. EVITA Rojas
--- NOTE | 2018-05-03 15:49 | NUR ---
Nursing Progress Note Chief Complaint: Depression with S/I Legal hold: 5270 Client on involuntary status for GD/DTS Report received from ROCIO Moore with use of SBAR Why are they here: Pt. presented to [facility] on a 5150 for DTS and failure to thrive. He has had multiple hospital visits, is homeless, and has a hx. of schizophrenia and anemia. He is estranged from his family, irritable, and makes delusional statements (such as "I can't swallow" or "I am an alien.") Pt. Chooses to stay in bed and has general muscle atrophy. He is currently on temporary Probate conservatorship. Diagnosis/presenting symptoms: Pt. continues to present slightly irritable, fatigued, hopeless, and resistive to care. He denies S/I, however reports ongoing depression. He has ongoing delusions regarding swallowing and body dysmorphia. Assessment What has happened this shift: Recieved patient asleep in bed at start of shift. Patient transfered from bed to wheel chair with minor assist and wheeled into the group room. Patient drank hot chocolate before breakfast. He ate most of his breakfast and took his zyprexa zydis, commenting that it doesnt do anything. Pt wheeled self back to his room and transfered back to bed w/o any physical help. Same movement to and from bed around lunch. He did not attend groups and stayed in bed between meals. Less irritable today and engagable if prompted to talk about past and past interests. Patient c/o generalized discomfort yes refuses any prn meds for it. Remains hopeless about future or regaining any better functioning. Lacks any motivation to engage in adls and resists help. States he has nothing to live for, but denies active plan r/t SI. S/I, H/I: Passively suicidal. A/VH: Denies Sleep: Takes several naps during the day. ADL's: Patient is able to move himself in and out of bed. Patient is able to feed himself and reposition self in bed, and transfer back to bed independently. Patient is incontinent of stool and will start scheduled toileting after meals. Group attendance: Pt. did not attend groups today Were meds taken: Zyprexa Zydis. Any med S/E: None Mental Status Exam Appearance: disheveled, fragile, elderly gentleman wearing green scrubs. Eye contact: Poor Behavior: Withdrawn, fatigued, slightly irritable, resistive to care Speech: Clear and soft, intensifies when irritable. Mood: Depressed, hopeless, and resistant to care Affect: Constricted Thought process: Poverty of thought with thought blocking. Thought Content: Preoccupation with depressed mood and on-going delusions Cognition: A&O X3 (not to time or day) Insight: Impaired. Judgment: Impaired. PRN's used: None Interventions: Provided active listening, maintained a safe and therapeutic environment, provided medication education/encouragement with compliance, encouraged independent performance of ADLs, provide positive reinforcement on progress made, monitored skin and repositioning, and maintained Q 15 min safety checks. Restraints/seclusion/emergency medication:N/A Justification of Continued Inpatient Treatment: Pt. remains gravely disabled and depressed with passive S/I. He is now on temporary probate conservatorship and can not maintain independent living.
--- NOTE | 2018-05-03 15:54 | NUR ---
SW encouraged to contact [facility] (tel [phone] / fax [phone]), [facility] (tel [phone] / fax [phone]), [facility] ( / ) and [facility] ( . ) for placement services. SW printed updated packet information and faxed to facilities. EVITA Rojas
[2018-05-03 20:05] VITALS: BP 116/60
[2018-05-03] MEDS: tamsulosin 0.4mg capsule PO SCH (20:09)
--- NOTE | 2018-05-03 22:47 | NUR ---
Nursing Progress Note: Chief Complaint: Depression with S/I Legal hold: 5270 Client on involuntary status for GD/DTS Report received from ROCIO Linder with use of SBAR Why are they here: Pt. presented to [facility] on a 5150 for DTS and failure to thrive. He has had multiple hospital visits, is homeless, and has a hx. of schizophrenia and anemia. He is estranged from his family, irritable, and makes delusional statements (such as "I can't swallow" or "I am an alien.") Pt. Chooses to stay in bed and has general muscle atrophy. He is currently on a probate conservatorship. Diagnosis/presenting symptoms: Pt. continues to present slightly irritable, fatigued, hopeless, and resistive to care. He denies S/I, however reports ongoing depression. He has ongoing delusions regarding swallowing and body dysmorphia. Assessment: What happened this shift? Patient was in bed at the change of shift in the dark laying on his right side. When greeted he yells to this marine underwriter to "What are you doing?", "Just go away." "Leave me alone." He is resisting care and does not want to take his medications, or allow staff to do an assessment or clean him up. Patient does have a small bowel movement and needs to be cleaned. During the process of cleaning up he continually yelled at staff, he cursed, and repeatedly kept stating "It's not that bad, just leave me alone." after cleaning up his BM the patient is left alone. Patient is extremely irritable, agitated and resistive/refuses all care. S/I, H/I: Stated "I wish I would just and get it over with." A/VH: Unable to assess Sleep: Currently sleeping, see sleep assessment. ADL's: Stand by assist to transfer to w/c and for self care, able to eat, reposition self and transfer back to bed independently Group attendance: No groups this shift. Were meds taken: Refused all medications Any med S/E: None Mental Status Exam Appearance: Disheveled, unkempt, wearing dirty green scrubs Eye contact: None Behavior: Irritable, yelling, resisted all care Speech: Yells Mood: Irritable and agitated Affect: Irritable Thought process: Wants to be left alone Thought Content: Poor insight Cognition: Unable to assess, has delusions, states "I can't swallow." but he does swallow his food. Insight: Poor Judgment: Poor PRN's used: None Therapeutic interventions: Attempted 1:1 assessment with patient, provided active listening, maintained a safe and therapeutic environment to help establish rapport. Attempted education on importance of a medication regimen. Assessed patient dressing/wound status. Encouraged patient to allow staff assistance and care. Maintained Q 15 minute checks for safety. Restraints/seclusion/emergency medication:N/A Justification of Continued Inpatient Treatment: Pt. remains gravely disabled and depressed with passive S/I, he continues to require therapeutic interventions and PT/O, and would be a high-risk discharge at this time.
[2018-05-04] MEDS: pantoprazole 40mg Tablet.DR PO SCH (07:30)
[2018-05-04 08:00] VITALS: BP 99/65
[2018-05-04] MEDS: atorvastatin 10mg tablet PO SCH (08:00)
[2018-05-04] MEDS: thiamine 100mg tablet PO SCH ×2 (08:00→20:00)
[2018-05-04] MEDS: folic acid 1mg tablet PO SCH (08:00)
[2018-05-04] MEDS: multivitamins, therapeutics tablet PO SCH (08:00)
[2018-05-04] MEDS: OLANZapine 5mg rapidly disint. tablet PO SCH ×2 (08:00→19:31)
[2018-05-04] MEDS: docusate sod 100mg capsule PO SCH ×2 (08:00→20:00)
[2018-05-04] MEDS: fluoxetine 20mg/5ml UD cup PO SCH (08:00)
[2018-05-04] MEDS: ferrous sulfate ER tablet 140 MG TABLET.ER PO SCH ×2 (08:00→20:00)
[2018-05-04] MEDS: High Protein Shake w/Arg/Glut/Ca2+Bmb (Juven 19.3gm) pkt 240ml PO SCH ×3 (08:28→18:00)
[2018-05-04] MEDS: aspirin 81mg tab.chew PO SCH (08:30)
--- NOTE | 2018-05-04 12:02 | NUR ---
1:1 DISCHARGE PLANNING SW informed by [facility] of lack of male beds for [facility] placement. EVITA Rojas
--- NOTE | 2018-05-04 12:40 | NUR ---
1:1 DISCHARGE PLANNING SW faxed updated progress and nursing notes to [facility] and [facility]. BYRON emailed Madan at [facility], requesting updated information regarding placement search. BYRON requested names of facilities and dispostions. EVITA Rojas
--- NOTE | 2018-05-04 17:30 | NUR ---
Nursing Progress Note Chief Complaint: Depression with S/I Legal hold: 6696 Client on involuntary status for GD/DTS Report received from ROCIO Morales with use of SBAR Why are they here: For medication stabilization and placement. Diagnosis/presenting symptoms: F33.3 - Major depressive disorder, recurrent, severe with psychotic symptoms Pt. continues to present slightly irritable, fatigued, hopeless, and resistive to care. He denies S/I, however reports ongoing depression. He has ongoing delusions regarding swallowing and body dysmorphia. Assessment What has happened this shift: Received patient lying in bed. Patient in continent of stool and staff gave patient a bed bath and cleaned him. Patient was verbally not agreeable with being cleaned and was negative the whole time. Patient did get up by himself to the wheelchair and wheeled himself down to the dining room for meals. Patient wheeled him self back to his bed and transferred to his bed by himself without help after meals. Patient did not attend groups. Patient is pleasant upon approach initially, but is resistive to assessment by nurse and refuses to answer any questions and instead becomes negative and somewhat hostile. S/I, H/I: Passively suicidal A/VH: Denies Sleep: see sleep assessment notation ADL's: Patient is able to move himself in and out of bed getting up for meals. Patient is able to feed himself and reposition self in bed, and transfer back to bed independently. Patient is incontinent of stool and is full care for bowel care needs. Group attendance: refused groups Were meds taken: pt refused all meds this am. Any med S/E: N/A Mental Status Exam Appearance: disheveled Eye contact: Poor Behavior: Withdrawn, resistive to care Speech: clear, yelling at staff while they cleaned him after he was incontinent otherwise calm Mood: Depressed Affect: Constricted Thought process: Poverty of thought with thought blocking. Thought Content: Unknown does not engage in conversation is mostly angry Cognition: A&O X3 (not to time or day) Insight: Poor Judgment: Poor Interventions PRN's used: N/A Therapeutic interventions: Provided active listening and therapeutic communication; maintained a safe and therapeutic environment, provided medication education/encouragement with compliance, encouraged independent performance of ADLs, provide positive reinforcement on progress made, monitored skin and repositioning, dressing changed, and maintained Q 15 min safety checks. Restraints/seclusion/emergency medication:N/A Justification of Continued Inpatient Treatment: Pt. remains gravely disabled and depressed with passive S/I, he continues to require therapeutic interventions.
[2018-05-04 19:00] VITALS: BP 107/62
[2018-05-04] MEDS: tamsulosin 0.4mg capsule PO SCH (21:00)
--- NOTE | 2018-05-05 00:42 | NUR ---
Nursing Progress Note Chief Complaint: Depression with S/I Legal hold: [id number] Client on involuntary status for GD/DTS Report received from Cholo with use of SBAR Why are they here: For medication stabilization and placement. Diagnosis/presenting symptoms: F33.3 - Major depressive disorder, recurrent, severe with psychotic symptoms Pt. continues to present slightly irritable, fatigued, hopeless, and resistive to care. He denies S/I, however reports ongoing depression. He has ongoing delusions regarding swallowing and body dysmorphia. Assessment What has happened this shift: At shift change patient was resting in his bed. Pt stays in bed the entitiy of shift, resting on right hip. When asked to change position pt yells and states "I can't". Pt does not make eye contact. Physical assessment was granted by patient, but when asked to listen to, lung, heart and bowel sounds pt stated " I don't have any." Eye contact is minimal pt grumbles and yells and curses to "get away". Pt took his Zyprexa with some coaxing, but refused his routine nighttime medications again cursing and yelling "leave me alone" and "I can't take my pills, I can't swallow." Xray results of bilateral knees is resulted in chart, no fractures or dislocations, only some dense vascular calcifications noted. S/I, H/I: "no I am not suicidal" A/VH: Denies Sleep: see sleep assessment notation ADL's: Patient is incontinent of stool and is full care for bowel care needs. Group attendance: shift leader, no groups Were meds taken: pt refused all meds except for Zyprexa Any med S/E: none reported or observed Mental Status Exam Appearance: Unkempt Eye contact: Poor Behavior: Isolates in room and stays curled up in his bed Speech: pressured, yelling Mood: agitated, isolative, negative, hopless Affect: Depressed Thought process: Poverty of thought, delusional "I can't swallow", while he is taking his medication Thought Content: Always negative in nature Cognition: A&O X3 (not to time or day) Insight: Poor Judgment: Poor Interventions PRN's used: N/A Therapeutic interventions: Maintained a safe and therapeutic environment, provided medication education/encouragement with compliance, monitored skin and repositioning, and maintained Q 15 min safety checks. Restraints/seclusion/emergency medication: N/A Justification of Continued Inpatient Treatment: Pt. remains gravely disabled and depressed, he continues to require therapeutic interventions. Has no means for providing basic needs, food, group home, healthcare
[2018-05-05 07:52] VITALS: BP 102/62
[2018-05-05] MEDS: folic acid 1mg tablet PO SCH (08:00)
[2018-05-05] MEDS: ferrous sulfate ER tablet 140 MG TABLET.ER PO SCH (08:00)
[2018-05-05] MEDS: fluoxetine 20mg/5ml UD cup PO SCH (08:00)
[2018-05-05] MEDS: docusate sod 100mg capsule PO SCH ×2 (08:00→20:00)
[2018-05-05] MEDS: multivitamins, therapeutics tablet PO SCH (08:00)
[2018-05-05] MEDS: thiamine 100mg tablet PO SCH ×2 (08:00→20:00)
[2018-05-05] MEDS: atorvastatin 10mg tablet PO SCH (08:00)
[2018-05-05] MEDS: OLANZapine 5mg rapidly disint. tablet PO SCH ×2 (08:00→18:00)
[2018-05-05] MEDS: aspirin 81mg tab.chew PO SCH (08:30)
[2018-05-05] MEDS: High Protein Shake w/Arg/Glut/Ca2+Bmb (Juven 19.3gm) pkt 240ml PO SCH ×3 (08:34→18:30)
[2018-05-05] MEDS ORDERED: tizanidine 4mg tablet PO PRN (09:25)
--- NOTE | 2018-05-05 17:36 | NUR ---
Nursing Progress Note Chief Complaint: Depression with S/I Legal hold: 8074 Client on involuntary status for GD/DTS Report received from ROCIO Moore with use of SBAR Why are they here: For medication stabilization and placement. Diagnosis/presenting symptoms: F33.3 - Major depressive disorder, recurrent, severe with psychotic symptoms Pt. continues to present slightly irritable, fatigued, hopeless, and resistive to care. He denies S/I, however reports ongoing depression. He has ongoing delusions regarding swallowing and body dysmorphia. Assessment What has happened this shift: Received patient awake sitting up in bed. Patient transferred himself to wheelchair and wheeled himself to all meals and then got himself back to bed on his own. Patient refused nursing assessment. Medications placed in front of patient at breakfast meal and after a few minutes patient grab the medicine cup and put it in his pocket. Nurse told patient that he would have to either put the medications back on the table or take them. He could not keep them in his pocket. Patient complied and put the medications back on the table. Patient refused to take any medications. Will continue to encourage medication compliance and will continue with medication education. S/I, H/I: Passively suicidal A/VH: Denies Sleep: see sleep assessment notation ADL's: Patient is able to move himself in and out of bed getting up for meals. Patient is able to feed himself and reposition self in bed, and transfer back to bed independently. Patient is incontinent of stool and is full care for bowel care needs. Group attendance: refused groups Were meds taken: pt refused all meds this am. Any med S/E: N/A Mental Status Exam Appearance: disheveled Eye contact: Poor Behavior: Withdrawn, resistive to care Speech: clear, yelling at staff while they cleaned him after he was incontinent otherwise calm Mood: Depressed Affect: Constricted Thought process: Poverty of thought with thought blocking. Thought Content: Unknown does not engage in conversation is mostly angry Cognition: A&O X3 (not to time or day) Insight: Poor Judgment: Poor Interventions PRN's used: N/A Therapeutic interventions: Provided active listening and therapeutic communication; maintained a safe and therapeutic environment, provided medication education/encouragement with compliance, encouraged independent performance of ADLs, provide positive reinforcement on progress made, monitored skin and repositioning, dressing changed, and maintained Q 15 min safety checks. Restraints/seclusion/emergency medication:N/A Justification of Continued Inpatient Treatment: Pt. remains gravely disabled and depressed with passive S/I, he continues to require therapeutic interventions.
[2018-05-05 19:11] VITALS: BP 100/60
[2018-05-05] MEDS: tamsulosin 0.4mg capsule PO SCH (20:50)
--- NOTE | 2018-05-06 00:18 | NUR ---
Nursing Progress Note Chief Complaint: Depression with S/I Legal hold: [id number] Client on involuntary status for GD/DTS Report received from ROCIO Moore with use of SBAR Why are they here: For medication stabilization and placement. Diagnosis/presenting symptoms: F33.3 - Major depressive disorder, recurrent, severe with psychotic symptoms Pt. continues to present slightly irritable, fatigued, hopeless, and resistive to care. He denies S/I, however reports ongoing depression. He has ongoing delusions regarding swallowing and body dysmorphia. Assessment What has happened this shift: Received patient lying awake in bed. Patient resistive to assessment by nurse and was cranky and sarcastic when answering questions. Patient refused all medication and did not get up for snacks. Patient fell asleep at 8 PM S/I, H/I: Passively suicidal A/VH: Denies Sleep: see sleep assessment notation ADL's: Patient is able to move himself in and out of bed getting up for meals. Patient is able to feed himself and reposition self in bed, and transfer back to bed independently. Patient is incontinent of stool and is full care for bowel care needs. Group attendance: refused groups Were meds taken: pt refused all meds this am. Any med S/E: N/A Mental Status Exam Appearance: disheveled Eye contact: Poor Behavior: Withdrawn, resistive to care Speech: clear, yelling at staff while they cleaned him after he was incontinent otherwise calm Mood: Depressed Affect: Constricted Thought process: Poverty of thought with thought blocking. Thought Content: Unknown does not engage in conversation is mostly angry Cognition: A&O X3 (not to time or day) Insight: Poor Judgment: Poor Interventions PRN's used: N/A Therapeutic interventions: Provided active listening and therapeutic communication; maintained a safe and therapeutic environment, provided medication education/encouragement with compliance, encouraged independent performance of ADLs, provide positive reinforcement on progress made, monitored skin and repositioning, dressing changed, and maintained Q 15 min safety checks. Restraints/seclusion/emergency medication:N/A Justification of Continued Inpatient Treatment: Pt. remains gravely disabled and depressed with passive S/I, he continues to require therapeutic interventions.
[2018-05-06] MEDS: pantoprazole 40mg Tablet.DR PO SCH (07:30)
[2018-05-06 07:43] VITALS: BP 102/69
[2018-05-06] MEDS: atorvastatin 10mg tablet PO SCH (08:00)
[2018-05-06] MEDS: thiamine 100mg tablet PO SCH ×2 (08:00→20:00)
[2018-05-06] MEDS: docusate sod 100mg capsule PO SCH ×2 (08:00→20:00)
[2018-05-06] MEDS: multivitamins, therapeutics tablet PO SCH (08:00)
[2018-05-06] MEDS: folic acid 1mg tablet PO SCH (08:00)
[2018-05-06] MEDS: aspirin 81mg tab.chew PO SCH (08:30)
[2018-05-06] MEDS: OLANZapine 5mg rapidly disint. tablet PO SCH ×2 (08:35→19:17)
[2018-05-06] MEDS: fluoxetine 20mg/5ml UD cup PO SCH (08:35)
[2018-05-06] MEDS: High Protein Shake w/Arg/Glut/Ca2+Bmb (Juven 19.3gm) pkt 240ml PO SCH ×3 (08:35→18:39)
--- NOTE | 2018-05-06 09:42 | NUR ---
reassessment: Pt PO fluctuates but now 50% avg meals w/ 100% ensure high protein TIDWM; still meeting protein/kcal needs. LBM 05/05. No nutrition concerns at this time. Recommendations: 1) Continue with regular diet 2) Continue with high protein shake TID 3) Encourage PO intake 4) Weekly wt Addendum: 05/06/18 at [address] Amended: Links added.
--- NOTE | 2018-05-06 17:02 | NUR ---
Nursing Progress Note Chief Complaint: Depression with S/I Legal hold: Probate conserved. Client on involuntary status for GD/DTS Report received from ROCIO Emmanuel with use of SBAR Why are they here: For medication stabilization and placement. Diagnosis/presenting symptoms: F33.3 - Major depressive disorder, recurrent, severe with psychotic symptoms Pt. continues to present slightly irritable, fatigued, hopeless, and resistive to care. He denies S/I, however reports ongoing depression. He has ongoing delusions regarding swallowing and body dysmorphia. Assessment What has happened this shift: Patient out of bed today for meals. Patient was informed that Prozac liquid was placed in hot chocolate, and Zyprexa Zydis were taken this morning. Pt. presents as more irritable today to staff. S/I, H/I: Passively suicidal A/VH: Denies Sleep: 9.0 hours. ADL's: Patient is able to move himself in and out of bed getting up for meals. Patient is able to feed himself and reposition self in bed, and transfer back to bed independently. Patient is incontinent of stool and is full care for bowel care needs. Pt. will not acknowledge when he has BM. Group attendance: refused groups Were meds taken: Yes. Any med S/E: N/A Mental Status Exam Appearance: disheveled elderly gentleman appearing older than stated age. Eye contact: Poor Behavior: Withdrawn, resistive to care Speech: Yells at staff during diaper change. Mood: Depressed Affect: Constricted Thought process: Poverty of thought with thought blocking. Thought Content: Unknown does not engage in conversation is mostly angry Cognition: A&O X3 (not to time or day) Insight: Poor Judgment: Poor Interventions PRN's used: N/A Therapeutic interventions: Provided active listening and therapeutic communication; maintained a safe and therapeutic environment, provided medication education/encouragement with compliance, encouraged independent performance of ADLs, provide positive reinforcement on progress made, monitored skin and repositioning, dressing changed, and maintained Q 15 min safety checks. Restraints/seclusion/emergency medication:N/A Justification of Continued Inpatient Treatment: Pt. remains gravely disabled and depressed with passive S/I, he continues to require therapeutic interventions. Awaiting placement, probate conservatorship.
[2018-05-06 19:22] VITALS: BP 90/60
[2018-05-06] MEDS ORDERED: acetaminophen 325mg tablet PO PRN (20:57)
[2018-05-06] MEDS: tamsulosin 0.4mg capsule PO SCH (21:00)
--- NOTE | 2018-05-06 22:36 | NUR ---
Nursing Progress Note Chief Complaint: Depression with S/I Legal hold: Probate conserved. Client on involuntary status for GD/DTS Report received from RN with use of SBAR Why are they here: For medication stabilization and placement. Diagnosis/presenting symptoms: F33.3 - Major depressive disorder, recurrent, severe with psychotic symptoms Pt. continues to present slightly irritable, fatigued, hopeless, and resistive to care. He denies S/I, however reports ongoing depression. He has ongoing delusions regarding swallowing and body dysmorphia. Assessment What has happened this shift: Patient was in bed. Presents very irritable and angry. Encouraged to take medication, which he did and then told this freelance writer to leave his room. Patient has recieved chio care at 1700 and refused any further attempts. Patient also refused all medications except for zyprexa. S/I, H/I: Passively suicidal A/VH: Denies Sleep: See sleep assessment ADL's: Patient is able to move himself in and out of bed getting up for meals. Patient is able to feed himself and reposition self in bed, and transfer back to bed independently. Patient is incontinent of stool and is full care for bowel care needs. Pt. will not acknowledge when he has BM. Group attendance: NA Were meds taken: Took zyprexa refused others. Any med S/E: N/A Mental Status Exam Appearance: disheveled elderly gentleman appearing older than stated age. Eye contact: Poor Behavior: Withdrawn, resistive to care Speech: Yells at staff with any interaction Mood: Depressed Affect: Constricted Thought process: Poverty of thought with thought blocking. Thought Content: Unknown does not engage in conversation is mostly angry Cognition: A&O X3 (not to time or day) Insight: Poor Judgment: Poor Interventions PRN's used: N/A Therapeutic interventions: Provided opportunity for therapeutic communication; maintained a safe and therapeutic environment, provided medication education/encouragement with compliance, encouraged independent performance of ADLs, provide positive reinforcement on progress made, monitored skin and repositioning, and maintained Q 15 min safety checks. Restraints/seclusion/emergency medication:N/A Justification of Continued Inpatient Treatment: Pt. remains gravely disabled and depressed with passive S/I, he continues to require therapeutic interventions. Awaiting placement, probate conservatorship.
[2018-05-07] MEDS: pantoprazole 40mg Tablet.DR PO SCH (07:30)
[2018-05-07 08:00] VITALS: BP 104/65
[2018-05-07] MEDS: multivitamins, therapeutics tablet PO SCH (08:00)
[2018-05-07] MEDS: fluoxetine 20mg/5ml UD cup PO SCH (08:00)
[2018-05-07] MEDS: OLANZapine 5mg rapidly disint. tablet PO SCH ×2 (08:00→20:04)
[2018-05-07] MEDS: atorvastatin 10mg tablet PO SCH (08:00)
[2018-05-07] MEDS: High Protein Shake w/Arg/Glut/Ca2+Bmb (Juven 19.3gm) pkt 240ml PO SCH ×3 (08:00→18:00)
[2018-05-07] MEDS: docusate sod 100mg capsule PO SCH ×2 (08:00→20:00)
[2018-05-07] MEDS: folic acid 1mg tablet PO SCH (08:00)
[2018-05-07] MEDS: thiamine 100mg tablet PO SCH ×2 (08:00→20:00)
[2018-05-07] MEDS: aspirin 81mg tab.chew PO SCH (08:30)
--- NOTE | 2018-05-07 15:05 | NUR ---
Nursing Progress Note Chief Complaint: Depression with S/I Legal hold: Probate conserved. Client on involuntary status for GD/DTS Report received from Kelli CHAN with use of SBAR Why are they here: For medication stabilization and placement. Diagnosis/presenting symptoms: F33.3 - Major depressive disorder, recurrent, severe with psychotic symptoms Pt. continues to present slightly irritable, fatigued, hopeless, and resistive to care. He denies S/I, however reports ongoing depression. He has ongoing delusions regarding swallowing and body dysmorphia. Assessment What has happened this shift: Patient came out of his room for all meals. He took his Prozac liquid in his hot chocolate (which patient is notified of daily). He also took his Zyprexa Zydis. Upon inspection of right hip wound, it appears to be darker red. Patient was informed that his wound needs to have pressure relieved and he will have to lay on his left side for two hours after meals or that he can sit up in his wheelchair. Pt. elected to lay on left side. Patient complains of 10/10 pain, but refuses any medications for this "nothing works." Patient continues to be on an air mattress, but has refused all attempts to turn onto his left side until today. S/I, H/I: Passively suicidal A/VH: Denies Sleep: 7.25 hours. ADL's: Patient is able to move himself in and out of bed getting up for meals. Patient is able to feed himself and reposition self in bed, and transfer back to bed independently. Patient is incontinent of stool and is full care for bowel care needs. Pt. will not acknowledge when he has BM, even when asked. Group attendance: NA Were meds taken: Yes, took Prozac and Zyprexa Zydis. Any med S/E: N/A Mental Status Exam Appearance: disheveled elderly gentleman appearing older than stated age. Eye contact: Poor Behavior: Withdrawn, resistive to care Speech: "grumpy". Mood: Depressed Affect: Constricted Thought process: Poverty of thought with thought blocking. Thought Content: Unknown does not engage in conversation is mostly angry Cognition: A&O X3 (not to time or day) Insight: Poor Judgment: Poor Interventions PRN's used: N/A Therapeutic interventions: Provided opportunity for therapeutic communication; maintained a safe and therapeutic environment, provided medication education/encouragement with compliance, encouraged independent performance of ADLs, provide positive reinforcement on progress made, monitored skin pt. to stay off right side after meals. Maintained Q 15 min safety checks. Restraints/seclusion/emergency medication:N/A Justification of Continued Inpatient Treatment: Pt. remains gravely disabled and depressed with passive S/I, he continues to require therapeutic interventions. Awaiting placement, probate conservatorship.
--- NOTE | 2018-05-07 15:30 | NUR ---
1:1 DISCHARGE PLANNING BYRON faxed placement packets to [facility] ([phone]), [facility] ([phone]) and [facility] ([phone]) and was informed by [facility] that no beds are available at this time. BYRON also faxed packet to [facility] ([phone]). EVITA Rojas Addendum: 05/07/18 at 1559 by Margi Dunaway SS 15:58 BYRON received TC from Lesia at [facility], who reports there are no extermination supervisor beds available for pt placement. EVITA Rojas
[2018-05-07] MEDS: tamsulosin 0.4mg capsule PO SCH (20:13)
[2018-05-07 20:33] VITALS: BP 97/56
--- NOTE | 2018-05-08 04:08 | NUR ---
Nursing Progress Note Chief Complaint: Depression with S/I Legal hold: Probate conserved. Client on involuntary status for GD/DTS Report received from Kelli CHAN with use of SBAR Why are they here: For medication stabilization and placement. Diagnosis/presenting symptoms: F33.3 - Major depressive disorder, recurrent, severe with psychotic symptoms Pt. continues to present slightly irritable, fatigued, hopeless, and resistive to care. He denies S/I, however reports ongoing depression. He has ongoing delusions regarding swallowing and body dysmorphia. Assessment What has happened this shift: Patient in bed on left side at start of shift. Encouraged to alternate position. Pt yelled and complained but was compliant throughout shift. Refused to get out of bed for snack. Irritable. Took Zyprexa refused all Other HS meds. Yells "I can't swallow" then drank hot chocolate. Incontinent x1 of bowel. urinates independently in urinal. S/I, H/I: Passively suicidal A/VH: Denies Sleep: 7.25 hours. ADL's: Patient is able to move himself in and out of bed getting up for meals. Patient is able to feed himself and reposition self in bed, and transfer back to bed independently. Patient is incontinent of stool and is full care for bowel care needs. Pt. will not acknowledge when he has BM, even when asked. Group attendance: NA Were meds taken: Yes, took Zyprexa Zydis. Any med S/E: N/A Mental Status Exam Appearance: disheveled elderly gentleman appearing older than stated age. Eye contact: Poor Behavior: Withdrawn, resistive to care Speech: "grumpy". Mood: Depressed Affect: Constricted Thought process: Poverty of thought with thought blocking. Thought Content: Unknown does not engage in conversation is mostly angry Cognition: A&O X3 (not to time or day) Insight: Poor Judgment: Poor Interventions PRN's used: N/A Therapeutic interventions: Provided opportunity for therapeutic communication; maintained a safe and therapeutic environment, provided medication education/encouragement with compliance, encouraged independent performance of ADLs, provide positive reinforcement on progress made, monitored skin pt. to stay off right side after meals. Maintained Q 15 min safety checks. Restraints/seclusion/emergency medication:N/A Justification of Continued Inpatient Treatment: Pt. remains gravely disabled and depressed with passive S/I, he continues to require therapeutic interventions. Awaiting placement, probate conservatorship.
[2018-05-08] MEDS: pantoprazole 40mg Tablet.DR PO SCH (07:30)
[2018-05-08 07:49] VITALS: BP 113/75
[2018-05-08] MEDS: docusate sod 100mg capsule PO SCH ×2 (08:00→20:00)
[2018-05-08] MEDS: folic acid 1mg tablet PO SCH (08:00)
[2018-05-08] MEDS: High Protein Shake w/Arg/Glut/Ca2+Bmb (Juven 19.3gm) pkt 240ml PO SCH ×4 (08:00→18:57)
[2018-05-08] MEDS: thiamine 100mg tablet PO SCH ×2 (08:00→20:00)
[2018-05-08] MEDS: multivitamins, therapeutics tablet PO SCH (08:00)
[2018-05-08] MEDS: OLANZapine 5mg rapidly disint. tablet PO SCH ×2 (08:00→19:00)
[2018-05-08] MEDS: atorvastatin 10mg tablet PO SCH (08:00)
[2018-05-08] MEDS: fluoxetine 20mg/5ml UD cup PO SCH (08:00)
[2018-05-08] MEDS: aspirin 81mg tab.chew PO SCH (08:30)
--- NOTE | 2018-05-08 12:11 | NUR ---
1:1 DISCHARGE PLANNING SW received TC from [facility], who reports they are unable to accept pt based on his sx's and level of need at this time. EVITA Rojas Addendum: 05/08/18 at 1506 by Margi Dunaway addition: 15:05 SW received message from [facility], reporting pt is not appropriate for their facility due to history of schizophrenia and [facility] 5150 holds. Pt is declined at [facility]. EVITA Rojas Addendum: 05/08/18 at 1620 by Margi Dunaway addition: YBRON received TC from [facility], who report pt is not appropriate for placement at their facility due to his hx of schizophrenia diagnosis. EVITA Rojas
--- NOTE | 2018-05-08 15:02 | NUR ---
Nursing Progress Note Chief Complaint: Depression with S/I Legal hold: Probate conserved. Client on involuntary status for GD/DTS Report received from Rosie CHAN with use of SBAR Why are they here: For medication stabilization and placement. Diagnosis/presenting symptoms: F33.3 - Major depressive disorder, recurrent, severe with psychotic symptoms Pt. continues to present slightly irritable, fatigued, hopeless, and resistive to care. He denies S/I, however reports ongoing depression. He has ongoing delusions regarding swallowing and body dysmorphia. Assessment What has happened this shift: Patient came out to breakfast, but refused his Prozac. Would only take Zyprexa Zydis today. It was explained to patient yesterday that he would be required to sit up in his wheelchair for 2 hours after meals or lay on left side, patient has been arguing and it took "show of force" to get him to lay on his left side to prevent pressure ulcer breakdown. Patient remains on air mattress. Pt. continues to soil his diaper, and will not tell providers when he has had BM, so he has to be checked throughout the day to prevent breakdown. S/I, H/I: Passively suicidal A/VH: Denies Sleep: 11 hours. ADL's: Patient is able to move himself in and out of bed getting up for meals. Patient is able to feed himself and reposition self in bed, and transfer back to bed independently. Patient is incontinent of stool and is full care for bowel care needs. Group attendance: NA Were meds taken: Refused Prozac, took Zyprexa Zydis. Any med S/E: N/A Mental Status Exam Appearance: disheveled elderly gentleman appearing older than stated age wearing green scrubs. Eye contact: Poor Behavior: Withdrawn, resistive to care Speech: Clear. Mood: Depressed Affect: Constricted Thought process: Poverty of thought with thought blocking. Thought Content: Unknown does not engage in conversation. Cognition: A&O X3 (not to time or day) Insight: Poor Judgment: Poor Interventions PRN's used: N/A Therapeutic interventions: Provided opportunity for therapeutic communication; maintained a safe and therapeutic environment, provided medication education/encouragement with compliance, encouraged independent performance of ADLs, provide positive reinforcement on progress made, monitored skin pt. to stay off right side after meals. Maintained Q 15 min safety checks. Restraints/seclusion/emergency medication:N/A Justification of Continued Inpatient Treatment: Pt. remains gravely disabled and depressed with passive S/I, he continues to require therapeutic interventions. Awaiting placement, probate conservatorship.
--- NOTE | 2018-05-08 20:41 | NUR ---
Staff prompted the patient to turn from his right side to his left side. Patient became argumentative and agitated. This staff and charge nurse educated the patient about his wound and the importance of rotating. The patient was unreceptive and refused to rotate. Will continue to prompt Q2 to rotate to the left.
[2018-05-08] MEDS: tamsulosin 0.4mg capsule PO SCH (20:42)
[2018-05-08 20:47] VITALS: BP 89/58
--- NOTE | 2018-05-09 01:19 | NUR ---
Chief Complaint: Depression, agitation, disordered thought processes Legal hold: Served with a [employer] on the 4th of this month Client on voluntary/involuntary status for GD Report received from nurse with use of SBAR: Asha CHAN Why are they here: The patient was admitted on 03/30/18 from the ER after he was brought in to the ER for being unable to take care of himself. He was discharged from [facility] after being treated with Sepsis but after discharge he remained at the bus stop in front of the hospital for a week in the cold weather and was not eating or taking assisted for himself. He was making statements that he wished he was . Diagnosis/presenting symptoms: Psychosis, Depression with a prior dx of schizophrenia What has happened this shift: The patient has been in his bed the entire night. He refused to participate in the assessment process. He refused all of his medications but would only take the Zyprexa Zydis but he did try and spit it out but it had already melted in his mouth. He is resistive to any kind of hygiene interventions. He did not want to be cleaned after being incontinent of stool. He refuses to not lay on his right side. He is very irritable and easily agitated with any kind of verbal or physical interventions. S/I, H/I: No verbalized suicidal or homicidal thoughts. He is uncooperative with the assessment A/VH: Unable to assess Sleep: Patient appears to be sleeping on rounds ADL's: Requires assistance with ADLs but is very resistive to care Group attendance: Isolated to his bed the entire shift Were meds taken: All meds were refused except Zyprexa Zydis but then tried to spit it out Any med S/E: None apparent at this time Mental Status Exam Appearance: Disheveled. Eye contact: Keeps his eyes closed Behavior: Resistive to care Speech: Clear, Increased volume 2nd to agitation Mood: Angry, Agitated, negative Affect: Angry Thought process: Difficult to assess 2nd to patient's uncooperativeness Thought Content: Negative Cognition: Impaired but unable to fully assess Insight: Poor Judgment: Poor Interventions PRN's used: Refused Therapeutic interventions: Encourage repositioning in bed, encouraged medication compliance, assessed with ADLs, The patient is on q 15 minute safety checks. Justification of Continued Inpatient Treatment: The patient is unable to provide any kind of reasonable plan for food, assisted or clothing. Social workers have been looking for placement but he has been turned down for multiple jail facilities 2nd to his history.
[2018-05-09] MEDS: pantoprazole 40mg Tablet.DR PO SCH (07:30)
[2018-05-09 08:00] VITALS: BP 120/71
[2018-05-09] MEDS: multivitamins, therapeutics tablet PO SCH (08:00)
[2018-05-09] MEDS: High Protein Shake w/Arg/Glut/Ca2+Bmb (Juven 19.3gm) pkt 240ml PO SCH ×6 (08:00→18:00)
[2018-05-09] MEDS: folic acid 1mg tablet PO SCH (08:00)
[2018-05-09] MEDS: docusate sod 100mg capsule PO SCH ×2 (08:00→20:00)
[2018-05-09] MEDS: thiamine 100mg tablet PO SCH ×2 (08:00→20:00)
[2018-05-09] MEDS: fluoxetine 20mg/5ml UD cup PO SCH (08:00)
[2018-05-09] MEDS: atorvastatin 10mg tablet PO SCH (08:00)
[2018-05-09] MEDS: OLANZapine 5mg rapidly disint. tablet PO SCH ×2 (08:22→18:00)
[2018-05-09] MEDS: aspirin 81mg tab.chew PO SCH (08:30)
--- NOTE | 2018-05-09 17:16 | NUR ---
Nursing Progress Note Chief Complaint: Depression with S/I Legal hold: 5270 Client on involuntary status for GD/DTS Report received from ROCIO Crandall with use of SBAR Why are they here: Pt. presented to [facility] on a 5150 for DTS and failure to thrive. He has had multiple hospital visits, is homeless, and has a hx. of schizophrenia and anemia. He is estranged from his family, irritable, and makes delusional statements (such as "I can't swallow" or "I am an alien.") Pt. Chooses to stay in bed and has general muscle atrophy. He is currently on temporary Probate conservatorship. Diagnosis/presenting symptoms: Pt. continues to present slightly irritable, fatigued, hopeless, and resistive to care. He denies S/I, however reports ongoing depression. He has ongoing delusions regarding swallowing and body dysmorphia. Assessment What has happened this shift: Recieved patient in bed at start of shift, awake and in moderately pleasant mood. Patient transfered from bed to wheel chair with minor assist and wheeled into the group room. Patient drank hot chocolate before breakfast. He ate most of his breakfast and took his zyprexa zydis, continuing to comment that it doesnt do anything. He refused all other meds. Pt wheeled self back to his room and transfered back to bed w/o any physical help. Same movement to and from bed around lunch. He did not attend groups and stayed in bed between meals. Remains hopeless about future or regaining any better functioning. Lacks any motivation to engage in adls and resists help. Pt was showered today with assistance and brushed his teeth. States he has nothing to live for, look, Im a skeleton, but denies active plan r/t SI. S/I, H/I: Passively suicidal. A/VH: Denies Sleep: Takes several naps during the day. ADL's: Patient is able to move himself in and out of bed. Patient is able to feed himself and reposition self in bed, and transfer back to bed independently. Patient is incontinent of stool and will start scheduled toileting after meals. Group attendance: Pt. did not attend groups today Were meds taken: Zyprexa Zydis. Any med S/E: None Mental Status Exam Appearance: disheveled, fragile, elderly gentleman wearing green scrubs. Eye contact: Poor Behavior: Withdrawn, fatigued, slightly irritable, resistive to care Speech: Clear and soft, intensifies when irritable. Mood: Depressed, hopeless, and resistant to care Affect: Constricted Thought process: Poverty of thought with thought blocking. Thought Content: Preoccupation with depressed mood and on-going delusions Cognition: A&O X3 (not to time or day) Insight: Impaired. Judgment: Impaired. PRN's used: None Interventions: Provided active listening, maintained a safe and therapeutic environment, provided medication education/encouragement with compliance, encouraged independent performance of ADLs, provide positive reinforcement on progress made, monitored skin and repositioning, and maintained Q 15 min safety checks. Restraints/seclusion/emergency medication:N/A Justification of Continued Inpatient Treatment: Pt. remains gravely disabled and depressed with passive S/I. He is now on temporary probate conservatorship and can not maintain independent living.
[2018-05-09 20:00] VITALS: BP 97/62
[2018-05-09] MEDS: tamsulosin 0.4mg capsule PO SCH (21:00)
--- NOTE | 2018-05-09 23:45 | NUR ---
ROCIO Progress Note: Chief Complaint: Depression with S/I Legal hold: 5270 Client on involuntary status for GD/DTS Report received from ROCIO Linder with use of SBAR Why are they here: Pt. presented to [facility] on a 5150 for DTS and failure to thrive. He has had multiple hospital visits, is homeless, and has a hx. of schizophrenia and anemia. He is estranged from his family, irritable, and makes delusional statements (such as "I can't swallow" or "I am an alien.") Pt. Chooses to stay in bed and has general muscle atrophy. He is currently on temporary Probate conservatorship. Diagnosis/presenting symptoms: Major depressive disorder, recurrent, severe with psychotic symptoms Pt. continues to present slightly irritable, fatigued, hopeless, and resistive to care. He denies S/I, however reports on going depression. He has ongoing delusions regarding swallowing and body dysmorphia. Assessment What has happened this shift: Patient in his room in bed at change of shift laying on his left side. He remained in bed throughout this shift. He continues to be resistive to care , and repeatedly told staff "You don't know what you are doing.", "You don't need to do that.", "It's not that bad." even though he had visibly soiled himself and his bed with a BM. He does not want staff to clean him up, he refuses a physical assessment, wound care and all evening medications. He is verbally abusive during the process of cleaning up his BM. He talked about how "stupid" staff was for showering him, stating "I'll fall out of the chair, so I get bed baths." Patient has very poor insight to his situation stating he still can't swallow, and is unable to do things even thought he does those things such as getting in and out of his wheelchair, swallowing food and on occasion medications, and sit in shower chair while staff assists with a shower. He does not confirm SI but has passive thoughts such as "Just get it over with already." and voices his wish to . Patient presents as depressed, hopeless, helpless and is restive to any staff care and encouragement. S/I, H/I: Passively suicidal A/VH: Denies Sleep: Currently sleeping, see sleep assessment ADL's: Patient is able to move himself in and out of bed. Patient is able to feed himself and reposition self in bed, and transfer back to bed independently. Patient is incontinent of stool and will start scheduled toileting after meals. Group attendance: No groups this shift Were meds taken: None/refused Any med S/E: None Mental Status Exam Appearance: Disheveled, unkempt Eye contact: None Behavior: Resistive to care, verbally abusive Speech: Yelling Mood: Depressed, hopeless/helpless, resistive to care Affect: Agitated Thought process: Poverty of thought with thought blocking. Thought Content: Preoccupation with depressed mood and on-going delusions Cognition: A&O X3 (not to time or day) Insight: Impaired. Judgment: Impaired. PRN's used: None Interventions: Attempted 1:1 assessment with patient, provided active listening, maintained a safe and therapeutic environment to help establish rapport. Attempted education on importance of a medication regimen. Encouraged independent performance of ADLs, provide positive reinforcement on progress made, monitored skin and repositioning. Encouraged patient to allow staffs assistance and care. Maintained Q 15 minute checks for safety. Maintained Q 15 minute checks for safety. Restraints/seclusion/emergency medication:N/A Justification of Continued Inpatient Treatment: Pt. remains gravely disabled and depressed with passive S/I. He is now on temporary probate conservatorship and can not maintain independent living.
[2018-05-10] MEDS: pantoprazole 40mg Tablet.DR PO SCH (07:30)
[2018-05-10 07:54] VITALS: BP 101/60
[2018-05-10] MEDS: High Protein Shake w/Arg/Glut/Ca2+Bmb (Juven 19.3gm) pkt 240ml PO SCH ×6 (08:00→17:16)
[2018-05-10] MEDS: docusate sod 100mg capsule PO SCH ×2 (08:00→20:00)
[2018-05-10] MEDS: folic acid 1mg tablet PO SCH (08:00)
[2018-05-10] MEDS: thiamine 100mg tablet PO SCH ×2 (08:00→20:00)
[2018-05-10] MEDS: fluoxetine 20mg/5ml UD cup PO SCH (08:00)
[2018-05-10] MEDS: atorvastatin 10mg tablet PO SCH (08:00)
[2018-05-10] MEDS: multivitamins, therapeutics tablet PO SCH (08:00)
[2018-05-10] MEDS: OLANZapine 5mg rapidly disint. tablet PO SCH ×2 (08:06→17:16)
[2018-05-10] MEDS: aspirin 81mg tab.chew PO SCH (08:30)
--- NOTE | 2018-05-10 16:24 | NUR ---
ROCIO Progress Note: Chief Complaint: Depression with S/I Legal hold: 5270 Client on involuntary status for GD/DTS Report received from ROCIO Justin with use of SBAR Why are they here: Pt. presented to [facility] on a 5150 for DTS and failure to thrive. He has had multiple hospital visits, is homeless, and has a hx. of schizophrenia and anemia. He is estranged from his family, irritable, and makes delusional statements (such as "I can't swallow" or "I am an alien.") Pt. Chooses to stay in bed and has general muscle atrophy. He is currently on temporary Probate conservatorship. Diagnosis/presenting symptoms: Major depressive disorder, recurrent, severe with psychotic symptoms Pt. continues to present slightly irritable, fatigued, hopeless, and resistive to care. He denies S/I, however reports on going depression. He has ongoing delusions regarding swallowing and body dysmorphia. Assessment What has happened this shift: Patient is up at change of shift sitting in group room with his roommate having coffee. They are chatting. He eats breakfast and refuses all medications except the zydis. He returns to bed mid morning and when asked to lay on his left side is verbally abusive to staff and states his hip is fine and he's been sleeping on his right side his whole life and leave him alone. He gets up for morning group. he lies down again and gets up again for afternoon group, and returns to bed. Patient has been up off right side several times today for significant time periods. he refuses assessment of right hip. He is resistant to care, verbally abusive, states "just let me ." S/I, H/I: Passively suicidal A/VH: Denies Sleep: Napped ADL's: Patient is able to move himself in and out of bed. Patient is able to feed himself and reposition self in bed, and transfer back to bed independently. Group attendance: Yes Were meds taken: Zyprexa zydis only, refused all others Any med S/E: None Mental Status Exam Appearance: Disheveled, unkempt Eye contact: None Behavior: Resistive to care, verbally abusive Speech: Yelling Mood: Depressed, hopeless/helpless, resistive to care Affect: Agitated at times Thought process: Poverty of thought with thought blocking. Thought Content: Preoccupation with depressed mood and on-going delusions Cognition: A&O X3 (not to time or day) Insight: Impaired. Judgment: Impaired. PRN's used: None Interventions: Attempted 1:1 assessment with patient, provided active listening, maintained a safe and therapeutic environment to help establish rapport. Attempted education on importance of a medication regimen. Encouraged independent performance of ADLs, provide positive reinforcement on progress made, monitored repositioning. Encouraged patient to allow staffs assistance and care. Maintained Q 15 minute checks for safety. Maintained Q 15 minute checks for safety. Restraints/seclusion/emergency medication:N/A Justification of Continued Inpatient Treatment: Pt. remains gravely disabled and depressed with passive S/I. He is now on temporary probate conservatorship and can not maintain independent living.
[2018-05-10 19:00] VITALS: BP 98/55
[2018-05-10] MEDS: tamsulosin 0.4mg capsule PO SCH (21:00)
--- NOTE | 2018-05-11 00:55 | NUR ---
RN Progress Note: Chief Complaint: Depression with S/I Legal hold: 5270 Client on involuntary status for GD/DTS Report received from ROCIO Malin with use of SBAR Why are they here: Pt. presented to [facility] on a 5150 for DTS and failure to thrive. He has had multiple hospital visits, is homeless, and has a hx. of schizophrenia and anemia. He is estranged from his family, irritable, and makes delusional statements (such as "I can't swallow" or "I am an alien.") Pt. Chooses to stay in bed and has general muscle atrophy. He is currently on temporary Probate conservatorship. Diagnosis/presenting symptoms: Major depressive disorder, recurrent, severe with psychotic symptoms Pt. continues to present slightly irritable, fatigued, hopeless, and resistive to care. He denies S/I, however reports on going depression. He has ongoing delusions regarding swallowing and body dysmorphia. Assessment What has happened this shift: Patient in his room in bed at change of shift laying on his left side. He immediately stated loudly when approached "Go away". When asked about his right hip and how it felt since spending time on his left side and up more in his wheelchair he stated, "You guys are worried about a stupid scratch, its fine". When asked about spending time in his wheel chair he says he did not today, and stated "Not my wheelchair, I cant even move it." Then when asked if he can get out of the chair he stated "Nope". It however was reported by day shift that he spent time in his wheel chair today around each meal period and would wheel himself back to his room and place himself back in bed, but when asked the patient denies all of this and refers to his body stating "Look at me, I can't." He has poor insight into his capabilities and his current situation. He once again denied evening medications, and a physical assessment and yelled to this nurse to "Go away." again. He spent the remainder of his shift in bed. S/I, H/I: Passively suicidal A/VH: Denies Sleep: Currently sleeping, see sleep assessment ADL's: Patient is able to move himself in and out of bed. Patient is able to feed himself and reposition self in bed, and transfer back to bed independently. Patient is incontinent of stool. Group attendance: No groups this shift Were meds taken: None/refused Any med S/E: None Mental Status Exam Appearance: Disheveled, unkempt Eye contact: None Behavior: Resistive to care Speech: Yelling Mood: Depressed, hopeless/helpless, resistive to care Affect: Agitated/irritable Thought process: Poverty of thought with thought blocking. Thought Content: Preoccupation with depressed mood and on-going delusions Cognition: A&O X3 (not to time or day) Insight: Impaired. Judgment: Impaired. PRN's used: None Interventions: Attempted 1:1 assessment with patient, provided active listening, maintained a safe and therapeutic environment to help establish rapport. Attempted education on importance of a medication regimen. Encouraged independent performance of ADLs, provide positive reinforcement on progress made, monitored skin and repositioning. Encouraged patient to allow staffs assistance and care. Maintained Q 15 minute checks for safety. Maintained Q 15 minute checks for safety. Restraints/seclusion/emergency medication:N/A Justification of Continued Inpatient Treatment: Pt. remains gravely disabled and depressed with passive S/I. He is now on temporary probate conservatorship and can not maintain independent living.
[2018-05-11] MEDS: pantoprazole 40mg Tablet.DR PO SCH (07:30)
[2018-05-11 07:46] VITALS: BP 105/66
[2018-05-11] MEDS: OLANZapine 5mg rapidly disint. tablet PO SCH ×2 (07:48→17:30)
[2018-05-11] MEDS: multivitamins, therapeutics tablet PO SCH (08:00)
[2018-05-11] MEDS: folic acid 1mg tablet PO SCH (08:00)
[2018-05-11] MEDS: thiamine 100mg tablet PO SCH ×2 (08:00→20:00)
[2018-05-11] MEDS: docusate sod 100mg capsule PO SCH ×2 (08:00→20:00)
[2018-05-11] MEDS: fluoxetine 20mg/5ml UD cup PO SCH (08:00)
[2018-05-11] MEDS: atorvastatin 10mg tablet PO SCH (08:00)
[2018-05-11] MEDS: aspirin 81mg tab.chew PO SCH (08:30)
[2018-05-11] MEDS: High Protein Shake w/Arg/Glut/Ca2+Bmb (Juven 19.3gm) pkt 240ml PO SCH ×6 (08:41→17:30)
--- NOTE | 2018-05-11 15:41 | NUR ---
ROCIO Progress Note: Chief Complaint: Depression with S/I Legal hold: 5270 Client on involuntary status for GD/DTS Report received from ROCIO Justin with use of SBAR Why are they here: Pt. presented to [facility] on a 5150 for DTS and failure to thrive. He has had multiple hospital visits, is homeless, and has a hx. of schizophrenia and anemia. He is estranged from his family, irritable, and makes delusional statements (such as "I can't swallow" or "I am an alien.") Pt. Chooses to stay in bed and has general muscle atrophy. He is currently on temporary Probate conservatorship. Diagnosis/presenting symptoms: Major depressive disorder, recurrent, severe with psychotic symptoms Pt. continues to present slightly irritable, fatigued, hopeless, and resistive to care. He denies S/I, however reports on going depression. He has ongoing delusions regarding swallowing and body dysmorphia. Assessment What has happened this shift: Up to meals and watched TV in RR for a couple of hours in the late morning. Puts himself back in bed. He layed on his left side several times while in bed today. Depressed, angry, irritable mood. Passive suicidal thoughts, "what's the use of living." Refuses to take all meds accept zydis. Attempted education on medications and skin care, patient resistive. S/I, H/I: Passively suicidal A/VH: Denies Sleep: Napped ADL's: Patient is able to move himself in and out of bed. Patient is able to feed himself and reposition self in bed, and transfer back to bed independently. Group attendance: Yes Were meds taken: Zyprexa zydis only, refused all others Any med S/E: None Mental Status Exam Appearance: Disheveled, unkempt Eye contact: None Behavior: Resistive to care, verbally abusive Speech: Yelling Mood: Depressed, hopeless/helpless, resistive to care Affect: Agitated at times Thought process: Poverty of thought with thought blocking. Thought Content: Preoccupation with depressed mood and on-going delusions Cognition: A&O X3 (not to time or day) Insight: Impaired. Judgment: Impaired. PRN's used: None Interventions: Attempted 1:1 assessment with patient, provided active listening, maintained a safe and therapeutic environment to help establish rapport. Attempted education on importance of a medication regimen. Encouraged independent performance of ADLs, provide positive reinforcement on progress made, monitored repositioning. Encouraged patient to allow staffs assistance and care. Maintained Q 15 minute checks for safety. Maintained Q 15 minute checks for safety. Restraints/seclusion/emergency medication:N/A Justification of Continued Inpatient Treatment: Pt. remains gravely disabled and depressed with passive S/I. He is now on temporary probate conservatorship and can not maintain independent living.
[2018-05-11 19:00] VITALS: BP 96/63
[2018-05-11] MEDS: tamsulosin 0.4mg capsule PO SCH (21:00)
--- NOTE | 2018-05-12 03:13 | NUR ---
RN PROGRESS NOTE: Chief Complaint: Depression with S/I Legal hold: 5270 for DTS/GD. Report received from Yokasta Bazzi RN with use of SBAR Why are they here: Client has a long history of mental health issues, is unable to care for self. Client is depressed and irritable. ASSESSMENT: What has happened this shift: Client is non-compliant. Isolates in room and is irritable when interacting with staff. Refuses meds and physical assessment. Client fell asleep after chio-care. S/I, H/I: Passively suicidal. A/VH: Denies. Sleep: No difficulty falling or staying asleep. ADL's: Patient can transfer from bed to wheelchair independently. Group attendance: N/A. Were meds taken: Refused. Any med S/E: None MENTAL STATUS EXAM: Appearance: Disheveled, unkempt Eye contact: Avoidant. Behavior: Resistive to care. Mood: Depressed, hopeless/irritable. Affect: Agitated at times. Thought process: Poverty of thought with thought blocking. Cognition: A&O X3 (not to time or day) Insight: Impaired. Judgment: Impaired. PRN's used: None Interventions: Q 15 min checks for safety. Assistance with ADL's. Restraints/seclusion/emergency medication: N/A Justification of Continued Inpatient Treatment: Pt. remains gravely disabled and depressed with passive S/I. He is now on temporary probate conservatorship and can not maintain independent living.
[2018-05-12] MEDS: pantoprazole 40mg Tablet.DR PO SCH (07:30)
[2018-05-12 07:57] VITALS: BP 96/72
[2018-05-12] MEDS: multivitamins, therapeutics tablet PO SCH (08:00)
[2018-05-12] MEDS: thiamine 100mg tablet PO SCH ×2 (08:00→20:00)
[2018-05-12] MEDS: atorvastatin 10mg tablet PO SCH (08:00)
[2018-05-12] MEDS: docusate sod 100mg capsule PO SCH ×2 (08:00→20:00)
[2018-05-12] MEDS: fluoxetine 20mg/5ml UD cup PO SCH (08:00)
[2018-05-12] MEDS: folic acid 1mg tablet PO SCH (08:00)
[2018-05-12] MEDS: OLANZapine 5mg rapidly disint. tablet PO SCH ×2 (08:11→17:44)
[2018-05-12] MEDS: High Protein Shake w/Arg/Glut/Ca2+Bmb (Juven 19.3gm) pkt 240ml PO SCH ×6 (08:24→17:44)
[2018-05-12] MEDS: aspirin 81mg tab.chew PO SCH (08:25)
--- NOTE | 2018-05-12 13:41 | NUR ---
Reassessment: Documented PO intake continues to fluctuate with average 50-75% of meals however pt eating 100% of high protein shake TID. Med list indicates pt with two high protein shakes, however RN confirms that pt receiving just one high protein shake TID. RN states pt willing to eat more of meals if offered more time and that pt loves the shakes, informed RN that pt is able to order regular shakes at meals if desired. Pt currently meeting nutrient needs with PO intake of meals and high protein shake. [facility] 05/11. Will continue to follow. Recommendations: 1) Continue with regular diet 2) Continue with high protein shake TID 3) Encourage PO intake of meals 4) Weekly wt Addendum: 05/12/18 at [address] Amended: Links added.
--- NOTE | 2018-05-12 15:42 | NUR ---
N Progress Note: Chief Complaint: Depression with S/I Legal hold: 5270 Client on involuntary status for GD/DTS Report received from ROCIO Shah with use of SBAR Why are they here: Pt. presented to [facility] on a 5150 for DTS and failure to thrive. He has had multiple hospital visits, is homeless, and has a hx. of schizophrenia and anemia. He is estranged from his family, irritable, and makes delusional statements (such as "I can't swallow" or "I am an alien.") Pt. Chooses to stay in bed and has general muscle atrophy. He is currently on temporary Probate conservatorship. Diagnosis/presenting symptoms: Major depressive disorder, recurrent, severe with psychotic symptoms Pt. continues to present slightly irritable, fatigued, hopeless, and resistive to care. He denies S/I, however reports on going depression. He has ongoing delusions regarding swallowing and body dysmorphia. Assessment What has happened this shift: The patient was up for breakfast and took only zyprexa zydis medication and refused all others. He was helped to take a shower today. He is irritable and verbally abusive to staff. He gets up to meals an to sit in group room on and off then isolates to room and self transfers to bed. Delusional, thinks he can't swallow. Depressed mood, irritable affect. States, "I wish I were ." S/I, H/I: Passively suicidal A/VH: Denies Sleep: Napped ADL's: Showered today Group attendance: Yes Were meds taken: Zyprexa zydis only, refused all others Any med S/E: None Mental Status Exam Appearance: Disheveled, unkempt Eye contact: None Behavior: Resistive to care, verbally abusive Speech: Yelling Mood: Depressed, hopeless/helpless, resistive to care Affect: Agitated at times Thought process: Poverty of thought with thought blocking. Thought Content: Preoccupation with depressed mood and on-going delusions Cognition: A&O X3 (not to time or day) Insight: Impaired. Judgment: Impaired. PRN's used: None Interventions: Attempted 1:1 assessment with patient, provided active listening, maintained a safe and therapeutic environment to help establish rapport. Attempted education on importance of a medication regimen. Encouraged independent performance of ADLs, provide positive reinforcement on progress made, monitored repositioning. Encouraged patient to allow staffs assistance and care. Maintained Q 15 minute checks for safety. Maintained Q 15 minute checks for safety. Restraints/seclusion/emergency medication:N/A Justification of Continued Inpatient Treatment: Pt. remains gravely disabled and depressed with passive S/I. He is now on temporary probate conservatorship and can not maintain independent living.
[2018-05-12] MEDS: tamsulosin 0.4mg capsule PO SCH (20:35)
--- NOTE | 2018-05-13 01:57 | NUR ---
ROCIO PROGRESS NOTE: Chief Complaint: Grave disability Legal hold: 5250 Client on involuntary status for GD. Report received from ROCIO Barry Why are they here: The patient is a homeless man with long history at [facility]. He has multiple medical problems and presents as gravely disabled and unable to care for himself. Diagnosis/presenting symptoms: Psychosis NOS, delusional Assessment: What has happened this shift: The patient was found in his bed. The patient continues to be non-compliant with assessments and medications, "get the hell out of here." He remains isolated to his room at night, and gets agitated when chio-care performed. The patient refused any interaction. He has slept all shift. S/I, H/I: Denies. A/VH: Denies Sleep: Patient sleeps on and off. ADL's: Total assist. Group attendance: None Were meds taken: Patient refused Any med S/Es: None reported or observed Mental Status Exam Appearance: Patient laying in bed, with covers up to his chin. Eye contact: None. Behavior: Patient lays in bed, and resists care, agitated, combative at times. Speech: clear, yells when agitated.. Mood: Depressed, hopeless, helpless, angry, agitated, irate. Affect: Constricted. Thought process: Hopeless, helpless Thought Content: Preoccupied with thoughts of being useless, and nothing to live for. Cognition: Alert Insight: Poor Judgment: Poor Interventions: PRN's used: None Therapeutic interventions: Attempted 1:1 assessment. Attempted medications. Restraints/seclusion/emergency medication: None Justification of Continued Inpatient Treatment: The patient is gravely disabled and has no way to provide for food, housing, or group home.
[2018-05-13] MEDS: pantoprazole 40mg Tablet.DR PO SCH (07:30)
[2018-05-13] MEDS: atorvastatin 10mg tablet PO SCH (07:41)
[2018-05-13] MEDS: OLANZapine 5mg rapidly disint. tablet PO SCH ×2 (07:42→17:07)
[2018-05-13 07:45] VITALS: BP 103/65
[2018-05-13] MEDS: folic acid 1mg tablet PO SCH (07:52)
[2018-05-13] MEDS: docusate sod 100mg capsule PO SCH ×2 (07:52→20:00)
[2018-05-13] MEDS: fluoxetine 20mg/5ml UD cup PO SCH (07:52)
[2018-05-13] MEDS: aspirin 81mg tab.chew PO SCH (07:53)
[2018-05-13] MEDS: thiamine 100mg tablet PO SCH ×2 (07:53→20:00)
[2018-05-13] MEDS: multivitamins, therapeutics tablet PO SCH (07:53)
[2018-05-13] MEDS: High Protein Shake w/Arg/Glut/Ca2+Bmb (Juven 19.3gm) pkt 240ml PO SCH ×6 (08:12→17:49)
--- NOTE | 2018-05-13 13:57 | NUR ---
RN PROGRESS NOTE: Chief Complaint: Grave disability Legal hold: 5250 Client on involuntary status for GD. Report received from RN Why are they here: The patient is a homeless man with long history at [facility]. He has multiple medical problems and presents as gravely disabled and unable to care for himself. Diagnosis/presenting symptoms: Psychosis NOS, delusional Assessment: What has happened this shift: Patient was asleep in bed upon initial assessment as well as physical assessment and medication administration. He refused all of his medications except 2. He only wants the medications that can be dissolved in his mouth. Patient did not want to have a conversation about how he was doing he wants to be left alone. He stated "Im fine, I do not need to talk, Let me be". S/I, H/I: Denies. A/VH: Denies Sleep: Patient sleeps on and off. ADL's: Total assist. Group attendance: No group on Monday Were meds taken: Patient refused most meds Any med S/Es: None reported or observed Mental Status Exam Appearance: Patient laying in bed, with covers up to his chin. Eye contact: None. Behavior: Patient lays in bed, and resists care. Speech: clear Mood: Depressed, hopeless, helpless, angry, agitated, irate. Affect: Constricted. Thought process: Hopeless, helpless Thought Content: Preoccupied with thoughts of being useless, and nothing to live for. Cognition: Alert Insight: Poor Judgment: Poor Interventions: PRN's used: None Therapeutic interventions: Attempted 1:1 assessment. Attempted medications. Restraints/seclusion/emergency medication: None Justification of Continued Inpatient Treatment: The patient is gravely disabled and has no way to provide for food, housing, or nursing home.
[2018-05-13 20:00] VITALS: BP 99/59
[2018-05-13] MEDS: tamsulosin 0.4mg capsule PO SCH (21:00)
--- NOTE | 2018-05-14 03:14 | NUR ---
ROCIO PROGRESS NOTE: Chief Complaint: Grave disability Legal hold: Probate conservatorship. Client on involuntary status for GD. Report received from ROCIO Bauer Why are they here: The patient is a homeless man with long history at [facility]. He has multiple medical problems and presents as gravely disabled and unable to care for himself. Diagnosis/presenting symptoms: Psychosis NOS, delusional Assessment: What has happened this shift: The patient was sitting in the group room. He had finished dinner, and was still sitting there. Conversation was attempted, but was unsuccessful. "I'm not gonna talk you, won't you people just leave me alone?" The patient then wheeled himself to his room and put himself in bed. He continues to refuse any physical assessments. The patient has been sleeping all night. S/I, H/I: Denies. A/VH: Denies Sleep: Patient sleeps on and off. ADL's: Total assist, incontinent of bowel. Group attendance: None Were meds taken: Patient refused Any med S/Es: None reported or observed Mental Status Exam: Appearance: Disheveled, stinks, unshaved, unclean, hair standing up uncombed. Eye contact: None. Behavior: Patient lays in bed, and resists care, agitated, combative at times. Speech: clear, yells when agitated.. Mood: Depressed, hopeless, helpless, angry, agitated, irate. Affect: Constricted. Thought process: Hopeless, helpless Thought Content: Preoccupied with thoughts of being useless, and nothing to live for. Cognition: Alert Insight: Poor Judgment: Poor Interventions: PRN's used: None Therapeutic interventions: Attempted 1:1 assessment. Attempted medications. Restraints/seclusion/emergency medication: None Justification of Continued Inpatient Treatment: The patient is gravely disabled and has no way to provide for food, housing, or halfway.
[2018-05-14] MEDS: pantoprazole 40mg Tablet.DR PO SCH (07:30)
[2018-05-14 07:51] VITALS: BP 104/65
[2018-05-14] MEDS: High Protein Shake w/Arg/Glut/Ca2+Bmb (Juven 19.3gm) pkt 240ml PO SCH ×6 (08:00→18:00)
[2018-05-14] MEDS: atorvastatin 10mg tablet PO SCH (08:00)
[2018-05-14] MEDS: fluoxetine 20mg/5ml UD cup PO SCH (08:00)
[2018-05-14] MEDS: docusate sod 100mg capsule PO SCH ×2 (08:00→20:00)
[2018-05-14] MEDS: multivitamins, therapeutics tablet PO SCH (08:00)
[2018-05-14] MEDS: thiamine 100mg tablet PO SCH ×2 (08:00→20:00)
[2018-05-14] MEDS: folic acid 1mg tablet PO SCH (08:00)
[2018-05-14] MEDS: aspirin 81mg tab.chew PO SCH (08:30)
[2018-05-14] MEDS: OLANZapine 5mg rapidly disint. tablet PO SCH ×2 (09:01→18:56)
--- NOTE | 2018-05-14 16:45 | NUR ---
ROCIO PROGRESS NOTE: Chief Complaint: Grave disability Legal hold: Probate conservatorship. Client on involuntary status for GD. Report received from ROCIO Bauer Why are they here: The patient is a homeless man with long history at [facility]. He has multiple medical problems and presents as gravely disabled and unable to care for himself. Diagnosis/presenting symptoms: Psychosis NOS, delusional Assessment: What has happened this shift: The patient remained in bed a;; day except for breakfast and lunch. All meds were refused exvept for the Zyprexa. Patient states he would like to be left alone. He continues to refuse any physical assessments. The patient has been sleeping all day. S/I, H/I: Denies. A/VH: Denies Sleep: Patient sleeps on and off. ADL's: Total assist, incontinent of bowel. Group attendance: None Were meds taken: Patient refused Any med S/Es: None reported or observed Mental Status Exam: Appearance: Disheveled, stinks, unshaved, unclean, hair standing up uncombed. Eye contact: None. Behavior: Patient lays in bed, and resists care, agitated, combative at times. Speech: clear, yells when agitated.. Mood: Depressed, hopeless, helpless, angry, agitated, irate. Affect: Constricted. Thought process: Hopeless, helpless Thought Content: Preoccupied with thoughts of being useless, and nothing to live for. Cognition: Alert Insight: Poor Judgment: Poor Interventions: PRN's used: None Therapeutic interventions: Attempted 1:1 assessment. Attempted medications. Restraints/seclusion/emergency medication: None Justification of Continued Inpatient Treatment: The patient is gravely disabled and has no way to provide for food, housing, or detention.
[2018-05-14 20:44] VITALS: BP 94/54
[2018-05-14] MEDS: tamsulosin 0.4mg capsule PO SCH (21:00)
--- NOTE | 2018-05-15 02:04 | NUR ---
RN PROGRESS NOTE: Chief Complaint: Grave disability Legal hold: Probate conservatorship. Client on involuntary status for GD. Report received from ROCIO Loo Why are they here: The patient is a homeless man with long history at [facility]. He has multiple medical problems and presents as gravely disabled and unable to care for himself. Diagnosis/presenting symptoms: Psychosis NOS, delusional Assessment: What has happened this shift: The patient was laying down in bed. Irritable when talked. He continues to refuse most physical assessments. Pt refused all his meds except zypresxa statomg I cant swallow. Pt was incontinent of stool and was offered to change but pt kept saying he didnt have bm and leave him alone. He was very irritated when bed positioned was changed. The patient has been sleeping all night. S/I, H/I: Denies. A/VH: Denies Sleep: Patient sleeps on and off. ADL's: Total assist, incontinent of bowel. Group attendance: None Were meds taken: Patient refused except zyprexa Any med S/Es: None reported or observed Mental Status Exam: Appearance: Disheveled, stinks, unshaved, unclean, hair standing up uncombed. Eye contact: None. Behavior: Patient lays in bed, and resists care, agitated, combative at times. Speech: clear, yells when agitated.. Mood: Depressed, hopeless, helpless, angry, agitated, irate. Affect: Constricted. Thought process: Hopeless, helpless Thought Content: Preoccupied with thoughts of being useless, and nothing to live for. Cognition: Alert Insight: Poor Judgment: Poor Interventions: PRN's used: None Therapeutic interventions: Attempted 1:1 assessment. Attempted medications. Restraints/seclusion/emergency medication: None Justification of Continued Inpatient Treatment: The patient is gravely disabled and has no way to provide for food, housing, or snf.
--- NOTE | 2018-05-15 02:09 | NUR ---
not sure protein shake was given to pt. didn't get answer from pt "not drinking stuff"
[2018-05-15] MEDS: pantoprazole 40mg Tablet.DR PO SCH (07:30)
[2018-05-15] MEDS: OLANZapine 5mg rapidly disint. tablet PO SCH ×2 (07:50→18:00)
[2018-05-15 08:00] VITALS: BP 100/67
[2018-05-15] MEDS: folic acid 1mg tablet PO SCH (08:00)
[2018-05-15] MEDS: fluoxetine 20mg/5ml UD cup PO SCH (08:00)
[2018-05-15] MEDS: thiamine 100mg tablet PO SCH ×2 (08:00→20:00)
[2018-05-15] MEDS: docusate sod 100mg capsule PO SCH ×2 (08:00→20:00)
[2018-05-15] MEDS: atorvastatin 10mg tablet PO SCH (08:00)
[2018-05-15] MEDS: High Protein Shake w/Arg/Glut/Ca2+Bmb (Juven 19.3gm) pkt 240ml PO SCH ×7 (08:00→23:09)
[2018-05-15] MEDS: multivitamins, therapeutics tablet PO SCH (08:00)
[2018-05-15] MEDS: aspirin 81mg tab.chew PO SCH (08:30)
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
[2018-05-15 20:00] VITALS: BP 105/62
[2018-05-15] MEDS: tamsulosin 0.4mg capsule PO SCH (21:00)
--- NOTE | 2018-05-16 00:04 | NUR ---
RN PROGRESS NOTE: Chief Complaint: Grave disability Legal hold: Probate conservatorship. Client on involuntary status for GD. Report received from ROCIO Lan Why are they here: The patient is a homeless man with long history at [facility]. He has multiple medical problems and presents as gravely disabled and unable to care for himself. Diagnosis/presenting symptoms: Psychosis NOS, delusional Assessment: What has happened this shift: The patient is curled up in bed under the covers. He yells at mortgage loan underwriter for urning the light on. Patient refused assessment and says, "why don't you just leave me alone?" He refuses all medication and yells at mortgage loan underwriter to turn the lights back off. S/I, H/I: Denies. A/VH: Denies Sleep: sleep assessment notation ADL's: Total assist, incontinent of bowel. Group attendance: None Were meds taken: Patient refused Any med S/Es: None reported or observed Mental Status Exam: Appearance: Disheveled, unshaved Eye contact: avoids Behavior: Patient lays in bed, and resists care, agitated Speech: clear, yells when agitated.. Mood: Depressed, hopeless, helpless, angry, agitated, irate. Affect: Constricted. Thought process: Hopeless, helpless Thought Content: Preoccupied with thoughts of being useless, and nothing to live for. Cognition: Alert Insight: Poor Judgment: Poor Interventions: PRN's used: None Therapeutic interventions: Attempted 1:1 assessment. Attempted medications. Restraints/seclusion/emergency medication: None Justification of Continued Inpatient Treatment: The patient is gravely disabled and has no way to provide for food, housing, or snf.
[2018-05-16] MEDS: pantoprazole 40mg Tablet.DR PO SCH (07:30)
[2018-05-16 07:48] VITALS: BP 109/68
[2018-05-16] MEDS: fluoxetine 20mg/5ml UD cup PO SCH (08:00)
[2018-05-16] MEDS: High Protein Shake w/Arg/Glut/Ca2+Bmb (Juven 19.3gm) pkt 240ml PO SCH ×5 (08:00→18:00)
[2018-05-16] MEDS: atorvastatin 10mg tablet PO SCH (08:00)
[2018-05-16] MEDS: folic acid 1mg tablet PO SCH (08:00)
[2018-05-16] MEDS: docusate sod 100mg capsule PO SCH ×2 (08:00→20:00)
[2018-05-16] MEDS: multivitamins, therapeutics tablet PO SCH (08:00)
[2018-05-16] MEDS: thiamine 100mg tablet PO SCH ×2 (08:00→20:00)
[2018-05-16] MEDS: OLANZapine 5mg rapidly disint. tablet PO SCH ×2 (08:03→17:54)
[2018-05-16] MEDS: aspirin 81mg tab.chew PO SCH (08:30)
--- NOTE | 2018-05-16 17:40 | NUR ---
RN PROGRESS NOTE: Nursing Progress Note Chief Complaint: Depression with S/I Legal hold: 5270 Client on involuntary status for GD/DTS Report received from ROCIO Moore with use of SBAR Why are they here: Pt. presented to [facility] on a 5150 for DTS and failure to thrive. He has had multiple hospital visits, is homeless, and has a hx. of schizophrenia and anemia. He is estranged from his family, irritable, and makes delusional statements (such as "I can't swallow" or "I am an alien.") Pt. Chooses to stay in bed and has general muscle atrophy. He is currently on temporary Probate conservatorship. Diagnosis/presenting symptoms: Pt. continues to present slightly irritable, fatigued, hopeless, and resistive to care. He denies S/I, however reports ongoing depression. He has ongoing delusions regarding swallowing and body dysmorphia. Assessment What has happened this shift: Patient resting in bed at change of shift. Prior to breakfast patient is gotten up and cleaned. He again reports pain throughout his body but denies any form of treatment. He accepts to take Zydis but refuses all other medication. He calmly goes to group room for breakfast and after breakfast then returns to bed. He has another BM and is cleaned. After he goes back to sleep. Patient is assisted up for lunch, he is incontinent of stool, he is cleaned and taken to group room for lunch. His bedding is changed. S/I, H/I: none reported, no comments made r/t this throughout the day A/VH: none reported during shift Sleep: naps during the day. ADL's: Patient is able to move himself in and out of bed. Patient is able to feed himself and reposition self in bed, and transfer back to bed independently. Group attendance: no Were meds taken: Zyprexa Zydis all other meds refused Any med S/E: None Mental Status Exam Appearance: disheveled, fragile, elderly Eye contact: occasional Behavior: fatigued, irritable, hopeless, resistive to care Speech: Clear and soft, intensifies when irritable. Mood: Depressed, hopeless, and resistant to care Affect: restricted Thought process: linear Thought Content: Embarrassed over incontinence Cognition: A&O X3 (not to time or day) Insight: Impaired. Judgment: Impaired. PRN's used: None Interventions: Provided active listening with positive reinforcement, maintained a safe and therapeutic environment, provided medication education/encouragement with compliance, encouraged independent performance of ADLs, monitored skin and repositioning, and maintained Q 15 min safety checks. Restraints/seclusion/emergency medication:N/A Justification of Continued Inpatient Treatment: Pt. remains gravely disabled and depressed with passive S/I. He is now on temporary probate conservatorship and can not maintain independent living. Continued therapeutic support and medication management needed to provide stabilization, prevent decompensation, decreasing risk to patient and readmittance.
[2018-05-16 20:00] VITALS: BP 90/60
[2018-05-16] MEDS: tamsulosin 0.4mg capsule PO SCH (20:09)
--- NOTE | 2018-05-16 21:39 | NUR ---
Nursing Progress Note: Legal hold: The patient is on a probate conservatorship hold which does not cover mental health treatment. He agrees to sign in as a voluntary patient. Client on voluntary/involuntary status for being gravely disabled Report received from nurse with use of SBAR with Margi CHAN Why are they here for being gravely disabled and is unable to provide a plan for food, chcf or clothing. Assessment What has happened this shift: The patient was seen for the evening assessment. He was very resistive and agitated with any kind of assessment questions. He continues to have bizarre delusions for example when assessing his pulses he stated, "You're not going to find a pulse there. They can't even get one on my neck because I'm " He refused all of his HS medications. When asked what his plans were for when he leaves the hospital he stated he did not know because "I can't move" When asked if he would be willing to stay here at [facility] he replied, "For a little while" S/I, H/I: not verbalized in the evening assessment A/VH: Not verbalized in the evening assessment Sleep: Appears to be sleeping between nursing interventions ADL's: Requires assistance and prompting and is resistive to care Group attendance: No groups this shift Were meds taken: The patient refused any of his HS medications. Any med S/E: None noted Mental Status Exam Appearance:Laying on his bed with his eyes closed. Eye contact: None Behavior: Agitated with nursing interventions. Resistive to care Speech: Loud, angry Mood: Irritable Affect: Angry Thought process: Patient refusing to engage in conversation whether its of a social or clinical nature. Thought Content: Delusional Cognition: Not oriented to and thought it was June but did know he was in a psychiatric hospital Insight:Poor Judgment: Poor Interventions PRN's used:none Therapeutic interventions: Attempted to verbally engage patient. Encouraged him to take his medications. Reoriented as needed. Restraints/seclusion/emergency medication:No Justification of Continued Inpatient Treatment: The patient is not able to verbalize any kind of plan for food, chcf or clothing.
[2018-05-17] MEDS: pantoprazole 40mg Tablet.DR PO SCH (07:30)
[2018-05-17] MEDS: OLANZapine 5mg rapidly disint. tablet PO SCH ×2 (07:50→17:22)
[2018-05-17] MEDS: HYDROcodone/acetaminophen 10/325mg tab PO PRN (07:51)
[2018-05-17 08:00] VITALS: BP 108/65
[2018-05-17] MEDS: folic acid 1mg tablet PO SCH (08:00)
[2018-05-17] MEDS: multivitamins, therapeutics tablet PO SCH (08:00)
[2018-05-17] MEDS: atorvastatin 10mg tablet PO SCH (08:00)
[2018-05-17] MEDS: docusate sod 100mg capsule PO SCH ×2 (08:00→20:00)
[2018-05-17] MEDS: thiamine 100mg tablet PO SCH ×2 (08:00→20:00)
[2018-05-17] MEDS: fluoxetine 20mg/5ml UD cup PO SCH (08:00)
[2018-05-17] MEDS: High Protein Shake w/Arg/Glut/Ca2+Bmb (Juven 19.3gm) pkt 240ml PO SCH ×6 (08:21→17:18)
[2018-05-17] MEDS: aspirin 81mg tab.chew PO SCH (08:22)
[2018-05-17 08:59] VITALS: BP 107/65
--- NOTE | 2018-05-17 12:41 | NUR ---
NURSING PROGRESS NOTE: Legal hold: N/A Client on voluntary status, also probate conserved Report received from nurse with use of SBAR with Karley CHAN Why are they here:Pt is unable to provide a plan for food, chcf or clothing. Assessment What has happened this shift: [place] pt yelling and protesting at ADL care being provided this am before breakfast, pt was incontinent of stool, resistant to care, repeatedly yelled "Ow! Leave me alone!" Techs explained what they were doing and why to the pt before providing care. Pt continues to c/o severe 12/27 general and joint pain, usually refuses PO meds as he believes that he is unable to swallow though swallows food and fluids without difficulty. Discussed possibility of crushing [place] and mixing with Aspectiva shake which pt usually drinks 100% of, pt was agreeable stated, "that'd be nice." When asked about depression, pt responded, "I don't know, it's not mental, it's physical!" then, "maybe 07/27" denied SI/HI/AH/VH. Administered prn Acton 10/325 mg at 0751 in [place], pt drank nearly all of it, > 75%. Pt returned to bed after breakfast and napped/rested peacefully until just before lunch. Pt took Zydis but refused all other routine meds. S/I, H/I: Pt denies A/VH: Pt denies Sleep: napped peacefully afrter breakfast ADL's: Incontinent of bowel, is not aware of when he needs to go, needs incontinent care and much encouragement and prompting for ADLs. Group attendance: Pt declined to attend group. Were meds taken: Pt would only accept Zydis and Acton this am Any med S/E: None noted Mental Status Exam Appearance: pale, very thin, contractures Eye contact: Fair Behavior: irritable, resistant to care, verbal outbursts during ADL care but pleasant and cooperative once up in w/c. Speech: yells at times otherwise normal rate and volume Mood: Irritable, depressed Affect: tired, irritable, depressed Thought process: reality distortion/delusions Thought Content: Delusional, believes he can't swallow and that he has no heartbeat Cognition: A/O X 2, D/o to time and situation Insight:Poor Judgment: Poor Interventions PRN's used: Acton 10/325 mg Therapeutic interventions: 1:1 assessment, encouragement to participate/cooperate with ADL and incontinent care, reality orientation, encouragement to take meds, Q 15 minute checks. Restraints/seclusion/emergency medication:No Justification of Continued Inpatient Treatment: The patient is not able to verbalize any kind of plan for food, chcf or clothing.
[2018-05-17 20:00] VITALS: BP 96/59
[2018-05-17] MEDS: tamsulosin 0.4mg capsule PO SCH (21:00)
--- NOTE | 2018-05-18 00:02 | NUR ---
NURSING PROGRESS NOTE: Legal hold: Voluntary Report received from ROCIO Tucker with use of SBAR Why are they here: Pt. presented to [facility] on a 5150 for DTS and failure to thrive. He has had multiple hospital visits, is homeless, and has a hx. of schizophrenia and anemia. He is estranged from his family, irritable, and makes delusional statements (such as "I can't swallow" or "I am an alien.") Pt. Chooses to stay in bed and has general muscle atrophy. He is currently on temporary Probate conservatorship. Assessment What has happened this shift: Patient in his room in bed at change of shift laying on his right side. Attempt made to have conversation with and assess patient. He perseverates on the size of his knees, and the ability of not being able to swallow. Even thought it is reported that patient, eats, drinks and on occassion will take medications. He does not yell this shift, but is resistive to care, and does not like it when staff cleans up when he is incontinent and has a BM. Patient presented more calm this shift, he did not raise his voice as often and would respond to some questions as if he was thinking, and then respond with "I don't know." or "No." He denied that he got out of bed today, and denied that he ate or drank anything to day. Pateint presents negative in a I can't manner towards his abilirty to do things and has a hopeless/helpless mood. S/I, H/I: None this shift A/VH: Denies Sleep: Currently sleeping, see sleep assessment ADL's: Patient is able to move himself in and out of bed. Patient is able to feed himself and reposition self in bed, and transfer back to bed independently. Patient is incontinent of stool and will start scheduled toileting after meals. Group attendance: No groups this shift Were meds taken: None/refused Any med S/E: None Mental Status Exam Appearance: Disheveled, unkempt Eye contact: None Behavior: Resistive to care Speech: Slow, slightly anxious/upset in tone Mood: Depressed, hopeless/helpless, resistive to care Affect: Depressed Thought process: Poverty of thought with thought blocking. Thought Content: Preoccupation with depressed mood and on-going delusions Cognition: A&O X3 (not to time or day) Insight: Impaired. Judgment: Impaired. PRN's used: None Interventions: Attempted 1:1 assessment with patient, provided active listening, maintained a safe and therapeutic environment to help establish rapport. Attempted education on importance of a medication regimen. Encouraged independent performance of ADLs, provide positive reinforcement on progress made, monitored skin and repositioning. Encouraged patient to allow staffs assistance and care. Maintained Q 15 minute checks for safety. Maintained Q 15 minute checks for safety. Restraints/seclusion/emergency medication:N/A Justification of Continued Inpatient Treatment: The patient is not able to verbalize any kind of plan for food, half-way or clothing.
[2018-05-18] MEDS: pantoprazole 40mg Tablet.DR PO SCH (07:30)
[2018-05-18] MEDS: multivitamins, therapeutics tablet PO SCH (08:00)
[2018-05-18] MEDS: atorvastatin 10mg tablet PO SCH (08:00)
[2018-05-18] MEDS: docusate sod 100mg capsule PO SCH ×2 (08:00→20:00)
[2018-05-18] MEDS: fluoxetine 20mg/5ml UD cup PO SCH (08:00)
[2018-05-18] MEDS: thiamine 100mg tablet PO SCH ×2 (08:00→20:00)
[2018-05-18] MEDS: High Protein Shake w/Arg/Glut/Ca2+Bmb (Juven 19.3gm) pkt 240ml PO SCH ×6 (08:00→17:48)
[2018-05-18] MEDS: folic acid 1mg tablet PO SCH (08:00)
[2018-05-18 08:03] VITALS: BP 102/57
[2018-05-18] MEDS: OLANZapine 5mg rapidly disint. tablet PO SCH ×2 (08:03→17:48)
[2018-05-18] MEDS: HYDROcodone/acetaminophen 10/325mg tab PO PRN (08:04)
[2018-05-18] MEDS: aspirin 81mg tab.chew PO SCH (08:30)
--- NOTE | 2018-05-18 12:03 | NUR ---
NURSING PROGRESS NOTE: Legal hold: Voluntary Report received from ROCIO Justin with use of SBAR Why are they here: Pt. presented to [facility] on a 5150 for DTS and failure to thrive. He has had multiple hospital visits, is homeless, and has a hx. of schizophrenia and anemia. He is estranged from his family, irritable, and makes delusional statements (such as "I can't swallow" or "I am an alien.") Pt. Chooses to stay in bed and has general muscle atrophy. He is currently on temporary Probate conservatorship. Assessment What has happened this shift: The patient was asleep at change of shift. Got up for meals to group room. Depressed mood irritable affect. Fixed delusion that he can not swallow. Patient eats and swallows. Refuses all medications except zydis. Tried to give [place] for pain by crushing and putting in milkshake, then patient refused to drink the shake. Napped through morning group, up for afternoon group. Resistive to care throughout day. S/I, H/I: Passive suicidal thoughts A/VH: Denies Sleep: Currently sleeping, see sleep assessment ADL's: Patient is able to move himself in and out of bed. Patient is able to feed himself and reposition self in bed, and transfer back to bed independently. Group attendance: afternoon Were meds taken: refused all but zydis Any med S/E: None Mental Status Exam Appearance: Disheveled, unkempt Eye contact: None Behavior: Resistive to care Speech: clear Mood: Depressed, hopeless/helpless, resistive to care Affect: Irritable Thought process: Poverty of thought with thought blocking. Thought Content: Preoccupation with depressed mood and on-going delusions Cognition: A&O x2 Insight: Impaired. Judgment: Impaired. PRN's used: None Interventions: Attempted 1:1 assessment with patient, provided active listening, maintained a safe and therapeutic environment to help establish rapport. Attempted education on importance of a medication regimen. Encouraged independent performance of ADLs, provide positive reinforcement on progress made, monitored skin and repositioning. Encouraged patient to allow staffs assistance and care. Maintained Q 15 minute checks for safety. Maintained Q 15 minute checks for safety. Restraints/seclusion/emergency medication:N/A Justification of Continued Inpatient Treatment: The patient is not able to verbalize any kind of plan for food, snf or clothing.
[2018-05-18 20:00] VITALS: BP 92/62
[2018-05-18] MEDS: tamsulosin 0.4mg capsule PO SCH (21:00)
--- NOTE | 2018-05-19 01:29 | NUR ---
NURSING PROGRESS NOTE: Legal hold: Voluntary Report received from ROCIO Malin with use of SBAR Why are they here: Patient presented to [facility] on a 5150 for DTS and failure to thrive. He has had multiple hospital visits, is homeless, and has a hx. of schizophrenia and anemia. He is estranged from his family, irritable, and makes delusional statements (such as "I can't swallow" or "I am an alien.") Pt. Chooses to stay in bed and has general muscle atrophy. He is currently on temporary Probate conservatorship. Assessment What has happened this shift: Patient in bed at the change of shift. He was resistant to assessment, and just yelled at staff to "Leave me alone.", and "Go away". He repeatedly tells staff they are "Stupid" and "You are doing that wrong." When offered medications, food, and water he always states "Don't you know I cant swallow." and when encouraged he will just repeat "I cant." and continue to tell staff they are "Stupid". 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 He was told his action was inappropriate and that he can not treat staff that way. Then he was educated on the need to lay on his left side to help relieve pressure from his right hip, although reluctant patient did rotate and lay on his left side with a pillow placed between his knees. Right hip dressing assessed and was CDI it was dated changed on 05/18. Patient remained in his room in bed the remainder of this shift. S/I, H/I: None this shift A/VH: Denies Sleep: Currently sleeping, see sleep assessment ADL's: Patient is able to move himself in and out of bed. Patient is able to feed himself and reposition self in bed, and transfer back to bed independently. Patient is incontinent of stool and will start scheduled toileting after meals. Group attendance: No groups this shift Were meds taken: None/refused Any med S/E: None Mental Status Exam Appearance: Disheveled, unkempt Eye contact: None Behavior: Resistive to care, yells at staff, pushed bedside table into staff. Speech: Yelling Mood: Depressed, hopeless/helpless, resistive to care, irritable, agitated Affect: Depressed, irritable, agitated Thought process: Poverty of thought with thought blocking. Thought Content: Preoccupation with depressed mood and on-going delusions Cognition: A&O X3 (not to time or day) Insight: Impaired. Judgment: Impaired. PRN's used: None Interventions: Attempted 1:1 assessment with patient, provided active listening, maintained a safe and therapeutic environment to help establish rapport. Attempted education on importance of a medication regimen. Encouraged independent performance of ADLs, provide positive reinforcement on progress made, monitored skin and repositioning. Encouraged patient to allow staffs assistance and care. Maintained Q 15 minute checks for safety. Restraints/seclusion/emergency medication:N/A Justification of Continued Inpatient Treatment: The patient is not able to verbalize any kind of plan for food, longterm or clothing.
[2018-05-19] MEDS: pantoprazole 40mg Tablet.DR PO SCH (07:30)
[2018-05-19] MEDS: thiamine 100mg tablet PO SCH ×2 (08:00→20:00)
[2018-05-19] MEDS: fluoxetine 20mg/5ml UD cup PO SCH (08:00)
[2018-05-19] MEDS: docusate sod 100mg capsule PO SCH ×2 (08:00→20:00)
[2018-05-19] MEDS: folic acid 1mg tablet PO SCH (08:00)
[2018-05-19] MEDS: atorvastatin 10mg tablet PO SCH (08:00)
[2018-05-19] MEDS: multivitamins, therapeutics tablet PO SCH (08:00)
[2018-05-19 08:17] VITALS: BP 112/69
[2018-05-19] MEDS: OLANZapine 5mg rapidly disint. tablet PO SCH ×2 (08:21→17:42)
[2018-05-19] MEDS: aspirin 81mg tab.chew PO SCH (08:30)
[2018-05-19] MEDS: High Protein Shake w/Arg/Glut/Ca2+Bmb (Juven 19.3gm) pkt 240ml PO SCH ×6 (08:52→17:39)
--- NOTE | 2018-05-19 12:29 | NUR ---
Reassessment: Patient's diet order was changed on 05/16 to mechanical soft chopped food. Documented PO intake fluctuates with decline averaging 25% however documented intake of 100% at breakfast this AM. Pt also receiving high protein shake TID with 100% intake, pt likely meeting nutrient needs. Although documented that pt with poor PO display fabricator notes state pt is still eating and drinking and state pt refused high protein shake on 05/18 after meds were crushed and put into shake. Wt remains stable since last RD note. Per physical assessment pt is A/O x 2, agitated, and resistive to care. Med list indicates pt is continuing to refuse some medications. LBM 05/19. Will continue to follow. Recommendations: 1) Continue with [facility] soft diet 2) Continue with high protein shake TID 3) Encourage PO intake of meals 4) Weekly wt Addendum: 05/19/18 at [address] Amended: Links added.
--- NOTE | 2018-05-19 16:26 | NUR ---
NURSING PROGRESS NOTE: Legal hold: Probate Conserved Report received from ROCIO Justin with use of SBAR Why are they here: Pt. presented to [facility] on a 5150 for DTS and failure to thrive. He has had multiple hospital visits, is homeless, and has a hx. of schizophrenia and anemia. He is estranged from his family, irritable, and makes delusional statements (such as "I can't swallow" or "I am an alien.") Pt. Chooses to stay in bed and has general muscle atrophy. He is currently on temporary Probate conservatorship. Assessment What has happened this shift: The patient was asleep at change of shift. Got up for meals to group room. Depressed mood irritable affect. Fixed delusion that he can not swallow. Patient eats and swallows. Refuses all medications except zydis. Tried to give Had shower today. Napped in afternoon. Less resistive to care today. Passive suicidal thoughts, "What's the use of living." S/I, H/I: Passive suicidal thoughts A/VH: Denies Sleep: Napped ADL's: Patient is able to move himself in and out of bed. Patient is able to feed himself and reposition self in bed, and transfer back to bed independently. Group attendance: None Were meds taken: refused all but zydis Any med S/E: None Mental Status Exam Appearance: Disheveled Eye contact: None Behavior: Resistive to care Speech: clear Mood: Depressed, hopeless/helpless, resistive to care Affect: Irritable Thought process: Poverty of thought with thought blocking. Thought Content: Preoccupation with depressed mood and on-going delusions Cognition: A&O x2 Insight: Impaired. Judgment: Impaired. PRN's used: None Interventions: Attempted 1:1 assessment with patient, provided active listening, maintained a safe and therapeutic environment to help establish rapport. Attempted education on importance of a medication regimen. Encouraged independent performance of ADLs, provide positive reinforcement on progress made, monitored skin and repositioning. Encouraged patient to allow staffs assistance and care. Maintained Q 15 minute checks for safety. Maintained Q 15 minute checks for safety. Restraints/seclusion/emergency medication:N/A Justification of Continued Inpatient Treatment: The patient is not able to verbalize any kind of plan for food, halfway or clothing.
[2018-05-19 20:00] VITALS: BP 108/68
[2018-05-19] MEDS: tamsulosin 0.4mg capsule PO SCH (21:00)
--- NOTE | 2018-05-20 01:06 | NUR ---
ROCIO PROGRESS NOTE: Chief Complaint: Grave disability Legal hold: None. Client on voluntary status for GD. Report received from ROCIO Malin Why are they here: The patient is a homeless man with long history at [facility]. He has multiple medical problems and presents as gravely disabled and unable to care for himself. Diagnosis/presenting symptoms: Psychosis NOS, delusional, agitation, worthlessness, hopelessness. Assessment: What has happened this shift: The patient was in bed at shift change. 1:1 assessment was attempted, but the patient just yelled, "get out of here and leave me alone." He was offered medications, but said, "you know I can't swallow, just leave me alone." The patient spent the night in his bed. He was lying on his right hip, and was asked to change to his other side, "just go away." He has been sleeping most of the night. S/I, H/I: Denies. A/VH: Denies Sleep: Patient sleeps on and off. ADL's: Total assist, incontinent of bowel. Group attendance: None Were meds taken: Patient refused Any med S/Es: None reported or observed Mental Status Exam: Appearance: Disheveled, stinks, unshaved, unclean, hair standing up uncombed. Eye contact: Avoids. Behavior: Patient lays in bed and resists care, agitated, combative at times. Speech: Clear, yells when agitated. Mood: Depressed, hopeless, helpless, angry, agitated, irate. Affect: Constricted. Thought process: Hopeless, helpless Thought Content: Preoccupied with thoughts of being useless, and nothing to live for. Cognition: Alert Insight: Poor Judgment: Poor Interventions: PRN's used: None Therapeutic interventions: Attempted 1:1 assessment. Attempted medications. Restraints/seclusion/emergency medication: None Justification of Continued Inpatient Treatment: The patient is gravely disabled and has no way to provide for food, housing, or alf.
[2018-05-20] MEDS: pantoprazole 40mg Tablet.DR PO SCH (07:30)
[2018-05-20 08:00] VITALS: BP 136/87
[2018-05-20] MEDS: High Protein Shake w/Arg/Glut/Ca2+Bmb (Juven 19.3gm) pkt 240ml PO SCH ×6 (08:00→18:01)
[2018-05-20] MEDS: folic acid 1mg tablet PO SCH (08:00)
[2018-05-20] MEDS: atorvastatin 10mg tablet PO SCH (08:00)
[2018-05-20] MEDS: multivitamins, therapeutics tablet PO SCH (08:00)
[2018-05-20] MEDS: fluoxetine 20mg/5ml UD cup PO SCH (08:00)
[2018-05-20] MEDS: docusate sod 100mg capsule PO SCH ×2 (08:00→20:00)
[2018-05-20] MEDS: thiamine 100mg tablet PO SCH ×2 (08:00→20:00)
[2018-05-20] MEDS: aspirin 81mg tab.chew PO SCH (08:30)
[2018-05-20] MEDS: OLANZapine 5mg rapidly disint. tablet PO SCH ×2 (08:31→18:07)
[2018-05-20 10:24] VITALS: BP 108/68
--- NOTE | 2018-05-20 12:17 | NUR ---
Per taken per policy q week Addendum: 05/20/18 at 1217 by Conchis Mauricio RN Amended: Links added.
--- NOTE | 2018-05-20 16:59 | NUR ---
NURSING PROGRESS NOTE: Legal hold: Probate Conserved Report received from ROCIO Schwartz with use of SBAR Why are they here: Pt. presented to [facility] on a 5150 for DTS and failure to thrive. He has had multiple hospital visits, is homeless, and has a hx. of schizophrenia and anemia. He is estranged from his family, irritable, and makes delusional statements (such as "I can't swallow" or "I am an alien.") Pt. Chooses to stay in bed and has general muscle atrophy. He is currently on temporary Probate conservatorship. Assessment What has happened this shift: Pateint up for all meals. Returns to his room after each meal. Turned q2 hours. He continues to refuse all PO meds but zydis "I can't swallow." He eats and swallows throughout each meal. S/I, H/I: Passive suicidal thoughts A/VH: Denies Sleep: Napped ADL's: Patient is able to move himself in and out of bed. Patient is able to feed himself and reposition self in bed, and transfer back to bed independently. Group attendance: N Were meds taken: only zydis Any med S/E: Nonr reportted or observed Mental Status Exam Appearance: [facility] scrubs Eye contact: Poor Behavior: Resistive to care Speech: clear Mood: Depressed, hopeless/helpless, resistive to care Affect: Irritable Thought process: Poverty of thought with thought blocking. Thought Content: unknown Cognition: A&O x2 Insight: Impaired. Judgment: Impaired. PRN's used: None Interventions: Attempted 1:1 assessment with patient, provided active listening, maintained a safe and therapeutic environment to help establish rapport. Attempted education on importance of a medication regimen. Encouraged independent performance of ADLs, provide positive reinforcement on progress made, monitored skin and repositioning. Encouraged patient to allow staffs assistance and care. Maintained Q 15 minute checks for safety. Maintained Q 15 minute checks for safety. Restraints/seclusion/emergency medication:N/A Justification of Continued Inpatient Treatment: The patient is not able to verbalize any kind of plan for food, fpc or clothing.
[2018-05-20] MEDS: tamsulosin 0.4mg capsule PO SCH (21:00)
--- NOTE | 2018-05-21 00:55 | NUR ---
RN PROGRESS NOTE: Chief Complaint: Grave disability Legal hold: None. Client on T-con for GD. Report received from ROCIO Balderrama Why are they here: The patient is a homeless man with long history at [facility]. He has multiple medical problems and presents as gravely disabled and unable to care for himself. Diagnosis/presenting symptoms: Psychosis NOS, delusional, agitation, worthlessness, hopelessness. Assessment: What has happened this shift: The patient was found in bed. He refused to have vital signs taken, refused medications, and stayed in bed all shift. He is turned q2 hours, and is changed when incontinent of bowels. The patient uses a urinal himself. He continues to be angry. S/I, H/I: Passive A/VH: Denies Sleep: Patient sleeps on and off. ADL's: Total assist, incontinent of bowel. Group attendance: None Were meds taken: Patient refused Any med S/Es: None reported or observed Mental Status Exam: Appearance: Disheveled, stinks, unshaved, unclean, hair standing up uncombed. Eye contact: Poor. Behavior: Patient lays in bed and resists care, agitated, combative at times. Speech: Clear, yells when agitated. Mood: Depressed, hopeless, helpless, angry, agitated, irate. Affect: Constricted. Thought process: Hopeless, helpless Thought Content: Preoccupied with thoughts of being useless, and nothing to live for. Cognition: Alert Insight: Poor Judgment: Poor Interventions: PRN's used: None Therapeutic interventions: Attempted 1:1 assessment. Attempted medications. Maintained safe environment. Monitored skin and turned q2 hours. q15 minute safety checks. Restraints/seclusion/emergency medication: None Justification of Continued Inpatient Treatment: The patient is gravely disabled and has no way to provide for food, housing, or retirement.
[2018-05-21] MEDS: pantoprazole 40mg Tablet.DR PO SCH (07:30)
[2018-05-21] MEDS: OLANZapine 5mg rapidly disint. tablet PO SCH ×2 (07:55→17:54)
[2018-05-21 07:58] VITALS: BP 110/64
[2018-05-21] MEDS: docusate sod 100mg capsule PO SCH ×2 (08:00→20:00)
[2018-05-21] MEDS: fluoxetine 20mg/5ml UD cup PO SCH (08:00)
[2018-05-21] MEDS: atorvastatin 10mg tablet PO SCH (08:00)
[2018-05-21] MEDS: folic acid 1mg tablet PO SCH (08:00)
[2018-05-21] MEDS: thiamine 100mg tablet PO SCH ×2 (08:00→20:00)
[2018-05-21] MEDS: multivitamins, therapeutics tablet PO SCH (08:00)
[2018-05-21] MEDS: aspirin 81mg tab.chew PO SCH (08:30)
[2018-05-21] MEDS: High Protein Shake w/Arg/Glut/Ca2+Bmb (Juven 19.3gm) pkt 240ml PO SCH ×4 (08:59→13:00)
--- NOTE | 2018-05-21 15:10 | NUR ---
NURSING PROGRESS NOTE: Legal hold: Probate Conserved Report received from ROCIO Schwartz with use of SBAR Why are they here: Pt. presented to [facility] on a 5150 for DTS and failure to thrive. He has had multiple hospital visits, is homeless, and has a hx. of schizophrenia and anemia. He is estranged from his family, irritable, and makes delusional statements (such as "I can't swallow" or "I am an alien.") Pt. Chooses to stay in bed and has general muscle atrophy. He is currently on temporary Probate conservatorship. Assessment What has happened this shift: Patient up for all meals. Returns to his room after each meal. Turned q2 hours. He continues to refuse all PO meds but zydis. He eats and swallows throughout each meal but refuses to take medications. S/I, H/I: Passive suicidal thoughts A/VH: Denies Sleep: naps in between meals ADL's: Patient is able to move himself in and out of bed. Patient is able to feed himself and reposition self in bed, and transfer back to bed independently. Group attendance: N Were meds taken: only zydis Any med S/E: None noted or reported Mental Status Exam Appearance: [facility] scrubs Eye contact: Poor Behavior: Resistive to care Speech: clear Mood: Depressed, hopeless/helpless, resistive to care Affect: Irritable Thought process: Poverty of thought with thought blocking. Thought Content: unknown Cognition: A&O x2 Insight: Impaired. Judgment: Impaired. PRN's used: None Interventions: Attempted 1:1 assessment with patient, provided active listening, maintained a safe and therapeutic environment to help establish rapport. Attempted education on importance of a medication regimen. Encouraged independent performance of ADLs, provide positive reinforcement on progress made, monitored skin and repositioning. Encouraged patient to allow staffs assistance and care. Maintained Q 15 minute checks for safety. Maintained Q 15 minute checks for safety. Restraints/seclusion/emergency medication:N/A Justification of Continued Inpatient Treatment: The patient is not able to verbalize any kind of plan for food, correction or clothing.
[2018-05-21 20:00] VITALS: BP 107/67
[2018-05-21] MEDS: tamsulosin 0.4mg capsule PO SCH (21:00)
--- NOTE | 2018-05-21 21:48 | NUR ---
RN PROGRESS NOTE: Chief Complaint: Grave disability Legal hold: Voluntary. Client on T-con for GD. Report received from ROCIO Balderrama Why are they here: The patient is a homeless man with long history at [facility]. He has multiple medical problems and presents as gravely disabled and unable to care for himself. Diagnosis/presenting symptoms: Psychosis NOS, delusional, agitation, worthlessness, hopelessness. Assessment: What has happened this shift: The patient was found in bed. He refused all medications, "You know I can't swallow, " and stayed in bed all shift. He is turned q2 hours, and is changed when incontinent of bowels. The patient uses a urinal himself. He continues to be non-compliant and angers easily. S/I, H/I: Passive A/VH: Denies Sleep: Patient sleeps on and off. ADL's: Total assist, incontinent of bowel. Group attendance: None Were meds taken: Patient refused Any med S/Es: None reported or observed Mental Status Exam: Appearance: Disheveled, stinks, unshaved, unclean, hair standing up uncombed. Eye contact: None. Behavior: Patient lays in bed and resists care, agitated, combative at times. Speech: Clear, yells when agitated. Mood: Depressed, hopeless, helpless, angry, agitated, irate. Affect: Constricted. Thought process: Hopeless, helpless Thought Content: Preoccupied with thoughts of being useless, and nothing to live for. Cognition: Alert Insight: Poor Judgment: Poor Interventions: PRN's used: None Therapeutic interventions: Attempted 1:1 assessment. Attempted medications. Maintained safe environment. Monitored skin and turned q2 hours. q15 minute safety checks. Restraints/seclusion/emergency medication: None Justification of Continued Inpatient Treatment: The patient is gravely disabled and has no way to provide for food, housing, or penitentiary.
[2018-05-22] MEDS: pantoprazole 40mg Tablet.DR PO SCH (07:30)
[2018-05-22 07:33] VITALS: BP 110/69
[2018-05-22] MEDS: OLANZapine 5mg rapidly disint. tablet PO SCH ×2 (07:57→18:00)
[2018-05-22] MEDS: docusate sod 100mg capsule PO SCH ×2 (07:58→20:00)
[2018-05-22] MEDS: folic acid 1mg tablet PO SCH (07:58)
[2018-05-22] MEDS: multivitamins, therapeutics tablet PO SCH (07:59)
[2018-05-22] MEDS: fluoxetine 20mg/5ml UD cup PO SCH (07:59)
[2018-05-22] MEDS: thiamine 100mg tablet PO SCH ×2 (07:59→20:00)
[2018-05-22] MEDS: aspirin 81mg tab.chew PO SCH (07:59)
[2018-05-22] MEDS: atorvastatin 10mg tablet PO SCH (07:59)
[2018-05-22] MEDS: High Protein Shake w/Arg/Glut/Ca2+Bmb (Juven 19.3gm) pkt 240ml PO SCH ×6 (08:00→18:00)
--- NOTE | 2018-05-22 16:15 | NUR ---
Nursing Progress Note Chief Complaint: Depression with S/I Legal hold: 5270 Client on involuntary status for GD/DTS Report received from Andrade CHAN with use of SBAR Why are they here: Pt. presented to [facility] on a 5150 for DTS and failure to thrive. He has had multiple hospital visits, is homeless, and has a hx. of schizophrenia and anemia. He is estranged from his family, irritable, and makes delusional statements (such as "I can't swallow" or "I am an alien.") Pt. Chooses to stay in bed and has general muscle atrophy. He is currently on temporary Probate conservatorship. Diagnosis/presenting symptoms: Pt. continues to present slightly irritable, fatigued, hopeless, and resistive to care. He denies S/I, however reports ongoing depression. He has ongoing delusions regarding swallowing and body dysmorphia. Assessment What has happened this shift: Recieved patient in bed at start of shift. Pt awoke and went to group room, where he had a hot chocolate and took his AM zyprexa w/o complaint. He refused all other meds. Pt in moderately pleasant mood. Pt wheeled self back to his room and transfered back to bed w/o any physical help. Same movement to and from bed around lunch. He did not attend groups and stayed in bed between meals. Lacks motivation or hope for getting better in the future. Spent time talking with room mate and appeared to enjoy the conversation. S/I, H/I: Passively suicidal. A/VH: Denies Sleep: Takes several naps during the day. ADL's: Patient is able to move himself in and out of bed. Patient is able to feed himself and reposition self in bed, and transfer back to bed independently. Patient is incontinent of stool and will start scheduled toileting after meals. Group attendance: Pt. did not attend groups today Were meds taken: Zyprexa Zydis. Any med S/E: None Mental Status Exam Appearance: disheveled, fragile, elderly gentleman wearing green scrubs. Eye contact: Poor Behavior: Withdrawn, fatigued, slightly irritable, resistive to care Speech: Clear and soft, intensifies when irritable. Mood: Depressed, hopeless, and resistant to care Affect: Constricted Thought process: Poverty of thought with thought blocking. Thought Content: Preoccupation with depressed mood and on-going delusions Cognition: A&O X3 (not to time or day) Insight: Impaired. Judgment: Impaired. PRN's used: None Interventions: Provided active listening, maintained a safe and therapeutic environment, provided medication education/encouragement with compliance, encouraged independent performance of ADLs, provide positive reinforcement on progress made, monitored skin and repositioning, and maintained Q 15 min safety checks. Restraints/seclusion/emergency medication:N/A Justification of Continued Inpatient Treatment: Pt. remains gravely disabled and depressed with passive S/I. He is now on temporary probate conservatorship and can not maintain independent living.
[2018-05-22 20:50] VITALS: BP 94/61
[2018-05-22] MEDS: tamsulosin 0.4mg capsule PO SCH (21:00)
--- NOTE | 2018-05-23 03:48 | NUR ---
Nursing Progress Note Chief Complaint: Depression with S/I Legal hold: 5270 Client on involuntary status for GD/DTS Report received from Kailash CHAN with use of SBAR Why are they here: Pt. presented to [facility] on a 5150 for DTS and failure to thrive. He has had multiple hospital visits, is homeless, and has a hx. of schizophrenia and anemia. He is estranged from his family, irritable, and makes delusional statements (such as "I can't swallow" or "I am an alien.") Pt. Chooses to stay in bed and has general muscle atrophy. He is currently on temporary Probate conservatorship. Diagnosis/presenting symptoms: Pt. continues to present slightly irritable, fatigued, hopeless, and resistive to care. He denies S/I, however reports ongoing depression. He has ongoing delusions regarding swallowing and body dysmorphia. Assessment What has happened this shift: This patient is sitting in the community room following shift change. He has been transfer self in and out of his wheel chair. 1:1 Evaluation: This patient is well oriented. He speaks freely and converses with his room mate. Patient is upbeat and laughs on occasion. Patient tells this travel writer he didn't go to group today. The day shift RN's and other staff have had some luck with this patient and his personal hygiene. At times patient is blunted. Once back in bed the patient declines to take his evening medications. This patient is advised that he is in a safe place. S/I, H/I: Passively suicidal. A/VH: Denies Sleep: Takes several naps during the day. ADL's: Patient is able to move himself in and out of bed. Patient is able to feed himself and reposition self in bed, and transfer back to bed independently. Patient is incontinent of stool and will start scheduled toileting after meals. Group attendance: Pt. did not attend groups today Were meds taken: Patient declined night time medications. Any med S/E: None Mental Status Exam Appearance: disheveled, fragile, elderly gentleman wearing green scrubs. Eye contact: Poor Behavior: Withdrawn, fatigued, slightly irritable, resistive to care Speech: Clear and soft, intensifies when irritable. Mood: Depressed, hopeless, and resistant to care Affect: Constricted Thought process: Poverty of thought with thought blocking. Thought Content: Preoccupation with depressed mood and on-going delusions Cognition: A&O X3 (not to time or day) Insight: Impaired. Judgment: Impaired. PRN's used: None Interventions: Provided active listening, maintained a safe and therapeutic environment, provided medication education/encouragement with compliance, encouraged independent performance of ADLs, provide positive reinforcement on progress made, monitored skin and repositioning, and maintained Q 15 min safety checks. Restraints/seclusion/emergency medication:N/A Justification of Continued Inpatient Treatment: Pt. remains gravely disabled and depressed with passive S/I. He is now on temporary probate conservatorship and can not maintain independent living.
[2018-05-23] MEDS: pantoprazole 40mg Tablet.DR PO SCH (07:30)
[2018-05-23] MEDS: atorvastatin 10mg tablet PO SCH (08:00)
[2018-05-23] MEDS: High Protein Shake w/Arg/Glut/Ca2+Bmb (Juven 19.3gm) pkt 240ml PO SCH ×6 (08:00→18:00)
[2018-05-23] MEDS: docusate sod 100mg capsule PO SCH ×2 (08:00→20:00)
[2018-05-23] MEDS: fluoxetine 20mg/5ml UD cup PO SCH (08:00)
[2018-05-23] MEDS: multivitamins, therapeutics tablet PO SCH (08:00)
[2018-05-23] MEDS: folic acid 1mg tablet PO SCH (08:00)
[2018-05-23] MEDS: thiamine 100mg tablet PO SCH ×2 (08:00→20:00)
[2018-05-23] MEDS: OLANZapine 5mg rapidly disint. tablet PO SCH ×2 (08:01→18:00)
[2018-05-23] MEDS: aspirin 81mg tab.chew PO SCH (08:30)
[2018-05-23 09:09] VITALS: BP 101/68
--- NOTE | 2018-05-23 15:00 | NUR ---
Nursing Progress Note Chief Complaint: Depression with S/I Legal hold: 5270 Client on involuntary status for GD/DTS Report received from Cholo CHAN with use of SBAR Why are they here: Pt. presented to [facility] on a 5150 for DTS and failure to thrive. He has had multiple hospital visits, is homeless, and has a hx. of schizophrenia and anemia. He is estranged from his family, irritable, and makes delusional statements (such as "I can't swallow" or "I am an alien.") Pt. Chooses to stay in bed and has general muscle atrophy. He is currently on temporary Probate conservatorship. Diagnosis/presenting symptoms: Pt. continues to present slightly irritable, fatigued, hopeless, and resistive to care. He denies S/I, however reports ongoing depression. He has ongoing delusions regarding swallowing and body dysmorphia. Assessment What has happened this shift: Recieved patient in bed. Pt awoke and went to group room, where he ate lunch with others. He returned to bed by himself and drank a hot chocolate. He refused all meds except Zyprexa in AM. Overall angry and depressed mood although able to have short moments of conversing pleasantly. He did not attend groups and stayed in bed between meals. Continues to lack motivation or hope for getting better in the future. Appears to enjoy talking with room mate. S/I, H/I: Passively suicidal. A/VH: Denies Sleep: Takes several naps during the day. ADL's: Patient is able to move himself in and out of bed. Patient is able to feed himself and reposition self in bed, and transfer back to bed independently. Patient is incontinent of stool and will start scheduled toileting after meals. Group attendance: Pt. did not attend groups today Were meds taken: Zyprexa Zydis. Any med S/E: None Mental Status Exam Appearance: disheveled, fragile, elderly gentleman wearing green scrubs. Eye contact: Poor Behavior: Withdrawn, fatigued, slightly irritable, resistive to care Speech: Clear and soft, intensifies when irritable. Mood: Depressed, hopeless, and resistant to care Affect: Constricted Thought process: Poverty of thought with thought blocking. Thought Content: Preoccupation with depressed mood and on-going delusions Cognition: A&O X3 (not to time or day) Insight: Impaired. Judgment: Impaired. PRN's used: None Interventions: Provided active listening, maintained a safe and therapeutic environment, provided medication education/encouragement with compliance, encouraged independent performance of ADLs, provide positive reinforcement on progress made, monitored skin and repositioning, and maintained Q 15 min safety checks. Restraints/seclusion/emergency medication:N/A Justification of Continued Inpatient Treatment: Pt. remains gravely disabled and depressed with passive S/I. He is now on temporary probate conservatorship and can not maintain independent living.
[2018-05-23 20:00] VITALS: BP 99/65
[2018-05-23] MEDS: tamsulosin 0.4mg capsule PO SCH (21:00)
--- NOTE | 2018-05-24 01:30 | NUR ---
Nursing Progress Note Chief Complaint: Depression with S/I Legal hold: 5270/ probate conserved Client on involuntary status for GD/DTS Report received from Kailash CHAN with use of SBAR Why are they here: Pt. presented to [facility] on a 5150 for DTS and failure to thrive. He has had multiple hospital visits, is homeless, and has a hx. of schizophrenia and anemia. He is estranged from his family, irritable, and makes delusional statements (such as "I can't swallow" or "I am an alien.") Pt. Chooses to stay in bed and has general muscle atrophy. He is currently on temporary Probate conservatorship. Diagnosis/presenting symptoms: Pt. continues to present slightly irritable, fatigued, hopeless, and resistive to care. He denies S/I, however reports ongoing depression. He has ongoing delusions regarding swallowing and body dysmorphia. Assessment What has happened this shift: On shift change patient is laying in his bed under the covers awake. [employer] greeted him and he responded with "what?" Pt did not yell during the interaction but was not talkative and would sometimes answer yes or no questions. He refused most of the physical assessment but allowed me to listen to his lungs. He would not answer most of my questions, he just acted like he didn't hear me and would not make any eye contact. He refused all of his medications. S/I, H/I: will not respond to fha underwriter when asked A/VH: will not respond to fha underwriter when asked. Sleep: see sleep assessment notation ADL's: Patient is able to move himself in and out of bed. Patient is able to feed himself and reposition self in bed, and transfer back to bed independently. Patient is incontinent of stool and will start scheduled toileting after meals. Group attendance: shift boss, no groups Were meds taken: Patient declined night time medications. Any med S/E: None Mental Status Exam Appearance: disheveled, fragile Eye contact: avoids Behavior: Withdrawn, resistive to care Speech: soft, sparse Mood: hopeless Affect: Constricted Thought process: Poverty of thought with thought blocking. Thought Content: Preoccupation with depressed mood and on-going delusions Cognition: A&O X3 (not to time or day) Insight: Impaired. Judgment: Impaired. PRN's used: None Interventions: Provided active listening, maintained a safe and therapeutic environment, provided medication education/encouragement with compliance, encouraged independent performance of ADLs, provide positive reinforcement on progress made, monitored skin and repositioning, and maintained Q 15 min safety checks. Restraints/seclusion/emergency medication:N/A Justification of Continued Inpatient Treatment: Pt. remains gravely disabled and depressed with passive S/I. He is now on temporary probate conservatorship and can not maintain independent living.
[2018-05-24] MEDS: pantoprazole 40mg Tablet.DR PO SCH (07:30)
[2018-05-24 08:00] VITALS: BP 100/70
[2018-05-24] MEDS: High Protein Shake w/Arg/Glut/Ca2+Bmb (Juven 19.3gm) pkt 240ml PO SCH ×6 (08:00→17:53)
[2018-05-24] MEDS: docusate sod 100mg capsule PO SCH ×2 (08:00→20:00)
[2018-05-24] MEDS: atorvastatin 10mg tablet PO SCH (08:00)
[2018-05-24] MEDS: multivitamins, therapeutics tablet PO SCH (08:00)
[2018-05-24] MEDS: thiamine 100mg tablet PO SCH ×2 (08:00→20:00)
[2018-05-24] MEDS: folic acid 1mg tablet PO SCH (08:00)
[2018-05-24] MEDS: fluoxetine 20mg/5ml UD cup PO SCH (08:00)
[2018-05-24] MEDS: OLANZapine 5mg rapidly disint. tablet PO SCH ×2 (08:05→17:53)
[2018-05-24] MEDS: aspirin 81mg tab.chew PO SCH (08:30)
--- NOTE | 2018-05-24 15:28 | NUR ---
Nursing Progress Note Chief Complaint: Depression with S/I Legal hold: 5270/ probate conserved Client on involuntary status for GD/DTS Report received from Teresa CHAN with use of SBAR Why are they here: Pt. presented to [facility] on a 5150 for DTS and failure to thrive. He has had multiple hospital visits, is homeless, and has a hx. of schizophrenia and anemia. He is estranged from his family, irritable, and makes delusional statements (such as "I can't swallow" or "I am an alien.") Pt. Chooses to stay in bed and has general muscle atrophy. He is currently on temporary Probate conservatorship. Diagnosis/presenting symptoms: Pt. continues to present slightly irritable, fatigued, hopeless, and resistive to care. He denies S/I, however reports ongoing depression. He has ongoing delusions regarding swallowing and body dysmorphia. Assessment What has happened this shift: The patient is depressed and irritable. Up to meals and up in chair in morning. Eating well and taking fluids. Refuses all meds except zydis. Verbally abusive to staff. Remains delusional, thinks he can't swallow. S/I, H/I: will not respond to medical underwriter when asked A/VH: will not respond to medical underwriter when asked. Sleep: napped ADL's: Patient is able to move himself in and out of bed. Patient is able to feed himself and reposition self in bed, and transfer back to bed independently. Patient is incontinent of stool and will start scheduled toileting after meals. Group attendance: none Were meds taken: refused all but zydis Any med S/E: None Mental Status Exam Appearance: disheveled, fragile Eye contact: avoids Behavior: Withdrawn, resistive to care Speech: loud harsh Mood: hopeless Affect: Constricted Thought process: Poverty of thought with thought blocking. Thought Content: Preoccupation with depressed mood and on-going delusions Cognition: A&O X3 (not to time or day) Insight: Impaired. Judgment: Impaired. PRN's used: None Interventions: Provided active listening, maintained a safe and therapeutic environment, provided medication education/encouragement with compliance, encouraged independent performance of ADLs, provide positive reinforcement on progress made, monitored skin and repositioning, and maintained Q 15 min safety checks. Restraints/seclusion/emergency medication:N/A Justification of Continued Inpatient Treatment: Pt. remains gravely disabled and depressed with passive S/I. He is now on temporary probate conservatorship and can not maintain independent living.
[2018-05-24 20:00] VITALS: BP 107/77
[2018-05-24] MEDS: tamsulosin 0.4mg capsule PO SCH (21:00)
[2018-05-25] MEDS: High Protein Shake w/Arg/Glut/Ca2+Bmb (Juven 19.3gm) pkt 240ml PO SCH ×7 (00:52→22:09)
--- NOTE | 2018-05-25 01:55 | NUR ---
Nursing Progress Note Chief Complaint: Depression with S/I Legal hold: 5270/ probate conserved Client on involuntary status for GD/DTS Report received from Dea CHAN with use of SBAR Why are they here: Pt. presented to [facility] on a 5150 for DTS and failure to thrive. He has had multiple hospital visits, is homeless, and has a hx. of schizophrenia and anemia. He is estranged from his family, irritable, and makes delusional statements (such as "I can't swallow" or "I am an alien.") Pt. Chooses to stay in bed and has general muscle atrophy. He is currently on temporary Probate conservatorship. Diagnosis/presenting symptoms: Pt. continues to present slightly irritable, fatigued, hopeless, and resistive to care. He denies S/I, however reports ongoing depression. He has ongoing delusions regarding swallowing and body dysmorphia. Assessment What has happened this shift: Patient is up in his wheelchair upon shift change. He is waiting for his bed to be changed. County Agricultural Agent helped pt back to bed and he allowed copywriter to assess him. While copywriter was assessing him, he talked with his roommate and got on the topic of roller coasters. County Agricultural Agent and patient talked about wooden roller coasters for about 5 minutes. He stated that "When I was young I used to love riding roller coasters." He then says that all the "new" roller coaster are too safe and aren't as fun as the older wooden ones. He then talks about how he is [place] Him and his roommate briefly reminisce on this town. Patient still refused all of his medications but he thanked copywriter for helping him. S/I, H/I: denies A/VH: denies Sleep: see sleep assessment notation ADL's: Patient is able to move himself in and out of bed. Patient is able to feed himself and reposition self in bed, and transfer back to bed independently. Group attendance: [facility] shift lead, no groups Were meds taken: Patient declined night time medications. Any med S/E: None Mental Status Exam Appearance: disheveled Eye contact: fair Behavior: more social this shift, talks to copywriter and roommate Speech: clear Mood: improved Affect: bland Thought process: Poverty of thought Thought Content: talking about amira lopez Cognition: A&O X3 (not to time or day) Insight: Impaired. Judgment: Impaired. PRN's used: None Interventions: Provided active listening, maintained a safe and therapeutic environment, provided medication education/encouragement with compliance, encouraged independent performance of ADLs, provide positive reinforcement on progress made, monitored skin and repositioning, and maintained Q 15 min safety checks. Restraints/seclusion/emergency medication:N/A Justification of Continued Inpatient Treatment: Pt. remains gravely disabled and depressed with passive S/I. He is now on temporary probate conservatorship and can not maintain independent living.
[2018-05-25] MEDS: pantoprazole 40mg Tablet.DR PO SCH (07:30)
[2018-05-25 07:48] VITALS: BP 95/59
[2018-05-25] MEDS: OLANZapine 5mg rapidly disint. tablet PO SCH ×2 (07:59→17:50)
[2018-05-25] MEDS: thiamine 100mg tablet PO SCH ×2 (08:00→20:00)
[2018-05-25] MEDS: folic acid 1mg tablet PO SCH (08:00)
[2018-05-25] MEDS: multivitamins, therapeutics tablet PO SCH (08:00)
[2018-05-25] MEDS: fluoxetine 20mg/5ml UD cup PO SCH (08:00)
[2018-05-25] MEDS: docusate sod 100mg capsule PO SCH ×2 (08:00→20:00)
[2018-05-25] MEDS: atorvastatin 10mg tablet PO SCH (08:00)
[2018-05-25] MEDS: aspirin 81mg tab.chew PO SCH (08:30)
--- NOTE | 2018-05-25 12:40 | NUR ---
Reassessment: Documented PO intake fluctuates however appetite the past five days appears to be good with PO intake 50-75%. Pt also receiving high protein shake TID with 100% intake, pt likely meeting nutrient needs. Wt remains stable since last RD note. Per physical assessment pt is A/O x 2, agitated, and resistive to care. LBM 05/24. Will continue to follow. Recommendations: 1) Continue with [facility] soft diet 2) Continue with high protein shake TID 3) Encourage PO intake of meals 4) Weekly wt Addendum: 05/25/18 at [address] Amended: Links added.
--- NOTE | 2018-05-25 16:07 | NUR ---
Nursing Progress Note Chief Complaint: Depression with S/I Legal hold: VOL/ probate conserved Client on involuntary status for GD/DTS Report received from ROCIO Moore with use of SBAR Why are they here: Pt. presented to [facility] on a 5150 for DTS and failure to thrive. He has had multiple hospital visits, is homeless, and has a hx. of schizophrenia and anemia. He is estranged from his family, irritable, and makes delusional statements (such as "I can't swallow" or "I am an alien.") Pt. Chooses to stay in bed and has general muscle atrophy. He is currently on temporary Probate conservatorship. Diagnosis/presenting symptoms: Pt. continues to present slightly irritable, fatigued, hopeless, and resistive to care. He denies S/I, however reports ongoing depression. He has ongoing delusions regarding swallowing and body dysmorphia. Assessment What has happened this shift: The patient was asleep at change of shift. He got up for breakfast and ate well. He continues to refuse all medications except Zyprexa zydis. Depressed mood, constricted and irritable affect. Sat up awhile after breakfast, up for lunch and dinner, sitting up for awhile after each. Self transfers back to his bed. Converses often and amicably with his roommate who is an older gentleman to whom it seems they have things in common. No complaints or other changes today. Denies SI, AH. S/I, H/I: denies A/VH: denies Sleep: napped ADL's: Patient is able to move himself in and out of bed. Patient is able to feed himself and reposition self in bed, and transfer back to bed independently. Group attendance: night assistant, no groups Were meds taken: Refused all except Zyprexa zydis Any med S/E: None Mental Status Exam Appearance: disheveled Eye contact: poor Behavior: less depressed or irritable today than usual Speech: clear Mood: depressed but improved Affect: irritable at times Thought process: Poverty of thought Thought Content: poverty of content Cognition: alert and oriented Insight: Impaired. Judgment: Impaired. PRN's used: None Interventions: Provided active listening, maintained a safe and therapeutic environment, provided medication education/encouragement with compliance, encouraged independent performance of ADLs, provide positive reinforcement on progress made, monitored skin and repositioning, and maintained Q 15 min safety checks. Restraints/seclusion/emergency medication:N/A Justification of Continued Inpatient Treatment: Pt. remains gravely disabled and depressed with passive S/I. He is now on temporary probate conservatorship and can not maintain independent living.
[2018-05-25 20:00] VITALS: BP 119/77
[2018-05-25] MEDS: tamsulosin 0.4mg capsule PO SCH (21:00)
--- NOTE | 2018-05-26 00:01 | NUR ---
Nursing Progress Note Chief Complaint: Depression with S/I Legal hold: Vol/ probate conserved Client on involuntary status for GD/DTS Report received from Dea CHAN with use of SBAR Why are they here: Pt. presented to [facility] on a 5150 for DTS and failure to thrive. He has had multiple hospital visits, is homeless, and has a hx. of schizophrenia and anemia. He is estranged from his family, irritable, and makes delusional statements (such as "I can't swallow" or "I am an alien.") Pt. Chooses to stay in bed and has general muscle atrophy. He is currently on temporary Probate conservatorship. Diagnosis/presenting symptoms: Pt. continues to present slightly irritable, fatigued, hopeless, and resistive to care. He denies S/I, however reports ongoing depression. He has ongoing delusions regarding swallowing and body dysmorphia. Assessment What has happened this shift: Patient laid in bed the entirety of the shift in the dark curled up. Pt had a BM around 1999, staff changed him and sheets. Construction Administrative Assistant assessed his R hip, it is still reddened but improving. Educated pt on trying to keep pressure of of the R hip and talked about the importance of turning in bed. Pt responded by saying, "yea, yea, it isn't a problem, a doctor said it was fine!." He also has some reddening beneath his scrotum, which was cleaned and barrier spray was applied. He refused his HS medications. S/I, H/I: denies A/VH: denies Sleep: see sleep assessment notation ADL's: Patient is able to move himself in and out of bed. Patient is able to feed himself and reposition self in bed, and transfer back to bed independently. Group attendance: manufacturing supervisor 2nd shift, no groups Were meds taken: Patient declined night time medications. Any med S/E: None Mental Status Exam Appearance: disheveled Eye contact: fair Behavior: more social this shift, talks to senior copywriter and roommate Speech: clear Mood: isolative Affect: restricted Thought process: Poverty of thought Thought Content: wants to be left alone Cognition: A&O X3 (not to time or day) Insight: Impaired. Judgment: Impaired. PRN's used: None Interventions: Provided active listening, maintained a safe and therapeutic environment, provided medication education/encouragement with compliance, encouraged independent performance of ADLs, provide positive reinforcement on progress made, monitored skin and repositioning, and maintained Q 15 min safety checks. Restraints/seclusion/emergency medication:N/A Justification of Continued Inpatient Treatment: Pt. remains gravely disabled and depressed with passive S/I. He is now on temporary probate conservatorship and can not maintain independent living.
[2018-05-26] MEDS: pantoprazole 40mg Tablet.DR PO SCH (07:30)
[2018-05-26 08:00] VITALS: BP 92/58
[2018-05-26] MEDS: thiamine 100mg tablet PO SCH ×2 (08:00→20:00)
[2018-05-26] MEDS: docusate sod 100mg capsule PO SCH ×2 (08:00→20:00)
[2018-05-26] MEDS: multivitamins, therapeutics tablet PO SCH (08:00)
[2018-05-26] MEDS: folic acid 1mg tablet PO SCH (08:00)
[2018-05-26] MEDS: fluoxetine 20mg/5ml UD cup PO SCH (08:00)
[2018-05-26] MEDS: atorvastatin 10mg tablet PO SCH (08:00)
[2018-05-26] MEDS: OLANZapine 5mg rapidly disint. tablet PO SCH ×2 (08:12→18:00)
[2018-05-26] MEDS: aspirin 81mg tab.chew PO SCH (08:14)
[2018-05-26] MEDS: High Protein Shake w/Arg/Glut/Ca2+Bmb (Juven 19.3gm) pkt 240ml PO SCH ×5 (08:15→18:00)
--- NOTE | 2018-05-26 15:20 | NUR ---
Nursing Progress Note Chief Complaint: Depression with Passive S/I Legal hold: Voluntary Client on involuntary status for GD/DTS Report received from Teresa CHAN with use of SBAR Why are they here: Pt. presented to [facility] on a 5150 for DTS and failure to thrive. He has had multiple hospital visits, is homeless, and has a hx. of schizophrenia and anemia. He is estranged from his family, irritable, and makes delusional statements (such as "I can't swallow" or "I am an alien.") Pt. Chooses to stay in bed and has general muscle atrophy. He is currently on temporary Probate conservatorship. Diagnosis/presenting symptoms: Pt. continues to present slightly irritable, fatigued, hopeless, and resistive to care. He denies S/I, however reports ongoing depression. He has ongoing delusions regarding swallowing and body dysmorphia. Assessment What has happened this shift: Recieved patient in bed at change of shift, resting w/o distress. Pt awoke and went to group room, where he ate breakfast with others and took AM zyprexa w/o complaint. And refused all other meds. Drank his high protien shake at breakfast and lunch. He stayed in the group room and watched music videos and litened to music from the 60s and even sang along at times. Brighter mood than he has had since admission. Conversations were less angry and intense today. Continues to lack motivation or see hope for getting better in the future. Continues to enjoy talking with room mate. S/I, H/I: Passively suicidal. A/VH: Denies Sleep: Takes naps during the day. ADL's: Patient is able to move himself in and out of bed. Patient is able to feed himself and reposition self in bed, and transfer back to bed independently. Patient is incontinent of stool. Group attendance: Pt. did not attend groups today Were meds taken: Zyprexa Zydis. Any med S/E: None Mental Status Exam Appearance: disheveled, fragile, elderly gentleman wearing green scrubs. Eye contact: Poor Behavior: Withdrawn, fatigued, slightly irritable, resistive to care Speech: Clear and soft, intensifies when irritable. Mood: Depressed, hopeless, and resistant to care Affect: Constricted Thought process: Poverty of thought with thought blocking. Thought Content: Preoccupation with depressed mood and on-going delusions Cognition: A&O X3 (not to time or day) Insight: Impaired. Judgment: Impaired. PRN's used: None Interventions: Provided active listening, maintained a safe and therapeutic environment, provided medication education/encouragement with compliance, encouraged independent performance of ADLs, provide positive reinforcement on progress made, monitored skin and repositioning, and maintained Q 15 min safety checks. Restraints/seclusion/emergency medication:N/A Justification of Continued Inpatient Treatment: Pt. remains gravely disabled and depressed with passive S/I. He is now on temporary probate conservatorship and can not maintain independent living.
[2018-05-26 20:00] VITALS: BP 91/59
[2018-05-26] MEDS: tamsulosin 0.4mg capsule PO SCH (21:00)
--- NOTE | 2018-05-27 04:17 | NUR ---
Nursing Progress Note Chief Complaint: Depression with Passive S/I Legal hold: Voluntary Client on involuntary status for GD/DTS Report received from ROCIO Linder with use of SBAR Why are they here: Pt. presented to [facility] on a 5150 for DTS and failure to thrive. He has had multiple hospital visits, is homeless, and has a hx. of schizophrenia and anemia. He is estranged from his family, irritable, and makes delusional statements (such as "I can't swallow" or "I am an alien.") Pt. Chooses to stay in bed and has general muscle atrophy. He is currently on temporary Probate conservatorship. Diagnosis/presenting symptoms: Pt. continues to present slightly irritable, fatigued, hopeless, and resistive to care. He denies S/I, however reports ongoing depression. He has ongoing delusions regarding swallowing and body dysmorphia. Assessment What has happened this shift:This patient is isolating is his room from shift change throughout the shift. This patient is well oriented. He is using a wheelchair for mobility, he transfers well. This patients affect is flat. He does socialize with his roommate. Patient is non medication compliant with the exception of Zyprexa which he will take. This patient refuses to be interviewed by staff. He answered a few questions for this com writer and then cut the conversation off and said that's all I'm going to say. S/I, H/I: Passively suicidal. A/VH: Denies Sleep: Takes naps during the day. ADL's: Patient is able to move himself in and out of bed. Patient is able to feed himself and reposition self in bed, and transfer back to bed independently. Patient is incontinent of stool. Group attendance: Pt. did not attend groups today Were meds taken: Zyprexa Zydis. Any med S/E: None Mental Status Exam Appearance: disheveled, fragile, elderly gentleman wearing green scrubs. Eye contact: Poor Behavior: Withdrawn, fatigued, slightly irritable, resistive to care Speech: Clear and soft, intensifies when irritable. Mood: Depressed, hopeless, and resistant to care Affect: Constricted Thought process: Poverty of thought with thought blocking. Thought Content: Preoccupation with depressed mood and on-going delusions Cognition: A&O X3 (not to time or day) Insight: Impaired. Judgment: Impaired. PRN's used: None Interventions: Restraints/seclusion/emergency medication:N/A Justification of Continued Inpatient Treatment: Pt. remains gravely disabled and depressed with passive S/I. He is now on temporary probate conservatorship and can not maintain independent living.
[2018-05-27 07:00] VITALS: BP 93/56
[2018-05-27] MEDS: pantoprazole 40mg Tablet.DR PO SCH (07:30)
[2018-05-27] MEDS: High Protein Shake w/Arg/Glut/Ca2+Bmb (Juven 19.3gm) pkt 240ml PO SCH ×6 (08:00→18:00)
[2018-05-27] MEDS: OLANZapine 5mg rapidly disint. tablet PO SCH ×2 (08:00→18:00)
[2018-05-27] MEDS: thiamine 100mg tablet PO SCH ×2 (08:00→20:00)
[2018-05-27] MEDS: atorvastatin 10mg tablet PO SCH (08:00)
[2018-05-27] MEDS: fluoxetine 20mg/5ml UD cup PO SCH (08:00)
[2018-05-27] MEDS: multivitamins, therapeutics tablet PO SCH (08:00)
[2018-05-27] MEDS: docusate sod 100mg capsule PO SCH ×2 (08:00→20:00)
[2018-05-27] MEDS: folic acid 1mg tablet PO SCH (08:00)
[2018-05-27] MEDS: aspirin 81mg tab.chew PO SCH (08:30)
--- NOTE | 2018-05-27 16:52 | NUR ---
Nursing Progress Note Chief Complaint: Depression with Passive S/I Legal hold: Voluntary Client on involuntary status for GD/DTS Report received from Rusty CHAN with use of SBAR Why are they here: Pt. presented to [facility] on a 5150 for DTS and failure to thrive. He has had multiple hospital visits, is homeless, and has a hx. of schizophrenia and anemia. He is estranged from his family, irritable, and makes delusional statements (such as "I can't swallow" or "I am an alien.") Pt. Chooses to stay in bed and has general muscle atrophy. He is currently on temporary Probate conservatorship. Diagnosis/presenting symptoms: Pt. continues to present slightly irritable, fatigued, hopeless, and resistive to care. He denies S/I, however reports ongoing depression. He has ongoing delusions regarding swallowing and body dysmorphia. Assessment What has happened this shift: Patient up for breakfast, took Zyprexa, but refused all other meds. Evaluated right hip and appears more reddened than last weeks pictures. Pt. asked to lay on left side and patient was severely agitated yelling at staff "its just a little scratch" among other choice words. Pt. only stayed long enough in dining room to eat today, then back to his room. S/I, H/I: Passively suicidal. A/VH: Denies Sleep: Naps after meals. ADL's: Patient is able to move himself in and out of bed. Patient is able to feed himself and reposition self in bed, and transfer back to bed independently. Patient is incontinent of stool. Group attendance: Pt. did not attend groups today Were meds taken: Zyprexa Zydis. Any med S/E: None Mental Status Exam Appearance: disheveled, fragile, elderly gentleman wearing green scrubs. Eye contact: Poor Behavior: Withdrawn, fatigued, irritable, resistive to care Speech: Clear and soft, intensifies when irritable. Mood: Depressed, hopeless, and resistant to care Affect: Constricted Thought process: Poverty of thought with thought blocking. Thought Content: Preoccupation with depressed mood and on-going delusions Cognition: A&O X3 (not to time or day) Insight: Impaired. Judgment: Impaired. PRN's used: None Interventions: Provided active listening, maintained a safe and therapeutic environment, provided medication education/encouragement with compliance, encouraged independent performance of ADLs, provide positive reinforcement on progress made, monitored skin and repositioning - pictures taken of rt. hip. Maintained Q 15 min safety checks. Restraints/seclusion/emergency medication:N/A Justification of Continued Inpatient Treatment: Pt. remains gravely disabled and depressed with passive S/I. He is now on temporary probate conservatorship and can not maintain independent living.
[2018-05-27] MEDS: tamsulosin 0.4mg capsule PO SCH (21:00)
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
[2018-05-28 07:00] VITALS: BP 92/60
[2018-05-28] MEDS: pantoprazole 40mg Tablet.DR PO SCH (07:30)
[2018-05-28] MEDS: fluoxetine 20mg/5ml UD cup PO SCH (08:00)
[2018-05-28] MEDS: atorvastatin 10mg tablet PO SCH (08:00)
[2018-05-28] MEDS: folic acid 1mg tablet PO SCH (08:00)
[2018-05-28] MEDS: docusate sod 100mg capsule PO SCH ×2 (08:00→20:00)
[2018-05-28] MEDS: High Protein Shake w/Arg/Glut/Ca2+Bmb (Juven 19.3gm) pkt 240ml PO SCH ×6 (08:00→18:00)
[2018-05-28] MEDS: OLANZapine 5mg rapidly disint. tablet PO SCH ×2 (08:00→20:32)
[2018-05-28] MEDS: thiamine 100mg tablet PO SCH ×2 (08:00→20:00)
[2018-05-28] MEDS: multivitamins, therapeutics tablet PO SCH (08:00)
[2018-05-28] MEDS: aspirin 81mg tab.chew PO SCH (08:30)
--- NOTE | 2018-05-28 11:52 | NUR ---
DISCHARGE PLANNING/PLACEMENT Patient has been declined by 12+ facilities. Susanna Diane provided contact for outside of area SNF. Spoke to Meka at [facility] ([phone]) in [place] who states patient is "too young" - they only accept 75 or older. Spoke with Ingrid at [facility] ([phone]) who states there are no male beds available. Patient will be re-evaluated by Dr. Gay for LPS conservatorship. Patient was accepted by [facility] in [place], but [facility] is not in agreement to pay monthly cost of placement/care.
--- NOTE | 2018-05-28 16:18 | NUR ---
Chief Complaint: Depression with Passive S/I Legal hold: Voluntary Client on involuntary status for GD/DTS Report received from Rusty CHAN with use of SBAR Why are they here: Pt. presented to [facility] on a 5150 for DTS and failure to thrive. He has had multiple hospital visits, is homeless, and has a hx. of schizophrenia and anemia. He is estranged from his family, irritable, and makes delusional statements (such as "I can't swallow" or "I am an alien.") Pt. Chooses to stay in bed and has general muscle atrophy. He is currently on temporary Probate conservatorship. Diagnosis/presenting symptoms: Pt. continues to present slightly irritable, fatigued, hopeless, and resistive to care. He denies S/I, however reports ongoing depression. He has ongoing delusions regarding swallowing and body dysmorphia. Assessment What has happened this shift: Patient refused to get out of bed for breakfast. Patient did eat some lunch, but insisted on going right back to bed. Patient refusing to turn onto his left side. Patient was moved onto left side by staff, with explanation of rationale. Patient not as irritated as yesterday. S/I, H/I: Passively suicidal. A/VH: Denies Sleep: 8.5 hours. ADL's: Patient is able to move himself in and out of bed. Patient is able to feed himself and reposition self in bed, and transfer back to bed independently. Patient is incontinent of stool. Group attendance: Pt. did not attend groups today Were meds taken: Zyprexa Zydis. Any med S/E: None Mental Status Exam Appearance: disheveled, fragile, elderly gentleman wearing green scrubs. Eye contact: Poor Behavior: Socializes with roommate. Stays in bed except for meals. Speech: Clear and soft, intensifies when irritable. Mood: Depressed, hopeless, and resistant to care Affect: Constricted Thought process: Poverty of thought with thought blocking. Thought Content: Preoccupation with depressed mood and on-going delusions Cognition: A&O X3 (not to time or day) Insight: Impaired. Judgment: Impaired. PRN's used: None Interventions: Provided active listening, maintained a safe and therapeutic environment, provided medication education/encouragement with compliance, encouraged independent performance of ADLs, provide positive reinforcement on progress made, monitored skin and repositioning. Maintained Q 15 min safety checks. Restraints/seclusion/emergency medication:N/A Justification of Continued Inpatient Treatment: Pt. remains gravely disabled and depressed with passive S/I. He is now on probate conservatorship and cannot maintain independent living.
[2018-05-28] MEDS: tamsulosin 0.4mg capsule PO SCH (20:38)
[2018-05-28 22:02] VITALS: BP 87/58
--- NOTE | 2018-05-29 03:46 | NUR ---
Chief Complaint: Depression with Passive S/I Legal hold: Voluntary Client on involuntary status for GD/DTS Report received from Rusty CHAN with use of SBAR Why are they here: Pt. presented to [facility] on a 5150 for DTS and failure to thrive. He has had multiple hospital visits, is homeless, and has a hx. of schizophrenia and anemia. He is estranged from his family, irritable, and makes delusional statements (such as "I can't swallow" or "I am an alien.") Pt. Chooses to stay in bed and has general muscle atrophy. He is currently on temporary Probate conservatorship. Diagnosis/presenting symptoms: Pt. continues to present slightly irritable, fatigued, hopeless, and resistive to care. He denies S/I, however reports ongoing depression. He has ongoing delusions regarding swallowing and body dysmorphia. Assessment What has happened this shift: Patient refused to get out of bed for snack. Patient refusing to turn onto his left side. Explained the importance of getting off his right hip and the serious consequences of a pressure ulcer. Patient turned self on left side yelling "Fuck You" Periodically throughout shift staff reminded to pt to turn on left side. Pt was compliant but yelled obscenities each time. Pt did not answer questions regarding mood, SI or if he is having hallucinations. S/I, H/I: Passively suicidal. A/VH: Denies Sleep: Sleeping at this time. ADL's: Patient is able to move himself in and out of bed. Patient is able to feed himself and reposition self in bed, and transfer back to bed independently. Patient is incontinent of stool. Group attendance: Pt. did not attend groups today Were meds taken: Zyprexa Zydis. Any med S/E: None Mental Status Exam Appearance: disheveled, fragile, elderly gentleman wearing green scrubs. Eye contact: Poor Behavior: Socializes with roommate. Stays in bed except for meals. Speech: Clear and soft, intensifies when irritable. Mood: Depressed, hopeless, and resistant to care Affect: Constricted Thought process: Poverty of thought with thought blocking. Thought Content: Preoccupation with depressed mood and on-going delusions Cognition: A&O X3 (not to time or day) Insight: Impaired. Judgment: Impaired. PRN's used: None Interventions: Provided active listening, maintained a safe and therapeutic environment, provided medication education/encouragement with compliance, encouraged independent performance of ADLs, provide positive reinforcement on progress made, monitored skin and repositioning. Maintained Q 15 min safety checks. Restraints/seclusion/emergency medication:N/A Justification of Continued Inpatient Treatment: Pt. remains gravely disabled and depressed with passive S/I. He is now on probate conservatorship and cannot maintain independent living.
[2018-05-29 07:00] VITALS: BP 109/64
[2018-05-29] MEDS: pantoprazole 40mg Tablet.DR PO SCH (07:30)
[2018-05-29] MEDS: multivitamins, therapeutics tablet PO SCH (08:00)
[2018-05-29] MEDS: atorvastatin 10mg tablet PO SCH (08:00)
[2018-05-29] MEDS: thiamine 100mg tablet PO SCH ×2 (08:00→20:00)
[2018-05-29] MEDS: High Protein Shake w/Arg/Glut/Ca2+Bmb (Juven 19.3gm) pkt 240ml PO SCH ×7 (08:00→19:00)
[2018-05-29] MEDS: fluoxetine 20mg/5ml UD cup PO SCH (08:00)
[2018-05-29] MEDS: docusate sod 100mg capsule PO SCH ×2 (08:00→20:00)
[2018-05-29] MEDS: folic acid 1mg tablet PO SCH (08:00)
[2018-05-29] MEDS: OLANZapine 5mg rapidly disint. tablet PO SCH ×2 (08:22→18:00)
[2018-05-29] MEDS: aspirin 81mg tab.chew PO SCH (08:30)
--- NOTE | 2018-05-29 15:56 | NUR ---
1:1 DISCHARGE PLANNING BYRON received return call from Dr. Gay at [phone], who reports he has not been directed to meet with pt for re-evaluation to convert to LPS Conservatorship. Dr. Gay reports he can assess pt, however it may be too late due to the time sensitive nature of LPS regulations. Dr. Gay states he can assess pt on or Monday, however will likely need clear understanding of reasoning behind reassessment from Director of [facility]. BYRON returned Dr. Gay TC, requesting he assess pt on or Monday this week. BYRON will inform Director of Dr. Gay message. EVITA Rojas
--- NOTE | 2018-05-29 17:26 | NUR ---
Nursing Progress Note Chief Complaint: Depression with Passive S/I Legal hold: Voluntary, probate conserved. Client on involuntary status for GD/DTS Report received from Rosie CHAN with use of SBAR Why are they here: Pt. presented to [facility] on a 5150 for DTS and failure to thrive. He has had multiple hospital visits, is homeless, and has a hx. of schizophrenia and anemia. He is estranged from his family, irritable, and makes delusional statements (such as "I can't swallow" or "I am an alien.") Pt. Chooses to stay in bed and has general muscle atrophy. He is currently on temporary Probate conservatorship. Diagnosis/presenting symptoms: Pt. continues to present slightly irritable, fatigued, hopeless, and resistive to care. He denies S/I, however reports ongoing depression. He has ongoing delusions regarding swallowing and body dysmorphia. Assessment What has happened this shift: Patient was laying on his left side upon arrival to unit. Monitored patient who has been turning himself today in bed. Dr. Clarke suggested that nursing staff not try to reason with patient, just to reposition patient without argument. S/I, H/I: Passively suicidal. A/VH: Denies Sleep: 8.5 hours. ADL's: Patient is able to move himself in and out of bed. Patient is able to feed himself and reposition self in bed, and transfer back to bed independently. Patient is incontinent of stool. Group attendance: Pt. did not attend groups today Were meds taken: Zyprexa Zydis. Any med S/E: None Mental Status Exam Appearance: disheveled, fragile, elderly gentleman wearing green scrubs. Eye contact: Poor Behavior: Stays in bed except for meals. Speech: Clear and soft, intensifies when irritable. Mood: Depressed, hopeless, and resistant to care Affect: Constricted Thought process: Poverty of thought with thought blocking. Thought Content: Preoccupation with depressed mood and on-going delusions Cognition: A&O X3 (not to time or day) Insight: Impaired. Judgment: Impaired. PRN's used: None Interventions: Provided active listening, maintained a safe and therapeutic environment, provided medication education/encouragement with compliance, encouraged independent performance of ADLs, provide positive reinforcement on progress made, monitored skin and repositioning. Maintained Q 15 min safety checks. Restraints/seclusion/emergency medication:N/A Justification of Continued Inpatient Treatment: Pt. remains gravely disabled and depressed with passive S/I. He is now on probate conservatorship and cannot maintain independent living.
[2018-05-29 20:00] VITALS: BP 100/63
[2018-05-29] MEDS: tamsulosin 0.4mg capsule PO SCH (21:00)
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
[2018-05-30] MEDS: pantoprazole 40mg Tablet.DR PO SCH (07:30)
[2018-05-30 08:00] VITALS: BP 99/60
[2018-05-30] MEDS: multivitamins, therapeutics tablet PO SCH (08:00)
[2018-05-30] MEDS: fluoxetine 20mg/5ml UD cup PO SCH (08:00)
[2018-05-30] MEDS: High Protein Shake w/Arg/Glut/Ca2+Bmb (Juven 19.3gm) pkt 240ml PO SCH ×5 (08:00→18:00)
[2018-05-30] MEDS: atorvastatin 10mg tablet PO SCH (08:00)
[2018-05-30] MEDS: thiamine 100mg tablet PO SCH ×2 (08:00→19:18)
[2018-05-30] MEDS: folic acid 1mg tablet PO SCH (08:00)
[2018-05-30] MEDS: docusate sod 100mg capsule PO SCH ×2 (08:00→19:18)
[2018-05-30] MEDS: OLANZapine 5mg rapidly disint. tablet PO SCH ×2 (08:15→19:10)
[2018-05-30] MEDS: aspirin 81mg tab.chew PO SCH (08:17)
--- NOTE | 2018-05-30 12:58 | NUR ---
Reassessment: Documented PO intake fluctuates. PO intake this week declined to 25-49% PO with many refusals. Pt also receiving high protein shake TID with 100% intake, will add Ensure Enlive to meals to increase calorie intake for the meals that are refused. Wt remains stable since last RD note. Per physical assessment pt is A/O x 2, agitated, and resistive to care. [facility] 05/30. Will continue to follow. Recommendations: 1) Continue with [facility] soft diet 2) Continue with high protein shake TID, add ensure enlive TID 3) Encourage PO intake of meals 4) Weekly wt Addendum: 05/30/18 at [address] Amended: Links added.
--- NOTE | 2018-05-30 16:08 | NUR ---
NURSING PROGRESS NOTE Legal hold: Probate Conservatorship Client on involuntary status for GD/DTS Report received from Cholo CHAN with use of SBAR Why are they here: Pt. presented to [facility] on a 5150 for DTS and failure to thrive. He has had multiple hospital visits, is homeless, and has a hx. of schizophrenia and anemia. He is estranged from his family, irritable, and makes delusional statements (such as "I can't swallow" or "I am an alien.") Pt. Chooses to stay in bed and has general muscle atrophy. He is currently on temporary Probate conservatorship. Assessment What has happened this shift: Pt up for meals and back to bed. He refuses to go to groups. He got angry with this promotion writer when attempting a conversation. S/I, H/I: Passively suicidal. A/VH: Denies Sleep: On and off throughout the shift. ADL's: Patient is able to move himself in and out of bed. He is incontinent of stool. Uses urinal. Does not complete ADLs unless prompted. Group attendance: N Were meds taken: Only Zyprexa Zydis Any med S/E: None Mental Status Exam Appearance: disheveled, fragile, elderly gentleman wearing green scrubs. Eye contact: Poor Behavior: Stays in bed except for meals. Speech: Clear and soft, intensifies when irritable. Mood: Depressed, hopeless, and resistant to care Affect: Constricted Thought process: Poverty of thought with thought blocking. Thought Content: Preoccupation with depressed mood and on-going delusions Cognition: A&O X3 (not to time or day) Insight: Impaired. Judgment: Impaired. PRN's used: None Interventions: Provided active listening, maintained a safe and therapeutic environment, provided medication education/encouragement with compliance, encouraged independent performance of ADLs, provide positive reinforcement on progress made, monitored skin and repositioning. Maintained Q 15 min safety checks. Restraints/seclusion/emergency medication:N/A Justification of Continued Inpatient Treatment: Pt. remains gravely disabled and depressed with passive S/I. He is now on probate conservatorship and cannot maintain independent living.
[2018-05-30] MEDS: tamsulosin 0.4mg capsule PO SCH (19:19)
[2018-05-30 19:34] VITALS: BP 113/73
--- NOTE | 2018-05-30 23:26 | NUR ---
Nursing Progress Note:[] Legal hold: Voluntary Client on voluntary/involuntary status for GD Report received from nurse with use of SBAR; Conchis Mauricio RN Why are they here: The patient is here because he is unable to formulate a realistic plan for food, chcf or clothing. He was originally in the ER Assessment What has happened this shift: The patient has been resting on his bed. He is very verbally hostile and uncooperative with any kind of nursing intervention S/I, H/I: Refused to answer A/VH: Denies Sleep: appears to sleep ADL's: Requires assistance Group attendance:NA Were meds taken: the patient would only take the zydis Any med S/E none apparent Mental Status Exam Appearance: resting on bed with eyes closed Eye contact:poor Behavior: Belligerent Speech: elevated volume, minimal Mood:agitated and angry Affect:angry Thought process:difficult to fully assess Thought Content: delusional and negative Cognition:[] Insight:poor Judgment:poor Interventions PRN's used:none Therapeutic interventions: attempted to engage patient and build rapport Restraints/seclusion/emergency medication: na Justification of Continued Inpatient Treatment: The patient is unable to formulate a plan for food chcf or clothing.
[2018-05-31] MEDS: pantoprazole 40mg Tablet.DR PO SCH (07:30)
[2018-05-31 07:44] VITALS: BP 93/60
[2018-05-31] MEDS: docusate sod 100mg capsule PO SCH ×2 (08:00→20:00)
[2018-05-31] MEDS: folic acid 1mg tablet PO SCH (08:00)
[2018-05-31] MEDS: atorvastatin 10mg tablet PO SCH (08:00)
[2018-05-31] MEDS: multivitamins, therapeutics tablet PO SCH (08:00)
[2018-05-31] MEDS: thiamine 100mg tablet PO SCH ×2 (08:00→20:00)
[2018-05-31] MEDS: fluoxetine 20mg/5ml UD cup PO SCH (08:00)
[2018-05-31] MEDS: aspirin 81mg tab.chew PO SCH (08:30)
[2018-05-31] MEDS: OLANZapine 5mg rapidly disint. tablet PO SCH ×2 (08:38→19:30)
[2018-05-31] MEDS: High Protein Shake w/Arg/Glut/Ca2+Bmb (Juven 19.3gm) pkt 240ml PO SCH ×6 (08:41→18:00)
--- NOTE | 2018-05-31 18:08 | NUR ---
Nursing Progress Note Legal hold: Voluntary Client on voluntary/involuntary status for GD Report received from nurse with use of AZIZAAR; Karley CHAN Why are they here: The patient is here because he is unable to formulate a realistic plan for food, skilled nursing or clothing. He was originally in the ER Assessment What has happened this shift: Pt. was very resistive to getting out of bed this AM for breakfast. Pt. refused all meds except for Zyprexa. Pt.'s wound on right hip is becoming more red. pt. needs to be out of bed more frequently. Pt. cleaned up, linens changed. S/I, H/I: Refused to answer A/VH: Denies Sleep: Pt. needs constant encouragement to stay out of bed. ADL's: Requires assistance Group attendance:NA Were meds taken: the patient would only take the zydis Any med S/E none apparent Mental Status Exam Appearance: Disheveled Eye contact:poor Behavior: Belligerent Speech: elevated volume, minimal Mood:agitated and angry Affect:angry Thought process:difficult to fully assess Thought Content: delusional and negative Cognition:[] Insight:poor Judgment:poor Interventions PRN's used:none Therapeutic interventions: attempted to engage patient and build rapport Restraints/seclusion/emergency medication: na Justification of Continued Inpatient Treatment: The patient is unable to formulate a plan for food skilled nursing or clothing.
[2018-05-31 19:00] VITALS: BP 95/53
[2018-05-31] MEDS: tamsulosin 0.4mg capsule PO SCH (21:00)
--- NOTE | 2018-06-01 02:20 | NUR ---
Nursing Note Chief Complaint: Depression with S/I Legal hold: Voluntary Client on involuntary status for GD/DTS Report received from nurse with use of SBAR: Gopal RN Why are they here: Pt. presented to [facility] on a 5150 for DTS and failure to thrive. He has had multiple hospital visits, is homeless, and has a hx. of schizophrenia and a anemia. He is estranged from his family, irritable, and makes delusional statements (such as "I can't swallow" or "I am an alien.") Pt. is bedridden and lower extremities are contracted. Pt. signed voluntary, however continues to refuse all medications except Zyprexa Zydis. Assessment What has happened this shift: Pt. in bed at the beginning of the shift, continues to present as fatigued, hopeless, irritable/agitated, withdrawn, and resistive to care. 1:1 completed at bedside, he denies S/I, however states, "I have no way to do it. I would have done it already." Pt. reports that his depression and anxiety are no better since being admitted to the unit, however he does participate more readily in conversation and he is more accepting to care (thanks this check writer after care is provided). Pt. continues to have ongoing delusions that he cannot swallow, and body dysmorphia, states, "My knees have grown to the size of a baby's head. I can't swallow any of my medications, but I will have some hot chocolate." Pt. continues to refuses all medications except Zyprexa Zydis, and c/o pain throughout his body, however refuses pain medication (even when suggested that it be given with his hot chocolate). Pt. is able to reposition himself in bed independently and is reminded to do so, dressing to rt. hip CDI, and no s/s of increased redness or open areas, will continue to monitor. S/I, H/I: Denies, states, "I have no way to do it." A/VH: Denies Sleep: Appears chronically fatigued, however reports he sleeps well ADL's: Requires assist to transfer to w/c and for self care, however able to eat, reposition self in bed, and transfer back to bed independently Group attendance: Pt. up for all meals and some groups Were meds taken: Refused all except Zyprexa Zydis Any med S/E: None Mental Status Exam Appearance: Pt. hair is disheveled and he is dressed in a green hospital gown. Bilateral lower extremities remain contracted. Eye contact: Fair to good Behavior: Withdrawn, fatigued, slightly irritable, resistive to care and psychomotor activity WNL Speech: WNL, more intense when irritable Mood: Slightly irritable and hopeless Affect: Constricted, however animates with conversation Thought process: Poverty of thought and blocking r/t mental health Thought Content: Preoccupation with depressed mood and on-going delusions Cognition: A&O X3 (not to time or day) Insight: Poor Judgment: Poor to fair Interventions PRN's used: None Therapeutic interventions: Provided active listening, maintained a safe and therapeutic environment, provided medication education/encouragement with compliance, encouraged independent performance of ADLs, provide positive reinforcement on progress made, monitored skin and repositioning, and maintained Q 15 min safety checks. Restraints/seclusion/emergency medication:N/A Justification of Continued Inpatient Treatment: Pt. remains gravely disabled, he continues to require a therapeutic milieu. He is awaiting placement.
--- NOTE | 2018-06-01 03:00 | NUR ---
Nursing Note: Pt awoke and requested help with self care/bed olmos r/t being soiled. He then thanked staff for their help.
[2018-06-01] MEDS: pantoprazole 40mg Tablet.DR PO SCH (07:30)
[2018-06-01 07:43] VITALS: BP 102/61
[2018-06-01] MEDS: folic acid 1mg tablet PO SCH (08:00)
[2018-06-01] MEDS: atorvastatin 10mg tablet PO SCH (08:00)
[2018-06-01] MEDS: docusate sod 100mg capsule PO SCH ×2 (08:00→20:00)
[2018-06-01] MEDS: fluoxetine 20mg/5ml UD cup PO SCH (08:00)
[2018-06-01] MEDS: thiamine 100mg tablet PO SCH ×2 (08:00→20:00)
[2018-06-01] MEDS: High Protein Shake w/Arg/Glut/Ca2+Bmb (Juven 19.3gm) pkt 240ml PO SCH ×6 (08:00→18:04)
[2018-06-01] MEDS: multivitamins, therapeutics tablet PO SCH (08:00)
[2018-06-01] MEDS: OLANZapine 5mg rapidly disint. tablet PO SCH ×2 (08:10→18:03)
[2018-06-01] MEDS: aspirin 81mg tab.chew PO SCH (08:30)
--- NOTE | 2018-06-01 15:19 | NUR ---
1:1 DISCHARGE PLANN[address]. Gay met with pt this day and reassessed pt appropriateness for probate or LPS conservatorship. BYRON informed Dr. Gay will likely recommend LPS. BYRON contacted [facility] to request re-evaluation of pt appropriateness for facility. BYRON provided necessary documentation. [facility] will re-evaluate pt for potential placement. EVITA Rojas
--- NOTE | 2018-06-01 17:00 | NUR ---
Nursing Note Chief Complaint: Depression with S/I Legal hold: Voluntary Client on involuntary status for GD/DTS Report received from nurse with use of SBAR: ROCIO Herron Why are they here: Pt. presented to [facility] on a 5150 for DTS and failure to thrive. He has had multiple hospital visits, is homeless, and has a hx. of schizophrenia and a anemia. He is estranged from his family, irritable, and makes delusional statements (such as "I can't swallow" or "I am an alien.") Pt. is bedridden and lower extremities are contracted. Pt. signed voluntary, however continues to refuse all medications except Zyprexa Zydis. Assessment What has happened this shift: Pt. in bed at the beginning of the shift, continues to present as fatigued, hopeless, irritable/agitated, withdrawn, and resistive to care. 1:1 completed at bedside, he denies S/I Pt. cleaned, changed, pt. refused shower, pt. shaved. Pt. needs frequent encouragement to stay off of his right side and to stay out of bed. Dr. Gay came and did psych testing on Frankie to determine if pt. has psychiatric dx. He is probate conserved not LPS conserved. Pt. was denied placement to [place]. S/I, H/I: Denies A/VH: Denies Sleep: Appears chronically fatigued, napped x2 ADL's: Requires assist to transfer to w/c and for self care, however able to eat, reposition self in bed, and transfer back to bed independently Group attendance: Pt. up for all meals and some groups Were meds taken: Refused all except Zyprexa Zydis Any med S/E: None Mental Status Exam Appearance: Pt. hair is disheveled and he is dressed in a green hospital gown. Pt. shaved today Eye contact: Fair to good Behavior: Withdrawn, fatigued, slightly irritable, resistive to care and psychomotor activity WNL Speech: WNL, more intense when irritable Mood: Slightly irritable and hopeless Affect: Constricted, however animates with conversation Thought process: Poverty of thought and blocking r/t mental health Thought Content: Preoccupation with depressed mood and on-going delusions Cognition: A&O X3 (not to time or day) Insight: Poor Judgment: Poor to fair Interventions PRN's used: None Therapeutic interventions: Provided active listening, maintained a safe and therapeutic environment, provided medication education/encouragement with compliance, encouraged independent performance of ADLs, provide positive reinforcement on progress made, monitored skin and repositioning, and maintained Q 15 min safety checks. Restraints/seclusion/emergency medication:N/A Justification of Continued Inpatient Treatment: Pt. remains gravely disabled, he continues to require a therapeutic milieu. He is awaiting placement.
[2018-06-01 19:00] VITALS: BP 105/67
[2018-06-01] MEDS: tamsulosin 0.4mg capsule PO SCH (21:00)
--- NOTE | 2018-06-02 01:49 | NUR ---
Nursing Note Chief Complaint: Depression with S/I Legal hold: Voluntary Client on involuntary status for GD/DTS Report received from nurse with use of SBAR: Gopal RN Why are they here: Pt. presented to [facility] on a 5150 for DTS and failure to thrive. He has had multiple hospital visits, is homeless, and has a hx. of schizophrenia and a anemia. He is estranged from his family, irritable, and makes delusional statements (such as "I can't swallow" or "I am an alien.") Pt. is bedridden and lower extremities are contracted. Pt. signed voluntary, however continues to refuse all medications except Zyprexa Zydis. Dr. Clarke is considering LPS conservatorship. Assessment What has happened this shift: Pt. in bed at the beginning of the shift, continues to present as fatigued, hopeless, irritable, withdrawn, and resistive to care. 1:1 completed at bedside, he continues to presents as depressed with passive S/I, states, "Get the backhoe, I'm tired of being a bother to everyone." Pt. does more readily participate in conversation, and he is more accepting to care and continues to thank this senior medical writer for care provided. He continues to have ongoing delusions that he cannot swallow and refuses all medications, however he is sipping hot chocolate when this senior medical writer enters the room which he promptly sets down. Pt. also continues to present with body dysmorphia, this senior medical writer complements him on shaving today, he states, "It wasn't my hair, it was just wires." When questioned regarding if he would like to take a shower tomorrow, pt. stated, "No, I don't get dirty from the top-up. I don't like showers because I can't stand by myself, and I feel like people are laughing at me and I'm embarrassed." Will endorse to AM shift. Pt. again c/o pain throughout his body, however refuses pain medication. Pt. continues to be able to reposition himself in bed independently and is reminded to do so, dressing to rt. hip CDI. S/I, H/I: Passive S/I A/VH: Denies Sleep: Appears chronically fatigued, however reports he sleeps well ADL's: Requires assist to transfer to w/c and for self care, however able to eat, reposition self in bed, and transfer back to bed independently Group attendance: Pt. up for all meals, however reports he cannot recall if he attended groups. Were meds taken: Refused all except Zyprexa Zydis Any med S/E: None Mental Status Exam Appearance: Pt. freshly shaven and appropriately dressed. Bilateral lower extremities remain contracted. Eye contact: Fair to good Behavior: Withdrawn, fatigued, slightly irritable, resistive to care and psychomotor activity WNL Speech: WNL, more cooperative with conversation Mood: Slightly irritable and hopeless Affect: Constricted, however animates with conversation Thought process: Poverty of thought and blocking r/t mental health Thought Content: Preoccupation with depressed mood and on-going delusions Cognition: A&O Insight: Poor Judgment: Poor to fair Interventions PRN's used: None Therapeutic interventions: Provided active listening, maintained a safe and therapeutic environment, provided medication education/encouragement with compliance, encouraged independent performance of ADLs, provide positive reinforcement on progress made, monitored skin and repositioning, and maintained Q 15 min safety checks. Restraints/seclusion/emergency medication:N/A Justification of Continued Inpatient Treatment: Pt. remains gravely disabled, he continues to require a therapeutic milieu. He is awaiting placement.
[2018-06-02] MEDS: pantoprazole 40mg Tablet.DR PO SCH (07:30)
[2018-06-02] MEDS: docusate sod 100mg capsule PO SCH ×2 (08:00→20:00)
[2018-06-02] MEDS: fluoxetine 20mg/5ml UD cup PO SCH (08:00)
[2018-06-02] MEDS: High Protein Shake w/Arg/Glut/Ca2+Bmb (Juven 19.3gm) pkt 240ml PO SCH ×5 (08:00→13:44)
[2018-06-02] MEDS: thiamine 100mg tablet PO SCH ×2 (08:00→20:00)
[2018-06-02] MEDS: multivitamins, therapeutics tablet PO SCH (08:00)
[2018-06-02] MEDS: atorvastatin 10mg tablet PO SCH (08:00)
[2018-06-02] MEDS: folic acid 1mg tablet PO SCH (08:00)
[2018-06-02 08:03] VITALS: BP 96/58
[2018-06-02] MEDS: OLANZapine 5mg rapidly disint. tablet PO SCH ×2 (08:11→18:00)
[2018-06-02] MEDS: aspirin 81mg tab.chew PO SCH (08:30)
--- NOTE | 2018-06-02 09:39 | NUR ---
Reassessment: Documented PO intake continues to fluctuate with average 50% intake with refusals of some meals. Pt likely meeting nutrient needs d/t 100% intake of ONS. Per physical assessment pt remains resistive to care and fatigued. [facility] 06/01. Will continue to follow. Recommendations: 1) Continue with [facility] soft diet 2) Continue with high protein shake TID, add ensure enlive TID 3) Encourage PO intake of meals 4) Weekly wt Addendum: 06/02/18 at [address] Amended: Links added.
[2018-06-02] MEDS: ciprofloxacin 0.3% 2.5ml ophthalmic solution EACHEYE SCH ×2 (16:51→20:00)
--- NOTE | 2018-06-02 17:00 | NUR ---
Nursing Progress Chief Complaint: Depression with S/I Legal hold: Voluntary Client on involuntary status for GD/DTS Report received from nurse with use of SBAR: ROCIO Patel Why are they here: Pt. presented to [facility] on a 5150 for DTS and failure to thrive. He has had multiple hospital visits, is homeless, and has a hx. of schizophrenia and a anemia. He is estranged from his family, irritable, and makes delusional statements (such as "I can't swallow" or "I am an alien.") Pt. is bedridden and lower extremities are contracted. Pt. signed voluntary, however continues to refuse all medications except Zyprexa Zydis. Dr. Clarke is considering LPS conservatorship. Assessment What has happened this shift: Pt. in bed at the beginning of the shift, continues to present as fatigued, hopeless, irritable, withdrawn, and resistive to care. 1:1 completed at bedside, he continues to presents as depressed with passive S/I, states. Pt. dx with pink eye in right eye today by Dr. Good. RN gave pt. antibiotic eye drop to effected area this afternoon. Pt. states, "It's not an infection!" Pt. encouraged to change positions requently, however, pt. frequently stays on his right side when in bed. Pt. up out of bed for 3 hours in the morning and 2 hours in the afternoon. Pt. refused to shower Pt. again c/o pain throughout his body, however refuses pain medication. Pt. continues to be able to reposition himself in bed independently and is reminded to do so, dressing to rt. hip CDI. S/I, H/I: Passive S/I A/VH: Denies Sleep: Appears chronically fatigued, however reports he sleeps well ADL's: Requires assist to transfer to w/c and for self care, however able to eat, reposition self in bed, and transfer back to bed independently Group attendance: Pt. up for all meals, however reports he cannot recall if he attended groups. Were meds taken: Refused all except Zyprexa Zydis Any med S/E: None Mental Status Exam Appearance: Pt. freshly shaven and appropriately dressed. Bilateral lower extremities remain contracted. Eye contact: Fair to good Behavior: Withdrawn, fatigued, slightly irritable, resistive to care and psychomotor activity WNL Speech: WNL, more cooperative with conversation Mood: Slightly irritable and hopeless Affect: Constricted, however animates with conversation Thought process: Poverty of thought and blocking r/t mental health Thought Content: Preoccupation with depressed mood and on-going delusions Cognition: A&O Insight: Poor Judgment: Poor to fair Interventions PRN's used: None Therapeutic interventions: Provided active listening, maintained a safe and therapeutic environment, provided medication education/encouragement with compliance, encouraged independent performance of ADLs, provide positive reinforcement on progress made, monitored skin and repositioning, and maintained Q 15 min safety checks. Restraints/seclusion/emergency medication:N/A Justification of Continued Inpatient Treatment: Pt. remains gravely disabled, he continues to require a therapeutic milieu. He is awaiting placement.
[2018-06-02 20:00] VITALS: BP 99/66
[2018-06-02] MEDS: tamsulosin 0.4mg capsule PO SCH (21:00)
--- NOTE | 2018-06-03 04:07 | NUR ---
ROCIO PROGRESS NOTE: Chief Complaint: Grave disability Legal hold: Voluntary. Client on T-con for GD. Report received from ROCIO Herron Why are they here: The patient is a homeless man with long history at [facility]. He has multiple medical problems and presents as gravely disabled and unable to care for himself. The patient is irritable and angers easily. He makes delusional statements that he can't swallow, and his joints have enlarged. Diagnosis/presenting symptoms: Psychosis NOS, delusional, agitation, worthlessness, hopelessness. Assessment: What has happened this shift: the patient was found in his bed. He continues to present as hopeless and irrational. He continues to resist care and refuse most medications. He refused all physical assessment and only agreed to have his b/p measured. The patient refused all medications, except for Ciprofloxacin eye drops for pink eye. He continues to have passive SI, "Just let me , so you can bury me." He is able to move himself in bed, but only likes laying on one side, so is turned q2 hours to prevent breakdown. He has slept all shift except for when he's incontinent and needs chio care. S/I, H/I: Passive SI A/VH: Denies Sleep: Patient sleeps on and off. ADL's: Total assist, incontinent of bowel. Group attendance: None at night. Were meds taken: Patient refused all PO meds. Accepted eye drops. Any med S/Es: None reported or observed. Mental Status Exam: Appearance: Disheveled, unclean, hair standing up uncombed. Eye contact: Poor. Behavior: Patient lays in bed and resists care, irritable, agitated, combative at times. Speech: Clear, yells when agitated. Mood: Depressed, hopeless, helpless, angry, agitated, irate. Affect: Constricted. Thought process: Hopeless, helpless Thought Content: Preoccupied with thoughts of being useless, and nothing to live for. Cognition: Alert Insight: Poor Judgment: Poor Interventions: PRN's used: None Therapeutic interventions: Attempted 1:1 assessment. Attempted medications. Maintained safe environment. Monitored skin and turned q2 hours. q15 minute safety checks. Restraints/seclusion/emergency medication: None Justification of Continued Inpatient Treatment: The patient is gravely disabled and has no way to provide for food, housing, or alf. Continues to require therapy, and is waiting for placement.
[2018-06-03] MEDS: pantoprazole 40mg Tablet.DR PO SCH (07:30)
[2018-06-03 07:59] VITALS: BP 116/80
[2018-06-03] MEDS: folic acid 1mg tablet PO SCH (08:00)
[2018-06-03] MEDS: atorvastatin 10mg tablet PO SCH (08:00)
[2018-06-03] MEDS: multivitamins, therapeutics tablet PO SCH (08:00)
[2018-06-03] MEDS: docusate sod 100mg capsule PO SCH ×2 (08:00→20:00)
[2018-06-03] MEDS: High Protein Shake w/Arg/Glut/Ca2+Bmb (Juven 19.3gm) pkt 240ml PO SCH ×2 (08:00→13:00)
[2018-06-03] MEDS: ciprofloxacin 0.3% 2.5ml ophthalmic solution EACHEYE SCH ×4 (08:00→20:00)
[2018-06-03] MEDS: fluoxetine 20mg/5ml UD cup PO SCH (08:00)
[2018-06-03] MEDS: thiamine 100mg tablet PO SCH ×2 (08:00→20:00)
[2018-06-03] MEDS: aspirin 81mg tab.chew PO SCH (08:26)
[2018-06-03] MEDS: OLANZapine 5mg rapidly disint. tablet PO SCH (08:26)
--- NOTE | 2018-06-03 14:03 | NUR ---
Legal hold: Voluntary Client on involuntary status for GD/DTS Report received from nurse with use of SBAR: ROCIO Patel Why are they here: Pt. presented to [facility] on a 5150 for DTS and failure to thrive. He has had multiple hospital visits, is homeless, and has a hx. of schizophrenia and a anemia. He is estranged from his family, irritable, and makes delusional statements (such as "I can't swallow" or "I am an alien.") Pt. is bedridden and lower extremities are contracted. Pt. signed voluntary, however continues to refuse all medications except Zyprexa Zydis. Dr. Clarke is considering LPS conservatorship. What has happened this shift: Patient up for breakfast, after eating, he stayed in group room for approx. 2 hours talking to Samanta KAUR about his life. 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 He apparently knows almost everything about rock music with dates and names. He refused ABT drops for eyes in a.m. At 12:00 dosing, asked ROCIO Hahn to talk to patient about importance of preventing spread of infection. Patient complained the whole time, stating he only had a scratch on his eye and there is no infection. Remains resistive to care. Took a.m. dose of Zyprexa, but refused all other medication, including pain medication. Patient has been repositioning himself throughout the day. Assessment S/I, H/I: Passive S/I A/VH: Denies Sleep: Appears chronically fatigued, however reports he sleeps well ADL's: Requires assist to transfer to w/c and for self care, however able to eat, reposition self in bed, and transfer back to bed independently Group attendance: Pt. does not attend groups. Were meds taken: Refused all except Zyprexa Zydis Any med S/E: None Mental Status Exam Appearance: Elderly, frail gentleman in green scrubs. Eye contact: Poor Behavior: Withdrawn, fatigued, irritable, resistive to care. Speech: Clear, soft. Yells at times. Mood: irritable and hopeless Affect: Constricted Thought process: Poverty of thought and blocking r/t mental health Thought Content: Preoccupation with depressed mood and on-going delusions Cognition: A&O Insight: Impaired. Judgment: Impaired. PRN's used: None Therapeutic interventions: Provided active listening, maintained a safe and therapeutic environment, provided medication education/encouragement with compliance, encouraged independent performance of ADLs, provide positive reinforcement on progress made, monitored skin and repositioning, and maintained Q 15 min safety checks. Pictures taken with dressing change. Restraints/seclusion/emergency medication:N/A Justification of Continued Inpatient Treatment: Pt. remains gravely disabled, he continues to require a therapeutic milieu. He is awaiting placement.
[2018-06-03 19:30] VITALS: BP 120/84
[2018-06-03] MEDS: tamsulosin 0.4mg capsule PO SCH (21:00)
--- NOTE | 2018-06-04 04:09 | NUR ---
ROCIO PROGRESS NOTE: Chief Complaint: Grave disability Legal hold: Voluntary. Client on T-con for GD. Report received from ROCIO Barry Why are they here: The patient is a homeless man with long history at [facility]. He has multiple medical problems and presents as gravely disabled and unable to care for himself. The patient is irritable and angers easily. He makes delusional statements that he can't swallow, and his joints have enlarged. Diagnosis/presenting symptoms: Psychosis NOS, delusional, agitation, worthlessness, hopelessness. Assessment: What has happened this shift: the patient was found in his bed. He refuses to have conversation. No physical assessment allowed. The patient would not accept any PO medication, and when asked if eye drops could be placed to stop infection, he replied, "There is no infection, I scratched my eyeball with my finger." When told that his eyes are red and inflamed, he said, "they're fine, it's just from rubbing on the pillow." The patient is turned q2 hours, but puts himself back on his other side after we leave. He continues to be continent of bladder, not bowel. S/I, H/I: Passive SI. "Just let me ." A/VH: Denies Sleep: Patient sleeps on and off. ADL's: Total assist, incontinent of bowel. Group attendance: None at night. Were meds taken: Refused all medications. Any med S/Es: None reported or observed. Mental Status Exam: Appearance: Disheveled, unclean, smells bad. Eye contact: Poor. Behavior: Patient lays in bed and resists care, irritable, agitated, combative at times. Speech: Clear, yells when agitated. Mood: Depressed, hopeless, helpless, angry, agitated, irate. Affect: Constricted. Thought process: Hopeless, helpless Thought Content: Preoccupied with thoughts of being useless, and nothing to live for. Cognition: Alert Insight: Poor Judgment: Poor Interventions: PRN's used: None Therapeutic interventions: Attempted 1:1 assessment. Attempted medications. Maintained safe environment. Monitored skin and turned q2 hours. q15 minute safety checks. Restraints/seclusion/emergency medication: None Justification of Continued Inpatient Treatment: The patient is gravely disabled and has no way to provide for food, housing, or intermediate. Continues to require therapy, and is waiting for placement.
[2018-06-04 07:00] VITALS: BP 100/60
[2018-06-04] MEDS: pantoprazole 40mg Tablet.DR PO SCH (07:30)
[2018-06-04] MEDS: High Protein Shake w/Arg/Glut/Ca2+Bmb (Juven 19.3gm) pkt 240ml PO SCH ×3 (08:00→18:00)
[2018-06-04] MEDS: multivitamins, therapeutics tablet PO SCH (08:00)
[2018-06-04] MEDS: folic acid 1mg tablet PO SCH (08:00)
[2018-06-04] MEDS: thiamine 100mg tablet PO SCH ×2 (08:00→20:00)
[2018-06-04] MEDS: ciprofloxacin 0.3% 2.5ml ophthalmic solution EACHEYE SCH ×5 (08:00→20:54)
[2018-06-04] MEDS: fluoxetine 20mg/5ml UD cup PO SCH (08:00)
[2018-06-04] MEDS: atorvastatin 10mg tablet PO SCH (08:00)
[2018-06-04] MEDS: docusate sod 100mg capsule PO SCH ×2 (08:00→20:00)
[2018-06-04] MEDS: aspirin 81mg tab.chew PO SCH (08:30)
[2018-06-04] MEDS: OLANZapine 5mg rapidly disint. tablet PO SCH (08:43)
--- NOTE | 2018-06-04 17:04 | NUR ---
Legal hold: Voluntary Client on involuntary status for GD/DTS Report received from Efren CHAN with use of SBAR: Why are they here: Pt. presented to [facility] on a 5150 for DTS and failure to thrive. He has had multiple hospital visits, is homeless, and has a hx. of schizophrenia and a anemia. He is estranged from his family, irritable, and makes delusional statements (such as "I can't swallow" or "I am an alien.") Pt. is bedridden and lower extremities are contracted. Pt. signed voluntary, however continues to refuse all medications except Zyprexa Zydis. Dr. Clarke is considering LPS conservatorship. What has happened this shift: Patient in bed sleeping upon arrival to unit. Pt refused to get up for breakfast, but did take Zyprexa Zydis. Patient has insisted on putting eye drops in own eyes, stressed importance of infection control. Pt. did not stay up in group room today. Assessment S/I, H/I: Passive S/I A/VH: Denies Sleep: 8.25 hrs. ADL's: Requires assist to transfer to w/c and for self care, however able to eat, reposition self in bed, and transfer back to bed independently. Pt needs prompting to lay on left side. Group attendance: Pt. does not attend groups. Were meds taken: Refused all except Zyprexa Zydis Any med S/E: None Mental Status Exam Appearance: Elderly, frail gentleman in green scrubs. Eye contact: Poor Behavior: Withdrawn, fatigued, irritable, resistive to care. Speech: Clear, soft. Yells at times. Mood: irritable and hopeless Affect: Constricted Thought process: Poverty of thought and blocking r/t mental health Thought Content: Preoccupation with depressed mood and on-going delusions Cognition: A&O Insight: Impaired. Judgment: Impaired. PRN's used: None Therapeutic interventions: Provided active listening, maintained a safe and therapeutic environment, provided medication education/encouragement with compliance, encouraged independent performance of ADLs, provide positive reinforcement on progress made, monitored skin and repositioning, and maintained Q 15 min safety checks. Restraints/seclusion/emergency medication:N/A Justification of Continued Inpatient Treatment: Pt. remains gravely disabled, he continues to require a therapeutic milieu. He is awaiting placement.
[2018-06-04 20:46] VITALS: BP 94/63
[2018-06-04] MEDS: tamsulosin 0.4mg capsule PO SCH (21:00)
--- NOTE | 2018-06-05 03:05 | NUR ---
ROCIO PROGRESS NOTE: Legal hold: Voluntary. Client on T-con for GD. Report received from ROCIO Barry Why are they here: The patient is a homeless man with long history at [facility]. He has multiple medical problems and presents as gravely disabled and unable to care for himself. The patient is irritable and angers easily. He makes delusional statements that he can't swallow, and his joints have enlarged. Assessment: What has happened this shift: The patient was in bed sleeping upon entering his room. He was told eye drops needed to be placed in his for infection. He still denies that he has an eye infection. "I just scratched it with my finger and they're clean." The patient spends almost all the time in his bed and does not wash his hands, so they can't be clean. He tried to refuse, but finally agreed, "if I can put them in myself." He was observed and does not open his eyes, or put any drops in them. The eye drops were placed by this ad writer instead. The patient yelled and called names, but got the medication. He is monitored and turned q2 hours if he hasn't already turned himself. S/I, H/I: Passive SI. A/VH: Denies Sleep: Patient sleeps on and off. ADL's: Total assist, incontinent of bowel. Group attendance: None at night. Were meds taken: Refused all PO medications. "I can't swallow." Any med S/Es: None reported or observed. Mental Status Exam: Appearance: Disheveled, unclean, smells bad. Eye contact: Poor. Behavior: Patient lays in bed and resists care, irritable, agitated, combative at times. Speech: Clear, yells when agitated. Mood: Depressed, hopeless, helpless, angry, agitated, irate. Affect: Angry. Thought process: Hopeless, helpless Thought Content: Preoccupied with thoughts of being useless, and nothing to live for. Cognition: Alert Insight: Poor Judgment: Poor Interventions: PRN's used: None Therapeutic interventions: Attempted 1:1 assessment. Attempted medications. Maintained safe environment. Monitored skin and turned q2 hours. q15 minute safety checks. Restraints/seclusion/emergency medication: None Justification of Continued Inpatient Treatment: The patient is gravely disabled and has no way to provide for food, housing, or usp. Continues to require therapy, and is waiting for placement.
[2018-06-05] MEDS: ciprofloxacin 0.3% 2.5ml ophthalmic solution EACHEYE SCH ×6 (04:17→20:03)
[2018-06-05] MEDS: OLANZapine 5mg rapidly disint. tablet PO SCH ×4 (06:12→20:01)
[2018-06-05] MEDS: pantoprazole 40mg Tablet.DR PO SCH (07:30)
[2018-06-05 07:48] VITALS: BP 93/57
[2018-06-05] MEDS: docusate sod 100mg capsule PO SCH ×2 (07:58→20:00)
[2018-06-05] MEDS: atorvastatin 10mg tablet PO SCH (07:59)
[2018-06-05] MEDS: folic acid 1mg tablet PO SCH (07:59)
[2018-06-05] MEDS: thiamine 100mg tablet PO SCH ×2 (08:00→20:00)
[2018-06-05] MEDS: fluoxetine 20mg/5ml UD cup PO SCH (08:00)
[2018-06-05] MEDS: aspirin 81mg tab.chew PO SCH (08:00)
[2018-06-05] MEDS: multivitamins, therapeutics tablet PO SCH (08:00)
[2018-06-05] MEDS: High Protein Shake w/Arg/Glut/Ca2+Bmb (Juven 19.3gm) pkt 240ml PO SCH ×3 (08:47→18:00)
--- NOTE | 2018-06-05 10:23 | NUR ---
reassessment: Pt PO fluctuating but mostly 100% ONS and mechanical soft diet meeting needs. Refusing all meds this AM. R Hip PU reddened at this time. LBM 06/05. Current BMI not accurate since ht has changed to 83in instead of correct 71in; BMI still underweight at 17 but pt meeting needs. No nutrition concerns at this time. IF PU is fully healed w/ monitor for ONS change from Murali given only used for wound healing. Recommendations: 1) Continue with [facility] soft diet 2) Continue with high protein shake TID, monitor for change to ensure enlive TID 3) Encourage PO intake of meals 4) Weekly wt Addendum: 06/05/18 at [address] Amended: Links added.
--- NOTE | 2018-06-05 11:45 | NUR ---
RN Progress Note Legal hold: Voluntary Client on involuntary status for GD/DTS Report received from Efren CHAN with use of SBAR: Why are they here: Pt. presented to [facility] on a 5150 for DTS and failure to thrive. He has had multiple hospital visits, is homeless, and has a hx. of schizophrenia and a anemia. He is estranged from his family, irritable, and makes delusional statements (such as "I can't swallow" or "I am an alien.") Pt. is bedridden and lower extremities are contracted. Pt. signed voluntary, however continues to refuse all medications except Zyprexa Zydis. Dr. Clarke is considering LPS conservatorship. What has happened this shift: Patient up for breakfast, took Zyprexa Zydis. Patient insists on putting own eye drops in eyes. Patient resistant to laying on his left side, does not believe there is anything wrong with right hip "its just a scratch" which is also what he says about eye infection. Assessment S/I, H/I: Passive S/I A/VH: Denies Sleep: 9.0 hrs. ADL's: Requires assist to transfer to w/c and for self care, however able to eat, reposition self in bed, and transfer back to bed independently. Pt needs prompting to lay on left side. Group attendance: Pt. does not attend groups. Were meds taken: Refused all except Zyprexa Zydis Any med S/E: None Mental Status Exam Appearance: Elderly, frail gentleman in green scrubs. Eye contact: Poor Behavior: Withdrawn, fatigued, irritable, resistive to care. Speech: Clear, soft. Yells at times. Mood: irritable and hopeless Affect: Constricted Thought process: Poverty of thought and blocking r/t mental health Thought Content: Preoccupation with depressed mood and on-going delusions Cognition: A&O Insight: Impaired. Judgment: Impaired. PRN's used: None Therapeutic interventions: Provided active listening, maintained a safe and therapeutic environment, provided medication education/encouragement with compliance, encouraged independent performance of ADLs, provide positive reinforcement on progress made, monitored skin and repositioning, dressing change, and maintained Q 15 min safety checks. Restraints/seclusion/emergency medication:N/A Justification of Continued Inpatient Treatment: Pt. remains gravely disabled, he continues to require a therapeutic milieu. Patient may be changed to LPS conservatorship per Dr. Clarke. He is awaiting placement.
[2018-06-05 20:00] VITALS: BP 109/72
[2018-06-05] MEDS: tamsulosin 0.4mg capsule PO SCH (21:00)
--- NOTE | 2018-06-06 02:18 | NUR ---
RN Progress Note Legal hold: Voluntary Client on involuntary status for GD/DTS Report received from Asha CHAN with use of SBAR: Why are they here: Pt. presented to [facility] on a 5150 for DTS and failure to thrive. He has had multiple hospital visits, is homeless, and has a hx. of schizophrenia and a anemia. He is estranged from his family, irritable, and makes delusional statements (such as "I can't swallow" or "I am an alien.") Pt. is bedridden and lower extremities are contracted. Pt. signed voluntary, however continues to refuse all medications except Zyprexa Zydis. Dr. Clarke is considering LPS conservatorship. What has happened this shift: Patient took Zyprexa but refused all other medications stating he could not swallow pills and that he had already put the eyedrops in and did not need them. He refused 0000 dose of eyedrops and put the sheet over his head and stated he just wanted to be left alone and sleep. Patient resistant to laying on his left side, does not believe there is anything wrong with right hip and I need to stay how I know I need to lay. He states the MD is wrong about eye infection. Assessment S/I, H/I: Passive S/I A/VH: Denies Sleep: 9.5 hrs. ADL's: Requires assist to transfer to w/c and for self care, however able to eat, reposition self in bed, and transfer back to bed independently. Pt needs prompting to lay on left side. Pt refused nurse to listen to lungs abd. He refused total skin check full assessment, but nurse able to assess the CDI dressing to R hip when he was being changed. Were meds taken: Refused all except Zyprexa Any med S/E: None Mental Status Exam Appearance: Elderly, frail gentleman in green scrubs. Eye contact: Poor Behavior: Withdrawn, fatigued, irritable, resistive to care. Speech: Clear, soft. Yells at times. Mood: irritable and hopeless Affect: Constricted Thought process: Poverty of thought and blocking r/t mental health Thought Content: Preoccupation with depressed mood and on-going delusions Cognition: A&O Insight: Impaired. Judgment: Impaired. PRN's used: None Therapeutic interventions: Provided active listening, maintained a safe and therapeutic environment, provided medication education/encouragement with compliance, encouraged independent performance of ADLs, provide positive reinforcement on progress made, monitored skin and repositioning, and maintained Q 15 min safety checks. Restraints/seclusion/emergency medication:N/A Justification of Continued Inpatient Treatment: Pt. remains gravely disabled, he continues to require a therapeutic milieu. Patient may be changed to LPS conservatorship per Dr. Clarke. He is awaiting placement.
--- NOTE | 2018-06-06 02:36 | NUR ---
Nursing Progress Note Legal hold:5150 Client on involuntary status for DTS. Report received from nurse Barry RN with use of SBAR. Why are they here: The patient came to the ER following a suicide attempt. He had lost blood. While trying to determine where the blood loss was coming from, he was found to have a GI bleed with an abdominal mass. It was surgically resected, and he remained there until he was stable. He was eventually discharged back to the ER and placed on 5150 before being brought to [facility] for further treatment. Assessment: What has happened this shift: Patient approached nurse at beginning of shift to fill her in on his needs. He had removed an old Nicotine patch from 12/03 and requested a new one. Nurse looked and found that he had no new order for one so she got an order from the MD for him. He complained of pain and stated he needed his Percocet every 4 hours on the dot, or his pain would be out of control. He stated he wanted to be woken up when his Percocet was due because if he goes more than 4 hours my pain is unbearable. He c/o os spasms in his back as well and nurse suggested he take his prn muscle relaxer. He agreed. Nursing assessment : Lungs CTAB. RR equal and non-labored. Heart RRR. S1 & S2. Bowel sounds X4. Soft abd that he stated was tender to touch. 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 Stables intact. Well approx. No drainage or s/s of complications. Pt stated he needed MOM but had to take it during the day. Nurse told him she would tell that to day nurse in report for him. No edema. All pulses present. Skin pink, warm, and dry. No s/s of distress. S/I, H/I: Denies A/VH: Denies Sleep: 8.25 hrs. ADL's: Independent Group attendance: Attends all groups. Were meds taken: Yes. Any med S/E. None noted or reported. Mental Status Exam: Appearance: Disheveled man with long hair in loose pony tail wearing green scrubs. Eye contact: Direct. Behavior: Demanding. [place] concerned not getting medications every 4 hours for pain even when nurse promised she would give it to him. Patient may escalate with pending discharge. Speech: Normal rate/rhythm. Mood: depressed. Affect: Blunted. Thought process: Goal oriented. Thought Content: Medications, Ca dx, not wanting to discharge home. Cognition: A/O x4 Insight: Fair. Judgment: Fair. PRN's used: Percocet 10/325 q4hr with adequate relief. Therapeutic interventions: 1:1 allow patient to express thoughts and feelings, medication education, assessed pt's wounds and medicated pt's pain, active listening, therapeutic response, Q15 minute safety checks. [place] setting. Restraints/seclusion/emergency medication: N/A Justification of Continued Inpatient Treatment: Patient will be discharged later today. high worker from [facility] is coming to assist in discharge at 0800 this morning.
[2018-06-06] MEDS: ciprofloxacin 0.3% 2.5ml ophthalmic solution EACHEYE SCH ×6 (04:00→21:14)
[2018-06-06] MEDS: pantoprazole 40mg Tablet.DR PO SCH (07:30)
[2018-06-06 07:33] VITALS: BP 90/60
[2018-06-06] MEDS: multivitamins, therapeutics tablet PO SCH (08:00)
[2018-06-06] MEDS: High Protein Shake w/Arg/Glut/Ca2+Bmb (Juven 19.3gm) pkt 240ml PO SCH ×3 (08:00→18:00)
[2018-06-06] MEDS: docusate sod 100mg capsule PO SCH ×2 (08:00→20:00)
[2018-06-06] MEDS: fluoxetine 20mg/5ml UD cup PO SCH (08:00)
[2018-06-06] MEDS: atorvastatin 10mg tablet PO SCH (08:00)
[2018-06-06] MEDS: thiamine 100mg tablet PO SCH ×2 (08:00→20:00)
[2018-06-06] MEDS: folic acid 1mg tablet PO SCH (08:00)
[2018-06-06] MEDS: aspirin 81mg tab.chew PO SCH (08:30)
[2018-06-06] MEDS: OLANZapine 5mg rapidly disint. tablet PO SCH ×2 (09:07→21:13)
--- NOTE | 2018-06-06 16:41 | NUR ---
1:1 DISCHARGE PLANNING SW made TC to PM Romina Maloney at [phone] regarding pt placement and county communication w/ Public Guardian for potential conversion to LPS Conservatorship. SW left message requesting a return contact to learn the next steps for pt placement. EVITA Rojas
--- NOTE | 2018-06-06 17:30 | NUR ---
RN Progress Note: Legal hold: Voluntary Client on involuntary status for GD/DTS Report received from Efren CHAN with use of SBAR: Why are they here: Pt. presented to [facility] on a 5150 for DTS and failure to thrive. He has had multiple hospital visits, is homeless, and has a hx. of schizophrenia and a anemia. He is estranged from his family, irritable, and makes delusional statements (such as "I can't swallow" or "I am an alien.") Pt. is bedridden and lower extremities are contracted. Pt. signed voluntary, however continues to refuse all medications except Zyprexa Zydis. Dr. Clarke is considering LPS conservatorship. What has happened this shift: Pt. more agitated than normal, and expressive passive SI, almost tearful at times, stating, "just bring me the back-hoe, just bring me the back-hoe, I'm done with living. Pt. reports knee pain 10/10 but refuses medication. Pt. given opthalmic antibiotic for pink eye bilaterally every 4 hours. Pt. is incontinent of stool and changed twice. Pressure ulcer on right hip is pink with no drainage and CDI. Pt. up in day room in wheel chair for meals. Assessment S/I, H/I: Passive S/I A/VH: Denies Sleep: 9.0 hrs. ADL's: Requires assist to transfer to w/c and for self care, however able to eat, reposition self in bed, and transfer back to bed independently. Pt needs prompting to lay on left side. Group attendance: Pt. does not attend groups. Were meds taken: Refused all except Zyprexa Zydis Any med S/E: None Mental Status Exam Appearance: Elderly, frail gentleman in green scrubs. Eye contact: Poor Behavior: Withdrawn, fatigued, irritable, resistive to care. Speech: Clear, soft. Yells at times. Mood: irritable and hopeless and depressed. Affect: Congruent with mood. Thought process: Poverty of thought and blocking r/t mental health Thought Content: Preoccupation with depressed mood and on-going delusions Cognition: A&O Insight: Impaired. Judgment: Impaired. PRN's used: None Therapeutic interventions: Provided active listening, maintained a safe and therapeutic environment, provided medication education/encouragement with compliance, encouraged independent performance of ADLs, provide positive reinforcement on progress made, monitored skin and repositioning, dressing change, and maintained Q 15 min safety checks. Restraints/seclusion/emergency medication:N/A Justification of Continued Inpatient Treatment: Pt. remains gravely disabled, he continues to require a therapeutic milieu. Patient may be changed to LPS conservatorship per Dr. Clarke. He is awaiting placement.
[2018-06-06 20:00] VITALS: BP 90/58
[2018-06-06] MEDS: tamsulosin 0.4mg capsule PO SCH (21:00)
--- NOTE | 2018-06-07 00:30 | NUR ---
Nursing Note Chief Complaint: Depression with S/I Legal hold: Voluntary Client on involuntary status for GD/DTS Report received from nurse with use of SBAR: ROCIO Herron Why are they here: Pt. presented to [facility] on a 5150 for DTS and failure to thrive. He has had multiple hospital visits, is homeless, and has a hx. of schizophrenia and a anemia. He is estranged from his family, irritable, and makes delusional statements (such as "I can't swallow" or "I am an alien.") Pt. is bedridden and lower extremities are contracted. Pt. signed voluntary, however continues to refuse all medications except Zyprexa Zydis. Dr. Clarke is considering LPS conservatorship. Assessment What has happened this shift: Pt. in bed at the beginning of the shift, continues to present as fatigued, hopeless, irritable/agitated, withdrawn, and resistive to care. 1:1 completed at bedside, he continues to report depression with passive S/I, states, "Get the backhoe, I'm tired of being a bother to everyone." Pt. continues to have ongoing delusions that he cannot swallow, however accepts hot chocolate. Pt. 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 Pt. again c/o pain throughout his body, however refuses pain medication. He continues on ABT eye drops Q 4 hours per pink-eye infection, and is able to administer eye drops independently. This tech writer provided education on pink-eye and not touching his eyes to prevent the spread of bacteria. Pt. became slightly agitated and stated, "They aren't even infected! They are just !" Pt. continues to be able to reposition himself in bed independently and is reminded to do so, dressing to rt. hip CDI. S/I, H/I: Passive S/I A/VH: Denies Sleep: Appears chronically fatigued, however reports he sleeps well ADL's: Requires assist to transfer to w/c and for self care, however able to eat, reposition self in bed, and transfer back to bed independently Group attendance: Pt. up for all meals, however unable to recall group attendance Were meds taken: Refused all except Zyprexa Zydis Any med S/E: None Mental Status Exam Appearance: Pts fingernails freshly clipped, and he is appropriately dressed in hospital attire. Bilateral lower extremities remain contracted. Eye contact: Fair Behavior: Withdrawn, fatigued, irritable/agitated, resistive to care and psychomotor activity WNL Speech: WNL, somewhat more cooperative and elaborative in regards to conversation Mood: Remains irritable and hopeless Affect: Constricted Thought process: Poverty of thought and blocking r/t mental health Thought Content: Preoccupation with depressed mood and on-going delusions Cognition: A&O Insight: Poor Judgment: Poor to fair Interventions PRN's used: None Therapeutic interventions: Provided active listening, maintained a safe and therapeutic environment, provided medication education/encouragement with compliance, encouraged independent performance of ADLs (independently administered ordered eyedrops), provide positive reinforcement on progress made, provided education on ABT eye drops and not touching eyes r/t the spread of bacteria, monitored skin and repositioning, and maintained Q 15 min safety checks. Restraints/seclusion/emergency medication:N/A Justification of Continued Inpatient Treatment: Pt. remains gravely disabled, he continues to require a therapeutic milieu. He is awaiting placement.
[2018-06-07] MEDS: ciprofloxacin 0.3% 2.5ml ophthalmic solution EACHEYE SCH ×6 (04:00→20:00)
[2018-06-07 07:11] VITALS: BP 96/64
[2018-06-07] MEDS: pantoprazole 40mg Tablet.DR PO SCH (07:30)
[2018-06-07] MEDS: thiamine 100mg tablet PO SCH ×2 (08:00→20:00)
[2018-06-07] MEDS: folic acid 1mg tablet PO SCH (08:00)
[2018-06-07] MEDS: fluoxetine 20mg/5ml UD cup PO SCH (08:00)
[2018-06-07] MEDS: multivitamins, therapeutics tablet PO SCH (08:00)
[2018-06-07] MEDS: atorvastatin 10mg tablet PO SCH (08:00)
[2018-06-07] MEDS: docusate sod 100mg capsule PO SCH ×2 (08:00→20:00)
[2018-06-07] MEDS: OLANZapine 5mg rapidly disint. tablet PO SCH ×2 (08:09→17:59)
[2018-06-07] MEDS: High Protein Shake w/Arg/Glut/Ca2+Bmb (Juven 19.3gm) pkt 240ml PO SCH ×3 (08:09→17:59)
[2018-06-07] MEDS: aspirin 81mg tab.chew PO SCH (08:30)
--- NOTE | 2018-06-07 09:02 | NUR ---
1:1 DISCHARGE PLANNING BYRON made TC to Gema at [facility] [phone], to inform [facility] of Dr. Gay assessment for LPS of pt. BYRON informed Gema that Dr. Gay verbalized a plan to recommend LPS Conservatorship of pt. BYRON requested instruction from the [facility] to begin the process. Gema agreed to contact Program Managers from [facility] and [facility] regarding procedures [facility] would like to follow. Gema agreed to return contact once she had clear instructions. EVITA Rojas
--- NOTE | 2018-06-07 11:44 | NUR ---
Nursing Note Chief Complaint: Depression with S/I Legal hold: Voluntary Client on involuntary status for GD/DTS Report received from nurse with use of SBAR: ROCIO Patel Why are they here: Pt. presented to [facility] on a 5150 for DTS and failure to thrive. He has had multiple hospital visits, is homeless, and has a hx. of schizophrenia and a anemia. He is estranged from his family, irritable, and makes delusional statements (such as "I can't swallow" or "I am an alien.") Pt. is bedridden and lower extremities are contracted. Pt. signed voluntary, however continues to refuse all medications except Zyprexa Zydis. Dr. Clarke is considering LPS conservatorship. Assessment What has happened this shift: The patient was asleep at change of shift. Depressed mood, irritable affect. Presents as hopeless and withdrawn. Fixed delusion regarding "I can't swallow", but patient does in fact swallow and eat. Spent time with patient watching a [employer] video. 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 Dressing to right hip changed, Patient administers own eye drops. Education provided regarding eye drops. Patient sat up from 0700 to 1130. Napped in afternoon. S/I, H/I: Denies A/VH: Denies Sleep: Napped ADL's: Requires assist to transfer to w/c and for self care, however able to eat, reposition self in bed, and transfer back to bed independently Group attendance: Pt. up for all meals, no groups Were meds taken: Refused all except Zyprexa Zydis Any med S/E: None Mental Status Exam Appearance: Disheveled Eye contact: Minimal Behavior: Withdrawn, fatigued, irritable at times Speech: WNL, somewhat more cooperative Mood: Depressed Affect: Constricted Thought process: Reminiscent Thought Content: Motorcycle racing Cognition: A&O Insight: Poor Judgment: Poor Interventions PRN's used: None Therapeutic interventions: Provided active listening, maintained a safe and therapeutic environment, provided medication education/encouragement with compliance, encouraged independent performance of ADLs (independently administered ordered eyedrops), provide positive reinforcement on progress made, provided education on ABT eye drops and not touching eyes r/t the spread of bacteria, monitored skin and repositioning, and maintained Q 15 min safety checks. Restraints/seclusion/emergency medication:N/A Justification of Continued Inpatient Treatment: Pt. remains gravely disabled, he continues to require a therapeutic milieu. He is awaiting placement.
[2018-06-07 20:00] VITALS: BP 126/81
[2018-06-07] MEDS: tamsulosin 0.4mg capsule PO SCH (21:00)
--- NOTE | 2018-06-08 01:31 | NUR ---
Nursing Note Chief Complaint: Depression with S/I Legal hold: Voluntary Client on involuntary status for GD/DTS Report received from nurse with use of SBAR: ROCIO Malin Why are they here: Pt. presented to [facility] on a 5150 for DTS and failure to thrive. He has had multiple hospital visits, is homeless, and has a hx. of schizophrenia and a anemia. He is estranged from his family, irritable, and makes delusional statements (such as "I can't swallow" or "I am an alien.") Pt. is bedridden and lower extremities are contracted. Pt. signed voluntary, however continues to refuse all medications except Zyprexa Zydis. Psychiatrists are considering LPS conservatorship. Assessment What has happened this shift: Pt. in bed at the beginning of the shift, states, "Go away and leave me alone!" Continues to present as fatigued, hopeless, irritable/agitated, withdrawn, and resistive to care. 1:1 completed at bedside, pt. irritable and states, "I don't want to talk!" He continues to have ongoing delusions that he cannot swallow, however accepts hot chocolate. Also delusional body dysmorphia, states in a distressed manner, "I have been measuring my knees with my hands and they just grow bigger and bigger." Pt. c/o bilateral leg pain, however continues to refuse pain medication. He continues on ABT eye drops Q 4 hours per pink-eye infection, and is able to administer eye drops independently, however refuses to do so this shift, states in an agitated manner, "I don't want them! Don't make me mad!" . This sheet writer provided education on pink-eye and the necessity of consistently using the medication to get rid of the infection. Pt. reported that the drops "burn his eyes." This sheet writer explained to pt. that his eyes burn and itch r/t the infection being present, however pt. continued to be agitated and adamantly refuse medication, will endorse to AM shift. Pt. continues to be able to reposition himself in bed independently and is reminded to do so, dressing to rt. hip CDI. S/I, H/I: Passive S/I A/VH: Denies Sleep: Appears chronically fatigued, however reports he sleeps well ADL's: Requires assist to transfer to w/c and for self care, however able to eat, reposition self in bed, and transfer back to bed independently Group attendance: Pt. up for all meals, however per report from AM shift, pt. unable to adequately focus at groups and leaves early Were meds taken: Refused all except Zyprexa Zydis Any med S/E: None Mental Status Exam Appearance: Pt. appears older than stated age, he is appropriately dressed in hospital attire. Bilateral lower extremities remain contracted. Eye contact: Poor Behavior: Withdrawn, fatigued, irritable/agitated, resistive to care and psychomotor activity WNL Speech: WNL, however becomes more intense and pressured when agitated Mood: Remains irritable and hopeless Affect: Constricted Thought process: Poverty of thought and blocking r/t mental health Thought Content: Preoccupation with depressed mood and on-going delusions Cognition: A&O Insight: Poor Judgment: Poor Interventions PRN's used: None Therapeutic interventions: Provided active listening, maintained a safe and therapeutic environment, provided medication education/encouragement with compliance, encouraged independent performance of ADLs (independently administered ordered eyedrops), provide positive reinforcement on progress made, provided education on ABT eye drops and not touching eyes r/t the spread of bacteria, monitored skin and repositioning, and maintained Q 15 min safety checks. Restraints/seclusion/emergency medication:N/A Justification of Continued Inpatient Treatment: Pt. remains gravely disabled, he continues to require a therapeutic milieu. He is awaiting possible LPS conservatorship and placement.
[2018-06-08] MEDS: ciprofloxacin 0.3% 2.5ml ophthalmic solution EACHEYE SCH ×6 (04:00→20:00)
[2018-06-08] MEDS: pantoprazole 40mg Tablet.DR PO SCH (07:30)
[2018-06-08 08:00] VITALS: BP 105/64
[2018-06-08] MEDS: multivitamins, therapeutics tablet PO SCH (08:00)
[2018-06-08] MEDS: atorvastatin 10mg tablet PO SCH (08:00)
[2018-06-08] MEDS: fluoxetine 20mg/5ml UD cup PO SCH (08:00)
[2018-06-08] MEDS: thiamine 100mg tablet PO SCH ×2 (08:00→20:00)
[2018-06-08] MEDS: docusate sod 100mg capsule PO SCH ×2 (08:00→20:00)
[2018-06-08] MEDS: folic acid 1mg tablet PO SCH (08:00)
[2018-06-08] MEDS: OLANZapine 5mg rapidly disint. tablet PO SCH ×2 (08:11→17:53)
[2018-06-08] MEDS: aspirin 81mg tab.chew PO SCH (08:30)
[2018-06-08] MEDS: High Protein Shake w/Arg/Glut/Ca2+Bmb (Juven 19.3gm) pkt 240ml PO SCH ×3 (08:36→17:52)
--- NOTE | 2018-06-08 15:42 | NUR ---
Nursing Note Chief Complaint: Depression with S/I Legal hold: Voluntary Client on involuntary status for GD/DTS Report received from nurse with use of SBAR: ROCIO Patel Why are they here: Pt. presented to [facility] on a 5150 for DTS and failure to thrive. He has had multiple hospital visits, is homeless, and has a hx. of schizophrenia and a anemia. He is estranged from his family, irritable, and makes delusional statements (such as "I can't swallow" or "I am an alien.") Pt. is bedridden and lower extremities are contracted. Pt. signed voluntary, however continues to refuse all medications except Zyprexa Zydis. Dr. Clarke is considering LPS conservatorship. Assessment What has happened this shift: The patient was asleep at change of shift. Depressed mood, irritable affect. Presents as hopeless and withdrawn. Fixed delusion regarding "I can't swallow", but patient does in fact swallow and eat. Takes only zyprexa zydis medication and will administer his own eye drops, will not allow staff to do so. Eating meals with others and sits up for a couple of hours after breakfast. Napped in afternoon. No other changes. S/I, H/I: Denies A/VH: Denies Sleep: Napped ADL's: Requires assist to transfer to w/c and for self care, however able to eat, reposition self in bed, and transfer back to bed independently Group attendance: Pt. up for all meals, no groups Were meds taken: Refused all except Zyprexa Zydis Any med S/E: None Mental Status Exam Appearance: Disheveled Eye contact: Minimal Behavior: Withdrawn, fatigued, irritable at times Speech: WNL, somewhat more cooperative Mood: Depressed Affect: Constricted Thought process: Poverty of thought Thought Content: "Leave me alone" Cognition: A&O Insight: Poor Judgment: Poor Interventions PRN's used: None Therapeutic interventions: Provided active listening, maintained a safe and therapeutic environment, provided medication education/encouragement with compliance, encouraged independent performance of ADLs (independently administered ordered eyedrops), provide positive reinforcement on progress made, provided education on ABT eye drops and not touching eyes r/t the spread of bacteria, monitored skin and repositioning, and maintained Q 15 min safety checks. Restraints/seclusion/emergency medication:N/A Justification of Continued Inpatient Treatment: Pt. remains gravely disabled, he continues to require a therapeutic milieu. He is awaiting placement.
[2018-06-08 19:00] VITALS: BP 96/66
[2018-06-08] MEDS: tamsulosin 0.4mg capsule PO SCH (21:00)
--- NOTE | 2018-06-09 02:32 | NUR ---
Nursing Note Chief Complaint: Depression with S/I Legal hold: Voluntary Client on involuntary status for GD/DTS Report received from nurse with use of SBAR: ROCIO Malin Why are they here: Pt. presented to [facility] on a 5150 for DTS and failure to thrive. He has had multiple hospital visits, is homeless, and has a hx. of schizophrenia and a anemia. He is estranged from his family, irritable, and makes delusional statements (such as "I can't swallow" or "I am an alien.") Pt. is bedridden and lower extremities are contracted. Pt. signed voluntary, however continues to refuse all medications except Zyprexa Zydis. Psychiatrists are considering LPS conservatorship. Assessment What has happened this shift: Pt. in bed asleep at the beginning of the shift, continues to sleep throughout the shift, however awakened to provide personal care and attempt to administer ordered ABT eye drops which pt. refuses. He continues to present as fatigued, hopeless, irritable/agitated, withdrawn, and resistive to care. Attempted to complete 1:1, however pt. remains resistive to conversation and states, "Just get the backhoe, I'm tired of being here." He continues to have ongoing delusions that he cannot swallow and body dysmorphia. Pt. continues to c/o pain throughout his body, but refuses to be helped to reposition or to take pain medication. He remains on ABT eye drops Q 4 hours per pink-eye infection, and is able to administer eye drops independently, however refuses to do so this shift, states in an agitated manner, "They burn my eyes, I don't need them!" This technical proposal writer again provided education on pink-eye and the necessity of consistently using the medication to get rid of the infection (which will alleviate the burning/itching), however he continued to refuse. Pt. continues to be able to reposition himself in bed independently and is reminded to do so, dressing to rt. hip CDI. S/I, H/I: Passive S/I A/VH: Denies Sleep: Appears chronically fatigued, however reports he sleeps well ADL's: Requires assist to transfer to w/c and for self care, however able to eat, reposition self in bed, and transfer back to bed independently Group attendance: Pt. up for all meals, however per report from AM shift, pt. unable to adequately focus at groups and leaves early Were meds taken: Refused all except Zyprexa Zydis, including eye drop ABT Any med S/E: None Mental Status Exam Appearance: Pt. appears older than stated age, he is appropriately dressed in hospital attire. Bilateral lower extremities remain contracted. Eye contact: Poor Behavior: Withdrawn, fatigued, irritable/agitated, resistive to care and psychomotor activity WNL Speech: WNL, however becomes more intense and pressured when agitated Mood: Remains irritable and hopeless Affect: Constricted Thought process: Poverty of thought and blocking r/t mental health Thought Content: Preoccupation with depressed mood and on-going delusions Cognition: A&O Insight: Poor Judgment: Poor Interventions PRN's used: None Therapeutic interventions: Provided active listening, maintained a safe and therapeutic environment, provided medication education/encouragement with compliance, encouraged independent performance of ADLs (independently administered ordered eyedrops), provide positive reinforcement on progress made, provided education on ABT eye drops and not touching eyes r/t the spread of bacteria, monitored skin and repositioning, and maintained Q 15 min safety checks. Restraints/seclusion/emergency medication:N/A Justification of Continued Inpatient Treatment: Pt. remains gravely disabled, he continues to require a therapeutic milieu. He is awaiting possible LPS conservatorship and may discharge to [facility] after this occurs.
[2018-06-09] MEDS: ciprofloxacin 0.3% 2.5ml ophthalmic solution EACHEYE SCH ×4 (04:00→12:00)
[2018-06-09] MEDS: pantoprazole 40mg Tablet.DR PO SCH (07:30)
[2018-06-09 08:00] VITALS: BP 106/70
[2018-06-09] MEDS: fluoxetine 20mg/5ml UD cup PO SCH (08:00)
[2018-06-09] MEDS: atorvastatin 10mg tablet PO SCH (08:00)
[2018-06-09] MEDS: thiamine 100mg tablet PO SCH (08:00)
[2018-06-09] MEDS: folic acid 1mg tablet PO SCH (08:00)
[2018-06-09] MEDS: multivitamins, therapeutics tablet PO SCH (08:00)
[2018-06-09] MEDS: docusate sod 100mg capsule PO SCH (08:00)
[2018-06-09] MEDS: aspirin 81mg tab.chew PO SCH (08:30)
[2018-06-09] MEDS: OLANZapine 5mg rapidly disint. tablet PO SCH ×2 (08:46→18:00)
[2018-06-09] MEDS: High Protein Shake w/Arg/Glut/Ca2+Bmb (Juven 19.3gm) pkt 240ml PO SCH ×2 (08:50→13:42)
--- NOTE | 2018-06-09 17:38 | NUR ---
Nursing Note Chief Complaint: Depression with S/I Legal hold: Voluntary Client on involuntary status for GD/DTS Report received from nurse with use of SBAR: ROCIO Patel Why are they here: Pt. presented to [facility] on a 5150 for DTS and failure to thrive. He has had multiple hospital visits, is homeless, and has a hx. of schizophrenia and a anemia. He is estranged from his family, irritable, and makes delusional statements (such as "I can't swallow" or "I am an alien.") Pt. is bedridden and lower extremities are contracted. Pt. signed voluntary, however continues to refuse all medications except Zyprexa Zydis. Dr. Clarke is considering LPS conservatorship. Assessment What has happened this shift: Recieved patient asleep in bed w/o distress at change of shift. Depressed mood, irritable affect, and continues to present as hopeless and withdrawn. Reports difficulty swallowing, but does swallow and eat. Refused all meds except AM Zyprexa Zydis. States that his eye irritation is because he accidentally poked himself, and its not infected. He ate meals with others and sat up for a couple of hours after lunch. Napped in afternoon. No other changes. S/I, H/I: Denies A/VH: Denies Sleep: Napped ADL's: Requires assist to transfer to w/c and for self care, however able to eat, reposition self in bed, and transfer back to bed independently Group attendance: Pt. up for all meals, no groups Were meds taken: Refused all except Zyprexa Zydis Any med S/E: None Mental Status Exam Appearance: Disheveled Eye contact: Minimal Behavior: Withdrawn, fatigued, irritable at times Speech: WNL, somewhat more cooperative Mood: Depressed Affect: Constricted Thought process: Poverty of thought Thought Content: "Leave me alone" Cognition: A&O Insight: Poor Judgment: Poor Interventions PRN's used: None Therapeutic interventions: Provided active listening, maintained a safe and therapeutic environment, provided medication education/encouragement with compliance, encouraged independent performance of ADLs (independently administered ordered eyedrops), provide positive reinforcement on progress made, provided education on ABT eye drops and not touching eyes r/t the spread of bacteria, monitored skin and repositioning, and maintained Q 15 min safety checks. Restraints/seclusion/emergency medication:N/A Justification of Continued Inpatient Treatment: Pt. remains gravely disabled, he continues to require a therapeutic milieu. He is awaiting placement.
[2018-06-09 19:00] VITALS: BP 122/86
--- NOTE | 2018-06-10 03:53 | NUR ---
Nursing Progress Note: Legal hold: Voluntary. Client on T-con for GD. Report received from ROCIO Linder with use of SBAR. Why are they here: The patient is a homeless man with long history at [facility]. He has multiple medical problems and presents as gravely disabled and unable to care for himself. The patient is irritable and angers easily. He makes delusional statements that he can't swallow, and his joints have enlarged. Assessment: What has happened this shift: The patient was found in the group room still eating dinner. He was talking to another client. They were talking about aliens, "this is not our planet." The patient believes that aliens were here first, and that many things we have were brought here by them. "It all started with [employer], that's where we got most of our technology from." The patient says that stealth airplanes, fiber optics were all learned from [employer]. "They reverse engineered all them things from alien vehicles." The patient finished his meal, then went to his room and put himself to bed. The patient's eyes look clear without infection. Eye drops have been dc'd. He c/o pain, but will not take anything for it. He has been turned q2 hours to promote blood flow to all areas. S/I, H/I: Passive SI. A/VH: Denies Sleep: Patient sleeps on and off. ADL's: Moderate assist, incontinent of bowel. Group attendance: None at night. Were meds taken: None ordered for HS. Any med S/Es: None reported or observed. Mental Status Exam: Appearance: Disheveled, unclean, hair sticking up, smells bad. Eye contact: Poor. Behavior: Patient lays in bed and resists care, irritable, agitated, combative at times. Speech: Clear, yells when agitated. Mood: Depressed, hopeless, helpless, angry, agitated, irate. Affect: Angry. Thought process: Hopeless, helpless. Thought Content: Preoccupied with thoughts of being useless, and nothing to live for. Cognition: Alert Insight: Poor Judgment: Poor Interventions: PRN's used: None Therapeutic interventions: Attempted 1:1 assessment. Attempted medications. Maintained safe environment. Monitored skin and turned q2 hours. q15 minute safety checks. Restraints/seclusion/emergency medication: None Justification of Continued Inpatient Treatment: The patient is gravely disabled and has no way to provide for food, housing, or prison. Continues to require therapy, and is waiting for placement.
[2018-06-10 07:00] VITALS: BP 88/70
[2018-06-10] MEDS: OLANZapine 5mg rapidly disint. tablet PO SCH ×3 (08:18→18:00)
--- NOTE | 2018-06-10 12:54 | NUR ---
reassessment: Pt PO fluctuating w/ 25% avg meals and 100% ONS not meeting needs. LBM 06/09. BMI not accurate given ht listed as 83in; correct 71in. BMI 17 still underweight. Pt refusing meds and only getting up for meals per MD note. Will continue to monitor. Recommendations: 1) Continue with [facility] soft diet 2) Continue with high protein shake TID, monitor for change to ensure enlive TID 3) Encourage PO intake of meals 4) Weekly wt Addendum: 06/10/18 at [address] Amended: Links added.
--- NOTE | 2018-06-10 16:25 | NUR ---
RN Progress Note Legal hold: Voluntary Client on involuntary status for GD/DTS Report received from Efren CHAN with use of SBAR: Why are they here: Pt. presented to [facility] on a 5150 for DTS and failure to thrive. He has had multiple hospital visits, is homeless, and has a hx. of schizophrenia and a anemia. He is estranged from his family, irritable, and makes delusional statements (such as "I can't swallow" or "I am an alien.") Pt. is bedridden and lower extremities are contracted. Pt. signed voluntary, however continues to refuse all medications except Zyprexa Zydis. Dr. Clarke is considering [facility] conservatorship. What has happened this shift: Patient has been laying in bed for most of the shift, with exception of getting up for meals. Patient was moved onto his left side after breakfast by staff, r/t pt refusing to change positions. Patient attempted to swing at staff during repositioning. Patient only took zyprexa zydis, refusing all other medications. Assessment S/I, H/I: Passive S/I A/VH: Denies Sleep: Good. ADL's: Requires assist to transfer to w/c and for self care, however able to eat, reposition self in bed, and transfer back to bed independently. Pt needs prompting to lay on left side. Pt. incontinent of stool. Group attendance: Pt. does not attend groups. Were meds taken: Refused all except Zyprexa Zydis Any med S/E: None Mental Status Exam Appearance: Elderly, frail gentleman in green scrubs. Eye contact: Poor Behavior: Withdrawn, fatigued, irritable, resistive to care, combative at times. Speech: Clear, soft. Yells at times. Mood: irritable and hopeless Affect: Constricted Thought process: Poverty of thought and blocking r/t mental health Thought Content: Preoccupation with depressed mood and on-going delusions Cognition: A&O Insight: Impaired. Judgment: Impaired. PRN's used: None Therapeutic interventions: Provided active listening, maintained a safe and therapeutic environment, provided medication education/encouragement with compliance, encouraged independent performance of ADLs, provide positive reinforcement on progress made, monitored skin and repositioning, dressing change, and maintained Q 15 min safety checks. Restraints/seclusion/emergency medication:N/A Justification of Continued Inpatient Treatment: Pt. remains gravely disabled, he continues to require a therapeutic milieu. Patient may be changed to LPS conservatorship per Dr. Clarke. He is awaiting placement.
--- NOTE | 2018-06-10 17:42 | NUR ---
Nursing Note: Patient refused all labs.
[2018-06-10 20:00] VITALS: BP 125/74
--- NOTE | 2018-06-11 02:51 | NUR ---
Nursing Progress Note: Legal hold: Voluntary. Client on T-con for GD. Report received from ROCIO Linder with use of SBAR. Why are they here: The patient is a homeless man with long history at [facility]. He has multiple medical problems and presents as gravely disabled and unable to care for himself. The patient is irritable and angers easily. He makes delusional statements that he can't swallow, and his joints have enlarged. Assessment: What has happened this shift: The patient was found sleeping in his bed. He refused to talk, except to yell at me to get out of his room. The patient was checked q2 hours for turning, but when turned, he just turns back to where he wants to be. The patient stayed in bed all shift. S/I, H/I: Passive SI. A/VH: Denies Sleep: Patient sleeps on and off. ADL's: Moderate assist, incontinent of bowel. Group attendance: None at night. Were meds taken: None ordered for HS. Any med S/Es: None reported or observed. Mental Status Exam: Appearance: Disheveled, unclean, hair sticking up, smells bad. Eye contact: Poor. Behavior: Patient lays in bed and resists care, irritable, agitated, combative at times. Speech: Clear, yells when agitated. Mood: Depressed, hopeless, helpless, angry, agitated, irate. Affect: Angry. Thought process: Hopeless, helpless. Thought Content: Preoccupied with thoughts of being useless, and nothing to live for. Cognition: Alert Insight: Poor Judgment: Poor Interventions: PRN's used: None Therapeutic interventions: Attempted 1:1 assessment. Attempted medications. Maintained safe environment. Monitored skin and turned q2 hours. q15 minute safety checks. Restraints/seclusion/emergency medication: None Justification of Continued Inpatient Treatment: The patient is gravely disabled and has no way to provide for food, housing, or intermediate. Continues to require therapy, and is waiting for placement.
[2018-06-11 07:00] VITALS: BP 95/56
--- NOTE | 2018-06-11 12:06 | NUR ---
1:1 DISCHARGE PLANNING SW contacted Public Guardian regarding placement for pt at [facility], as pt has been accepted pending LPS Conservatorship and reports an open bed. BYRON spoke to Fret Saw Operator Leona Diane, who reports she cannot authorize pt placement under LPS and the LPS documents would be filed with the court within one week. BYRON requested Public Guardian to work with [facility] for patch approval and placement during the LPS conversion. EVITA Rojas
--- NOTE | 2018-06-11 15:48 | NUR ---
RN Progress Note Legal hold: Voluntary Client on involuntary status for GD/DTS Report received from Efren CHAN with use of SBAR: Why are they here: Pt. presented to [facility] on a 5150 for DTS and failure to thrive. He has had multiple hospital visits, is homeless, and has a hx. of schizophrenia and a anemia. He is estranged from his family, irritable, and makes delusional statements (such as "I can't swallow" or "I am an alien.") Pt. is bedridden and lower extremities are contracted. Pt. signed voluntary, however continues to refuse all medications except Zyprexa Zydis. Dr. Clarke is considering [facility] conservatorship. What has happened this shift: Pt asleep at start of shift. Patient did not get up for dinner last night, and attempted to refuse breakfast. With some persuading patient did get up and eat for breakfast. Speech pathologist came and evaluated patients swallowing. Patient was able to swallow all items without difficulty, as this is part of his delusions. Patient has been less agitated today. Assessment S/I, H/I: Passive S/I A/VH: Denies Sleep: Good. ADL's: Requires assist to transfer to w/c and for self care, however able to eat, reposition self in bed, and transfer back to bed independently. Pt needs prompting to lay on left side. Pt. incontinent of stool. Group attendance: Pt. does not attend groups. Were meds taken: Refused all except Zyprexa Zydis Any med S/E: None Mental Status Exam Appearance: Elderly, frail gentleman in green scrubs. Eye contact: Poor Behavior: Withdrawn, fatigued, irritable, resistive to care, combative at times. Speech: Clear, soft unless agitated. Mood: irritable and hopeless Affect: Constricted Thought process: Poverty of thought and blocking r/t mental health Thought Content: Preoccupation with depressed mood and on-going delusions Cognition: A&O Insight: Impaired. Judgment: Impaired. PRN's used: None Therapeutic interventions: Provided active listening, maintained a safe and therapeutic environment, provided medication education/encouragement with compliance, encouraged independent performance of ADLs, provide positive reinforcement on progress made, monitored skin and repositioning, dressing change, and maintained Q 15 min safety checks. Restraints/seclusion/emergency medication:N/A Justification of Continued Inpatient Treatment: Pt. remains gravely disabled, he continues to require a therapeutic milieu. Patient may be changed to LPS conservatorship per Dr. Clarke. He is awaiting placement.
[2018-06-11] MEDS: OLANZapine 5mg rapidly disint. tablet PO SCH (18:53)
[2018-06-11 20:10] VITALS: BP 114/80
--- NOTE | 2018-06-11 22:12 | NUR ---
RN Progress Note Legal hold: Voluntary Client on involuntary status for GD/DTS Report received from Efren CHAN with use of SBAR: Why are they here: Pt. presented to [facility] on a 5150 for DTS and failure to thrive. He has had multiple hospital visits, is homeless, and has a hx. of schizophrenia and a anemia. He is estranged from his family, irritable, and makes delusional statements (such as "I can't swallow" or "I am an alien.") Pt. is bedridden and lower extremities are contracted. Pt. signed voluntary, however continues to refuse all medications except Zyprexa Zydis. Dr. Clarke is considering [facility] conservatorship. What has happened this shift: Pt was in group room at change of shift, conversing w/his roommate. 1:1 assessment completed at bedside. Asked pt about his day and he states "I dont want to talk! My head it too big! Pt states he used to wear a medium motorcycle helmet and now it's a large because he think his head has grown. He states all of his bones keep growing and wont stop. We talked about different types of motorcycles and history of motorcycles, pt seemed to enjoy this topic. He then asked for a cup of hot chocolate. Pt was offered medications or help with making him more comfortable in bed but he declined assistance. Pt complained of his joints hurting stating "I've tried everything, Im good enough, my core is always down, I'm always cold." Pt declined any more blankets. Assessment S/I, H/I: Passive S/I "I wish I wouldve known to take my life when I could, living like this is terrible, I wish someone would get a backhoe and put me out of my misery." A/VH: Denies Sleep: Good. ADL's: Requires assist to transfer to w/c and for self care, however able to eat, reposition self in bed, and transfer back to bed independently. Pt needs prompting to lay on left side. Pt. incontinent of stool. Group attendance: Pt. does not attend groups. Were meds taken: Zydis only Any med S/E: None Mental Status Exam Appearance: Adequately groomed, dressed in green scrubs, complains about the non skid socks he's wearing. "I hate these things!" Asked pt what type of socks he'd like? He said "I wear boots lady!" Eye contact: good Behavior: irritable, resistive to care, pleasant when he's interested in a subject. Speech: Clear, soft unless agitated. Mood: irritable and hopeless Affect: Constricted Thought process: Linear Thought Content: Preoccupation with depressed mood and on-going delusions Cognition: A&O Insight: Impaired. Judgment: Impaired. PRN's used: None Therapeutic interventions: Provided active listening, maintained a safe and therapeutic environment, provided medication education/encouragement with compliance, encouraged independent performance of ADLs, provide positive reinforcement on progress made, monitored skin and repositioning, and maintained Q 15 min safety checks. Restraints/seclusion/emergency medication:N/A Justification of Continued Inpatient Treatment: Pt. remains gravely disabled, he continues to require a therapeutic milieu. Patient may be changed to LPS conservatorship per Dr. Clarke. He is awaiting placement.
[2018-06-12 07:00] VITALS: BP 132/62
[2018-06-12] MEDS: OLANZapine 5mg rapidly disint. tablet PO SCH ×2 (08:00→18:51)
--- NOTE | 2018-06-12 11:37 | NUR ---
RN Progress Note Legal hold: Voluntary Client on involuntary status for GD/DTS Report received from Jennifer CHAN with use of SBAR: Why are they here: Pt. presented to [facility] on a 5150 for DTS and failure to thrive. He has had multiple hospital visits, is homeless, and has a hx. of schizophrenia and a anemia. He is estranged from his family, irritable, and makes delusional statements (such as "I can't swallow" or "I am an alien.") Pt. is bedridden and lower extremities are contracted. Pt. signed voluntary, however continues to refuse all medications except Zyprexa Zydis. Dr. Clarke is considering [facility] conservatorship. What has happened this shift: Patient asleep upon arrival to unit. Patient got up for breakfast, took Zyprexa Zydis. Patient was showered by NA's with initial protest. Patient irritable with all interventions. Pt. was stating to NA's that he could not move his legs, which he then proceeded to get into wheelchair. Pt. does socialize with roommate. Assessment S/I, H/I: Passive S/I A/VH: Denies Sleep: 9 hrs. ADL's: Requires assist to transfer to w/c and for self care, however able to eat, reposition self in bed, and transfer back to bed independently. Pt needs prompting to lay on left side. Pt. incontinent of stool. Group attendance: Pt. does not attend groups. Were meds taken: Refused all except Zyprexa Zydis Any med S/E: None Mental Status Exam Appearance: Elderly, frail gentleman in green scrubs. Eye contact: Poor Behavior: Withdrawn, fatigued, irritable, resistive to care. Speech: Clear, soft unless agitated. Mood: irritable and hopeless Affect: Constricted Thought process: Poverty of thought and blocking r/t mental health Thought Content: Preoccupation with depressed mood and on-going delusions Cognition: A&O Insight: Impaired. Judgment: Impaired. PRN's used: None Therapeutic interventions: Provided active listening, maintained a safe and therapeutic environment, provided medication education/encouragement with compliance, encouraged independent performance of ADLs, provide positive reinforcement on progress made, monitored skin and repositioning, dressing change, and maintained Q 15 min safety checks. Restraints/seclusion/emergency medication:N/A Justification of Continued Inpatient Treatment: Pt. remains gravely disabled, he continues to require a therapeutic milieu. Patient will be on T-con per public guardian by next week then he can go be placed.
--- NOTE | 2018-06-12 18:39 | NUR ---
Turned the patient to his R side at 18:39. The patient was combative, threw punches the whole time staff was assisting him and was yelling "You fucking bitch" "god jacqueline garcía" "I hate you, you fucking bitch, I hate you"
[2018-06-12 20:05] VITALS: BP 91/57
--- NOTE | 2018-06-12 23:10 | NUR ---
RN Progress Note Legal hold: Voluntary Client on involuntary status for GD/DTS Report received from Asha CHAN with use of SBAR: Why are they here: Pt. presented to [facility] on a 5150 for DTS and failure to thrive. He has had multiple hospital visits, is homeless, and has a hx. of schizophrenia and anemia. He is estranged from his family, irritable, and makes delusional statements (such as "I can't swallow" or "I am an alien.") Pt. is bedridden and lower extremities are contracted. Pt. signed voluntary, however continues to refuse all medications except Zyprexa Zydis. Dr. Clarke is considering [facility] conservatorship. What has happened this shift: Pt was in bed asleep at shift change. Pt refused his Zyprexa and physical assessment at this time yelled "go get the backhoe, let's end it now". "I can't swallow." Pt's roommate brought him a snack and wanted some juice because the chips were hot. While pt was drinking his apple juice pt agreed to take his medication and this commercial lines underwriter was able to perform a quick physical assessment. Pt refused to turn to his left side. Will continue to monitor. Assessment S/I, H/I: Passive S/I "Just get a backhoe, let's end it now" A/VH: None reported or observed Sleep: See sleep assessment notation ADL's: Requires assist to transfer to w/c and for self care, however able to eat, reposition self in bed, and transfer back to bed independently. Pt needs prompting to lay on left side. Pt. incontinent of stool. 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 Speech: loud, clear, gruff, normal rate and rhythm Mood: Irritable and hopeless Affect: Constricted Thought process: Poverty of thought, hopless Thought Content: Preoccupation with depressed mood and on-going delusions Cognition: A&O Insight: Impaired. Judgment: Impaired. PRN's used: None Therapeutic interventions: Provided active listening, maintained a safe and therapeutic environment, provided medication education/encouragement with compliance, encouraged independent performance of ADLs, provide positive reinforcement on progress made, monitored skin and repositioning, and maintained Q 15 min safety checks. Restraints/seclusion/emergency medication: N/A Justification of Continued Inpatient Treatment: Pt. remains gravely disabled, he continues to require a therapeutic milieu. Patient may be changed to LPS conservatorship per Dr. Clarke. He is awaiting placement. Addendum: 06/12/18 at 2796 by Lesia Mesa RN Pt self turned to left side.
[2018-06-13 08:00] VITALS: BP 102/62
[2018-06-13] MEDS: OLANZapine 5mg rapidly disint. tablet PO SCH ×2 (08:03→18:00)
--- NOTE | 2018-06-13 12:14 | NUR ---
Nursing Note Chief Complaint: Depression with S/I Legal hold: Voluntary Client on involuntary status for GD/DTS Report received from nurse with use of SBAR: Lesia RN Why are they here: Pt. presented to [facility] on a 5150 for DTS and failure to thrive. He has had multiple hospital visits, is homeless, and has a hx. of schizophrenia and a anemia. He is estranged from his family, irritable, and makes delusional statements (such as "I can't swallow" or "I am an alien.") Pt. is bedridden and lower extremities are contracted. Pt. signed voluntary, however continues to refuse all medications except Zyprexa Zydis. Dr. Clarke is considering LPS conservatorship. Assessment What has happened this shift: Recieved patient asleep in bed w/o distress at change of shift. He presents as depressed with an irritable affect, and continues to present as hopeless and withdrawn. He continues to state that he cant swallow, but does swallow and eat. Took AM Zyprexa Zydis, stating it doesnt do anything. He ate meals with others and sat up for a couple of hours after lunch. Napped in afternoon. Able to engage in conversation around past interests. Enjoys the company of his current room mate. No other changes. S/I, H/I: Denies A/VH: Denies Sleep: Napped ADL's: Requires assist to transfer to w/c and for self care, however able to eat, reposition self in bed, and transfer back to bed independently Group attendance: Pt. up for all meals, no groups Were meds taken: Yes Any med S/E: None Mental Status Exam Appearance: Wearing hospital scrubs Eye contact: Good when speaking Behavior: Withdrawn,, irritable at times Speech: WNL, somewhat more cooperative Mood: Depressed Affect: Constricted Thought process: Poverty of thought Thought Content: "Leave me alone" Cognition: A&O Insight: Poor Judgment: Poor Interventions PRN's used: None Therapeutic interventions: Provided active listening, maintained a safe and therapeutic environment, provided medication education/encouragement with compliance, encouraged independent performance of ADLs (independently administered ordered eyedrops), provide positive reinforcement on progress made, provided education on ABT eye drops and not touching eyes r/t the spread of bacteria, monitored skin and repositioning, and maintained Q 15 min safety checks. Restraints/seclusion/emergency medication:N/A Justification of Continued Inpatient Treatment: Pt. remains gravely disabled, he continues to require a therapeutic milieu. He is awaiting placement.
--- NOTE | 2018-06-13 13:00 | NUR ---
1:1 DISCHARGE PLANNING SW sent copies of progress and nursing notes to Dany Deras on 06/13/2017. BYRON asked for confirmation of pt acceptance. Katiana reports administration has not given defined answer as of yet, however pt is tentatively accepted due to LPS T-Con process that will be occurring. EVITA Rojas
[2018-06-13 20:00] VITALS: BP 100/62
--- NOTE | 2018-06-13 23:43 | NUR ---
Nursing Note Chief Complaint: Depression with S/I Legal hold: Voluntary Client on involuntary status for GD/DTS Report received from nurse with use of SBAR: ROCIO Linder Why are they here: Pt. presented to [facility] on a 5150 for DTS and failure to thrive. He has had multiple hospital visits, is homeless, and has a hx. of schizophrenia and a anemia. He is estranged from his family, irritable, and makes delusional statements (such as "I can't swallow" or "I am an alien.") Pt. is bedridden and lower extremities are contracted. Pt. signed voluntary, however continues to refuse all medications except Zyprexa Zydis. Dr. Clarke is considering LPS conservatorship. Assessment What has happened this shift: Pt was in bed asleep w/o distress at shift change. Pt was irritable when this resume writer attempted to wake to give his 1800 Zyprexa. Pt angrily refused medication AEB yelling. Several other attempts were made throughout shift to administer medication. Pt "I refuse, there is something wrong with my tongue." This resume writer explained the tablets will dissolve on your tongue, yelling "I said there is something wrong with my tongue and besides they don't work anyway." Pt however enjoys the company of his roommate. 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, no group Were meds taken: No Any med S/E: None reported or observed Mental Status Exam Appearance: Wearing hospital scrubs, greasy hair Eye contact: Good when speaking Behavior: Withdrawn,, irritable at times Speech: WNL, loud, clear Mood: Depressed Affect: Constricted Thought process: Poverty of thought Thought Content: "Leave me alone" Cognition: A&O Insight: Poor Judgment: Poor Interventions PRN's used: None Therapeutic interventions: Provided active listening, maintained a safe and therapeutic environment, provided medication education/encouragement with compliance, encouraged independent performance of ADLs (independently administered ordered eyedrops), provide positive reinforcement on progress made, monitored skin and repositioning, and maintained Q 15 min safety checks. Restraints/seclusion/emergency medication:N/A Justification of Continued Inpatient Treatment: Pt. remains gravely disabled, he continues to require a therapeutic milieu. He is awaiting placement. Addendum: 06/14/18 at 0232 by Lesia Mesa RN Pt refused most of physical assessment
[2018-06-14 07:53] VITALS: BP 91/58
[2018-06-14] MEDS: OLANZapine 5mg rapidly disint. tablet PO SCH ×2 (08:11→17:30)
--- NOTE | 2018-06-14 17:42 | NUR ---
Nursing Note Chief Complaint: Depression with S/I Legal hold: N/A Client is voluntary Report received from nurse with use of SBAR: ROCIO Graf Why are they here: Pt. presented to [facility] on a 5150 for DTS and failure to thrive. He has had multiple hospital visits, is homeless, and has a hx. of schizophrenia and a anemia. He is estranged from his family, irritable, and makes delusional statements (such as "I can't swallow" or "I am an alien.") Pt. is bedridden and lower extremities are contracted. Pt. signed voluntary, however continues to refuse all medications except Zyprexa Zydis. LPS conservatorship pending. Assessment What has happened this shift: Pt up for breakfast, rates depression as 12/27, denies SI/HI/AH/VH, when asked if he feels anxious, replied, "naaaa" When asked how he was feeling today, replied, "I don't know what to say, got any cocoa?" Optifoam right hip C/D/I. Pt incontinent of stool today X 1. Able to transfer self to w/c with set-up and supervision, able to propel self in w/c, no unsafe behaviors noted. S/I, H/I: Pt denies A/VH: Pt denies Sleep: Slept 8 hours per noc shift report ADL's: Requires assist for transfer into w/c, bathing, & bowel incontinent care Group attendance: Pt declines to attend group Were meds taken: Yes, Zydis Any med S/E: None reported or observed Mental Status Exam Appearance: Clean Eye contact: Good Behavior: reluctantly cooperative with ADLs Speech: clear, audible, loud sometimes when irritated Mood: Depressed Affect: Constricted Thought process: Linear Thought Content: "Got any cocoa?" Cognition: A&O X 2 Insight: Poor Judgment: Poor Interventions PRN's used: None Therapeutic interventions: 1:1 assessment, medication administration, education, & monitoring, encouragement to assist with self care, permit bowel incontinent care, reposition self off his right side, maintained Q 15 min safety checks. Restraints/seclusion/emergency medication:N/A Justification of Continued Inpatient Treatment: Pt. remains gravely disabled, he continues to require a therapeutic milieu. Pt is in the process of LPS conservatorship with tentative acceptance once conserved at [facility].
[2018-06-14 19:00] VITALS: BP 101/66
--- NOTE | 2018-06-14 22:48 | NUR ---
Nursing Note Chief Complaint: Depression with S/I Legal hold: N/A Client is voluntary Report received from nurse with use of SBAR: ROCIO Tucker Why are they here: Pt. presented to [facility] on a 5150 for DTS and failure to thrive. He has had multiple hospital visits, is homeless, and has a hx. of schizophrenia and a anemia. He is estranged from his family, irritable, and makes delusional statements (such as "I can't swallow" or "I am an alien.") Pt. is bedridden and lower extremities are contracted. Pt. signed voluntary, however continues to refuse all medications except Zyprexa Zydis. LPS conservatorship pending. Assessment What has happened this shift: Received patient sleeping in bed on left side. No signs of distress. Pt allowed this comic book writer a "quick" physical assessment, "they already did one today." Pt incontinent x2. Optiform right hip C/D/I. Pt wasn't interested in having any snacks. S/I, H/I: None reported or observed A/VH: None reported or observed Sleep: See sleep assessment notation ADL's: Requires assist for transfer into w/c, bathing, & bowel incontinent care Group attendance: assistant shift supervisor, no group Were meds taken: Yes Any med S/E: None reported or observed Mental Status Exam Appearance: Frail man appears old than stated age Eye contact: Good Behavior: Reluctantly cooperative with ADLs Speech: Clear, audible, loud sometimes when irritated Mood: Depressed Affect: Constricted Thought process: Linear Thought Content: Circumstantial Cognition: A&O X 2 Insight: Poor Judgment: Poor Interventions PRN's used: None Therapeutic interventions: 1:1 assessment, medication administration, education, & monitoring, encouragement to assist with self care, permit bowel incontinent care, reposition self off his right side, maintained Q 15 min safety checks. Restraints/seclusion/emergency medication:N/A Justification of Continued Inpatient Treatment: Pt. remains gravely disabled, he continues to require a therapeutic milieu. Pt is in the process of LPS conservatorship with tentative acceptance once conserved at [facility].
[2018-06-15] MEDS: OLANZapine 5mg rapidly disint. tablet PO SCH ×2 (07:58→17:11)
[2018-06-15 08:11] VITALS: BP 101/63
--- NOTE | 2018-06-15 09:05 | NUR ---
Pt had expiratory rhonchi all lobes before breakfast this morning, asked pt if his cocoa went down the wrong tube, he replied, "yeah." Encouraged pt to deep breathe and cough, largely uncooperative. Ausculated lungs again after breakfast, rhonchi still present, did not observe pt coughing on food or fluids during breakfast. Will continue to monitor VS & lung sounds, will notify doctor of findings. Addendum: 06/15/18 at 0914 by Kaylan Martinez RN (Lee) Amended: Links added.
[2018-06-15 14:07] VITALS: BP 99/66
--- NOTE | 2018-06-15 15:19 | NUR ---
Nursing Note: Legal hold: N/A Client is voluntary Report received from nurse with use of SBAR: ROCIO Graf Why are they here: Pt presented to [facility] on a 5150 for DTS and failure to thrive. He has had multiple hospital visits, is homeless, and has a hx of schizophrenia and a anemia. He is estranged from his family, irritable, and makes delusional statements (such as "I can't swallow" or "I am an alien.") Pt is bedridden and lower extremities are contracted. Pt signed voluntary, however continues to refuse all medications except Zyprexa Zydis. LPS conservatorship pending. Assessment What has happened this shift: Pt stated that his depression is the same as yesterday 12/27, denies all other symptoms, allowed physical assessment and auscultation for reassessment of lung sounds throughout the shift. VS remain stable, afebrile, rhonchi has cleared, no longer present at this time. Continue to monitor. S/I, H/I: Pt denies A/VH: Pt denies Sleep: Slept 7.75 hours per noc shift report ADL's: Requires assist for transfer into w/c, bathing, & bowel incontinent care Group attendance: Pt declines to attend group Were meds taken: Yes, Zydis Any med S/E: None reported or observed Mental Status Exam Appearance: Clean Eye contact: Good Behavior: reluctantly cooperative with ADLs Speech: clear, audible Mood: Depressed, irritable Affect: Constricted Thought process: Linear Thought Content: Pt does not often express his thoughts Cognition: A&O X 2 Insight: Poor Judgment: Poor Interventions PRN's used: None Therapeutic interventions: 1:1 assessment, medication administration, education, & monitoring, encouragement to assist with self care, permit bowel incontinent care, reposition self off his right side, supervision at mealtimes, maintained Q 15 min safety checks. Restraints/seclusion/emergency medication:N/A Justification of Continued Inpatient Treatment: Pt. remains gravely disabled, he is not motivated for self care and needs assistance and encouragement with ADLs. Pt is in the process of LPS conservatorship with tentative acceptance once conserved at [facility].
[2018-06-15 19:00] VITALS: BP 98/48
[2018-06-15 20:00] VITALS: BP 95/52
--- NOTE | 2018-06-16 00:22 | NUR ---
Nursing Note Chief Complaint: Depression with S/I Legal hold: Voluntary Client on involuntary status for GD/DTS Report received from nurse with use of SBAR: ROCIO Tucker Why are they here: Pt. presented to [facility] on a 5150 for DTS and failure to thrive. He has had multiple hospital visits, is homeless, and has a hx. of schizophrenia and a anemia. He is estranged from his family, irritable, and makes delusional statements (such as "I can't swallow" or "I am an alien.") Pt. is w/c ridden and lower extremities are contracted. Pt. signed voluntary, however refuses all medications except Zyprexa Zydis. Psychiatrists are considering LPS conservatorship. Assessment What has happened this shift: Pt. in bed asleep at the beginning of the shift, continues to sleep throughout the shift, however awakened to provide personal care. He continues to present as fatigued, hopeless, irritable, withdrawn, and resistive to care. 1:1 completed at bedside, pt. continues to have passive S/I, states, "Get the back hoe, I've been waiting for five years now!" He also reports he remains depressed, and feels he has not improved at all since admission. Pt. has ongoing delusions that he cannot swallow and body dysmorphia. No coughing or s/s of dysphagia noted this shift, V/S WNL, and lung sounds clear bilaterally. This song writer complemented pt. on his well-groomed long, and pt. smiled and admitted that he had shaved it himself, however then stated, "I used to be handsome, now everything on me is just ." Pt. continues to c/o pain throughout his body, but refuses to reposition or to take pain medication. He recently completed ABT eye drops r/t pink-eye infection, however rt. eye continues to be somewhat reddened with a small amount of drainage. Pt. denies any itching or irritation at area and reports his eye "Got caught on my pillow." Area cleaned and pt. educated regarding not touching area to prevent the spread of infection, he voiced understanding, will continue to monitor. Pt. continues to be able to reposition himself in bed independently and is reminded to do so. Dressing to rt. hip changed per orders, and skin at area remains CDI. No s/s of increased redness present and no open areas, will continue to monitor. S/I, H/I: Passive S/I A/VH: Denies Sleep: Appears chronically fatigued, however reports he sleeps well ADL's: Requires assist to transfer to w/c and for self care, however able to eat, reposition self in bed, and transfer back to bed independently Group attendance: Pt. up for all meals, however per report from Dr. Clarke, pt. does not like to attend groups because he does not like to talk and feels that he has learning disabilities. Were meds taken: Continues to refuse pain medication r/t delusion that he cannot swallow Any med S/E: None Mental Status Exam Appearance: Pts long is well groomed, he is appropriately dressed in hospital attire. Bilateral lower extremities remain contracted. Eye contact: Poor Behavior: Withdrawn, fatigued, irritable, resistive to care and psychomotor activity WNL Speech: WNL, however becomes more intense and pressured when agitated Mood: Remains irritable and hopeless Affect: Constricted Thought process: Poverty of thought and blocking r/t mental health Thought Content: Preoccupation with depressed mood and on-going delusions Cognition: A&O Insight: Poor Judgment: Poor Interventions PRN's used: None Therapeutic interventions: Provided active listening, maintained a safe and therapeutic environment, provided medication education/encouragement with compliance, encouraged independent performance of ADLs, provide positive reinforcement on progress made and self-care, provided education on not touching eyes r/t the spread of bacteria, monitored skin and completed ordered dressing change, and maintained Q 15 min safety checks. Restraints/seclusion/emergency medication:N/A Justification of Continued Inpatient Treatment: Pt. continues to require a therapeutic milieu and a supervised setting in order to encourage/assist with ADL performance. He is awaiting possible LPS conservatorship and may discharge to [facility] after this occurs.
[2018-06-16 08:00] VITALS: BP 106/62
[2018-06-16] MEDS: OLANZapine 5mg rapidly disint. tablet PO SCH ×2 (08:09→17:40)
--- NOTE | 2018-06-16 12:12 | NUR ---
reassessment: BSS done on 06/11, PYROGLAZER reports the patient swallows well with no aspiration noted. Noted that oral nutrition supplements was discontinued in medication list although patient is still receiving it and drinking 100% of it. Pt is receiving ONS with Murali, no open wounds, does have healed pressure ulcer on right hip. Recommend to change ONS from Murali shake to Ensure Enlive with meals to provide adequate calories and protein for meal supplementation. Pt PO continues fluctuating with 25-49% avg meals and 100% ONS not meeting needs. LBM 06/15. Will continue to monitor. Recommendations: 1) Continue with mechanical soft diet with chopped foods 2) Recommend ensure enlive TID 3) Encourage PO intake of meals 4) Weekly wt Addendum: 06/16/18 at [address] Amended: Links added.
--- NOTE | 2018-06-16 15:52 | NUR ---
Nursing Note: Legal hold: N/A Client is voluntary Report received from nurse with use of SBAR: ROCIO Patel Why are they here: Pt presented to [facility] on a 5150 for DTS and failure to thrive. He has had multiple hospital visits, is homeless, and has a hx of schizophrenia and a anemia. He is estranged from his family, irritable, and makes delusional statements (such as "I can't swallow" or "I am an alien.") Pt is bedridden and lower extremities are contracted. Pt signed voluntary, however continues to refuse all medications except Zyprexa Zydis. LPS conservatorship pending. Assessment What has happened this shift: Pt in bed at change of shift. He was compliant with medication administration. Pt indicated he has joint pain all over. He refused medication for the pain saying,"nothing they can do for it." He indicated he was depressed, but denied anxiety, and SI. He refused further assessment saying he didn't want to talk. Pt up in his wheelchair for breakfast and stayed in the group room until 11:00 when he returned to bed. He was up in his wheelchair and in the group room for lunch. Immediately following lunch he returned to his bed and napped during the afternoon. S/I, H/I: Denies A/VH: Denies Sleep: Napped ADL's: Needs assistance to transfer into w/c, for bathing, & for bowel incontinent care Group attendance: No Were meds taken: Yes Any med S/E: None reported or observed Mental Status Exam Appearance: Clean Eye contact: Direct Behavior: Was noncooperative with full assessment Speech: Clear Mood: Depressed Affect: Constricted Thought process: Linear Thought Content: Unable to assess, pt did not want to talk Cognition: A&O X 2 Insight: Poor Judgment: Poor Interventions PRN's used: None Therapeutic interventions: 1:1 therapeutic assessment, medication administration, education, & monitoring, maintain therapeutic milieu, encourage pt to reposition self, supervision at mealtimes, maintained Q 15 min safety checks. Restraints/seclusion/emergency medication:N/A Justification of Continued Inpatient Treatment: Pt. remains gravely disabled, he is not motivated for self care and needs assistance and encouragement with ADLs. Pt is in the process of [facility] conservatorship with tentative acceptance once conserved at [facility].
[2018-06-16 19:00] VITALS: BP 123/85
--- NOTE | 2018-06-17 01:03 | NUR ---
Nursing Note Chief Complaint: Depression with S/I Legal hold: Voluntary Client on involuntary status for GD/DTS Report received from nurse with use of SBAR: ROCIO Mohan Why are they here: Pt. presented to [facility] on a 5150 for DTS and failure to thrive. He has had multiple hospital visits, is homeless, and has a hx. of schizophrenia and a anemia. He is estranged from his family, irritable, and makes delusional statements (such as "I can't swallow" or "I am an alien.") Pt. is w/c ridden and lower extremities are contracted. Pt. signed voluntary, however refuses all medications except Zyprexa Zydis. Psychiatrists are considering LPS conservatorship. Assessment What has happened this shift: Pt. in bed asleep at the beginning of the shift, continues to sleep throughout the shift. He continues to present as fatigued, hopeless, irritable, withdrawn, and resistive to care, however presents as less agitated today and does not yell out at staff. Attempted to complete 1:1 at bedside, however, pt. fatigued and resists participation in conversation. He reports on-going depression, and does not respond when this senior medical writer questions him regarding his day. Pt. continues to have ongoing delusions that he cannot swallow and body dysmorphia, particularly in regards to his knee joints, states, "They are just getting bigger and bigger." Pt. continues to c/o pain throughout his body, but refuses to reposition or to take pain medication. He recently completed ABT eye drops r/t pink-eye infection, however rt. eye continues to be slightly reddened with a small amount of drainage. Pt. continues to deny any itching or irritation at area. Area cleaned and pt. educated regarding not touching area to prevent the spread of infection, he voiced understanding, will continue to monitor. Pt. continues to be able to reposition himself in bed independently and is reminded to do so. Dressing to rt. hip remains CDI, and is ordered to be replaced tomorrow, as well as weekly pictures obtained, will endorse to AM shift. S/I, H/I: Passive S/I A/VH: Denies Sleep: Appears chronically fatigued, however reports he sleeps well ADL's: Requires assist to transfer to w/c and for self care, however able to eat, reposition self in bed, and transfer back to bed independently Group attendance: Pt. up for all meals, however per report from Dr. Clarke, pt. does not like to attend groups because he does not like to talk and feels that he has learning disabilities. Were meds taken: Continues to refuse pain medication r/t delusion that he cannot swallow, however compliant with Zyprexa Any med S/E: None Mental Status Exam Appearance: Pt. neat and nails freshly trimmed/oral care provided, appropriately dressed in hospital attire. Bilateral lower extremities remain contracted. Eye contact: Poor Behavior: Withdrawn, fatigued, irritable, resistive to care and psychomotor activity WNL Speech: WNL, however minimal this shift Mood: Remains depressed and hopeless Affect: Constricted Thought process: Poverty of thought and blocking r/t mental health Thought Content: Preoccupation with depressed mood and on-going delusions Cognition: A&O Insight: Poor Judgment: Poor Interventions PRN's used: None Therapeutic interventions: Provided active listening, maintained a safe and therapeutic environment, provided medication education/encouragement with compliance, encouraged independent performance of ADLs, provide positive reinforcement on progress made and self-care, provided education on not touching eyes r/t the spread of bacteria, monitored skin and dressing to rt. hip, and maintained Q 15 min safety checks. Restraints/seclusion/emergency medication:N/A Justification of Continued Inpatient Treatment: Pt. continues to require a therapeutic milieu and a supervised setting in order to encourage/assist with ADL performance. He is awaiting possible LPS conservatorship and may discharge to [facility] after this occurs.
[2018-06-17] MEDS: OLANZapine 5mg rapidly disint. tablet PO SCH ×2 (07:39→17:10)
[2018-06-17 08:55] VITALS: BP 99/60
--- NOTE | 2018-06-17 13:34 | NUR ---
Nursing Progress Note: Legal hold:[VOL] Client on voluntary status for GD. Report received from nurse with use of SBAR. Why are they here:[Pt was discharged and refused to leave the bus stop]. Assessment What has happened this shift:[Pt got up for breakfast. Cussed at the staff for turning pt onto his L side. Cussed at staff for changing bandage on his pressure sore."Its not a wound. Its just a scratch. Leave it alone and just air it out. The doctor agrees with me." Then more profanity and demeaning comments.] S/I, H/I:[denies] A/VH: [denies] Sleep:[in between meals] ADL's:[with assistance] Group attendance:[refuses] Were meds taken:[yes] Any med S/E[denies] Mental Status Exam Appearance:[disheveled] Eye contact:[sometimes] Behavior:[depends on his mood] Speech:[loud yelling] Mood:[depends on his behavior] Affect:[flat when in a good mood] Thought process:[obsessed] Thought Content:[NA] Cognition:[cognitive] Insight:[none] Judgment:[poor] Interventions PRN's used:[None] Therapeutic interventions:[turned onto L hip to prevent further wounds] Restraints/seclusion/emergency medication:[no] Justification of Continued Inpatient Treatment:[placement T-CON]
--- NOTE | 2018-06-18 01:20 | NUR ---
Nursing Progress Note: Legal hold: Voluntary. Client on T-con for GD. Report received from ROCIO Hahn with use of SBAR. Why are they here: The patient is a homeless man with long history at [facility]. He has multiple medical problems and presents as gravely disabled and unable to care for himself. The patient is irritable and angers easily. He makes delusional statements that he can't swallow, and his joints have enlarged. Assessment: What has happened this shift: the patient was in bed at shift change. He never got out of bed tonight, and yelled at me to get out, when I attempted to talk to him. He's turned q2 hours, but turns back over to the side with the wound. He spent the entire night in bed. S/I, H/I: Passive SI. A/VH: Denies Sleep: Patient sleeps on and off. ADL's: Moderate assist, incontinent of bowel. Group attendance: None at night. Were meds taken: None ordered for HS. Any med S/Es: None reported or observed. Mental Status Exam: Appearance: Disheveled, dirty, unshaved. Eye contact: Poor. Behavior: Patient lays in bed and resists care, irritable, agitated, combative at times. Speech: Clear, yells when agitated. Mood: Depressed, hopeless, helpless, angry, agitated, irate. Affect: Angry. Thought process: Hopeless, helpless. Thought Content: Preoccupied with thoughts of being useless, and nothing to live for. Cognition: Alert Insight: Poor Judgment: Poor Interventions: PRN's used: None Therapeutic interventions: Attempted 1:1 assessment. Attempted medications. Maintained safe environment. Monitored skin and turned q2 hours. q15 minute safety checks. Restraints/seclusion/emergency medication: None Justification of Continued Inpatient Treatment: The patient is gravely disabled and has no way to provide for food, housing, or fpc. Continues to require therapy, and is waiting for placement.
[2018-06-18 07:39] VITALS: BP 100/61
[2018-06-18] MEDS: OLANZapine 5mg rapidly disint. tablet PO SCH ×2 (08:10→17:47)
--- NOTE | 2018-06-18 08:43 | NUR ---
1:1 DISCHARGE PLANNING BYRON made TC to [facility] and spoke with Madan at [phone], regarding pt conversion to LPS Conservatorship. Madan reports pt LPS paperwork has not been filed yet, however is ready to be filed on 06/19/2018 and pt should be under temporary LPS Conservatorship by the end of the week. BYRON provided this update to Katiana Gonzales at [facility]. EVITA Rojas
--- NOTE | 2018-06-18 16:27 | NUR ---
Nursing Progress Note: Legal hold: 5150 Client on involuntary status for GD Report received from nurse Carmen RN with use of SBAR Why are they here: Pt's director of employer services brought pt to a scheduled service for Mental Health; during the visit she was experiencing exacerbation of her mental illness with many delusions. Pt was unable to maintain a coherent conversation and needed constant redirection. Pt evaluated at [facility] for 5150 then transferred to [facility]. Pt lives at [facility] in [facility]. Assessment What has happened this shift: Pt awake on her bed at start of shift. During 1:1 assessment pt becomes tearful she states, my committed suicide when I was conserved by [employer]. I blame myself. Pt c/o pain in her right leg from an old injury but is not requesting anything for it at this time. She denies medical history. S/I, H/I: Denies A/VH: Denies Sleep: I slept good. ADL's: Independent Group attendance: Y Were meds taken: Y Any med S/E: None observed, None reported Mental Status Exam Appearance: Appropriately dressed. Eye contact: Direct Behavior: Calm, coloring and watching TV, interacting with staff Speech: Soft, clear. Mood: States she is here voluntarily waiting for housing. Affect: Pleasant Thought process: Delusional, incoherent at times Thought Content: Medications, consistent delusions Cognition: A &O X3 Insight: Poor Judgment: Fair Interventions PRN's used: N/A Therapeutic interventions: Established rapport w/pt, provided therapeutic communication and active listening, maintained a safe and therapeutic environment, provided medication education, monitoring for side effects, encouraged ADLs, groups and compliance w/medications, maintained Q 15 min safety checks. Restraints/seclusion/emergency medication: N/A Justification of Continued Inpatient Treatment: Pt. requires interruption of current crisis, medication adjustments, and a safe and therapeutic environment to decrease the chance of adverse events and rehospitalization. Addendum: 04/01/19 at 1630 by Conchis Mauricio RN this note was place in the wrong chart
--- NOTE | 2018-06-18 16:31 | NUR ---
Nursing Progress Note: Legal hold: Probate conservatorship Client on T-con for GD. Report received from ROCIO Schwartz with use of SBAR. Why are they here: The patient is a homeless man with long history at [facility]. He has multiple medical problems and presents as gravely disabled and unable to care for himself. The patient is irritable and angers easily. He makes delusional statements that he can't swallow, and his joints have enlarged. Assessment: What has happened this shift: the patient was in bed at shift change. He got himself up for breakfast wheeled himself down to the main eating area ate 75% of his breakfast then went back to bed. Pt refuses to lay on his left side yelling at this nurse get out and mind your own business. Pt does not get up for groups and yells when encouraged to get up or to participate in his ADLs. S/I, H/I: Passive SI. A/VH: Denies Sleep: Patient sleeps on and off. ADL's: Moderate assist, incontinent of bowel. Group attendance: N/A Were meds taken: Yes but will only take Olanzapine Any med S/Es: None reported or observed. Mental Status Exam: Appearance: Disheveled, dirty, unshaved, refuses to care for self Eye contact: Poor. Behavior: Patient lays in bed and resists care, irritable, agitated, combative at times. Speech: Clear, yells when agitated. Mood: Depressed, hopeless, helpless, angry, agitated, irate. Affect: Angry. Thought process: Hopeless, helpless. Thought Content: Preoccupied with thoughts of being useless, and nothing to live for. Cognition: Alert Insight: Poor Judgment: Poor Interventions: PRN's used: None Therapeutic interventions: Tried to establish a rapport w/pt, provided therapeutic communication and active listening, maintained a safe and therapeutic environment, provided medication administration, education, monitoring for side effects, encouraged ADLs, groups and compliance w/medications, maintained Q 15 min safety checks. Monitored skin and turned q2 hours. q15 minute safety checks. Restraints/seclusion/emergency medication: None Justification of Continued Inpatient Treatment: The patient is gravely disabled and has no way to provide for food, housing, or residential. Continues to require therapy, and is waiting for placement.
[2018-06-18 20:35] VITALS: BP 94/56
--- NOTE | 2018-06-19 02:27 | NUR ---
Nursing Progress Note: Legal hold: Voluntary. Client on T-con for GD. Report received from ROCIO Hahn with use of SBAR. Why are they here: The patient is a homeless man with long history at [facility]. He has multiple medical problems and presents as gravely disabled and unable to care for himself. The patient is irritable and angers easily. He makes delusional statements that he can't swallow, and his joints have enlarged. Assessment: What has happened this shift: The patient was wheeling himself down the sanchez towards his bed at shift change. This telegraphic typewriter installer said Hi to him and he answered with the same. He continued to his room and climbed in bed. He went to sleep and when his room was entered again for 1:1, he said "GET OUT OF HERE." S/I, H/I: Passive SI. A/VH: Denies Sleep: Patient sleeps on and off. ADL's: Moderate assist, incontinent of bowel. Group attendance: None at night. Were meds taken: None ordered for HS. Any med S/Es: None reported or observed. Mental Status Exam: Appearance: Disheveled, dirty, unshaved. Eye contact: Poor. Behavior: Patient lays in bed and resists care, irritable, agitated, combative at times. Speech: Clear, yells when agitated. Mood: Depressed, hopeless, helpless, angry, agitated, irate. Affect: Angry. Thought process: Hopeless, helpless. Thought Content: Preoccupied with thoughts of being useless, and nothing to live for. Cognition: Alert Insight: Poor Judgment: Poor Interventions: PRN's used: None Therapeutic interventions: Attempted 1:1 assessment. Attempted medications. Maintained safe environment. Monitored skin and turned q2 hours. q15 minute safety checks. Restraints/seclusion/emergency medication: None Justification of Continued Inpatient Treatment: The patient is gravely disabled and has no way to provide for food, housing, or penitentiary. Continues to require therapy, and is waiting for placement.
[2018-06-19 08:00] VITALS: BP 94/60
[2018-06-19] MEDS: OLANZapine 5mg rapidly disint. tablet PO SCH ×2 (08:14→17:51)
--- NOTE | 2018-06-19 15:07 | NUR ---
Nursing Note: Pt has blanchable area of redness on L elbow, picture taken. Attempted to apply hydrophillic dressing to area to protect from pressure. Pt swung his hand at this insurance underwriter hitting the dressing and refused to allow the dressing to be placed. Educated pt importance of protecting skin from pressure. Pt was not receptive to the concept of protecting skin from pressure. Will continue to monitor.
--- NOTE | 2018-06-19 17:18 | NUR ---
Nursing Progress Note: Legal hold: Voluntary Client on T-con for GD. Report received from ROCIO Schwartz with use of SBAR. Why are they here: The patient is homeless with long history at [facility]. He has multiple medical problems and presents as gravely disabled and unable to care for himself. The patient is irritable and angers easily. He makes delusional statements that he can't swallow, and his joints have enlarged. Assessment: What has happened this shift: the patient was sleeping at the change of shift. He initially refused to get up for breakfast, but with prompting transferred to his wheelchair to go to the group room for breakfast. He was uncooperative with assessment. Pt returned to his room immediately after breakfast and refused to go to lunch. Staff helped the patient reposition himself multiple times throughout the day. Pt refuses to attend groups. He is uncooperative with staff and yelled when encouraged to participate in ADLS. Pt was combative with this creative services writer attempted to place a protective dressing on the patients L elbow for a blanchable area of redness. Pt was incontinent of stool two times. Pt unreceptive to education on pressure ulcer prevention. He yelled over the words of this creative services writer saying, "You don't understand, it's my bones." S/I, H/I: Unable to assess. A/VH: Denies Sleep: Naps ADL's: Moderate assist, incontinent of bowel. Group attendance: No Were meds taken: Yes Any med S/Es: None reported or observed. Mental Status Exam: Appearance: Disheveled, refuses to perform self care Eye contact: Poor. Behavior: Remained in bed for much of the shift, resistive to care, combative at times, irritable, and agitated. Speech: Yells Mood: Depressed, labile Affect: Labile Thought process: Delusions Thought Content: Wants to be left alone Cognition: Alert Insight: Poor Judgment: Poor Interventions: PRN's used: None Therapeutic interventions: Tried to establish a rapport w/pt, provided therapeutic communication and active listening, maintained a safe and therapeutic environment, provided medication administration, education, monitoring for side effects, encouraged ADLs, and compliance w/medications, maintained Q 15 min safety checks. Monitored skin and turned q2 hours. q15 minute safety checks. Restraints/seclusion/emergency medication: None Justification of Continued Inpatient Treatment: The patient is gravely disabled and has no plan to provide for food, housing, or retirement. Continues to require treatment, and is waiting for placement.
[2018-06-19 20:00] VITALS: BP 85/54
--- NOTE | 2018-06-20 02:59 | NUR ---
Nursing Progress Note: Legal hold: Voluntary Client on T-con for GD. Report received from ROCIO Mohan with use of SBAR. Why are they here: The patient is homeless with long history at [facility]. He has multiple medical problems and presents as gravely disabled and unable to care for himself. The patient is irritable and angers easily. He makes delusional statements that he can't swallow, and his joints have enlarged. Assessment: What has happened this shift: Pt was in hallway at change of shift returning to his room and smiled. Pt answers "What do you think? Horrible!" when asked about his day. Pt was agitated and yelling and cussing at tech calling her names while be assisted w/ADLs. S/I, H/I: Unable to assess. A/VH: Denies Sleep: Naps ADL's: Moderate assist, incontinent of bowel. Group attendance: No Were meds taken: none this shift Any med S/Es: None reported or observed. Mental Status Exam: Appearance: Disheveled, refuses to perform self care Eye contact: good Behavior: Remained in bed, resistive to care. Speech: Yells Mood: irritable labile Affect: Labile Thought process: Delusions Thought Content: Wants to be left alone Cognition: Alert Insight: Poor Judgment: Poor Interventions: PRN's used: None Therapeutic interventions: maintained a safe and therapeutic environment, encouraged ADLs, and compliance w/medications, q15 minute safety checks. Restraints/seclusion/emergency medication: None Justification of Continued Inpatient Treatment: The patient is gravely disabled and has no plan to provide for food, housing, or [place] [facility]. Continues to require treatment, and is waiting for placement.
[2018-06-20 07:33] VITALS: BP 102/56
[2018-06-20] MEDS: OLANZapine 5mg rapidly disint. tablet PO SCH ×2 (08:00→18:35)
--- NOTE | 2018-06-20 08:15 | NUR ---
Patient refused morning meds due to delusion that he is unable to swallow. Continue to monitor.
--- NOTE | 2018-06-20 13:36 | NUR ---
Nursing Progress Note: Legal hold: Voluntary Client on T-con for GD. Report received from ROCIO Guido with use of SBAR. Why are they here: The patient is homeless with long history at [facility]. He has multiple medical problems and presents as gravely disabled and unable to care for himself. The patient is irritable and angers easily. He makes delusional statements that he can't swallow, and his joints have enlarged. Assessment: What has happened this shift: the patient was sleeping at the change of shift and staff changed patient and got pt up for breakfast. He was uncooperative with assessment. Staff helped the patient reposition himself multiple times throughout the day. Pt refuses to attend groups. Patient delusional and refuses medication because he states he can't swallow although patient eats a regular diet. Patient did come to lunch and only ate 25%. Pt unreceptive to education on pressure ulcer prevention. S/I, H/I: Unable to assess. A/VH: Denies Sleep: Naps ADL's: Moderate assist, incontinent of bowel uses urinal. Group attendance: No Were meds taken: Yes Any med S/Es: None reported or observed. Mental Status Exam: Appearance: Disheveled, refuses to perform self care Eye contact: Poor. Behavior: Remained in bed for much of the shift, resistive to care, combative at times, irritable, and agitated. Speech: Yells Mood: Depressed, labile Affect: Labile Thought process: Delusions Thought Content: Wants to be left alone Cognition: Alert Insight: Poor Judgment: Poor Interventions: PRN's used: None Therapeutic interventions: Tried to establish a rapport w/pt, provided therapeutic communication and active listening, maintained a safe and therapeutic environment, provided medication administration, education, monitoring for side effects, encouraged ADLs, and compliance w/medications, maintained Q 15 min safety checks. Monitored skin and turned q2 hours. q15 minute safety checks. Restraints/seclusion/emergency medication: None Justification of Continued Inpatient Treatment: The patient is gravely disabled and has no plan to provide for food, housing, or senior living. Continues to require treatment, and is waiting for placement.
--- NOTE | 2018-06-20 16:10 | NUR ---
follow-up: Patient ate well for breakfast this morning, ate 100%, however average meals still range from poor to fair 25-49% PO. Spoke with RN today who reports patient will drink supplement sometimes, previously was consuming 100%. Will continue to follow patient and provide Ensure Enlive with meals. Recommendations: 1) Continue with mechanical soft diet with chopped foods 2) Recommend ensure enlive TID 3) Encourage PO intake of meals 4) Weekly wt Addendum: 06/20/18 at [address] Amended: Links added.
--- NOTE | 2018-06-21 00:08 | NUR ---
Nursing Note Chief Complaint: Depression with S/I Legal hold: Voluntary Client on involuntary status for GD/DTS Report received from nurse with use of SBAR: ROCIO Sanders Why are they here: Pt. presented to [facility] on a 5150 for DTS and failure to thrive. He has had multiple hospital visits, is homeless, and has a hx. of schizophrenia and a anemia. He is estranged from his family, irritable, and makes delusional statements (such as "I can't swallow" or "I am an alien.") Pt. is w/c ridden and lower extremities are contracted. Pt. signed voluntary, however refuses all medications except Zyprexa Zydis. Psychiatrists are considering LPS conservatorship. Assessment What has happened this shift: Pt. wheeling self back from Group Room at the beginning of the shift following dinner, he did not eat any of his meal, however requests hot chocolate. He is able to transfer himself back to bed independently, and is compliant with his scheduled Zyprexa, however refuses V/S or physical assessment. Pt. in bed sleeping throughout the shift, awoke to perform incontinence care and 1:1. He continues to present as fatigued, hopeless, irritable, withdrawn, and resistive to care, and states, "I'm depressed and agitated, my knees and elbows just keep growing!" Pt. continues to have ongoing delusions that he cannot swallow and body dysmorphia. He continues to c/o pain throughout his body, but refuses to reposition or to take pain medication r/t his delusion of his inability to swallow. He recently completed ABT eye drops r/t pink-eye infection, and eyes present clear this shift with no redness or drainage present. Pt. continues to be able to reposition himself in bed independently and is reminded to do so. Dressing to rt. hip remains CDI, and is ordered to be replaced tomorrow, will endorse to AM shift. S/I, H/I: Passive S/I A/VH: Denies Sleep: Appears chronically fatigued, however sleeps throughout the shift ADL's: Requires assist to transfer to w/c and for self care, however able to eat, reposition self in bed, and transfer back to bed independently Group attendance: Pt. up for all meals, however does not attend groups per refusal to participate in milieu Were meds taken: Compliant with Zyprexa Any med S/E: None Mental Status Exam Appearance: Pt. neat and appropriately dressed in hospital attire. Bilateral lower extremities remain contracted. Eye contact: Poor Behavior: Withdrawn, fatigued, irritable, agitated, resistive to care and psychomotor activity WNL Speech: WNL, however minimal this shift r/t agitation Mood: Remains depressed and hopeless Affect: Constricted Thought process: Poverty of thought and blocking r/t mental health Thought Content: Preoccupation with depressed mood and on-going delusions Cognition: A&O Insight: Poor Judgment: Poor Interventions PRN's used: None Therapeutic interventions: Provided active listening, maintained a safe and therapeutic environment, provided medication education/encouragement with compliance, encouraged independent performance of ADLs, provide positive reinforcement on progress made and self-care, monitored skin and dressing to rt. hip, and maintained Q 15 min safety checks. Restraints/seclusion/emergency medication:N/A Justification of Continued Inpatient Treatment: Pt. continues to require a therapeutic milieu and a supervised setting in order to encourage/assist with ADL performance. He is awaiting possible LPS conservatorship and may discharge to [facility] after this occurs.
[2018-06-21 07:39] VITALS: BP 103/61
[2018-06-21] MEDS: OLANZapine 5mg rapidly disint. tablet PO SCH ×2 (08:13→18:01)
--- NOTE | 2018-06-21 11:15 | NUR ---
1:1 DISCHARGE PLANNING SW contacted Fiona at [facility] at [phone], regarding pt update for LPS Conservatorship. BYRON informed pt had been changed to "status pending" on 06/18/2018, and did not have information to provide as to orders yet. Fiona agreed to return contact after coordinating with [facility]. EVITA Rojas
--- NOTE | 2018-06-21 13:36 | NUR ---
reassessment: Pt 25-50% avg meals w/ ONS but PO fluctuating w/ psychosis. Per MD note pt reports he has trouble swallowing but able to swallow fine. LBM 06/20. Will continue to monitor. Recommendations: 1) Continue with mechanical soft diet with chopped foods 2) Recommend ensure enlive TID 3) Encourage PO intake of meals 4) Weekly wt Addendum: 06/21/18 at [address] Amended: Links added.
--- NOTE | 2018-06-21 18:10 | NUR ---
Nursing Note Legal hold: Voluntary Client on involuntary status for GD/DTS Report received from nurse with use of SBAR: ROCIO Patel Why are they here: Pt. presented to [facility] on a 5150 for DTS and failure to thrive. He has had multiple hospital visits, is homeless, and has a hx. of schizophrenia and a anemia. He is estranged from his family, irritable, and makes delusional statements (such as "I can't swallow" or "I am an alien.") Pt. is w/c ridden and lower extremities are contracted. Pt. signed voluntary, however refuses all medications except Zyprexa Zydis. Psychiatrists are considering LPS conservatorship. Assessment What has happened this shift: Patient is observed resting at change of shift. He wheels himself to all meals today. During breakfast he is calm and friendly in demeanor with this RN. He takes his medication without any issue. He is overheard conversing with his roommate. He is incontinent of stool, cleaned and changed. S/I, H/I: none reported A/VH: none reported Sleep: 10hrs NOC ADL's: Requires assist to transfer to w/c and for self care, however able to eat, reposition self in bed, and transfer back to bed independently Group attendance: Pt. up for all meals, does not attend groups per refusal to participate in milieu Were meds taken: Compliant with Zyprexa Any med S/E: None Mental Status Exam Appearance: appropriate, bilateral lower extremities remain contracted. Eye contact: occasional direct Behavior: Withdrawn Speech: WNL Mood: depressed, hopeless Affect: restricted Thought process: thought blocking Thought Content: Preoccupation with depressed mood and on-going somatic delusions Cognition: A&O x4 Insight: Poor Judgment: Poor Interventions PRN's used: None Therapeutic interventions: 1:1 therapeutic assessment, maintained safe therapeutic milieu, provided active listening with positive feedback, provided medication education as needed, monitored for change in behavior and needed intervention Q 15 min safety checks. Restraints/seclusion/emergency medication: none Justification of Continued Inpatient Treatment: Continued therapeutic support and medication adjustment needed to provide stabilization, symptom management & prevent decompensation, decreasing risk to patient and readmittance.
[2018-06-21 19:00] VITALS: BP 97/60
--- NOTE | 2018-06-22 01:16 | NUR ---
Nursing Note Legal hold: In process of LPS Conservatorship Client on involuntary status for GD/DTS Report received from nurse with use of SBAR: ROCIO Kiser Why are they here: Pt. presented to [facility] on a 5150 for DTS and failure to thrive. He has had multiple hospital visits, is homeless, and has a hx. of schizophrenia and a anemia. He is estranged from his family, irritable, and makes delusional statements (such as "I can't swallow" or "I am an alien.") Pt. is w/c ridden and lower extremities are contracted. Pt. signed voluntary, however refuses all medications except Zyprexa Zydis. LPS conservatorship is currently in progress. Assessment What has happened this shift: Pt. laying in bed sleeping at the beginning of the shift, and remains here throughout the shift, awoke to perform incontinence care and 1:1. He continues to present as fatigued, hopeless, irritable, withdrawn, and resistive to care. When questioned about his day and mood pt. states, "It's fucked!" Pt. continues to have ongoing delusions that he cannot swallow and body dysmorphia, however he accepts hot chocolate at HS. He continues to c/o pain throughout his body, but refuses pain medication r/t his delusion of his inability to swallow. Pt. continues to be able to reposition himself in bed independently and is reminded to do so. Dressing to rt. hip remains CDI, and was replaced today. S/I, H/I: Passive S/I A/VH: Denies Sleep: Appears chronically fatigued, however sleeps throughout the shift ADL's: Requires assist to transfer to w/c and for self care, however able to eat, reposition self in bed, and transfer back to bed independently Group attendance: Pt. up for most meals, however does not attend groups per refusal to participate in milieu Were meds taken: Compliant with Zyprexa Any med S/E: None Mental Status Exam Appearance: Pt. neat and appropriately dressed in hospital attire. Bilateral lower extremities remain contracted. Eye contact: Poor to fair Behavior: Withdrawn, fatigued, irritable, agitated, resistive to care and psychomotor activity WNL Speech: WNL, however remains minimal, responds only to direct questions Mood: Remains depressed and hopeless Affect: Constricted Thought process: Poverty of thought and blocking r/t mental health Thought Content: Perseveration with on-going delusions, chronic pain, and resistance to ADLs Cognition: A&O Insight: Poor Judgment: Poor Interventions PRN's used: None Therapeutic interventions: Provided active listening, maintained a safe and therapeutic environment, provided medication education/encouragement with compliance, encouraged independent performance of ADLs, provide positive reinforcement on progress made and self-care, monitored skin and dressing to rt. hip, and maintained Q 15 min safety checks. Restraints/seclusion/emergency medication:N/A Justification of Continued Inpatient Treatment: Pt. continues to require a therapeutic milieu and a supervised setting in order to encourage/assist with ADL performance. He is in the process of [facility] conservatorship and may discharge to [facility] after this occurs.
[2018-06-22 07:50] VITALS: BP 101/61
[2018-06-22] MEDS: OLANZapine 5mg rapidly disint. tablet PO SCH ×2 (08:32→18:19)
--- NOTE | 2018-06-22 17:03 | NUR ---
Nursing Note Legal hold: Voluntary Client on involuntary status for GD/DTS Report received from nurse with use of SBAR: Keya Hernnadez RN Why are they here: Pt. presented to [facility] on a 5150 for DTS and failure to thrive. He has had multiple hospital visits, is homeless, and has a hx. of schizophrenia and a anemia. He is estranged from his family, irritable, and makes delusional statements (such as "I can't swallow" or "I am an alien.") Pt. is w/c ridden and lower extremities are contracted. Assessment What has happened this shift: Patient is observed resting at change of shift. He wakens angry and is heard yelling from down the sanchez at staff in his room. He wheels himself to all meals today. During breakfast he is calm in demeanor with this RN. He takes his medication without any issue. He returns himself to his room and naps in between meals. S/I, H/I: none reported A/VH: none reported Sleep: 8hrs NOC and napped during the day ADL's: Requires assist to transfer to w/c and for self care, however able to eat, reposition self in bed, and transfer back to bed independently Group attendance: Pt. up for all meals, does not attend groups per refusal Were meds taken: Compliant with Zyprexa Any med S/E: None Mental Status Exam Appearance: appropriate, bilateral lower extremities remain contracted. Eye contact: occasional direct Behavior: Withdrawn, agitated at times, calm at others Speech: varied Mood: depressed, hopeless Affect: restricted to angry Thought process: thought blocking Thought Content: Preoccupation with depressed mood and on-going somatic delusions Cognition: A&O x4 Insight: Poor Judgment: Poor Interventions PRN's used: None Therapeutic interventions: 1:1 therapeutic assessment, maintained safe therapeutic milieu, provided active listening with positive feedback, provided medication education as needed, monitored for change in behavior and needed intervention Q 15 min safety checks. Restraints/seclusion/emergency medication: none Justification of Continued Inpatient Treatment: Continued therapeutic support and medication adjustment needed to provide stabilization, symptom management & prevent decompensation, decreasing risk to patient and readmittance.
[2018-06-22 19:00] VITALS: BP 110/81
--- NOTE | 2018-06-23 02:18 | NUR ---
Nursing Note Legal hold: In process of LPS Conservatorship Client on involuntary status for GD/DTS Report received from nurse with use of SBAR: Keya Hernandez RN Why are they here: Pt. presented to [facility] on a 5150 for DTS and failure to thrive. He has had multiple hospital visits, is homeless, and has a hx. of schizophrenia and a anemia. He is estranged from his family, irritable, and makes delusional statements (such as "I can't swallow" or "I am an alien.") Pt. is w/c ridden and lower extremities are contracted. Pt. signed voluntary, however refuses all medications except Zyprexa Zydis. LPS conservatorship is currently in progress. Assessment What has happened this shift: Pt. laying in bed sleeping at the beginning of the shift, and remains here throughout the shift, awoke to perform incontinence care and 1:1. He continues to present as fatigued, hopeless, irritable, withdrawn, and resistive to care. Attempted to complete 1:1 at bedside, however pt. reports fatigue and refuses assessment. Pt. continues to have ongoing delusions that he cannot swallow and body dysmorphia. He continues to c/o pain throughout his body, but refuses pain medication r/t his delusion of his inability to swallow. Pt. continues to be able to reposition himself in bed independently and is reminded to do so. Dressing to rt. hip remains CDI, will continue to monitor. S/I, H/I: Passive S/I A/VH: Denies Sleep: Appears chronically fatigued, however sleeps throughout the shift ADL's: Requires assist to transfer to w/c and for self care, however able to eat, reposition self in bed, and transfer back to bed independently Group attendance: Pt. up for most meals, however does not attend groups per refusal to participate in milieu Were meds taken: Compliant with Zyprexa Any med S/E: None Mental Status Exam Appearance: Pt. neat and appropriately dressed in hospital attire. Bilateral lower extremities remain contracted. Eye contact: Poor to fair Behavior: Withdrawn, fatigued, irritable, agitated, resistive to care and psychomotor activity WNL Speech: WNL, however remains minimal, responds only to direct questions Mood: Remains depressed and hopeless Affect: Constricted Thought process: Poverty of thought and blocking r/t mental health Thought Content: Perseveration with on-going delusions, chronic pain, and resistance to ADLs Cognition: A&O Insight: Poor Judgment: Poor Interventions PRN's used: None Therapeutic interventions: Provided active listening, maintained a safe and therapeutic environment, provided medication education/encouragement with compliance, encouraged independent performance of ADLs, provide positive reinforcement on progress made and self-care, monitored skin and dressing to rt. hip, and maintained Q 15 min safety checks. Restraints/seclusion/emergency medication:N/A Justification of Continued Inpatient Treatment: Pt. continues to require a therapeutic milieu and a supervised setting in order to encourage/assist with ADL performance. He is in the process of [facility] conservatorship and may discharge to [facility] after this occurs.
[2018-06-23 08:00] VITALS: BP 118/71
[2018-06-23] MEDS: OLANZapine 5mg rapidly disint. tablet PO SCH ×2 (09:01→18:02)
--- NOTE | 2018-06-23 13:52 | NUR ---
Reassessment: Documented PO intake continues to fluctuate with average intake 75% with refusals of meals. Pt receiving ONS. Weight has remained stable. LBM 06/22. Will continue to follow. Recommendations: 1) Continue with mechanical soft diet with chopped foods 2) Recommend ensure enlive TID 3) Encourage PO intake of meals 4) Weekly wt Addendum: 06/23/18 at [address] Amended: Links added.
--- NOTE | 2018-06-23 15:55 | NUR ---
Nursing Note Legal hold: Voluntary Client on involuntary status for GD/DTS Report received from nurse with use of SBAR: Keya Hernandez RN Why are they here: Pt. presented to [facility] on a 5150 for DTS and failure to thrive. He has had multiple hospital visits, is homeless, and has a hx. of schizophrenia and a anemia. He is estranged from his family, irritable, and makes delusional statements (such as "I can't swallow" or "I am an alien.") Pt. is w/c ridden and lower extremities are contracted. Assessment What has happened this shift: Patient is observed resting at change of shift. He awakens angry again this morning and is heard yelling at staff. Staff directs patient that it is not ok for him to yell. Patient joins others in the group room for breakfast. He takes his medications without issue. After breakfast he returns to his room and, returns to group room again for lunch. He is observed wheeling himself down the sanchez back to his room after eating. *dressing changed on R.hip. S/I, H/I: none reported A/VH: none reported Sleep: 9.5hrs NOC and napped during the day ADL's: Requires assist to transfer to w/c and for self care, however able to eat, reposition self in bed, and transfer back to bed independently Group attendance: Pt. up for all meals, does not attend groups per refusal Were meds taken: Compliant with Zyprexa Any med S/E: None Mental Status Exam Appearance: appropriate, bilateral lower extremities remain contracted. Eye contact: direct Behavior: Withdrawn, agitated at times, calm and friendly at others Speech: congruent to mood Mood: varied Affect: restricted to angry Thought process: thought blocking Thought Content: Preoccupation with depressed mood and on-going somatic delusions Cognition: A&O x4 Insight: Poor Judgment: Poor Interventions PRN's used: None Therapeutic interventions: 1:1 therapeutic assessment, maintained safe therapeutic milieu, provided active listening with positive feedback, provided medication education as needed, monitored for change in behavior and needed intervention Q 15 min safety checks. Restraints/seclusion/emergency medication: none Justification of Continued Inpatient Treatment: Continued therapeutic support and medication adjustment needed to provide stabilization, symptom management & prevent decompensation, decreasing risk to patient and readmittance.
[2018-06-23 19:00] VITALS: BP 93/60
--- NOTE | 2018-06-24 03:21 | NUR ---
Nursing Progress Note: Legal hold: In process of LPS Conservatorship Client on involuntary status for GD/DTS Report received from nurse with use of SBAR: ROCIO Malin Why are they here: Pt. presented to [facility] on a 5150 for DTS and failure to thrive. He has had multiple hospital visits, is homeless, and has a hx. of schizophrenia and a anemia. He is estranged from his family, irritable, and makes delusional statements (such as "I can't swallow" or "I am an alien.") Pt. is w/c ridden and lower extremities are contracted. Pt. signed voluntary, however refuses all medications except Zyprexa Zydis. LPS conservatorship is currently in progress. Assessment What has happened this shift: The patient was found in his bed at shift change. He continues to be resistive to care and refuses 1:1. He remains fatigued and sleeps many hours. He is irritable with incontinent care and yells to be left alone. "I went today, there is nothing there." There is almost always BM there, as he has no control. He continues to be body dysmorphic, "Look at me, I'm an alien, humans don't have knees like mine." He states he is always in pain, but refuses any type of pain medicine. He repositions himself as needed, but prefers lying on his right side. The dressing to right hip is CDI. S/I, H/I: Passive S/I A/VH: Denies Sleep: Sleeps on and off throughout shift. ADL's: Requires assist with some tasks, but requires assist with dressing and transfers. Group attendance: Does not attend groups. Were meds taken: Zyprexa Any med S/E: None Mental Status Exam Appearance: Dressed in hospital scrubs, hair disheveled. Eye contact: Poor. Behavior: Resistive to care, withdrawn, isolative. Speech: WNL, however remains minimal, responds only to direct questions. Mood: depressed, hopeless, helpless. Affect: Constricted Thought process: Poverty of thought and blocking r/t mental health Thought Content: Perseveration with on-going delusions, chronic pain, and resistance to ADLs Cognition: A&O Insight: Poor Judgment: Poor Interventions PRN's used: None Therapeutic interventions: Provided active listening, maintained a safe and therapeutic environment, provided medication education/encouragement with compliance, encouraged independent performance of ADLs, provide positive reinforcement on progress made and self-care, monitored skin and dressing to rt. hip, and maintained Q 15 min safety checks. Restraints/seclusion/emergency medication:N/A Justification of Continued Inpatient Treatment: Pt. continues to require a therapeutic milieu and a supervised setting in order to encourage/assist with ADL performance. He is in the process of [facility] conservatorship and may discharge to [facility] after this occurs.
[2018-06-24 08:00] VITALS: BP 85/60
[2018-06-24] MEDS: OLANZapine 5mg rapidly disint. tablet PO SCH ×2 (08:29→18:08)
[2018-06-24 09:49] VITALS: BP 85/60
--- NOTE | 2018-06-24 13:04 | NUR ---
Nursing Note Legal hold: LPS Conserved. Client on involuntary status for GD/DTS Report received from nurse with use of SBAR: Keya Hernandez RN Why are they here: Pt. presented to [facility] on a 5150 for DTS and failure to thrive. He has had multiple hospital visits, is homeless, and has a hx. of schizophrenia and a anemia. He is estranged from his family, irritable, and makes delusional statements (such as "I can't swallow" or "I am an alien.") Pt. is w/c ridden and lower extremities are contracted. Assessment What has happened this shift: Patient asleep in bed at beginning of shift. Came out of room for breakfast and lunch, then back to his room. Pt. continues to believe that he cannot swallow (delusions), but eats without difficulty, takes Zyprexa Zydis. Irritable with interventions. Pics and wound dressing change. S/I, H/I: none reported A/VH: none reported Sleep: 9.75 hrs NOC and napped during the day ADL's: Requires assist to transfer to w/c and for self care, however able to eat, reposition self in bed, and transfer back to bed independently Group attendance: Pt. up for all meals, does not attend groups per refusal Were meds taken: Compliant with Zyprexa Any med S/E: None Mental Status Exam Appearance: appropriate, bilateral lower extremities remain contracted. Eye contact: Minimal Behavior: Withdrawn, agitated at times, calm and friendly at others Speech: congruent to mood Mood: varied Affect: restricted to angry Thought process: thought blocking Thought Content: Preoccupation with depressed mood and on-going somatic delusions Cognition: A&O x4 Insight: Poor Judgment: Poor Interventions PRN's used: None Therapeutic interventions: 1:1 therapeutic assessment, maintained safe therapeutic milieu, provided active listening with positive feedback, provided medication education as needed, monitored for change in behavior and needed intervention Q 15 min safety checks. Restraints/seclusion/emergency medication: none Justification of Continued Inpatient Treatment: Continued therapeutic support and medication adjustment needed to provide stabilization, symptom management & prevent decompensation, decreasing risk to patient and readmittance.
[2018-06-24 19:48] VITALS: BP 89/54
--- NOTE | 2018-06-25 02:22 | NUR ---
Nursing Progress Note: Legal hold: In process of LPS Conservatorship Client on involuntary status for GD/DTS Report received from nurse with use of SBAR: ROCIO Hahn Why are they here: Pt. presented to [facility] on a 5150 for DTS and failure to thrive. He has had multiple hospital visits, is homeless, and has a hx. of schizophrenia and a anemia. He is estranged from his family, irritable, and makes delusional statements (such as "I can't swallow" or "I am an alien.") Pt. is w/c ridden and lower extremities are contracted. Pt. signed voluntary, however refuses all medications except Zyprexa Zydis. LPS conservatorship is currently in progress. Assessment What has happened this shift: The patient was found in his bed at shift change. He had just gotten in bed after dinner. He gets irritable when asked to lay on his left side, and turns right back over. "I can't lay on that side, it hurts too much." The patient still declines pain medicine, "you know I can't swallow." The patient was turned q2 hours, but rarely stays in position. He is changed after every incontinent episode. "There's nothing there, leave me alone." The patient spent the evening in bed. S/I, H/I: Passive S/I. "Just let me ." A/VH: Denies Sleep: Sleeps on and off throughout shift. ADL's: Requires assist with some tasks, but requires assist with dressing and transfers. Group attendance: Does not attend groups. Were meds taken: Zyprexa Any med S/E: None Mental Status Exam Appearance: Dressed in hospital scrubs, hair disheveled, needs shower, but refuses.. Eye contact: Poor. Behavior: Resistive to care, withdrawn, isolative. Speech: WNL, however remains minimal, responds only to direct questions. Mood: depressed, hopeless, helpless. Affect: Constricted Thought process: Poverty of thought and blocking r/t mental health Thought Content: Perseveration with on-going delusions, chronic pain, and resistance to ADLs Cognition: A&O Insight: Poor Judgment: Poor Interventions PRN's used: None Therapeutic interventions: Provided active listening, maintained a safe and therapeutic environment, provided medication education/encouragement with compliance, encouraged independent performance of ADLs, provide positive reinforcement on progress made and self-care, monitored skin and dressing to rt. hip, and maintained Q 15 min safety checks. Restraints/seclusion/emergency medication:N/A Justification of Continued Inpatient Treatment: Pt. continues to require a therapeutic milieu and a supervised setting in order to encourage/assist with ADL performance. He is in the process of LPS conservatorship and may discharge to [facility] after this occurs.
[2018-06-25 07:33] VITALS: BP 98/60
[2018-06-25] MEDS: OLANZapine 5mg rapidly disint. tablet PO SCH ×2 (08:06→18:07)
--- NOTE | 2018-06-25 10:28 | NUR ---
Nursing Note Legal hold: LPS Conserved. Client on involuntary status for GD/DTS Report received from nurse with use of SBAR: ROCIO Mendosa Why are they here: Pt. presented to [facility] on a 5150 for DTS and failure to thrive. He has had multiple hospital visits, is homeless, and has a hx. of schizophrenia and a anemia. He is estranged from his family, irritable, and makes delusional statements (such as "I can't swallow" or "I am an alien.") Pt. is w/c ridden and lower extremities are contracted. Assessment What has happened this shift: Patient lying in bed resistant to getting up for breakfast. Out of bed for meals. Laying on left side to alleviate pressure on right pressure wound. S/I, H/I: Passive SI A/VH: none reported Sleep: 8.25 hrs NOC and napped during the day ADL's: Requires assist to transfer to w/c and for self care, however able to eat, reposition self in bed, and transfer back to bed independently Group attendance: Pt. up for all meals, does not attend groups per refusal Were meds taken: Compliant with Zyprexa Any med S/E: None Mental Status Exam Appearance: appropriate, bilateral lower extremities remain contracted. Eye contact: Minimal Behavior: Withdrawn, agitated at times, calm and friendly at others Speech: congruent to mood Mood: varied Affect: constricted to angry Thought process: thought blocking Thought Content: Preoccupation with depressed mood and on-going somatic delusions Cognition: A&O x4 Insight: Poor Judgment: Poor Interventions PRN's used: None Therapeutic interventions: 1:1 therapeutic assessment, maintained safe therapeutic milieu, provided active listening with positive feedback, provided medication education as needed, monitored for change in behavior and needed intervention Q 15 min safety checks. Restraints/seclusion/emergency medication: none Justification of Continued Inpatient Treatment: Continued therapeutic support and medication adjustment needed to provide stabilization, symptom management & prevent decompensation, decreasing risk to patient and readmittance.
[2018-06-25 20:22] VITALS: BP 100/61
--- NOTE | 2018-06-26 02:15 | NUR ---
Nursing Progress Note: Legal hold: In process of LPS Conservatorship Client on voluntary status for GD/DTS Report received from nurse with use of SBAR: ROCIO Barry Why are they here: Pt. presented to [facility] on a 5150 for DTS and failure to thrive. He has had multiple hospital visits, is homeless, and has a hx. of schizophrenia and a anemia. He is estranged from his family, irritable, and makes delusional statements (such as "I can't swallow" or "I am an alien.") Pt. is w/c ridden and lower extremities are contracted. Pt. signed voluntary, however refuses all medications except Zyprexa Zydis. LPS conservatorship is currently in progress. Assessment What has happened this shift: At shift change, the patient was in the group room eating dinner. He acknowledged my presence, but said nothing. He then wheeled himself to his room and put himself to bed. He was turned q2 hours to keep pressure off of his right hip, but he is most comfortable on his left side. S/I, H/I: Passive S/I. A/VH: Denies Sleep: Sleeps on and off throughout shift. ADL's: Independent with some tasks, but requires assist with dressing and transfers. Group attendance: Does not attend groups. 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 Any med S/E: None Mental Status Exam Appearance: Dressed in hospital scrubs, hair disheveled, needs shower, but refuses.. Eye contact: Poor. Behavior: Resistive to care, withdrawn, isolative. Speech: WNL, however remains minimal, responds only to direct questions, unless he's yelling at you to get out of his room. Mood: depressed, hopeless, helpless. Affect: Constricted Thought process: Poverty of thought and blocking r/t mental health Thought Content: Perseveration with on-going delusions, chronic pain, and resistance to ADLs Cognition: A&O Insight: Poor Judgment: Poor Interventions PRN's used: Refuses. Therapeutic interventions: Provided active listening, maintained a safe and therapeutic environment, provided medication education/encouragement with compliance, encouraged independent performance of ADLs, provide positive reinforcement on progress made and self-care, monitored skin and dressing to rt. hip, and maintained Q 15 min safety checks. Restraints/seclusion/emergency medication:N/A Justification of Continued Inpatient Treatment: Pt. continues to require a therapeutic milieu and a supervised setting in order to encourage/assist with ADL performance. He is in the process of [facility] conservatorship and may discharge to [facility] after this occurs.
[2018-06-26 07:00] VITALS: BP 100/59
[2018-06-26] MEDS: OLANZapine 5mg rapidly disint. tablet PO SCH ×2 (08:00→18:18)
[2018-06-26 08:21] VITALS: BP 100/59
--- NOTE | 2018-06-26 15:04 | NUR ---
Reassessment: Pt continues to perseverate on his physical impairment including difficulty swallowing however does not appear to have any difficulty with swallowing per MD notes. Documented PO intake continues to fluctuate with 25% with refusals and 75-100% however drinking Ensure Enlive likely closely meeting nutrient needs. Weight has remained stable. Per physical assessment pt is resistive to care and fatigued. LBM 06/26. Will continue to follow. Recommendations: 1) Continue with mechanical soft diet with chopped foods 2) Ensure enlive TID 3) Encourage PO intake of meals 4) Weekly wt Addendum: 06/26/18 at [address] Amended: Links added.
--- NOTE | 2018-06-26 16:57 | NUR ---
Nursing Progress Note Legal hold: LPS Conserved. Client on involuntary status for GD/DTS Report received from nurse with use of SBAR: ROCIO Pereira Why are they here: Pt. presented to [facility] on a 5150 for DTS and failure to thrive. He has had multiple hospital visits, is homeless, and has a hx. of schizophrenia and a anemia. He is estranged from his family, irritable, and makes delusional statements (such as "I can't swallow" or "I am an alien.") Pt. is w/c ridden and lower extremities are contracted. Assessment What has happened this shift: Patient up for all meals today. Medication compliant. Repositioned onto left hip to alleviate pressure from right hip with pillow behind back so patient does not roll back onto right hip. Patient ventilates with each nursing intervention. Patient continues with his delusions that he cannot swallow, but eats well without choking or aspiration. S/I, H/I: Passive SI A/VH: none reported Sleep: 9 hrs NOC and napped during the day ADL's: Requires assist to transfer to w/c and for self care, however able to eat, reposition self in bed, and transfer back to bed independently Group attendance: None per refusal. Were meds taken: Compliant with Zyprexa Any med S/E: None Mental Status Exam Appearance: Thin elderly male in hospital scrubs, disheveled in appearance. Eye contact: Minimal Behavior: Withdrawn, isolative, resistant to care. Speech: congruent to mood Mood: varied Affect: constricted to angry Thought process: thought blocking Thought Content: Preoccupation with depressed mood and on-going somatic delusions Cognition: A&O x4 Insight: Poor Judgment: Poor Interventions PRN's used: None Therapeutic interventions: 1:1 therapeutic assessment, maintained safe therapeutic milieu, provided active listening with positive feedback, provided medication education as needed, monitored for change in behavior and needed intervention Q 15 min safety checks. Restraints/seclusion/emergency medication: none Justification of Continued Inpatient Treatment: Continued therapeutic support and medication adjustment needed to provide stabilization, symptom management & prevent decompensation, decreasing risk to patient and readmittance.
[2018-06-26 20:49] VITALS: BP 91/59
--- NOTE | 2018-06-26 21:25 | NUR ---
This casualty underwriter and Ai KAUR changed and cleaned up the patient. The patient is incontinent of bowel. The left hip is becoming more red, was unable to capo the skin in the most red area, but was able to around the edges of the red area. The right hip has a foam. Notified the nurse.
--- NOTE | 2018-06-27 03:43 | NUR ---
Nursing Progress Note: Legal hold: In process of LPS Conservatorship Client on voluntary status for GD/DTS Report received from nurse with use of SBAR: ROCIO Hahn Why are they here: Pt. presented to [facility] on a 5150 for DTS and failure to thrive. He has had multiple hospital visits, is homeless, and has a hx. of schizophrenia and a anemia. He is estranged from his family, irritable, and makes delusional statements (such as "I can't swallow" or "I am an alien.") Pt. is w/c ridden and lower extremities are contracted. Pt. signed voluntary, however refuses all medications except Zyprexa Zydis. LPS conservatorship is currently in progress. Assessment What has happened this shift: At shift change, the patient was laying in his bed resting. Automation Engineering Technician asked how his day was he responded, "not good" but would not give a reason why. He requested apple juice which was given to him. Pt thanked technical document writer. S/I, H/I: Passive S/I. A/VH: Denies Sleep: Sleeps on and off throughout shift. ADL's: Independent with some tasks, but requires assist with dressing and transfers. Group attendance: Does not attend groups. Were meds taken: None ordered for assembler 1st shift. Any med S/E: None Mental Status Exam Appearance: Dressed in hospital scrubs, hair disheveled, needs shower, but refuses.. Eye contact: Poor. Behavior: Resistive to care, withdrawn, isolative. Speech: WNL, however remains minimal, responds only to direct questions, unless he's yelling at you to get out of his room. Mood: depressed, hopeless, helpless. Affect: Constricted Thought process: Poverty of thought and blocking r/t mental health Thought Content: Perseveration with on-going delusions, chronic pain, and resistance to ADLs Cognition: A&O Insight: Poor Judgment: Poor Interventions PRN's used: Refuses. Therapeutic interventions: Provided active listening, maintained a safe and therapeutic environment, provided medication education/encouragement with compliance, encouraged independent performance of ADLs, provide positive reinforcement on progress made and self-care, monitored skin and dressing to rt. hip, and maintained Q 15 min safety checks. Restraints/seclusion/emergency medication:N/A Justification of Continued Inpatient Treatment: Pt. continues to require a therapeutic milieu and a supervised setting in order to encourage/assist with ADL performance. He is in the process of [facility] conservatorship and may discharge to [facility] after this occurs.
[2018-06-27 08:00] VITALS: BP 93/58
[2018-06-27] MEDS: OLANZapine 5mg rapidly disint. tablet PO SCH ×2 (08:01→18:22)
--- NOTE | 2018-06-27 17:19 | NUR ---
Nursing Note Chief Complaint: Depression with S/I/ GD Legal hold: LPS Client on involuntary status for GD/DTS Report received from nurse with use of SBAR: ROCIO Pereira Why are they here: Pt. presented to [facility] on a 5150 for DTS and failure to thrive. He has had multiple hospital visits, is homeless, and has a hx. of schizophrenia and a anemia. He is estranged from his family, irritable, and makes delusional statements (such as "I can't swallow" or "I am an alien.") Pt. is bedridden and lower extremities are contracted. Pt. signed voluntary, however continues to refuse all medications except Zyprexa Zydis. LPS conserved. Assessment What has happened this shift: Recieved patient asleep in bed w/o distress at change of shift. He presents as depressed with an irritable affect, and continues to present as hopeless and withdrawn. He talked with abstract writer about hpw he wishes he were and thinks there is a Hex on ari. Talked about good times in past with friends and cars. Took AM Zyprexa Zydis, stating it doesnt do anything. He ate meals with others. Napped in afternoon. Able to engage in conversation around past interests. No other changes. S/I, H/I: Denies A/VH: Denies Sleep: Napped ADL's: Requires assist to transfer to w/c and for self care, however able to eat, reposition self in bed, and transfer back to bed independently Group attendance: Pt. up for all meals, no groups Were meds taken: Yes Any med S/E: None Mental Status Exam Appearance: Wearing hospital scrubs Eye contact: Good when speaking Behavior: Withdrawn,, irritable at times Speech: WNL, somewhat more cooperative Mood: Depressed Affect: Constricted Thought process: Expreiences in mountains and old interests with cars. Thought Content: Past good times and how his body has changed Cognition: A&O Insight: Poor Judgment: Poor Interventions PRN's used: None Therapeutic interventions: Provided active listening, maintained a safe and therapeutic environment, provided medication education/encouragement with compliance, encouraged independent performance of ADLs (independently administered ordered eyedrops), provide positive reinforcement on progress made, provided education on ABT eye drops and not touching eyes r/t the spread of bacteria, monitored skin and repositioning, and maintained Q 15 min safety checks. Restraints/seclusion/emergency medication:N/A Justification of Continued Inpatient Treatment: Pt. remains gravely disabled, he continues to require a therapeutic milieu. He is awaiting placement.
--- NOTE | 2018-06-28 00:44 | NUR ---
Nursing Progress Note Legal hold: [facility] Client on voluntary/involuntary status for being gravely disabled Report received from nurse with use of SBAR: Cholo CHAN Why are they here: The patient was admitted to [facility] after being in the ER for numerous weeks. He was a failure to thrive and he had no plan to provide for food, jail or clothing. He is here to be placed in a facility Assessment What has happened this shift: The patient was up for dinner but ate really little of his evening meal. He wheeled himself back to his room and went immediately back to bed. He stated that he felt very tired. He continues to be unable to verbalize any kind of plan for self care if he were to leave the unit. He was polite during the evening assessment. He is requested and received several boxes of juice. He is using his urinal for voiding. S/I, H/I: none verbalized A/VH: minimal verbal responses Sleep: ADL's: Requires assistance Group attendance: No PM group Were meds taken: No evening medications were scheduled Any med S/E None apparent Mental Status Exam Appearance: Laying in his bed with his eyes closed Eye contact: None Behavior: isolative, no socialization with others, withdrawn Speech: Minimal verbal responses. Speech is spontaneous. Mood: Depressed Affect: blunted Thought process: difficult to assess 2nd to his minimal verbal replies Thought Content: negative Cognition: alert Insight: Impaired Judgment: Poor Interventions PRN's used: None Therapeutic interventions: One to one to assess for severity of depressive symptoms. Attempted to engage patient in conversation to build rapport Restraints/seclusion/emergency medication: na Justification of Continued Inpatient Treatment: The patient remains unable to verbalize a plan for food jail or clothing.
[2018-06-28 08:00] VITALS: BP 100/66
[2018-06-28] MEDS: OLANZapine 5mg rapidly disint. tablet PO SCH ×2 (08:12→17:19)
--- NOTE | 2018-06-28 11:13 | NUR ---
1:1 DISCHARGE PLANNING SW contacted by [facility], requesting placement packet for pt because conversion to LPS Conservatorship occurred. SW emailed updated notes to ENRIQUE, CIERRA and Dany Deras. EVITA Rojas
--- NOTE | 2018-06-28 13:12 | NUR ---
NURSING PROGRESS NOTE Legal hold: LPS Client on involuntary status for GD Report received from nurse with use of SBAR: ROCIO Pereira Why are they here: Pt. presented to [facility] on a 5150 for DTS and failure to thrive. He has had multiple hospital visits, is homeless, and has a hx. of schizophrenia and a anemia. He is estranged from his family, irritable, and makes delusional statements (such as "I can't swallow" or "I am an alien.") Pt. is bedridden and lower extremities are contracted. Pt. signed voluntary, however continues to refuse all medications except Zyprexa Zydis. LPS conserved. Assessment What has happened this shift: 1:1 assessment at bedside. Pt sitting up getting ready to go to breakfast. During med pass while eating his breakfast pt refused all PO medications. He states, I cannot swallow, stupid. He agrees to take his Zyprexa Zydis ODT. This nurse addressed the fact the pt is swallowing his food and he responded by stating, Im not eating I cant swallow my tongue is broken. This nurse then asked him to stick his tongue out as far as you can. Pt stuck his tongue out and said, there now its broken leave me alone. S/I, H/I: Denies A/VH: Denies Sleep: Napped ADL's: Requires assist to transfer to w/c and for self care, however able to eat, reposition self in bed, and transfer back to bed independently Group attendance: Pt. up for all meals, no groups Were meds taken: Yes Any med S/E: None Mental Status Exam Appearance: Wearing hospital scrubs Eye contact: Good when speaking Behavior: Withdrawn,, irritable at times Speech: WNL, somewhat more cooperative Mood: Depressed Affect: Constricted Thought process: Ask to be left alone Thought Content: Irritable today Cognition: A&O Insight: Poor Judgment: Poor Interventions PRN's used: None Therapeutic interventions: 1:1 at bedside to assess for severity of symptoms. provided active listening with positive feedback, provided medication education w/administration and monitored for side effects. Encouraged group attendance and participation. Encouraged pt to eat during meals and to drink plenty of water, monitored skin and repositioning, and maintained Q 15 min safety checks. Restraints/seclusion/emergency medication:N/A Justification of Continued Inpatient Treatment: Pt. remains gravely disabled, he continues to require a therapeutic milieu. He is awaiting placement.
[2018-06-28 20:00] VITALS: BP 94/59
--- NOTE | 2018-06-29 01:09 | NUR ---
Nursing Note Legal hold: LPS Conserved Client on involuntary status for GD Report received from nurse with use of SBAR: ROCIO Templeton Why are they here: Pt. presented to [facility] on a 5150 for DTS and failure to thrive. He has had multiple hospital visits, is homeless, and has a hx. of schizophrenia and a anemia. He is estranged from his family, irritable, and makes delusional statements (such as "I can't swallow" or "I am an alien.") Pt. is w/c ridden and lower extremities are contracted. Pt. is now LPS conserved and is awaiting placement. Assessment What has happened this shift: Pt. laying in bed sleeping at the beginning of the shift, and remains here throughout the shift, awoke to perform incontinence care. Pt. presents as fatigued, irritable, withdrawn, and resistive to care at times. However pt. allows V/S to be obtained and physical assessment. He continues to report chronic pain throughout his whole body, but refuses any pain medications, states fixed delusion, "I can't swallow." Pt. continues to have ongoing delusions that he cannot swallow and body dysmorphia. Pt. continues to be able to reposition himself in bed independently, and allowed staff to help reposition him off of his rt. hip this shift. Dressing to rt. hip changed and skin underneath remains CDI, no s/s of increased redness, open areas, or infection. Will continue to monitor. S/I, H/I: No statements of passive S/I made this shift. A/VH: Denies Sleep: Pt. reports he sleeps well ADL's: Requires assist to transfer to w/c and for self care, however able to eat, reposition self in bed, and transfer back to bed independently Group attendance: Pt. up for most meals, however does not attend all groups Were meds taken: Compliant Any med S/E: None Mental Status Exam Appearance: Pt. unshaven, however appropriately dressed in hospital attire. Bilateral lower extremities remain contracted. Eyelashes somewhat matted and pt. reminded not to touch eyes, he voiced understanding. Eye contact: Poor to fair Behavior: Withdrawn, fatigued, irritable, resistive to care at times, and psychomotor activity WNL Speech: WNL, however remains minimal, responds only to direct questions Mood: Remains with fixed delusions Affect: Constricted Thought process: Poverty of thought and blocking r/t mental health Thought Content: Perseveration with on-going delusions, chronic pain, and resistance to ADLs Cognition: A&O Insight: Poor Judgment: Poor Interventions PRN's used: None Therapeutic interventions: Provided active listening, maintained a safe and therapeutic environment, provided medication education/encouragement with compliance, encouraged independent performance of ADLs, provide positive reinforcement on progress made and self-care, monitored skin and changed dressing to rt. hip, and maintained Q 15 min safety checks. Restraints/seclusion/emergency medication:N/A Justification of Continued Inpatient Treatment: Pt. continues to require a therapeutic milieu and a supervised setting in order to encourage/assist with ADL performance. He now [facility] conserved and Speech Therapist Early Intervention is working with [facility] to create a discharge plan.
[2018-06-29] MEDS: OLANZapine 5mg rapidly disint. tablet PO SCH ×2 (07:50→17:46)
[2018-06-29 08:00] VITALS: BP 92/58
--- NOTE | 2018-06-29 14:03 | NUR ---
Nursing Note Legal hold: LPS Conserved Client on involuntary status for GD Report received from charge nurse with use of SBAR: Keya Ash RN Why are they here: Pt. presented to [facility] on a 5150 for DTS and failure to thrive. He has had multiple hospital visits, is homeless, and has a hx. of schizophrenia and a anemia. He is estranged from his family, irritable, and makes delusional statements (such as "I can't swallow" or "I am an alien.") Pt. is w/c ridden and lower extremities are contracted. Pt. is now LPS conserved and is awaiting placement. Assessment What has happened this shift: Pt reluctantly allowed physical assessment, up in w/c for breakfast, ate around 75%. Did not hear pt yelling at staff or name calling today. Pt rates his depression at a 10/10, denies SI/HI/AH/VH, pt returns to bed and naps after meals, declines to attend groups. SI/HI: Pt denies A/VH: Pt denies Sleep: Slept 8.25 hours per noc shift repot ADL's: Requires assist to transfer to w/c and for self care, however able to eat, reposition self in bed, and transfer back to bed independently, pt is incontinent of bowel, wears incontinent brief, able to use urinal. Group attendance: [facility] Were meds taken: Compliant Any med S/E: None Mental Status Exam Appearance: Pt. unshaven, however appropriately dressed in hospital attire. Bilateral lower extremities remain contracted. Eyelashes somewhat matted and pt. reminded not to touch eyes, he voiced understanding. Eye contact: Poor to fair Behavior: Withdrawn, fatigued, irritable, resistive to care at times, and psychomotor activity WNL Speech: WNL, however remains minimal, responds only to direct questions Mood: Remains with fixed delusions Affect: Constricted Thought process: Poverty of thought and blocking r/t mental health Thought Content: Perseveration with on-going delusions, chronic pain, and resistance to ADLs Cognition: A&O Insight: Poor Judgment: Poor Interventions PRN's used: None Therapeutic interventions: Provided active listening, maintained a safe and therapeutic environment, provided medication education/encouragement with compliance, encouraged independent performance of ADLs, provide positive reinforcement on progress made and self-care, monitored skin and changed dressing to rt. hip, and maintained Q 15 min safety checks. Restraints/seclusion/emergency medication:N/A Justification of Continued Inpatient Treatment: Pt. continues to require a therapeutic milieu and a supervised setting in order to encourage/assist with ADL performance. He now [facility] and Office Executive is working with [facility] to create a discharge plan. Addendum: 06/29/18 at 1414 by Kaylan Martinez RN (Lee) ACCIDENTLY HIT "ENTER" CROWLEY AT GROUP ATTEND
--- NOTE | 2018-06-29 14:08 | NUR ---
CONTINUED NURSING PROGRESS NOTE FROM 06/29/18 DAY SHIFT: (accidently hit "enter" hillman before note completed and unable to edit nursing note.) Group attendance: Pt refuses to attend group Were meds taken:Yes, pt took his Zydis Any med S/E: None noted or reported Mental Status Exam Appearance: Clean Eye contact: Good Behavior: reluctantly cooperative Speech: clear, audible, poverty of speech Mood: depressed,somewhat irritable Affect: Constricted Thought process: Linear, poverty of thought Thought Content: irritated Cognition: A&O X 3 Insight: Poor Judgment: Poor Interventions PRN's used: None Therapeutic interventions: 1:1 assessment, medication administration & monitoring, encouragement to take medication, get up for meals, allow assistance with incontinent care, encouragement to express thoughts and feelings, encouragement to reposition himself in bed, Q 15 min safety checks. Restraints/seclusion/emergency medication:N/A Justification of Continued Inpatient Treatment: Pt. continues to require a therapeutic milieu and a supervised setting in order to encourage/assist with ADL performance. He is now [facility] and Dry Plasterer is working with [facility] to create a discharge plan.
--- NOTE | 2018-06-29 19:53 | NUR ---
patient refused. Addendum: 06/29/18 at 1952 by Navya Xiao RN Amended: Links added.
--- NOTE | 2018-06-29 23:33 | NUR ---
Nursing Note Legal hold: LPS Conserved Client on involuntary status for GD Report received from nurse with use of SBAR: ROCIO Tucker Why are they here: Pt. presented to [facility] on a 5150 for DTS and failure to thrive. He has had multiple hospital visits, is homeless, and has a hx. of schizophrenia and a anemia. He is estranged from his family, irritable, and makes delusional statements (such as "I can't swallow" or "I am an alien.") Pt. is w/c ridden and lower extremities are contracted. Pt. is now LPS conserved and is awaiting placement. Assessment What has happened this shift: Pt. laying in bed sleeping at the beginning of the shift, and remains here throughout the shift, refuses v/s or physical assessment this shift, states, "The results lie!" He does however request staff assistance with incontinence care later, states, "This is so embarrassing!" . Pt. presents as fatigued, irritable, slightly agitated, withdrawn, and resistive to care this shift. He continues to report chronic pain throughout his body, but refuses any pain medications, does allow staff to help him to reposition in bed. Pt. continues to have ongoing delusions that he cannot swallow and body dysmorphia. The body dysmorphia is specific to pt's joints, he states, "My knees have grown so big that they don't fit in my hands anymore. All of my joints are so big that I'm crippled." This blurb writer attempted to provide positive reassurance to pt., however pt. became agitated and stated, "Don't lie to me, tell me the truth!" Pt. goes on to talk to this blurb writer about his fixed delusion of being unable to swallow, he sticks his tongue out and states, "See, it's ." Dressing to rt. hip remains CDI, pt. allowed staff to help him reposition off his rt. hip. Pt. reports fatigue, appears to be resting comfortably, will continue to monitor. S/I, H/I: No statements of S/I made A/VH: Denies Sleep: Pt. reports he feels fatigued and wants staff to let him sleep ADL's: Requires assist to transfer to w/c and for self care, however able to eat, reposition self in bed, and transfer back to bed independently Group attendance: Pt. up for most meals, however does not attend all groups Were meds taken: Compliant Any med S/E: None Mental Status Exam Appearance: Pt. neat and clean, appropriately dressed in hospital attire. Bilateral lower extremities remain contracted. Eye contact: Poor to fair Behavior: Withdrawn, fatigued, irritable, resistive to care, and psychomotor activity WNL Speech: WNL, however remains minimal, responds only to direct questions Mood: Irritable and slightly agitated Affect: Constricted Thought process: Poverty of thought and blocking r/t mental health Thought Content: Perseveration with on-going delusions, chronic pain, and resistance to ADLs Cognition: A&O Insight: Poor Judgment: Poor Interventions PRN's used: None Therapeutic interventions: Provided active listening, maintained a safe and therapeutic environment, provided medication education/encouragement with compliance, encouraged independent performance of ADLs, provide positive reinforcement on progress made and self-care, monitored skin and dressing to rt. hip, helped pt. to reposition in bed, and maintained Q 15 min safety checks. Restraints/seclusion/emergency medication:N/A Justification of Continued Inpatient Treatment: Pt. continues to require a therapeutic milieu and a supervised setting in order to encourage/assist with ADL performance. He now [facility] and Executive Team Leader is working with [facility] to create a discharge plan.
[2018-06-30 07:42] VITALS: BP 103/61
[2018-06-30] MEDS: OLANZapine 5mg rapidly disint. tablet PO SCH ×2 (07:47→18:00)
--- NOTE | 2018-06-30 11:41 | NUR ---
reassessment: Pt PO fluctuates between refusing and 100% PO meals though 100% ensures; meeting needs some days w/ ~50% avg intake. LBM 06/29. Only gets up for meals per MD note. Will continue to monitor. Recommendations: 1) Continue with mechanical soft diet with chopped foods 2) Ensure enlive TID 3) Encourage PO intake of meals 4) Weekly wt Addendum: 06/30/18 at [address] Amended: Links added.
--- NOTE | 2018-06-30 18:42 | NUR ---
Nursing Note Legal hold: LPS Conserved Client on involuntary status for GD Report received from nurse with use of SBAR: ROCIO Graf Why are they here: Pt. presented to [facility] on a 5150 for DTS and failure to thrive. He has had multiple hospital visits, is homeless, and has a hx. of schizophrenia and a anemia. He is estranged from his family, irritable, and makes delusional statements (such as "I can't swallow" or "I am an alien.") Pt. is w/c ridden and lower extremities are contracted. Pt. is now LPS conserved and is awaiting placement. Assessment What has happened this shift: Pt. more upbeat today. took medication and ate meals. brief changed x1, pt. had diarrhea x1. Pt. asked to get his brief changed which is rare. RN encrouaged pt. to ask to be changed the next time. pt.'s wound is clean, dry, and intact, bandage changed this AM on NOC shift. barrier cream applied. Dietary consult placed due to pt.'s levi score rated 14. Pt.'s long trimmed. RN encouraged pt. to shower but pt. refused. Pt. refused evening Zyprexa. S/I, H/I: No statements of S/I made A/VH: Denies Sleep: Pt. frequently asks to lay down. Pt. given education regarding need to be out of bed. ADL's: Requires assist to transfer to w/c and for self care, however able to eat, reposition self in bed, and transfer back to bed independently Group attendance: Pt. up for most meals, however does not attend all groups Were meds taken: Refused evening Zyprexa Any med S/E: None Mental Status Exam Appearance: Pt. neat and clean, appropriately dressed in hospital attire. Bilateral lower extremities remain contracted. Eye contact: Poor to fair Behavior: Withdrawn, fatigued, but brighter today, pt. attempted more socialization with this RN has previously seen. Pt. less resistive to care today. Speech: WNL, however remains minimal Mood: Irritable and slightly agitated Affect: Constricted Thought process: Poverty of thought and blocking r/t mental health Thought Content: Perseveration with on-going delusions, chronic pain, and resistance to ADLs Cognition: A&O Insight: Poor Judgment: Poor Interventions PRN's used: None Therapeutic interventions: Provided active listening, maintained a safe and therapeutic environment, provided medication education/encouragement with compliance, encouraged independent performance of ADLs, provide positive reinforcement on progress made and self-care, monitored skin and dressing to rt. hip, helped pt. to reposition in bed, and maintained Q 15 min safety checks. Restraints/seclusion/emergency medication:N/A Justification of Continued Inpatient Treatment: Pt. continues to require a therapeutic milieu and a supervised setting in order to encourage/assist with ADL performance. He now [facility] conserved and Thermal Cutter Helper is working with [facility] to create a discharge plan.
[2018-06-30 20:00] VITALS: BP 100/71
--- NOTE | 2018-07-01 01:37 | NUR ---
Nursing progress Note: Legal hold: LPS Conserved Client on involuntary status for GD Report received from nurse with use of SBAR: Garrett RN Why are they here: Pt. presented to [facility] on a 5150 for DTS and failure to thrive. He has had multiple hospital visits, is homeless, and has a hx. of schizophrenia and a anemia. He is estranged from his family, irritable, and makes delusional statements (such as "I can't swallow" or "I am an alien.") Pt. is w/c ridden and lower extremities are contracted. Pt. is now LPS conserved and is awaiting placement. Assessment What has happened this shift: The patient was seen at shift change in the hallway. I said hi to him and put my hand out he took it and said hi back. He continued to his room and put himself to bed. Later for 1:1 the patient was woken. he was irritable, fatigued, and resisted. The patient refused Zyprexa, stating, "they give it to me with dinner." The patient got agitated with further questions. "Just get out." The patient pulled covers up over his head and stopped talking. He is being turned q2 hours to keep weight off his right hip. The dressing is CDI. He is asleep at this time. S/I, H/I: No statements of S/I made A/VH: Denies Sleep: Sleeps most of the time. ADL's: requires assistance and prompting. He is able to put himself in bed. Group attendance: Does not attend groups. Were meds taken: Noncompliant Any med S/E: None Mental Status Exam Appearance: Pt. neat and clean, appropriately dressed in hospital attire. Eye contact: Poor. Behavior: Withdrawn, fatigued, irritable. Resists care. Speech: Normal rate/rhythm, yells when agitated. Mood: Irritable and slightly agitated Affect: Constricted Thought process: Poverty of thought. Thought Content: Perseveration with on-going delusions, chronic pain, and resistance to ADLs Cognition: A&O Insight: Poor Judgment: Poor Interventions PRN's used: None Therapeutic interventions: Provided active listening, maintained a safe and therapeutic environment, provided medication education/encouragement with compliance, encouraged independent performance of ADLs, provide positive reinforcement on progress made and self-care, monitored skin and dressing to rt. hip, helped pt. to reposition in bed, and maintained Q 15 min safety checks. Restraints/seclusion/emergency medication:N/A Justification of Continued Inpatient Treatment: Pt. continues to require a therapeutic milieu and a supervised setting in order to encourage/assist with ADL performance. He now [facility] and Level Vial Inside Grinder is working with [facility] to create a discharge plan.
[2018-07-01 07:58] VITALS: BP 120/63
[2018-07-01] MEDS: OLANZapine 5mg rapidly disint. tablet PO SCH ×2 (08:23→18:01)
--- NOTE | 2018-07-01 12:43 | NUR ---
Nursing progress Note: Legal hold: LPS Conserved Client on involuntary status for GD Report received from nurse with use of SBAR: ROCIO Schwartz Why are they here: Pt. presented to [facility] on a 5150 for DTS and failure to thrive. He has had multiple hospital visits, is homeless, and has a hx. of schizophrenia and a anemia. He is estranged from his family, irritable, and makes delusional statements (such as "I can't swallow" or "I am an alien.") Pt. is w/c ridden and lower extremities are contracted. Pt. is now LPS conserved and is awaiting placement. Assessment What has happened this shift: Patient laying on right hip upon arrival to unit. Patient up for all meals, then goes back to bed. Repositioned onto left side after meals. Pictures taken of right hip, dressing changed. Pt. disagreeable to nursing interventions. S/I, H/I: No statements of S/I made A/VH: Denies Sleep: 6.75 hrs. ADL's: requires assistance and prompting. He is able to put himself in bed. Group attendance: Does not attend groups per refusal. Were meds taken: Yes. Any med S/E: None Mental Status Exam Appearance: Elderly frail gentleman, appropriately dressed in hospital attire. Eye contact: Poor. Behavior: Withdrawn, fatigued, irritable. Resists care. Speech: Normal rate/rhythm, yells when agitated. Mood: Irritable and slightly agitated Affect: Constricted Thought process: Poverty of thought. Thought Content: Perseveration with on-going delusions, chronic pain, and resistance to ADLs Cognition: A&O Insight: Poor Judgment: Poor Interventions PRN's used: None Therapeutic interventions: Provided active listening, maintained a safe and therapeutic environment, provided medication education/encouragement with compliance, encouraged independent performance of ADLs, provide positive reinforcement on progress made and self-care, monitored skin and dressing to rt. hip, helped pt. to reposition in bed, and maintained Q 15 min safety checks. Restraints/seclusion/emergency medication:N/A Justification of Continued Inpatient Treatment: Pt. continues to require a therapeutic milieu and a supervised setting in order to encourage/assist with ADL performance. He now LPS conserved and Mat Puncher is working with [facility] to create a discharge plan.
--- NOTE | 2018-07-01 22:28 | NUR ---
Nursing progress Note: Legal hold: LPS Conserved Client on involuntary status for GD Report received from nurse with use of SBAR: ROCIO Barry Why are they here: Pt. presented to [facility] on a 5150 for DTS and failure to thrive. He has had multiple hospital visits, is homeless, and has a hx. of schizophrenia and a anemia. He is estranged from his family, irritable, and makes delusional statements (such as "I can't swallow" or "I am an alien.") Pt. is w/c ridden and lower extremities are contracted. Pt. is now LPS conserved and is awaiting placement. Assessment What has happened this shift: this patient was in his room at shift change. Upon entering his room, he was found to be angry about something. He had not eaten today, refusing all meal, except his protein drink. He would not speak to me, and he refused have his vitals taken. He continues to be turned q2 hours to keep weight off his right hip. The dressing remains CDI. The patient also gets angry when nursing talks to his roommate. S/I, H/I: No statements of S/I made A/VH: Denies Sleep: Sleeps most of the time. ADL's: requires assistance and prompting. He is able to put himself in bed. Group attendance: Does not attend groups. Were meds taken: Noncompliant Any med S/E: None Mental Status Exam Appearance: Disheveled, appropriately dressed in hospital attire. Eye contact: Poor. Behavior: Withdrawn, fatigued, irritable. Resists care. Speech: Normal rate/rhythm, yells when agitated. Mood: Irritable and slightly agitated Affect: Constricted Thought process: Poverty of thought. Thought Content: Perseveration with on-going delusions, chronic pain, and resistance to ADLs Cognition: A&O Insight: Poor Judgment: Poor Interventions PRN's used: None Therapeutic interventions: Provided active listening, maintained a safe and therapeutic environment, provided medication education/encouragement with compliance, encouraged independent performance of ADLs, provide positive reinforcement on progress made and self-care, monitored skin and dressing to rt. hip, helped pt. to reposition in bed, and maintained Q 15 min safety checks. Restraints/seclusion/emergency medication:N/A Justification of Continued Inpatient Treatment: Pt. continues to require a therapeutic milieu and a supervised setting in order to encourage/assist with ADL performance. He now [facility] and Bridal Sales Consultant is working with [facility] to create a discharge plan.
[2018-07-02 07:51] VITALS: BP 92/62
[2018-07-02] MEDS: OLANZapine 5mg rapidly disint. tablet PO SCH ×2 (08:20→18:05)
--- NOTE | 2018-07-02 16:46 | NUR ---
Nursing progress Note: Legal hold: LPS Conserved Client on involuntary status for GD Report received from nurse with use of SBAR: ROCIO Schwartz Why are they here: Pt. presented to [facility] on a 5150 for DTS and failure to thrive. He has had multiple hospital visits, is homeless, and has a hx. of schizophrenia and a anemia. He is estranged from his family, irritable, and makes delusional statements (such as "I can't swallow" or "I am an alien.") Pt. is w/c ridden and lower extremities are contracted. Pt. is now LPS conserved and is awaiting placement. Assessment What has happened this shift: Patient lying on left side upon arrival to unit. Pt. up for all meals and repositioned onto left hip. Pt. not eating adequately and talks about daily about how his bones are growing (body dysmorphia). States that he doesn't have any skin. (last night pt. did spit out 1800 meds while RN wasn't looking, and pt. was re-medicated. Has been arguing with roommate. S/I, H/I: No statements of S/I made A/VH: Denies Sleep: 8.25 hrs., naps during day. ADL's: requires assistance and prompting. He is able to put himself in bed. Group attendance: Does not attend groups per refusal. Were meds taken: Yes. Any med S/E: None Mental Status Exam Appearance: Elderly frail gentleman, appropriately dressed in hospital attire. Eye contact: Poor. Behavior: Withdrawn, fatigued, irritable. Resists care. Speech: Normal rate/rhythm, yells when agitated. Mood: Irritable and slightly agitated Affect: Constricted Thought process: Poverty of thought. Thought Content: Perseveration with on-going delusions, chronic pain, and resistance to ADLs Cognition: A&O Insight: Poor Judgment: Poor Interventions PRN's used: None Therapeutic interventions: Provided active listening, maintained a safe and therapeutic environment, provided medication education/encouragement with compliance, encouraged independent performance of ADLs, provide positive reinforcement on progress made and self-care, monitored skin and dressing to rt. hip, helped pt. to reposition in bed, and maintained Q 15 min safety checks. Restraints/seclusion/emergency medication:N/A Justification of Continued Inpatient Treatment: Pt. continues to require a therapeutic milieu and a supervised setting in order to encourage/assist with ADL performance. He now [facility] conserved and Upholsterer Helper is working with [facility] Guardian to create a discharge plan
[2018-07-02 20:00] VITALS: BP 106/66
--- NOTE | 2018-07-02 20:53 | NUR ---
Nursing progress Note: Legal hold: LPS Conserved Client on involuntary status for GD Report received from nurse with use of SBAR: ROCIO Barry Why are they here: Pt. presented to [facility] on a 5150 for DTS and failure to thrive. He has had multiple hospital visits, is homeless, and has a hx. of schizophrenia and a anemia. He is estranged from his family, irritable, and makes delusional statements (such as "I can't swallow" or "I am an alien.") Pt. is w/c ridden and lower extremities are contracted. Pt. is now LPS conserved and is awaiting placement. Assessment What has happened this shift: The patient was in his room at shift change. He looked at me, then shut his eyes. He has been angrier the last few days. The patient yells at his roommate to shut up. The patient believes that he is being woken too often by the roommate. The patient refuses to have vitals taken, and did not participate in 1:1. He continues to be turned q2 hours and for incontinent episodes. dressing to right hip is CDI. S/I, H/I: No statements of S/I made A/VH: Denies Sleep: Sleeps most of the time. ADL's: requires assistance and prompting. He is able to put himself in bed. Group attendance: Does not attend groups. Were meds taken: Noncompliant Any med S/E: None Mental Status Exam Appearance: Disheveled, appropriately dressed in hospital attire. Eye contact: Poor. Behavior: Withdrawn, fatigued, irritable. Resists care. Speech: Normal rate/rhythm, yells when agitated. Mood: Irritable and slightly agitated Affect: Constricted Thought process: Poverty of thought. Thought Content: Perseveration with on-going delusions, chronic pain, and resistance to ADLs Cognition: A&O Insight: Poor Judgment: Poor Interventions PRN's used: None Therapeutic interventions: Provided active listening, maintained a safe and therapeutic environment, provided medication education/encouragement with compliance, encouraged independent performance of ADLs, provide positive reinforcement on progress made and self-care, monitored skin and dressing to rt. hip, helped pt. to reposition in bed, and maintained Q 15 min safety checks. Restraints/seclusion/emergency medication:N/A Justification of Continued Inpatient Treatment: Pt. continues to require a therapeutic milieu and a supervised setting in order to encourage/assist with ADL performance. He now [facility] and Cribbing Setter is working with [facility] to create a discharge plan.
[2018-07-03 08:00] VITALS: BP 90/52
[2018-07-03] MEDS: OLANZapine 5mg rapidly disint. tablet PO SCH ×2 (08:20→17:50)
--- NOTE | 2018-07-03 12:10 | NUR ---
1:1 DISCHARGE PLANNING BYRON provided Madan at [place] Office with updated progress notes for patient from 06/29/2018 through current date. BYRON also provided current MAR. EVITA Rojas Addendum: 07/03/18 at 1217 by Margi Dunaway AMENDED BYRON informed by Madan at [place] Office that packets are being sent to all contracted facilities with 10 days worth of notes. Madan will provide an update once she begins hearing responses. EVITA Rojas
--- NOTE | 2018-07-03 13:09 | NUR ---
reassessment: Pt PO 25-50% avg meals w/ ensure enlive fluctuating still likely meeting needs. Psychosis continues per MD note. LBM 07/02. Will continue to monitor. Recommendations: 1) Continue with mechanical soft diet with chopped foods 2) Ensure enlive TID 3) Encourage PO intake of meals 4) Weekly wt Addendum: 07/03/18 at [address] Amended: Links added.
--- NOTE | 2018-07-03 15:01 | NUR ---
Nursing progress Note: Legal hold: LPS Conserved Client on involuntary status for GD Report received from nurse with use of SBAR: Efren RN Why are they here: Pt. presented to [facility] on a 5150 for DTS and failure to thrive. He has had multiple hospital visits, is homeless, and has a hx. of schizophrenia and a anemia. He is estranged from his family, irritable, and makes delusional statements (such as "I can't swallow" or "I am an alien.") Pt. is w/c ridden and lower extremities are contracted. Pt. is now LPS conserved and is awaiting placement. Assessment What has happened this shift: Pt needed much encouragement to get up out of bed for breakfast this morning, reluctantly took his Zydis stating, "It doesn't do anything, it tastes like chalk." When performed his physical assessment, pt stated, I ain't got no pulse, I ain't go no veins...I ain't go no heart." Reality orientation attempted, told pt that this nurse could hear his heart and feel his pulse, he replied, "no you can't no one can!" When asked pt how he slept he replied, "look at me, I'm a skeleton, skeletons can't sleep!" When asked if pt was depressed, he asked, "What do you think?!" Asked pt to rate his depression on a 0 to 10 scale, her replied, "ten!" Optifoam to right hip C/D/I, encouraged pt to lie on his back and left side while in bed though her remains largely noncompliant and frequently repositions himself back on his preferred right side. S/I, H/I: Pt denies A/VH: Pt denies Sleep: Slept 8.5 hours per noc shift report, returns to bed and naps after meals ADL's: Needs assistance with transfer to w/c, pt is incontinent of bowel and needs assist with incontinent care and bathing. Group attendance: Pt refuses to attend groups Were meds taken: Yes Any med S/E: None Mental Status Exam Appearance: Disheveled, appropriately dressed in hospital attire. Eye contact: Fair Behavior: resistant to personal care and meds, yells at staff Speech: clear, frequently yells Mood: Irritable, agitated at times Affect: Constricted, irritable Thought process: Poverty of thought Thought Content: Fixed body dysmorphic delusions, wants to be left alone Cognition: A&O X 3 Insight: Poor Judgment: Poor Interventions PRN's used: None Therapeutic interventions: 1:1 assessment, active listening, medication administration/education/encouragement with compliance, encouraged performance of ADLs, encouraged allowing staff to assist him with incontinent care, encouraged getting up out of bed, maintained Q 15 min safety checks. Restraints/seclusion/emergency medication:N/A Justification of Continued Inpatient Treatment: Pt continues to require a therapeutic milieu and a supervised setting in order to encourage/assist with ADL performance, he continues to have body dysmorphic delusions. He is now LPS [facility] and Dietician is working with [facility] to create a discharge plan.
[2018-07-03 20:44] VITALS: BP 96/64
--- NOTE | 2018-07-04 00:13 | NUR ---
Nursing Note Legal hold: LPS Conserved Client on involuntary status for GD Report received from nurse with use of SBAR: ROCIO Tucker Why are they here: Pt. presented to [facility] on a 5150 for DTS and failure to thrive. He has had multiple hospital visits, is homeless, and has a hx. of schizophrenia and a anemia. He is estranged from his family, irritable, and makes delusional statements (such as "I can't swallow" or "I am an alien.") Pt. is w/c ridden and lower extremities are contracted. Pt. is now LPS conserved and is awaiting placement. Assessment What has happened this shift: Pt. laying in bed sleeping at the beginning of the shift, and remains here throughout the shift, however does allow V/S and physical assessment to be completed. He continues to present as fatigued, irritable, agitated, withdrawn, and is resistive to care. This magazine writer introduces self and assumes care, pt. states, "Shut the door! The light in in my eyes!" Pt. continues to report chronic pain throughout his body, but refuses any pain medications, he does allow staff to help him to reposition in bed during self care. Pt. continues to have a depressed and flat affect states, "My whole body is , I am ready for the bone yard." He also reports ongoing delusions that he cannot swallow and body dysmorphia. This magazine writer again attempted to provide positive reinforcement to pt., however pt. became agitated and stated, "My bones are growing bigger and bigger and I am getting worse everyday! I can't swallow anything." Pt. offered hot chocolate by staff and he complies. Dressing to rt. hip remains CDI, pt. allowed staff to help him reposition off his rt. hip, however he promptly shifts back to the same position. Appears to be resting comfortably, will continue to monitor. S/I, H/I: No statements of S/I made A/VH: Denies Sleep: Pt. reports chronic fatigued, and wants staff to let him sleep ADL's: Requires assist to transfer to w/c and for self care, however able to eat, reposition self in bed, and transfer back to bed independently Group attendance: Pt. up for most meals, however does not groups Were meds taken: Compliant Any med S/E: None Mental Status Exam Appearance: Pt. neat (cleanly shaven), and appropriately dressed in hospital attire. He appears older than biological age and is frail. Bilateral lower extremities remain contracted. Eye contact: Poor to fair Behavior: Withdrawn, fatigued, irritable, agitated, resistive to care, and psychomotor activity WNL Speech: WNL, however remains minimal, responds only to direct questions Mood: Irritable and slightly agitated Affect: Flat Thought process: Poverty of thought and blocking r/t mental health Thought Content: Perseveration with on-going delusions, chronic pain, and resistance to ADLs Cognition: A&O Insight: Poor Judgment: Poor Interventions PRN's used: None Therapeutic interventions: Provided active listening, maintained a safe and therapeutic environment, provided medication education/encouragement with compliance, encouraged independent performance of ADLs, provide positive reinforcement on progress made and self-care, monitored skin and dressing to rt. hip, helped pt. to reposition in bed, and maintained Q 15 min safety checks. Restraints/seclusion/emergency medication:N/A Justification of Continued Inpatient Treatment: Pt. continues to require a therapeutic milieu and a supervised setting in order to encourage/assist with ADL performance. He is LPS [facility] and Foundation Maker is working with [facility] to create a discharge plan.
[2018-07-04 07:45] VITALS: BP 84/60
[2018-07-04] MEDS: OLANZapine 5mg rapidly disint. tablet PO SCH ×2 (08:14→18:29)
--- NOTE | 2018-07-04 17:30 | NUR ---
Nursing Note Legal hold: LPS Conserved Client on involuntary status for GD Report received from nurse with use of SBAR: ROCIO Patel Why are they here: Pt. presented to [facility] on a 5150 for DTS and failure to thrive. He has had multiple hospital visits, is homeless, and has a hx. of schizophrenia and a anemia. He is estranged from his family, irritable, and agitated. Pt. is w/c ridden and lower extremities are contracted. Pt. is now LPS conserved and is awaiting placement. Assessment What has happened this shift: Pt. depressed and agitated throughout shift, swearing at this RN during assessment and care and getting pt. up for meals. Pt. is incontenent and cleaned x2 this shift. Pt.'s bandage changed on right hip, pressure sore is clean, dry, and intact and blanchable. Pt. is frail and emaciated. No statements of SI made. S/I, H/I: No statements of S/I made A/VH: Denies Sleep: Pt. reports chronic fatigue, and wants staff to let him sleep ADL's: Pt. is incontinent and requires assist to transfer to w/c and for self care, however able to eat, reposition self in bed, and transfer back to bed independently. Group attendance: Pt. does not attend group. Were meds taken: Compliant Any med S/E: None Mental Status Exam Appearance: Pt. neat (cleanly shaven), and appropriately dressed in hospital attire. He appears older than biological age and is frail. Bilateral lower extremities remain contracted. Eye contact: Poor to fair Behavior: Withdrawn, fatigued, irritable, agitated, resistive to care, and psychomotor activity WNL Speech: WNL, however remains minimal, responds only to direct questions Mood: Irritable and agitated, swearing at staff. Affect: Flat Thought process: Poverty of thought and blocking r/t mental health Thought Content: Perseveration with on-going delusions, chronic pain, and resistance to ADLs Cognition: A&O Insight: Poor Judgment: Poor Interventions PRN's used: None Therapeutic interventions: Provided active listening, maintained a safe and therapeutic environment, provided medication education/encouragement with compliance, encouraged independent performance of ADLs, provide positive reinforcement on progress made and self-care, monitored skin and dressing to rt. hip, helped pt. to reposition in bed, and maintained Q 15 min safety checks. Restraints/seclusion/emergency medication:N/A Justification of Continued Inpatient Treatment: Pt. continues to require a therapeutic milieu and a supervised setting in order to encourage/assist with ADL performance. He is LPS [facility] and Flag Car Driver is working with [facility] to create a discharge plan.
--- NOTE | 2018-07-05 00:02 | NUR ---
Nursing Note Legal hold: LPS Conserved Client on involuntary status for GD Report received from nurse with use of SBAR: ROCIO Herron Why are they here: Pt. presented to [facility] on a 5150 for DTS and failure to thrive. He has had multiple hospital visits, is homeless, and has a hx. of schizophrenia and a anemia. He is a frail elder and emaciated, without a support system. Pt. is w/c ridden and lower extremities are contracted. Pt. is now LPS conserved and is awaiting placement. Assessment What has happened this shift: Pt. laying in bed after transferring himself here from his w/c at the beginning of the shift, he remains here throughout the shift. He is compliant with scheduled Zyprexa and accepts a cup of hot chocolate. However, pt. refuses V/S of physical assessment this shift, states, "Leave me alone, I want to sleep." Pt. continues to present as fatigued, irritable, withdrawn, and is resistive to care, however he appears less agitated. He continues to report chronic pain throughout his body, but refuses any pain medications, he does allow staff to help him to reposition on his left side during hygiene care. Pt. continues to be depressed and is not looking forward to anything in the future. Dressing to rt. hip remains CDI, pt. allowed staff to help him reposition off his rt. hip, and he remains able to reposition himself in bed. S/I, H/I: None A/VH: Denies Sleep: Pt. reports chronic fatigued, and wants staff to let him sleep ADL's: Requires assist to transfer to w/c and for self care, however able to eat, reposition self in bed, and transfer back to bed independently Group attendance: Pt. up meal, however does not go to most groups Were meds taken: Compliant Any med S/E: None Mental Status Exam Appearance: Pt. neat (cleanly shaven), and appropriately dressed in hospital attire. He appears older than biological age and is a frail elder and emaciated. Bilateral lower extremities remain contracted. Eye contact: Poor to fair Behavior: Withdrawn, fatigued, irritable, resistive to care, and psychomotor activity WNL Speech: WNL, however remains minimal, responds only to direct questions Mood: Guarded Affect: Flat Thought process: Poverty of thought and blocking r/t mental health Thought Content: Perseveration on delusional thinking, chronic pain, and frailty Cognition: A&O Insight: Poor Judgment: Poor to fair Interventions PRN's used: None Therapeutic interventions: Provided active listening, maintained a safe and therapeutic environment, provided medication education/encouragement with compliance, encouraged independent performance of ADLs, provide positive reinforcement on progress made and self-care, monitored skin and dressing to rt. hip, helped pt. to reposition in bed, and maintained Q 15 min safety checks. Restraints/seclusion/emergency medication:N/A Justification of Continued Inpatient Treatment: Pt. continues to require a therapeutic milieu and a supervised setting in order to encourage/assist with ADL performance. He is LPS conserved and Corporate Receptionist is working with [facility] to create a discharge plan.
[2018-07-05 07:42] VITALS: BP 90/58
[2018-07-05] MEDS: OLANZapine 5mg rapidly disint. tablet PO SCH ×2 (08:07→17:50)
--- NOTE | 2018-07-05 14:39 | NUR ---
Received phone call from RN who states pt is getting weak and not eating well. Documented PO intake fluctuates with recent average 75% and receiving Ensure Enlive TID. Per RN pt would like to continue with Ensure and add vanilla shakes TID, d/w dietary. Pt previously receiving high protein shakes however regular shakes are more appropriate at this time as pt is drinking Ensure Enlive which contains 20 g of protein and also getting protein from meals. RN states pt likes sweet food items and will contact RD if pt has any additional food requests. Will remain available. Recommendations: 1) Continue with mechanical soft diet with chopped foods 2) Ensure enlive TID; Vanilla shakes TID 3) Encourage PO intake of meals 4) Weekly wt Addendum: 07/05/18 at [address] Amended: Links added.
--- NOTE | 2018-07-05 17:20 | NUR ---
Nursing Note Legal hold: LPS Conserved Client on involuntary status for GD Report received from nurse with use of SBAR: ROCIO Patel Why are they here: Pt. presented to [facility] on a 5150 for DTS and failure to thrive. He has had multiple hospital visits, is homeless, and has a hx. of schizophrenia and a anemia. He is a frail elder and emaciated, without a support system. Pt. is w/c ridden and lower extremities are contracted. Pt. is now LPS conserved and is awaiting placement. Assessment What has happened this shift: Pt. needs assistance transfering from wheel chair to bed. Pt. eats meals in day room. Pt. appears considerably weaker. This RN spoke with sack lifter and ordered protein shakes at every meal. He is compliant with scheduled Zyprexa and accepts a cup of hot chocolate. Pt. continues to present as frail, emaciated, fatigued, irritableand withdrawn, however he appears less agitated. He continues to report chronic pain throughout his body, but refuses any pain medications, he does allow staff to help him to reposition on his left side during hygiene care. Pt. continues to be depressed and is not looking forward to anything in the future. Dressing to rt. hip remains CDI, pt. allowed staff to help him reposition off his rt. hip, and he remains able to reposition himself in bed. Pt. is incontenent and changed x2 on this shift. S/I, H/I: None A/VH: Denies Sleep: Pt. reports he did not sleep well last night. ADL's: Requires assist to transfer to w/c and for self care, however able to eat, reposition self in bed, and transfer back to bed independently Group attendance: Pt. does not go to groups. Were meds taken: Compliant Any med S/E: None Mental Status Exam Appearance: Pt. neat and appropriately dressed in hospital attire. He appears older than biological age and is a frail elder and emaciated. Bilateral lower extremities remain contracted. Eye contact: Poor to fair Behavior: Withdrawn, fatigued, irritable, resistive to care, and psychomotor activity WNL Speech: WNL, however remains minimal, responds only to direct questions Mood: Guarded Affect: Flat Thought process: Poverty of thought and blocking r/t mental health Thought Content: Perseveration on sleep, chronic pain, and frailty Cognition: A&O Insight: Poor Judgment: Poor to fair Interventions PRN's used: None Therapeutic interventions: Provided active listening, maintained a safe and therapeutic environment, provided medication education/encouragement with compliance, encouraged independent performance of ADLs, provide positive reinforcement on progress made and self-care, monitored skin and dressing to rt. hip, helped pt. to reposition in bed, and maintained Q 15 min safety checks. Restraints/seclusion/emergency medication:N/A Justification of Continued Inpatient Treatment: Pt. continues to require a therapeutic milieu and a supervised setting in order to encourage/assist with ADL performance. He is LPS [facility] and Software Integration Developer is working with [facility] to create a discharge plan.
[2018-07-05] MEDS: High Protein Shake w/Arg/Glut/Ca2+Bmb (Juven 19.3gm) pkt 240ml PO SCH (18:11)
[2018-07-05 19:00] VITALS: BP 104/68
--- NOTE | 2018-07-05 23:36 | NUR ---
Nursing Note Legal hold: LPS Conserved Client on involuntary status for GD Report received from nurse with use of SBAR: MARCELO Templeton Why are they here: Pt. presented to [facility] on a 5150 for DTS and failure to thrive. He has had multiple hospital visits, is homeless, and has a hx. of schizophrenia and a anemia. He is a frail elder and emaciated, without a support system. Pt. is w/c ridden and lower extremities are contracted. Pt. is now LPS conserved and is awaiting placement. Assessment What has happened this shift: Received patient sleeping on right side with no apparent distress observed. This RN was able to perform a quick physical assessment being able to auscultated heart and lung sounds. Pt refused a bowel assessment. Pt presents as a frail, irritable, withdrawn man. He used profanity during my assessment of him. Pt continues to be depressed and hopeless. Pt voiced his delusions of his knees getting bigger and how much it hurts when staff repositions him. Pt refused any pain medications even thought he describes his pain a 10/10 on numeric scale. Drsg on right hip was CDI. S/I, H/I: None reported or observed A/VH: None reported or observed Sleep: See sleep assessment notation ADL's: Requires assist to transfer to w/c and for self care, however able to eat, reposition self in bed, and transfer back to bed independently Group attendance: hazard mitigation officer, no group Were meds taken: No meds scheduled Any med S/E: None reported or observed Mental Status Exam Appearance: Pt. neat and appropriately dressed in hospital attire. He appears older than biological age and is a frail elder and emaciated. Bilateral lower extremities remain contracted. Eye contact: Poor to fair Behavior: Withdrawn, fatigued, irritable, resistive to care, swearing at staff Speech: WNL, however remains minimal, responds only to direct questions Mood: Guarded Affect: Flat Thought process: Poverty of thought and blocking r/t mental health Thought Content: Perseveration on sleep, chronic pain, and frailty Cognition: A&O Insight: Poor Judgment: Poor Interventions PRN's used: None Therapeutic interventions: Provided active listening, maintained a safe and therapeutic environment, provided medication education/encouragement with compliance, encouraged independent performance of ADLs, provide positive reinforcement on progress made and self-care, monitored skin and dressing to rt. hip, helped pt. to reposition in bed, and maintained Q 15 min safety checks. Restraints/seclusion/emergency medication:N/A Justification of Continued Inpatient Treatment: Pt. continues to require a therapeutic milieu and a supervised setting in order to encourage/assist with ADL performance. He is LPS [facility] and Cook Syrup Maker is working with [facility] to create a discharge plan.
[2018-07-06 08:00] VITALS: BP 109/67
[2018-07-06] MEDS ORDERED: ibuprofen 100 MG/5 ML oral susp PO SCH (08:00)
[2018-07-06] MEDS: High Protein Shake w/Arg/Glut/Ca2+Bmb (Juven 19.3gm) pkt 240ml PO SCH ×3 (08:00→18:00)
[2018-07-06] MEDS: ibuprofen 100 MG/5 ML oral susp PO SCH ×4 (08:00→17:51)
[2018-07-06] MEDS: OLANZapine 5mg rapidly disint. tablet PO SCH ×2 (08:01→17:52)
--- NOTE | 2018-07-06 17:13 | NUR ---
Nursing Note Legal hold: LPS Conserved Client on involuntary status for GD Report received from nurse with use of SBAR: ROCIO Patel Why are they here: Pt. presented to [facility] on a 5150 for DTS and failure to thrive. He has had multiple hospital visits, is homeless, and has a hx. of schizophrenia and a anemia. He is a frail elder and emaciated, without a support system. Pt. is w/c ridden and lower extremities are contracted. Pt. is now LPS conserved and is awaiting placement. Assessment What has happened this shift: Received patient awake in bed. Patient initially refusing to get up for breakfast, but when left alone patient got himself to the edge of the bed and then staff came in to standby and assist getting him into the wheelchair. Patient had a negative attitude and complained about anything he could find to complain about. Patient did complain of pain but refused the Motrin pain medication saying that nothing works. Patient did take morning Zydis dose. Patient was in continent of stool later in the day and after patient was cleaned up, the dressing on his right hip was changed. Stage two wound almost completely healed. Just some redness remains. Patient turn himself from side to side on his own in the bed. Patient did sit up for a good amount of time even outside of meals during the day. S/I, H/I: None A/VH: Denies Sleep: Pt. reports he did not sleep well last night. ADL's: Requires assist to transfer to w/c and for self care, however able to eat, reposition self in bed, and transfer back to bed independently Group attendance: Pt. does not go to groups. Were meds taken: Compliant with zyprexa. Pt refused motrin Any med S/E: None Mental Status Exam Appearance: Pt. neat and appropriately dressed in hospital attire. He appears older than biological age and is a frail elder and emaciated. Bilateral lower extremities remain contracted. Eye contact: Poor to fair Behavior: Withdrawn, fatigued, irritable, resistive to care, and psychomotor activity WNL Speech: WNL, however remains minimal, responds only to direct questions Mood: Guarded Affect: Flat Thought process: Poverty of thought and blocking r/t mental health Thought Content: Perseveration on sleep, chronic pain, and frailty Cognition: A&O Insight: Poor Judgment: Poor to fair Interventions PRN's used: None Therapeutic interventions: Provided active listening, maintained a safe and therapeutic environment, provided medication education/encouragement with compliance, encouraged independent performance of ADLs, provide positive reinforcement on progress made and self-care, monitored skin and dressing to rt. hip, helped pt. to reposition in bed, and maintained Q 15 min safety checks. Restraints/seclusion/emergency medication:N/A Justification of Continued Inpatient Treatment: Pt. continues to require a therapeutic milieu and a supervised setting in order to encourage/assist with ADL performance. He is LPS [facility] and Jewelry Sales is working with [facility] to create a discharge plan.
--- NOTE | 2018-07-06 20:36 | NUR ---
Refused VS. Sleeping in bed, appears comfortable. Addendum: 07/06/18 at 2036 by Navya Xiao RN Amended: Links added.
--- NOTE | 2018-07-06 22:43 | NUR ---
Pt refused physical assessment and vital signs Addendum: 07/06/18 at 2244 by Lesia Mesa RN Amended: Links added.
--- NOTE | 2018-07-07 01:33 | NUR ---
Nursing Note Legal hold: LPS Conserved Client on involuntary status for GD Report received from nurse with use of SBAR: MARCELO Templeton Why are they here: Pt. presented to [facility] on a 5150 for DTS and failure to thrive. He has had multiple hospital visits, is homeless, and has a hx. of schizophrenia and a anemia. He is a frail elder and emaciated, without a support system. Pt. is w/c ridden and lower extremities are contracted. Pt. is now LPS conserved and is awaiting placement. Assessment What has happened this shift: Received patient sleeping on left side with no apparent distress observed. Pt refused physical assessment. Pt continues to present as a frail, irritable, withdrawn man. This is pt's baseline. Pt slept most of the shift.Pt continues to be depressed and hopeless. Pt continues to voice his delusion of his knees getting bigger. This underwriter mortgage loan asked if pt wanted a snack, pt stated no because "I can't swallow." Pt states his pain is a 10/10 when staff repositions him. Pt refused any pain medications. Drsg on right hip was CDI, changed on 07-06-18. Pt incontinent of bowel x2. S/I, H/I: None reported or observed A/VH: None reported or observed Sleep: See sleep assessment notation ADL's: Requires assist to transfer to w/c and for self care, however able to eat, reposition self in bed, and transfer back to bed independently Group attendance: shift superintendent, no group Were meds taken: No meds scheduled Any med S/E: None reported or observed Mental Status Exam Appearance: Pt. neat and appropriately dressed in hospital attire. He appears older than biological age and is a frail elder and emaciated. Bilateral lower extremities remain contracted. Eye contact: Poor to fair Behavior: Withdrawn, fatigued, irritable, resistive to care, swearing at staff Speech: WNL, however remains minimal, responds only to direct questions Mood: Guarded Affect: Flat Thought process: Poverty of thought and blocking r/t mental health Thought Content: Perseveration on sleep, chronic pain, and frailty Cognition: A&O Insight: Poor Judgment: Poor Interventions PRN's used: None Therapeutic interventions: Provided active listening, maintained a safe and therapeutic environment, provided medication education/encouragement with compliance, encouraged independent performance of ADLs, provide positive reinforcement on progress made and self-care, monitored skin and dressing to rt. hip, helped pt. to reposition in bed, and maintained Q 15 min safety checks. Restraints/seclusion/emergency medication:N/A Justification of Continued Inpatient Treatment: Pt. continues to require a therapeutic milieu and a supervised setting in order to encourage/assist with ADL performance. He is LPS [facility] and Paediatric Thoracic Physician is working with [facility] to create a discharge plan.
[2018-07-07 08:00] VITALS: BP 91/55
[2018-07-07] MEDS: ibuprofen 100 MG/5 ML oral susp PO SCH ×3 (08:00→17:59)
[2018-07-07] MEDS: OLANZapine 5mg rapidly disint. tablet PO SCH ×2 (08:15→17:58)
[2018-07-07] MEDS: High Protein Shake w/Arg/Glut/Ca2+Bmb (Juven 19.3gm) pkt 240ml PO SCH ×3 (08:24→18:00)
--- NOTE | 2018-07-07 17:14 | NUR ---
Nursing Note Legal hold: LPS Conserved Client on involuntary status for GD Report received from nurse with use of SBAR: Keya Hernandez RN Why are they here: Pt. presented to [facility] on a 5150 for DTS and failure to thrive. He has had multiple hospital visits, is homeless, and has a hx. of schizophrenia and a anemia. He is a frail elder and emaciated, without a support system. Pt. is w/c ridden and lower extremities are contracted. Pt. is now LPS conserved and is awaiting placement. Assessment What has happened this shift: Received patient sleeping in bed. Patient was incontinent in the morning, but his dressing on his right hip was unsoiled. Patient did get up for all meals. Staff left bed unmade until 11 oclock so patient would stay out of bed and be with and in the milleu. Patient was a little less grumpy when staff sat down to talk to him about the nature show on TV. Patient relayed positive memories of working on a go cart with his father and building a boat with his father. Other than that, patient remains negative and not much that comes out of his mouth is anything but a complaint. It seems to help distracting patient to something different than what he is complaining about. Patient denies suicidal thoughts and denies auditory hallucinations. Patient continues to voice delusional thoughts related to being unable to swallow. One minute patient states he cant swallow and the next minute he is eating his food. S/I, H/I: None A/VH: Denies Sleep: Pt. reports he did not sleep well last night. ADL's: Requires assist to transfer to w/c and for self care, however able to eat, reposition self in bed, and transfer back to bed independently Group attendance: Pt. does not go to groups. Were meds taken: Compliant Any med S/E: None Mental Status Exam Appearance: Pt. neat and appropriately dressed in hospital attire. He appears older than biological age and is a frail elder and emaciated. Bilateral lower extremities remain contracted. Eye contact: Poor to fair Behavior: Withdrawn, fatigued, irritable, resistive to care, and psychomotor activity WNL Speech: WNL, however remains minimal, responds only to direct questions Mood: Guarded Affect: Flat Thought process: Poverty of thought and blocking r/t mental health Thought Content: Perseveration on sleep, chronic pain, and frailty Cognition: A&O Insight: Poor Judgment: Poor to fair Interventions PRN's used: None Therapeutic interventions: Provided active listening, maintained a safe and therapeutic environment, provided medication education/encouragement with compliance, encouraged independent performance of ADLs, provide positive reinforcement on progress made and self-care, monitored skin and dressing to rt. hip, helped pt. to reposition in bed, and maintained Q 15 min safety checks. Restraints/seclusion/emergency medication:N/A Justification of Continued Inpatient Treatment: Pt. continues to require a therapeutic milieu and a supervised setting in order to encourage/assist with ADL performance. He is LPS [facility] and Atmospheric Chemist is working with [facility] to create a discharge plan.
[2018-07-07 19:00] VITALS: BP 114/65
[2018-07-07] MEDS ORDERED: tizanidine 4mg tablet PO PRN (20:05)
--- NOTE | 2018-07-08 00:37 | NUR ---
Nursing Note Legal hold: LPS Conserved Client on involuntary status for GD Report received from nurse with use of SBAR: MARCELO Templeton Why are they here: Pt. presented to [facility] on a 5150 for DTS and failure to thrive. He has had multiple hospital visits, is homeless, and has a hx. of schizophrenia and a anemia. He is a frail elder and emaciated, without a support system. Pt. is w/c ridden and lower extremities are contracted. Pt. is now LPS conserved and is awaiting placement. Assessment What has happened this shift: Received patient sleeping on left side with no apparent distress observed. No changes since last night. Pt continues to present as a frail, irritable, withdrawn man. This is patients baseline. Pt sleeps through shift. Pt continues to be depressed and hopeless. Pt continues to voice his delusion of his knees getting bigger and voices his discontent with the staff when he is repositioned. This chart writer asked if pt wanted a snack, pt stated no because "I can't swallow." Pt states his pain is a 10/10 when staff repositions him. Pt refused any pain medications, again this is patients baseline. Dressing on right hip was CDI. S/I, H/I: None reported or observed A/VH: None reported or observed Sleep: See sleep assessment notation ADL's: Requires assist to transfer to w/c and for self care, however able to eat, reposition self in bed, and transfer back to bed independently Group attendance: film editor, no group Were meds taken: No meds scheduled Any med S/E: None reported or observed Mental Status Exam Appearance: Pt. neat and appropriately dressed in hospital attire. He appears older than biological age and is a frail elder and emaciated. Bilateral lower extremities remain contracted. Eye contact: Poor to fair Behavior: Withdrawn, fatigued, irritable, resistive to care Speech: WNL, however remains minimal, responds only to direct questions Mood: Guarded Affect: Flat Thought process: Poverty of thought and blocking r/t mental health Thought Content: Perseveration on sleep, chronic pain, and frailty Cognition: A&O Insight: Poor Judgment: Poor Interventions PRN's used: None Therapeutic interventions: Provided active listening, maintained a safe and therapeutic environment, provided medication education/encouragement with compliance, encouraged independent performance of ADLs, provide positive reinforcement on progress made and self-care, monitored skin and dressing to rt. hip, helped pt. to reposition in bed, and maintained Q 15 min safety checks. Restraints/seclusion/emergency medication:N/A Justification of Continued Inpatient Treatment: Pt. continues to require a therapeutic milieu and a supervised setting in order to encourage/assist with ADL performance. He is LPS [facility] and Refrigerating Technician is working with [facility] to create a discharge plan.
[2018-07-08 07:00] VITALS: BP 94/56
[2018-07-08] MEDS: ibuprofen 100 MG/5 ML oral susp PO SCH ×3 (08:00→18:00)
[2018-07-08] MEDS: OLANZapine 5mg rapidly disint. tablet PO SCH ×2 (08:27→18:09)
[2018-07-08] MEDS: High Protein Shake w/Arg/Glut/Ca2+Bmb (Juven 19.3gm) pkt 240ml PO SCH ×3 (08:27→18:09)
--- NOTE | 2018-07-08 14:11 | NUR ---
Nursing Note Legal hold: LPS T-Conserved Client on involuntary status for GD Report received from nurse with use of SBAR: Keya Hernandez RN Why are they here: Pt. presented to [facility] on a 5150 for DTS and failure to thrive. He has had multiple hospital visits, is homeless, and has a hx. of schizophrenia and a anemia. He is a frail elder and emaciated, without a support system. Pt. is w/c ridden and lower extremities are contracted. Pt. is now LPS conserved and is awaiting placement. Assessment What has happened this shift: Patient asleep laying on left side at shift change. Patient up for meals without complaints. Repositioned onto left side after meals. Took medications without complaint. S/I, H/I: Denies. A/VH: Denies. Sleep: 8.5 hrs NOC, naps after meals. ADL's: Requires assist to transfer to w/c and for self care, however able to eat, reposition self in bed, and transfer back to bed independently Group attendance: refused. Were meds taken: Zyprexa Zydis, refused ibuprofen. Any med S/E: None reported or observed Mental Status Exam Appearance: Frail, elderly man that appears older than stated age. Disheveled wearing hospital scrubs. Bilateral lower extremities remain contracted. Eye contact: Minimal. Behavior: Withdrawn, fatigued. Speech: Clear, soft. Mood: Depressed. Affect: Flat Thought process: Poverty of thought and blocking r/t mental health Thought Content: Perseveration on sleep, chronic pain, and frailty Cognition: A&O Insight: Poor Judgment: Poor Interventions PRN's used: None Therapeutic interventions: Provided active listening, maintained a safe and therapeutic environment, provided medication education/encouragement with compliance, encouraged independent performance of ADLs, provide positive reinforcement on progress made and self-care, changed dressing to rt. hip, assisted pt. to reposition in bed, and maintained Q 15 min safety checks. Restraints/seclusion/emergency medication:N/A Justification of Continued Inpatient Treatment: Pt. continues to require a therapeutic milieu and a supervised setting in order to encourage/assist with ADL performance. He is LPS [employer] and Home Health Travel Pt is working with [facility] to create safe discharge plan.
--- NOTE | 2018-07-08 21:49 | NUR ---
Nursing Note Legal hold: LPS T-Conserved Client on involuntary status for GD Report received from nurse with use of SBAR: ROCIO Malin Why are they here: Pt. presented to [facility] on a 5150 for DTS and failure to thrive. He has had multiple hospital visits, is homeless, and has a hx. of schizophrenia and a anemia. He is a frail elder and emaciated, without a support system. Pt. is w/c ridden and lower extremities are contracted. Pt. is now LPS conserved and is awaiting placement. Assessment What has happened this shift: Pt laying in his bed at change of shift on his left side. Pt was sleeping with a smile on his face resting comfortably with rr even and unlabored. Pt was waken for 1:1 assessment and he replied "Oh c'mon, you're bothering me, you already know about me and I'm tired and I want to sleep." Pt answered some questions reporting that he ate his dinner meal and didn't need anything then asked me to leave him alone. S/I, H/I: pt states "Oh c'mon!" when asked A/VH: Denies. Sleep: pt sleeping well ADL's: Requires assistance to transfer to w/c and for self care, however able to eat, repositions self in bed, and transfer back to bed independently Group attendance: no evening groups Were meds taken: no evening meds Any med S/E: None reported or observed Mental Status Exam Appearance: Frail, elderly man that appears older than stated age. Disheveled wearing hospital scrubs. Bilateral lower extremities remain contracted. Eye contact: keeps eyes closed when answering questions, makes brief eye contact Behavior: resting in bed Speech: Clear, soft. Mood: Depressed, Affect: constricted Thought process: Poverty of thought and blocking r/t mental health, gaurded Thought Content: Perseveration on sleep, chronic pain, and frailty Cognition: A&O Insight: Poor Judgment: Poor Interventions PRN's used: None Therapeutic interventions: Attempted 1:1 assessment, maintained a safe and therapeutic environment, assisted pt. to reposition in bed, and maintained Q 15 min safety checks. Restraints/seclusion/emergency medication:N/A Justification of Continued Inpatient Treatment: Pt. continues to require a therapeutic milieu and a supervised setting in order to encourage/assist with ADL performance. He is LPS [employer] and Bundle Clerk is working with [facility] to create safe discharge plan.
--- NOTE | 2018-07-09 05:57 | NUR ---
Patient was changed and cleaned at 05:45.
[2018-07-09 07:53] VITALS: BP 98/66
[2018-07-09] MEDS: ibuprofen 100 MG/5 ML oral susp PO SCH ×3 (08:00→18:00)
[2018-07-09] MEDS: High Protein Shake w/Arg/Glut/Ca2+Bmb (Juven 19.3gm) pkt 240ml PO SCH ×4 (08:34→18:48)
[2018-07-09] MEDS: OLANZapine 5mg rapidly disint. tablet PO SCH ×2 (08:34→18:06)
--- NOTE | 2018-07-09 13:14 | NUR ---
Nursing Note Legal hold: LPS Conserved Client on involuntary status for GD Report received from nurse with use of SBAR: ROCIO Mendosa Why are they here: Pt. presented to [facility] on a 5150 for DTS and failure to thrive. He has had multiple hospital visits, is homeless, and has a hx. of schizophrenia and a anemia. He is a frail elder and emaciated, without a support system. Pt. is w/c ridden and lower extremities are contracted. Pt. is now LPS conserved and is awaiting placement. Assessment What has happened this shift: Pt. asleep at beginning of shift, awakened for breakfast with dressing change and picture. Wound is healing well with patient off his right hip. Pt. did take a.m. Zyprexa Zydis, though despite complaints of 10/10 generalized pain, will not take any pain meds for this. Patient has been more compliant with requests the last two days. S/I, H/I: Denies. A/VH: Denies. Sleep: 13.75 hrs NOC, naps after meals. ADL's: Requires assist to transfer to w/c and for self care, however able to eat, reposition self in bed, and transfer back to bed independently Group attendance: refused. Were meds taken: Zyprexa Zydis, refused ibuprofen. Any med S/E: None reported or observed Mental Status Exam Appearance: Frail, elderly man that appears older than stated age. Disheveled wearing hospital scrubs. Bilateral lower extremities remain contracted. Eye contact: Minimal. Behavior: Withdrawn, fatigued. Speech: Clear, soft. Mood: Depressed. Affect: Flat Thought process: Poverty of thought and blocking r/t mental health Thought Content: Perseveration on sleep, chronic pain, and frailty Cognition: A&O Insight: Impaired. Judgment: Impaired. Interventions PRN's used: None Therapeutic interventions: Provided active listening, maintained a safe and therapeutic environment, provided medication education/encouragement with compliance, encouraged independent performance of ADLs, provide positive reinforcement on progress made and self-care, changed dressing to rt. hip, assisted pt. to reposition in bed, and maintained Q 15 min safety checks. Restraints/seclusion/emergency medication:N/A Justification of Continued Inpatient Treatment: Pt. continues to require a therapeutic milieu and a supervised setting in order to encourage/assist with ADL performance. He is LPS Conserved and Loans Officer is working with [facility] to create safe discharge plan.
--- NOTE | 2018-07-10 02:09 | NUR ---
Nursing Note Legal hold: LPS Conserved Client on involuntary status for GD Report received from nurse with use of SBAR: ROCIO Templeton Why are they here: Pt. presented to [facility] on a 5150 for DTS and failure to thrive. He has had multiple hospital visits, is homeless, and has a hx. of schizophrenia and anemia. He is a frail elder and emaciated, without a support system. Pt. is W/C ridden and lower extremities are contracted. Pt. is now LPS conserved and is awaiting placement. Assessment Pt in bed at start of shift. Declined to come to group room for snack. After some C/O Pt cooperative with request to change position. Pt has a fixed delusion that he is unable to move but when instructed is able to move. Later pt incontinent of stool cooperative with chio care. Drsing to right hip CD+I. S/I, H/I: Denies. A/VH: Denies. Sleep: Asleep at this time ADL's: Requires assist to transfer to w/c and for self care, however able to eat, reposition self in bed, and transfer back to bed independently Group attendance: refused. Were meds taken: No HS meds ordered. Any med S/E: None reported or observed Mental Status Exam Appearance: Frail, elderly man that appears older than stated age. Disheveled wearing hospital scrubs. Bilateral lower extremities remain contracted. Eye contact: Minimal. Behavior: Withdrawn, fatigued. Speech: Clear, soft. Mood: Depressed. Affect: Flat Thought process: Poverty of thought and blocking r/t mental health Thought Content: Perseveration on sleep, chronic pain, and frailty Cognition: A&O Insight: Impaired. Judgment: Impaired. Interventions PRN's used: None Therapeutic interventions: Provided active listening, maintained a safe and therapeutic environment, provided medication education/encouragement with compliance, encouraged independent performance of ADLs, provide positive reinforcement on progress made and self-care, changed dressing to rt. hip, assisted pt. to reposition in bed, and maintained Q 15 min safety checks. Restraints/seclusion/emergency medication:N/A Justification of Continued Inpatient Treatment: Pt. continues to require a therapeutic milieu and a supervised setting in order to encourage/assist with ADL performance. He is LPS Conserved and Motor Vehicle Salesperson is working with Public [facility] to create safe discharge plan.
[2018-07-10 08:00] VITALS: BP 134/82
[2018-07-10] MEDS: ibuprofen 100 MG/5 ML oral susp PO SCH ×3 (08:00→18:00)
[2018-07-10] MEDS: OLANZapine 5mg rapidly disint. tablet PO SCH ×2 (08:04→18:00)
--- NOTE | 2018-07-10 08:35 | NUR ---
1:1 DISCHARGE PLANNING SW provided updated notes regarding pt for placement purposes. SW faxed notes to [facility] office and emailed notes to [facility] and Public [facility] to ensure notes were received. EVITA Rojas
--- NOTE | 2018-07-10 10:16 | NUR ---
Reassessment: Fluctuations in PO intake with documented average 75-100% with some 25-50% intake receiving shakes TID and with 100% intake of Ensure Enlive meeting nutrient needs. [facility] 07/09. Will continue to follow. Recommendations: 1) Continue with mechanical soft diet with chopped foods 2) Ensure enlive TID; Vanilla shakes TID 3) Encourage PO intake of meals 4) Weekly wt Addendum: 07/10/18 at [address] Amended: Links added.
--- NOTE | 2018-07-10 12:54 | NUR ---
Nursing Note Legal hold: LPS Conserved Client on involuntary status for GD Report received from nurse with use of SBAR: Keya Hernandez RN Why are they here: Pt. presented to [facility] on a 5150 for DTS and failure to thrive. He has had multiple hospital visits, is homeless, and has a hx. of schizophrenia and a anemia. He is a frail elder and emaciated, without a support system. Pt. is w/c ridden and lower extremities are contracted. Pt. is now LPS conserved and is awaiting placement. Assessment What has happened this shift: Patient up for all meals. Enjoys hot chocolate first thing in the morning, and his shakes with his meals. Patient seems more resigned to accept care offered without much complaint. S/I, H/I: Denies. A/VH: Denies. Sleep: 8.25 hrs NOC, naps after meals. ADL's: Pt. transfers independently to w/c. Requires assistance for ADL's. Group attendance: refused. Were meds taken: Zyprexa Zydis, refused ibuprofen. Any med S/E: None reported or observed Mental Status Exam Appearance: Frail, elderly man that appears older than stated age. Disheveled wearing hospital scrubs. Bilateral lower extremities remain contracted. Eye contact: Minimal. Behavior: Withdrawn, fatigued. Speech: Clear, soft. Mood: Depressed. Affect: Flat Thought process: Poverty of thought and blocking r/t mental health Thought Content: Perseveration on sleep, chronic pain, and frailty Cognition: A&O Insight: Impaired. Judgment: Impaired. Interventions PRN's used: None Therapeutic interventions: Provided active listening, maintained a safe and therapeutic environment, provided medication education/encouragement with compliance, encouraged independent performance of ADLs, provide positive reinforcement on progress made and self-care, assisted pt. to reposition in bed, and maintained Q 15 min safety checks. Restraints/seclusion/emergency medication:N/A Justification of Continued Inpatient Treatment: Pt. continues to require a therapeutic milieu and a supervised setting in order to encourage/assist with ADL performance. He is LPS Conserved and Pastoral Counselor is working with Public [facility] to create safe discharge plan.
[2018-07-10] MEDS: High Protein Shake w/Arg/Glut/Ca2+Bmb (Juven 19.3gm) pkt 240ml PO SCH ×2 (13:00→18:14)
[2018-07-10 19:55] VITALS: BP 103/65
--- NOTE | 2018-07-11 03:52 | NUR ---
Nursing Note Legal hold: LPS Conserved Client on involuntary status for GD Report received from nurse with use of SBAR: Keya Hernandez RN Why are they here: Pt. presented to [facility] on a 5150 for DTS and failure to thrive. He has had multiple hospital visits, is homeless, and has a hx. of schizophrenia and a anemia. He is a frail elder and emaciated, without a support system. Pt. is w/c ridden and lower extremities are contracted. Pt. is now LPS conserved and is awaiting placement. Assessment What has happened this shift: Pt wheeled himself back to bed at start of shift. Remained in bed all shift. Cooperative with care minimal yelling. Continues fixed delusion that he is unable to move but when directed to reposition self is able. S/I, H/I: Denies. A/VH: Denies. Sleep: 8.25 hrs NOC, naps after meals. ADL's: Pt. transfers independently to w/c. Requires assistance for ADL's. Group attendance: refused. Were meds taken: none ordered this shift Any med S/E: None reported or observed Mental Status Exam Appearance: Frail, elderly man that appears older than stated age. Disheveled wearing hospital scrubs. Bilateral lower extremities remain contracted. Eye contact: Minimal. Behavior: Withdrawn, fatigued. Speech: Clear, soft. Mood: Depressed. Affect: Flat Thought process: Poverty of thought and blocking r/t mental health Thought Content: Perseveration on sleep, chronic pain, and frailty Cognition: A&O Insight: Impaired. Judgment: Impaired. Interventions PRN's used: None Therapeutic interventions: Provided active listening, maintained a safe and therapeutic environment, provided medication education/encouragement with compliance, encouraged independent performance of ADLs, provide positive reinforcement on progress made and self-care, assisted pt. to reposition in bed, and maintained Q 15 min safety checks. Restraints/seclusion/emergency medication:N/A Justification of Continued Inpatient Treatment: Pt. continues to require a therapeutic milieu and a supervised setting in order to encourage/assist with ADL performance. He is LPS Conserved and Tower Erector Helper is working with Public Guardian to create safe discharge plan.
[2018-07-11 07:33] VITALS: BP 102/60
[2018-07-11] MEDS: ibuprofen 100 MG/5 ML oral susp PO SCH ×3 (08:00→18:00)
--- NOTE | 2018-07-11 08:26 | NUR ---
1:1 DISCHARGE PLANNING SW contacted by Madan at [place] office regarding potential placement for pt at [facility]. SW informed pt will need a recent chest xray for placement and may need an updated H&P from Provider. BYRON informed Charge Nurse of updated documentation needs. EVITA Rojas
[2018-07-11] MEDS: OLANZapine 5mg rapidly disint. tablet PO SCH ×2 (08:34→18:00)
[2018-07-11] MEDS: High Protein Shake w/Arg/Glut/Ca2+Bmb (Juven 19.3gm) pkt 240ml PO SCH ×3 (08:39→18:35)
--- NOTE | 2018-07-11 14:09 | NUR ---
Nursing Note Chief Complaint: Depression with S/I/ GD Legal hold: LPS Client on involuntary status for GD/DTS Report received from nurse with use of SBAR: ROCIO Mendosa Why are they here: Pt. presented to [facility] on a 5150 for DTS and failure to thrive. He has had multiple hospital visits, is homeless, and has a hx. of schizophrenia and a anemia. He is estranged from his family, irritable, and makes delusional statements (such as "I can't swallow" or "I am an alien.") Pt. is bedridden and lower extremities are contracted. Pt. signed voluntary, however continues to refuse all medications except Zyprexa Zydis. LPS conserved. Assessment What has happened this shift: Recieved patient asleep in bed w/o distress at change of shift. He presents as depressed with an irritable affect, and continues to present as hopeless and withdrawn. He talked with data analyst report writer about the many things that are wrong with his body, such as his inability to eat, sleep, drink or take in air. Also c/o his growing bones and hardening head. Encouraged him to think of one posotive thing about himself today and report it to me. Took AM Zyprexa Zydis, and continues to state it doesnt do anything. He refused his liquid ibuprophen. He ate his meals very well and tolerated others well. Encouraged to attend groups, but he refused. Napped in afternoon. Able to engage in conversation if the topic is about his past and things he liked to do. Continues to enjoy music. No other changes. S/I, H/I: Denies A/VH: Denies Sleep: Napped ADL's: Requires assist to transfer to w/c and for self care, however able to eat, reposition self in bed, and transfer back to bed independently Group attendance: Pt. up for all meals, no groups Were meds taken: Yes Any med S/E: None Mental Status Exam Appearance: Wearing hospital scrubs Eye contact: Good when speaking Behavior: Withdrawn,, irritable at times Speech: WNL, somewhat more cooperative Mood: Depressed Affect: Constricted Thought process: Expreiences in mountains and old interests with cars. Thought Content: Past good times and how his body has changed Cognition: A&O Insight: Poor Judgment: Poor Interventions PRN's used: None Therapeutic interventions: Provided active listening, maintained a safe and therapeutic environment, provided medication education/encouragement with compliance, encouraged independent performance of ADLs (independently administered ordered eyedrops), provide positive reinforcement on progress made, provided education on ABT eye drops and not touching eyes r/t the spread of bacteria, monitored skin and repositioning, and maintained Q 15 min safety checks. Restraints/seclusion/emergency medication:N/A Justification of Continued Inpatient Treatment: Pt. remains gravely disabled, he continues to require a therapeutic milieu. He is awaiting placement.
--- NOTE | 2018-07-11 19:00 | NUR ---
Nursing Note: Pt. refused V/S this shift, c/o chronic generalized body pain, however continues to refuse pain medication. Pt. helped to reposition in bed, will continue to monitor.
--- NOTE | 2018-07-11 23:30 | NUR ---
Nursing Note Legal hold: LPS Conserved Client on involuntary status for GD Report received from nurse with use of SBAR: ROCIO Templeton Why are they here: Pt. presented to [facility] on a 5150 for DTS and failure to thrive. He has had multiple hospital visits, is homeless, and has a hx. of schizophrenia and a anemia. He is a frail elder and emaciated, without a support system. Pt. is w/c ridden and lower extremities are contracted. Pt. is now LPS conserved and is awaiting placement. Assessment What has happened this shift: Pt. laying in bed at the beginning of the shift and reports fatigue, he remains here throughout the shift. He refuses V/S this shift, however continues to report chronic generalized body pain, when offered pain medication he continues to refuse states, "Nothing will help me, not even heroin." He does allow staff to help him reposition in bed during hygiene care, dressing to rt. hip remains CDI. Pt. continues to present irritable, withdrawn, and is resistive to care. Pt. is depressed, states, "I've been suffering for five years. I can't do anything, I'm stuck in a wheelchair! 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 regarding who these people were that he used to help, and he reported that they were his friends, however they don't talk to him anymore. Pt. reported some stomach pain, however refuses intervention at this time, will continue to monitor. S/I, H/I: None A/VH: Denies Sleep: Pt. reports chronic fatigued, and wants staff to let him sleep ADL's: Requires assist to transfer to w/c and for self care, however able to eat, reposition self in bed, and transfer back to bed independently Group attendance: Pt. up for meals, however does not go to most groups Were meds taken: Compliant Any med S/E: None Mental Status Exam Appearance: Pt. neat and appropriately dressed in hospital attire. Personal hygiene care provided. He appears older than biological age and is a frail elder and emaciated. Bilateral lower extremities remain contracted. Eye contact: Poor to fair Behavior: Withdrawn, fatigued, irritable, resistive to care, and psychomotor activity WNL Speech: WNL, however remains minimal, responds only to direct questions Mood: Irritable Affect: Flat Thought process: Poverty of thought and blocking r/t mental health Thought Content: Perseverative thoughts and hopelessness Cognition: A&O Insight: Poor Judgment: Poor to fair Interventions PRN's used: None Therapeutic interventions: Provided active listening, maintained a safe and therapeutic environment, provided medication education/encouragement with compliance, encouraged independent performance of ADLs, provide positive reinforcement on progress made and self-care, monitored skin and dressing to rt. hip, helped pt. to reposition in bed, and maintained Q 15 min safety checks. Restraints/seclusion/emergency medication:N/A Justification of Continued Inpatient Treatment: Pt. continues to require a therapeutic milieu and a supervised setting in order to encourage/assist with ADL performance. Monument Erector is working with [facility] to create a discharge plan.
[2018-07-12] MEDS: High Protein Shake w/Arg/Glut/Ca2+Bmb (Juven 19.3gm) pkt 240ml PO SCH ×3 (08:00→18:16)
[2018-07-12] MEDS: ibuprofen 100 MG/5 ML oral susp PO SCH ×3 (08:00→18:00)
[2018-07-12] MEDS: OLANZapine 5mg rapidly disint. tablet PO SCH ×2 (08:05→18:18)
--- NOTE | 2018-07-12 10:43 | NUR ---
1:1 DISCHARGE PLANNING SW made TC to [facility] to request permission for pt to have an outing to watch the car show for Guillaume June. SW left message with Gema Gould and emailed [facility] Drivers License Examiner Susanna Diane. EVITA Rojas
--- NOTE | 2018-07-12 14:04 | NUR ---
Nutrition consult re: patient "requesting full liquids but needs high caloric intake," at all meals dietary is sending Ensure Enlive and regular vanilla milkshakes. Patient is drinking 100% of ONS. High calorie liquids available at all meals. Patient has not experienced any weight loss since admission four months ago however has also not experienced weight gain, weight is stable. There are large fluctuations in PO intake with some documented average 75-100% and other times patient refuses the meal. LBM 07/12. Will continue to follow. Recommendations: 1) Continue with mechanical soft diet with chopped foods 2) Continue high calorie Ensure enlive TID 3) Continue Vanilla milkshakes TID 4) Encourage PO intake of meals 5) Weekly wt Addendum: 07/12/18 at [address] Amended: Links added.
--- NOTE | 2018-07-12 15:35 | NUR ---
NURSING PROGRESS NOTE Legal hold: LPS Conserved Client on involuntary status for GD Report received from nurse ROCIO Patel with use of SBAR Why are they here: Pt. presented to [facility] on a 5150 for DTS and failure to thrive. He has had multiple hospital visits, is homeless, and has a hx. of schizophrenia and a anemia. He is a frail elder and emaciated, without a support system. Pt. is w/c ridden and lower extremities are contracted. Pt. is now LPS conserved and is awaiting placement. Assessment What has happened this shift: AM assessment provided at bedside. Pt endorses pain throughout his body turns down the offer of liquid Motrin stating, "I am unable to swallow you know that." Yet he takes his olanzapine. Pt cooperative with oral hygiene and ADLs this morning. Pt transfers himself to the w/c and takes himself down to the dining room for all meals. Pt then takes his self back to his room and transfers to his bed. S/I, H/I: Denies A/VH: Denies Sleep: Pt. reports chronic fatigued requesting to be alone ADL's: Requires stand-by assist. Group attendance: No Were Meds taken: Olanzapine Any med S/E: None Mental Status Exam Appearance: frail and emaciated. Bilateral lower extremities remain contracted. Eye contact: Poor to fair Behavior: Withdrawn Speech: WNL, remains minimal, responds only to direct questions Mood: Fixed delusional he cannot swallow and I have no pulse. Affect: Flat Thought process: Poverty of thought and blocking r/t mental health Thought Content: Perseverative thoughts and hopelessness Cognition: A&O Insight: Poor Judgment: Poor to fair Interventions PRN's used: None Therapeutic interventions: Provided active listening, maintained a safe and therapeutic environment, provided medication education/encouragement with compliance, encouraged independent performance of ADLs, provide positive reinforcement on progress made and self-care, monitored skin and dressing to rt. hip, helped pt. to reposition in bed, and maintained Q 15 min safety checks. Restraints/seclusion/emergency medication:N/A Justification of Continued Inpatient Treatment: Pt. continues to require a therapeutic milieu and a supervised setting in order to encourage/assist with ADL performance. Eviction Specialist is working with [facility] to create a discharge plan.
--- NOTE | 2018-07-12 19:43 | NUR ---
Pt refused assessment. Unable to assess lung sounds Addendum: 07/12/18 at 1949 by Lesia Mesa RN Amended: Links added.
--- NOTE | 2018-07-12 19:47 | NUR ---
Pt refused assessment Addendum: 07/12/18 at 1949 by Lesia Mesa RN Amended: Links added.
[2018-07-12 20:59] VITALS: BP 135/84
--- NOTE | 2018-07-13 00:54 | NUR ---
Nursing Note Legal hold: LPS Conserved Client on involuntary status for GD Report received from nurse with use of SBAR: MARCELO Hahn Why are they here: Pt. presented to [facility] on a 5150 for DTS and failure to thrive. He has had multiple hospital visits, is homeless, and has a hx. of schizophrenia and a anemia. He is a frail elder and emaciated, without a support system. Pt. is w/c ridden and lower extremities are contracted. Pt. is now LPS conserved and is awaiting placement. Assessment What has happened this shift: Received patient sleeping on right side with no apparent distress observed. Pt refused his 1:1 assessment. Pt continues to present as a frail, irritable withdrawn man. Pt refused his 1800 Motrin, even though he reports general pain a 10/10. When asked how pt was feeling, pt stated you wouldnt understand. Pt continues to be depressed and hopeless. This is patients baseline. Right hip dressing was changed without incident this shift. Drsg remained CDI. When this property underwriter was helping pts roommate, pt yelled through the curtain to shut the fuck up 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, no group Were meds taken: No meds scheduled Any med S/E: None reported or observed Mental Status Exam Appearance: Pt. neat and appropriately dressed in hospital attire. He appears older than biological age and is a frail elder and emaciated. Eye contact: Poor to fair Behavior: Withdrawn, fatigued, irritable, resistive to care Speech: WNL, however remains minimal, responds only to direct questions Mood: Guarded Affect: Flat Thought process: Poverty of thought and blocking r/t mental health Thought Content: Perseveration on sleep, chronic pain, and frailty Cognition: A&O Insight: Poor Judgment: Poor Interventions PRN's used: None Therapeutic interventions: Provided active listening, maintained a safe and therapeutic environment, provided medication education/encouragement with compliance, encouraged independent performance of ADLs, provide positive reinforcement on progress made and self-care, monitored skin and dressing to rt. hip, helped pt. to reposition in bed, and maintained Q 15 min safety checks. Restraints/seclusion/emergency medication:N/A Justification of Continued Inpatient Treatment: Pt. continues to require a therapeutic milieu and a supervised setting in order to encourage/assist with ADL performance. He is LPS [facility] and Dough Panner is working with [facility] to create a discharge plan.
[2018-07-13] MEDS: ibuprofen 100 MG/5 ML oral susp PO SCH ×3 (08:00→18:00)
[2018-07-13] MEDS: OLANZapine 5mg rapidly disint. tablet PO SCH ×2 (08:11→18:51)
[2018-07-13] MEDS: High Protein Shake w/Arg/Glut/Ca2+Bmb (Juven 19.3gm) pkt 240ml PO SCH ×3 (08:12→18:00)
[2018-07-13 08:18] VITALS: BP 107/67
--- NOTE | 2018-07-13 08:23 | NUR ---
1:1 DISCHARGE PLANNING BYRON received TC from Madan at [facility], who reports pt has been accepted to [facility] in [place]. Madan provided BYRON with the following contact information: Keya (p) [phone]/(f) [phone] [facility] is requesting information regarding current MAR, reason for wound dressing and current chest xray. BYRON faxed the documentation, then called requesting a return contact. EVITA Rojas
--- NOTE | 2018-07-13 16:16 | NUR ---
NURSING PROGRESS NOTE Legal hold: LPS Conserved Client on involuntary status for GD Report received from nurse Kelli RN with use of SBAR Why are they here: Pt. presented to [facility] on a 5150 for DTS and failure to thrive. He has had multiple hospital visits, is homeless, and has a hx. of schizophrenia and a anemia. He is a frail elder and emaciated, without a support system. Pt. is w/c ridden and lower extremities are contracted. Pt. is now LPS conserved and is awaiting placement. Assessment What has happened this shift: Received patient awake in bed. Patient incontinent of stool and urine. Dressing to right hip remains intact and was changed yesterday so it will be changed again tomorrow. No areas of skin breakdown noted on any other area of his body including knees, other hip and elbows. Wheelchair was placed next to patient bed and patient was able to transfer himself to the wheelchair without help when left alone. Patient remains somewhat crabby and negative, but when conversation switched to him riding motorcycles, patient begin to open up a bit and seemed excited to talk about the memories. Patient denies suicidal thoughts and denies auditory hallucination at this time. Patient up for all meals but refused both groups. S/I, H/I: Denies A/VH: Denies Sleep: some napping this shift. ADL's: Requires stand-by assist. Group attendance: No Were Meds taken: Olanzapine Any med S/E: None Mental Status Exam Appearance: frail and emaciated. Bilateral lower extremities remain contracted. Eye contact: Poor to fair Behavior: Withdrawn Speech: WNL, remains minimal, responds only to direct questions Mood: Fixed delusional he cannot swallow and I have no pulse. Affect: Flat Thought process: Poverty of thought and blocking r/t mental health Thought Content: Perseverative thoughts and hopelessness Cognition: A&O Insight: Poor Judgment: Poor to fair Interventions PRN's used: None Therapeutic interventions: Provided active listening, maintained a safe and therapeutic environment, provided medication education/encouragement with compliance, encouraged independent performance of ADLs, provide positive reinforcement on progress made and self-care, monitored skin and dressing to rt. hip, helped pt. to reposition in bed, and maintained Q 15 min safety checks. Restraints/seclusion/emergency medication:N/A Justification of Continued Inpatient Treatment: Pt. continues to require a therapeutic milieu and a supervised setting in order to encourage/assist with ADL performance. Special Education Administrator is working with [facility] to create a discharge plan.
[2018-07-13 20:00] VITALS: BP 92/63
--- NOTE | 2018-07-14 01:52 | NUR ---
Nursing Note Legal hold: LPS Conserved Client on involuntary status for GD Report received from nurse with use of SBAR: MARCELO Hahn Why are they here: Pt. presented to [facility] on a 5150 for DTS and failure to thrive. He has had multiple hospital visits, is homeless, and has a hx. of schizophrenia and a anemia. He is a frail elder and emaciated, without a support system. Pt. is w/c ridden and lower extremities are contracted. Pt. is now LPS conserved and is awaiting placement. Assessment What has happened this shift: Received patient laying in bed with no apparent distress observed. Pt was a bit more cooperative this shift. This inspector automatic typewriter was able to administer pt's 1800 Zyprexa 10mg with some hot chocolate. Pt refused the scheduled Motrin. 1:1 assessment was performed in room. When asked about being discharged, pt states they are working on it. When asked if he will miss us here at [facility] he said yes. Pt had an incontinent bowel movement. While cleaning up patient and changing his bed, pt perseverated that their is no way this should be happening, I don't eat, this is embarrassing. Pt also keep repeating that he was and had no pulse. When pt was told he was talking and breathing, pt became argumentative. Right hip dressing is CDI. Pts socks had to be changed, this inspector automatic typewriter observed dry, scaly feet. Lotion was offered for an intervention to patient, but pt refused. Pt also refused routine Motrin for his 10/10 generalized pain. This is patients standard response. S/I, H/I: None reported or observed A/VH: None reported or observed Sleep: Pt sleeps most of the shift ADL's: Stand by assist, to transfer to w/c for self care, however able to eat, reposition self in bed, and transfer back to bed independently Group attendance: delivery coordinator, no group Were meds taken: No meds scheduled Any med S/E: None reported or observed Mental Status Exam Appearance: Pt. neat and appropriately dressed in hospital attire. He appears older than biological age and is a frail elder and emaciated. Eye contact: Poor to fair Behavior: Withdrawn, fatigued, irritable, resistive to care Speech: WNL, however remains minimal, responds only to direct questions Mood: Irritable, but not as mean, was more cooperative Affect: Flat Thought process: Poverty of thought and blocking r/t mental health Thought Content: Perseveration on sleep, chronic pain, and frailty Cognition: A&O Insight: Poor Judgment: Poor Interventions PRN's used: None Therapeutic interventions: Provided active listening, maintained a safe and therapeutic environment, provided medication education/encouragement with compliance, encouraged independent performance of ADLs, provide positive reinforcement on progress made and self-care, monitored skin and dressing to rt. hip, helped pt. to reposition in bed, and maintained Q 15 min safety checks. Restraints/seclusion/emergency medication:N/A Justification of Continued Inpatient Treatment: Pt. continues to require a therapeutic milieu and a supervised setting in order to encourage/assist with ADL performance. He is LPS conserved and Electric Switch Tester is working with [facility] to create a discharge plan.
[2018-07-14 08:00] VITALS: BP 104/67
[2018-07-14] MEDS: ibuprofen 100 MG/5 ML oral susp PO SCH ×3 (08:00→18:00)
[2018-07-14] MEDS: OLANZapine 5mg rapidly disint. tablet PO SCH ×2 (08:18→18:06)
[2018-07-14] MEDS: High Protein Shake w/Arg/Glut/Ca2+Bmb (Juven 19.3gm) pkt 240ml PO SCH ×3 (08:19→18:07)
--- NOTE | 2018-07-14 12:05 | NUR ---
Reassessment: Pt continues with fluctuations in PO intake of meals with documented recent average 75% PO intake of meals with 100% intake ONS and receiving shakes TIDWM, pt meeting nutrient needs. No recent changes in wt. LBM 07/13. Will continue to follow. Recommendations: 1) Continue with mechanical soft diet with chopped foods 2) Continue high calorie Ensure enlive TID 3) Continue Vanilla milkshakes TID 4) Encourage PO intake of meals 5) Weekly wt Addendum: 07/14/18 at [address] Amended: Links added.
--- NOTE | 2018-07-14 18:46 | NUR ---
NURSING PROGRESS NOTE Legal hold: LPS Conserved Client on involuntary status for GD Report received from nurse Kelli RN with use of SBAR Why are they here: Pt. presented to [facility] on a 5150 for DTS and failure to thrive. He has had multiple hospital visits, is homeless, and has a hx. of schizophrenia and a anemia. He is a frail elder and emaciated, without a support system. Pt. is w/c ridden and lower extremities are contracted. Pt. is now LPS conserved and is awaiting placement. Assessment What has happened this shift: Received patient in bed awake. Patient incontinent of stool and urine. Patient compliant with staff cleaning him up. Patient continues to be negative and cranky with continued delusional thoughts about his bones not working and about his inability to swallow. He says this as hes eating his breakfast. Patient is less negative when distracted with a topic he finds interesting like cars or motorcycles or nature. Patient denies suicidal thoughts and denies auditory hallucinations. Patient attended all three meals, but did not attend group. S/I, H/I: Denies A/VH: Denies Sleep: some napping this shift. ADL's: Requires stand-by assist. Group attendance: No Were Meds taken: Olanzapine Any med S/E: None Mental Status Exam Appearance: frail and emaciated. Bilateral lower extremities remain contracted. Eye contact: Poor to fair Behavior: Withdrawn Speech: WNL, remains minimal, responds only to direct questions Mood: Fixed delusional he cannot swallow and I have no pulse. Affect: Flat Thought process: Poverty of thought and blocking r/t mental health Thought Content: Perseverative thoughts and hopelessness Cognition: A&O Insight: Poor Judgment: Poor to fair Interventions PRN's used: None Therapeutic interventions: Provided active listening, maintained a safe and therapeutic environment, provided medication education/encouragement with compliance, encouraged independent performance of ADLs, provide positive reinforcement on progress made and self-care, monitored skin and dressing to rt. hip, helped pt. to reposition in bed, and maintained Q 15 min safety checks. Restraints/seclusion/emergency medication:N/A Justification of Continued Inpatient Treatment: Pt. continues to require a therapeutic milieu and a supervised setting in order to encourage/assist with ADL performance. Jacquard Card Cutter is working with [facility] to create a discharge plan.
[2018-07-14 20:00] VITALS: BP 97/55
--- NOTE | 2018-07-15 01:56 | NUR ---
NURSING PROGRESS NOTE Legal hold: LPS Conserved Client on involuntary status for GD Report received from nurse Kelli RN with use of SBAR Why are they here: Pt. presented to [facility] on a 5150 for DTS and failure to thrive. He has had multiple hospital visits, is homeless, and has a hx. of schizophrenia and a anemia. He is a frail elder and emaciated, without a support system. Pt. is w/c ridden and lower extremities are contracted. Pt. is now LPS conserved and is awaiting placement. Assessment What has happened this shift: Received patient lying awake in bed. Patient was negative a bar approach and was cranky about not being able to switch beds with his roommate. Patient refused to eat his dinner and fell asleep at 1900 and remains asleep. S/I, H/I: Denies A/VH: Denies Sleep: some napping this shift. ADL's: Requires stand-by assist. Group attendance: No Were Meds taken: Olanzapine Any med S/E: None Mental Status Exam Appearance: frail and emaciated. Bilateral lower extremities remain contracted. Eye contact: Poor to fair Behavior: Withdrawn Speech: WNL, remains minimal, responds only to direct questions Mood: Fixed delusional he cannot swallow and I have no pulse. Affect: Flat Thought process: Poverty of thought and blocking r/t mental health Thought Content: Perseverative thoughts and hopelessness Cognition: A&O Insight: Poor Judgment: Poor to fair Interventions PRN's used: None Therapeutic interventions: Provided active listening, maintained a safe and therapeutic environment, provided medication education/encouragement with compliance, encouraged independent performance of ADLs, provide positive reinforcement on progress made and self-care, monitored skin and dressing to rt. hip, helped pt. to reposition in bed, and maintained Q 15 min safety checks. Restraints/seclusion/emergency medication:N/A Justification of Continued Inpatient Treatment: Pt. continues to require a therapeutic milieu and a supervised setting in order to encourage/assist with ADL performance. Sign Letterer is working with [facility] to create a discharge plan.
[2018-07-15 08:00] VITALS: BP 101/70
[2018-07-15] MEDS: High Protein Shake w/Arg/Glut/Ca2+Bmb (Juven 19.3gm) pkt 240ml PO SCH ×3 (08:00→18:00)
[2018-07-15] MEDS: ibuprofen 100 MG/5 ML oral susp PO SCH ×3 (08:00→18:00)
[2018-07-15] MEDS: OLANZapine 5mg rapidly disint. tablet PO SCH ×2 (08:31→18:00)
--- NOTE | 2018-07-15 13:51 | NUR ---
NURSING PROGRESS NOTE Legal hold: LPS Conserved Client on involuntary status for GD Report received from nurse Kelli RN with use of SBAR Why are they here: Pt. presented to [facility] on a 5150 for DTS and failure to thrive. He has had multiple hospital visits, is homeless, and has a hx. of schizophrenia and a anemia. He is a frail elder and emaciated, without a support system. Pt. is w/c ridden and lower extremities are contracted. Pt. is now LPS conserved and is awaiting placement. Assessment What has happened this shift: Received patient in bed awake. Pt transfers self from bed and w/c and wheels himself to the dining room. During med pass pt continues to make statements that he cannot swallow as he eats a waffle and eggs then takes his olanzapine. The whole time he is telling this commercial underwriter I cant swallow, you know that. S/I, H/I: Denies A/VH: Denies Sleep: Returns to bed after each meal ADL's: Requires stand-by assist. Group attendance: No Were Meds taken: Olanzapine Any med S/E: None Mental Status Exam Appearance: frail and emaciated. Bilateral lower extremities remain contracted. Eye contact: Poor Behavior: Withdrawn Speech: WNL, remains minimal, responds only to direct questions Mood: Fixed delusional he cannot swallow Affect: Flat Thought process: Poverty of thought and blocking r/t mental health Thought Content: Perseverative thoughts and hopelessness Cognition: A&O Insight: Poor Judgment: Poor to fair Interventions PRN's used: None Therapeutic interventions: 1:1 assessment at bedside; new picture of his right hip, provided therapeutic communication and active listening, provided medication education/encouragement with compliance, encouraged independent performance of ADLs, provided positive reinforcement on progress made and self-care, monitored skin and dressing to rt. hip, helped pt. to reposition in bed, and maintained Q 15 min safety checks. Restraints/seclusion/emergency medication:N/A Justification of Continued Inpatient Treatment: Pt. continues to require a therapeutic milieu and a supervised setting in order to encourage/assist with ADL performance. Job Placement Specialist is working with [facility] to create a discharge plan.
--- NOTE | 2018-07-16 00:01 | NUR ---
NURSING PROGRESS NOTE Legal hold: LPS Conserved Client on involuntary status for GD Report received from nurse Jovani RN with use of SBAR Why are they here: Pt. presented to [facility] on a 5150 for DTS and failure to thrive. He has had multiple hospital visits, is homeless, and has a hx. of schizophrenia and a anemia. He is a frail elder and emaciated, without a support system. Pt. is w/c ridden and lower extremities are contracted. Pt. is now LPS conserved and is awaiting placement. Assessment What has happened this shift: In bed awake at start of shift. Cooperative with repositioning refused meds. Incontinent of stool. Depend changed pericare done. Drsing rt hip CD+I. Will DC in AM to [place] in [place] lunch ordered. S/I, H/I: Denies A/VH: Denies Sleep: Returns to bed after each meal ADL's: Requires stand-by assist. Group attendance: No Were Meds taken: No Any med S/E: None Mental Status Exam Appearance: frail and emaciated. Bilateral lower extremities remain contracted. Eye contact: Poor Behavior: Withdrawn Speech: WNL, remains minimal, responds only to direct questions Mood: Fixed delusional he cannot swallow Affect: Flat Thought process: Poverty of thought and blocking r/t mental health Thought Content: Perseverative thoughts and hopelessness Cognition: A&O Insight: Poor Judgment: Poor to fair Interventions PRN's used: None Therapeutic interventions: 1:1 assessment at bedside; new picture of his right hip, provided therapeutic communication and active listening, provided medication education/encouragement with compliance, encouraged independent performance of ADLs, provided positive reinforcement on progress made and self-care, monitored skin and dressing to rt. hip, helped pt. to reposition in bed, and maintained Q 15 min safety checks. Restraints/seclusion/emergency medication:N/A Justification of Continued Inpatient Treatment: Pt. continues to require a therapeutic milieu and a supervised setting in order to encourage/assist with ADL performance. Front Office Associate is working with [facility] to create a discharge plan.
[2018-07-16] MEDS ORDERED: NUT.237L32 PO (07:37)
[2018-07-16] MEDS ORDERED: OLAN5TAB29 PO ×2 (07:37)
[2018-07-16 08:00] VITALS: BP 89/53
[2018-07-16] MEDS: OLANZapine 5mg rapidly disint. tablet PO SCH (08:21)
--- NOTE | 2018-07-16 08:45 | NUR ---
DISCHARGE NOTE: Conserved pt is being transferred to [facility] in [place] per [facility]. Pt personal property inventoried and given to trencher driver w/patient. All legal documents given to trencher driver. Food and urinal w/pt for the trip. Pt MRSA swab completed and taken to Lab. Wound 1 checked and covered for transport. Picture completed on Monday07/15/18. Pt said good bye to staff while leaving via w/c. [employer] @ called @ [phone] to cook pickled meat bed. Conf #[id number]. Per [facility] they will pu within 24 hours.
== END 2018-07-16 08:45 | DRG 885 ==
LOC: ADULT MH 13:30
PROVIDERS: ADMIT Psychiatry & Neurology Psychiatry; ATTEND Psychiatry & Neurology Psychiatry
DX: F33.3 Major depressive disorder, recurrent, severe with psychotic symptoms (principal); E41 Nutritional marasmus; E43 Unspecified severe protein-calorie malnutrition; R45.851 Suicidal ideations; Z68.1 Body mass index [BMI] 19.9 or less, adult; E86.1 Hypovolemia; I11.0 Hypertensive heart disease with heart failure; E78.5 Hyperlipidemia, unspecified; G89.4 Chronic pain syndrome; I48.91 Unspecified atrial fibrillation; I50.9 Heart failure, unspecified; L89.219 Pressure ulcer of right hip, unspecified stage; N40.0 Benign prostatic hyperplasia without lower urinary tract symptoms; J44.9 Chronic obstructive pulmonary disease, unspecified; D64.9 Anemia, unspecified; K21.9 Gastro-esophageal reflux disease without esophagitis; R62.7 Adult failure to thrive; N43.3 Hydrocele, unspecified; R13.10 Dysphagia, unspecified; R00.1 Bradycardia, unspecified; Z59.0 Homelessness; Z74.01 Bed confinement status; Z91.14 Patient's other noncompliance with medication regimen; Z79.899 Other long term (current) drug therapy; Z79.82 Long term (current) use of aspirin; Z87.442 Personal history of urinary calculi
CPT/HCPCS: 36415; 71045; 73560; 80053; 80061; 83036; 83735; 83880; 84100; 85025; 85610; 85730; 87070; 92616; 94760; 97161; J2270; J2405; J3490; J7030; J7626